=== PATIENT | female | born 1945 | race African-American/Black ===

== ENCOUNTER 2016-05-26 13:26 | Observation (INO) | payer OTHER ==
[2016-05-26 13:41] VITALS: BMI 26.6
--- NOTE | 2016-05-26 14:07 | PDOC ---
History of Present Illness <Philip Medrano - Last Filed: 05/26/16 16:00> - General History Source: Patient Exam Limitations: No Limitations - History of Present Illness Initial Comments: 05/26/16 14:30 The patient is a 71-year-old woman with a significant past medical history of anemia, hypertension, hypercholesterolemia, paroxysmal atrial flutter, hypothyrodism, asthma, pneumonia (2016) and chronic obstructive pulmonary disease who presents to the emergency department via EMS for further evaluation of chest pain for the past 2 days. Patient state she was in her usual state of health, participating in [employer] when she suddenly felt right sided chest pain. She states that he pain has been constant since onset and gradually worsened, as initially it was non-radiating but now her pain radiates to her right shoulder. She reports her pain is exacerbated when taking deep breaths. She took Milantin without relief. Patient denies ever experiencing these symptoms in the past. She also reports experiencing shortness of breath, particularly at night. She states that this is new and is not related to her history of COPD. She denies fever, chills, cough, hemoptysis, diaphoresis, headache. She denies jaw/ back pain lower extremity pain/swelling, calf tenderness/pain She denies recent travel, recent surgery, recent immobilization. She denies abdominal pain, nausea, vomiting, diarrhea. She denies urinary symptoms. Allergies: Aspirin Past Surgical History: Spleenectomy. Cholecystectomy. Appendectomy. Social History: No tobacco, ETOH and recreational drug use. Primary Care Physician: Dr. Judy Randall / Admin Secretary: Dr. Mo Rodriguez [phone] <Zaida Mckee - Last Filed: 05/26/16 16:09> - General Chief Complaint: Chest Pain Stated Complaint: CHEST PAIN Time Seen by Provider: 05/26/16 13:39 Past History - Past Medical History Anemia: Yes Asthma: Yes Cancer: No Cardiac Disorders: Yes (PAROXYSMAL ATRIAL FLUTTER) CVA: No COPD: No CHF: No Dementia: No Diabetes: Yes GI Disorders: No Disorders: No HTN: Yes Hypercholesterolemia: Yes Liver Disease: No Seizures: No Thyroid Disease: Yes (HYPO) - Surgical History Abdominal Surgery: Yes (spleen removed) Appendectomy: Yes Cardiac Surgery: No Cholecystectomy: Yes Neurologic Surgery: No - Immunization History Immunization Up to Date: Yes - Psycho/Social/Smoking Cessation Hx Anxiety: No Suicidal Ideation: No Smoking Status: No Smoking History: Never smoked Have you smoked in the past 12 months: No Number of Cigarettes Smoked Daily: 0 Cigars Per Day: 0 Information on smoking cessation initiated: No Hx Alcohol Use: No Drug/Substance Use Hx: No Substance Use Type: None Hx Substance Use Treatment: No <Philip Medrano - Last Filed: 05/26/16 16:00> <Zaida Mckee - Last Filed: 05/26/16 16:09> - Past Medical History Allergies/Adverse Reactions: Allergies Allergy/AdvReac Type Severity Reaction Status Date / Time aspirin Allergy Intermediate VOMITS Verified 02/09/16 21:01 BLOOD Home Medications: Ambulatory Orders Albuterol Sulfate [Proair Respiclick] 90 mcg IH TID 04/18/15 Amlodipine Besylate [Norvasc -] 5 mg PO DAILY 04/18/15 Apixaban [Eliquis] 5 mg PO BID 04/18/15 Glipizide [Glipizide Xl] 10 mg PO BID 04/18/15 Mag Hydrox/Al Hydrox/Simeth [Mylanta Oral Suspension -] 1 tsp PO BID 04/18/15 Metformin HCl 500 mg PO BID 04/18/15 Montelukast Na [Singulair -] 10 mg PO HS 04/18/15 Potassium Chloride 10 meq PO DAILY 04/18/15 Silver Sulfadiazine 1% Top Cr [Silvadene -] 1 applic TP DAILY 04/18/15 Sitagliptin Phosphate [Januvia] 100 mg PO DAILY 04/18/15 Ramipril [Altace] 5 mg PO DAILY #30 capsule 04/25/15 Albuterol 0.083% Nebulizer Fidelina [Ventolin 0.083% Nebulizer Soln -] 1 amp NEB Q4H PRN #0 amp 09/17/15 Atorvastatin Ca [Lipitor] 20 mg PO HS tablet 09/17/15 Levothyroxine [Synthroid -] 100 mcg PO DAILY@0700 tablet 09/17/15 Metoprolol Succinate [Toprol XL -] 50 mg PO DAILY@0600 #30 tab.sr.24h 06/06/16 Nitroglycerin Sublingual [Nitrostat -] 0.4 mg SL PRN PRN #30 tab 09/17/15 Budesonide/Formeterol Fumarate [SYMBICORT 160/4.5mcg -] 2 puff IH BID inhaler 02/13/16 Prednisone 10 mg PO DAILY 30 Days 02/13/16 Ranitidine HCl [Zantac] 150 mg PO BID #60 tablet 02/13/16 Review of Systems - Review of Systems Constitutional: No: Chills, Fever Respiratory: Yes: Shortness of Breath. No: Cough Cardiac (ROS): Yes: Chest Pain ABD/GI: No: Nausea, Vomiting All Other Systems: Reviewed and Negative <Philip Medrano - Last Filed: 05/26/16 16:00> *Physical Exam - Vital Signs Last Vital Signs Temp Pulse Resp BP Pulse Ox 97.6 F 70 17 130/95 97 05/26/16 13:37 05/26/16 13:37 05/26/16 13:37 05/26/16 13:37 05/26/16 13:37 <Philip Medrano - Last Filed: 05/26/16 16:00> - Vital Signs Last Vital Signs Temp Pulse Resp BP Pulse Ox 97.6 F 70 17 130/95 100 05/26/16 13:37 05/26/16 13:37 05/26/16 13:37 05/26/16 13:37 05/26/16 14:20 - Physical Exam Comments: 05/26/16 14:41 GENERAL: The patient is awake, alert, and fully oriented, in no acute distress. HEAD: Normal with no signs of trauma. EYES: Pupils equal, round and reactive to light, extraocular movements intact, sclera anicteric, conjunctiva clear with no pallor. ENT: Ears normal, nares patent, oropharynx clear without exudates. Moist mucous membranes. NECK: Normal range of motion, supple without lymphadenopathy, JVD, or masses. LUNGS: Coarse inspiratory breath sounds at both bases. No wheezing no accessory muscle use CHEST: Some reproducible discomfort along the right 7th-8th rib. No brusing, swelling or rash HEART: Regular rate with occasional premature beats. APCs and PVCs noted on monitor. ABDOMEN: Soft/nontender/nondistended. BS wnl. No guarding or rebound. No palpable masses. No hepatosplenomegaly. EXTREMITIES: Normal range of motion, no edema. No clubbing or cyanosis. No cords, erythema. There is some left calf discomfort to palpation. Right calf is nontender. NEUROLOGICAL: Cranial nerves II through XII grossly intact. Normal speech. PSYCH: Normal mood, normal affect. SKIN: Warm, Dry, normal turgor, no rashes or lesions noted. <Zaida Mckee - Last Filed: 05/26/16 16:09> Heart Score/ECG Review #1 ECG reviewed & interpreted by me at: 13:35 General ECG Interpretation: Sinus Rhythm, Normal Rate (71), Normal Intervals ( qtc 428), No acute ischemic changes (TWI I/AVL, V4-V6) Compared to previous ECG there are: No significant change (02/11/16) <Philip Medrano - Last Filed: 05/26/16 16:00> ED Treatment Course - LABORATORY CBC & Chemistry Diagram: 05/26/16 14:10 05/26/16 14:10 <Philip Medrano - Last Filed: 05/26/16 16:00> - LABORATORY CBC & Chemistry Diagram: 05/26/16 14:10 05/26/16 14:10 - RADIOLOGY Radiograph Interpretation: 05/26/16 15:47 EXAM: RAD/CHEST X-RAY PORTABLE IMPRESSION: Comparison study February 09, 2016. Unchanged contour of the cardiomediastinal silhouette. The lungs are well aerated. No evidence of pulmonary infiltrates, vascular congestion, pleural effusion, or pneumothorax. No evidence of bulky hilar adenopathy. The lung apices partially obscured by the soft tissues of the neck. EKG leads are noted. <Zaida Mckee - Last Filed: 05/26/16 16:09> Medical Decision Making - Medical Decision Making 05/26/16 16:03 A portion of this note was documented by scribe services under my direction. I have reviewed the details of the note, within reason, and agree with the documentation with the following case summary and management plan written by me. 71-year-old female with history of COPD and hypertension presents with right- sided chest pain for one day. Exam as noted, O2 sat 96% on room air, some reproducible discomfort along the right lower ribs anteriorly Presentation most concerning for cardiac equivalent, no evidence of GI process. No risk factors for PE, vital signs are within normal limits. Workup shows white count of 14, near baseline for patient. Chemistries are notable for troponin of 0.08, normal creatinine Chest x-ray normal Will check urinalysis Given aspirin, seen by Dr. Mo Rodriguez, her dryland farmer, who agrees with observation telemetry. Cannot take blood thinners 2/2 severe GI bleed in the past. Accepted for observation telemetry by Dr. Rodriguez <Philip Medrano - Last Filed: 05/26/16 16:00> - Medical Decision Making 05/26/16 16:08 Call was placed to Dr. Parisa Rodriguez. Case discussed. Accepts case. <Zaida Mckee - Last Filed: 05/26/16 16:09> *DC/Admit/Observation/Transfer - Discharge Dispostion Admit: Yes <Philip Medrano - Last Filed: 05/26/16 16:00> - Attestations Scribe Attestion: 05/26/16 14:41 Documentation prepared by Zaida Mckee, acting as medical aides teacher for Philip Medrano MD. <Zaida Mckee - Last Filed: 05/26/16 16:09> Diagnosis at time of Disposition: Right-sided chest pain - Referrals Referrals: Judy Taylor MD [Primary Care Provider] -
[2016-05-26 14:28] LABS: BASOPHIL 1.3 % (0-2.0); EOSINOPHIL 1.9 % (0-4.5); MCH 28.9 pg (25.7-33.7); MCHC 34.3 g/dl (32.0-36.0); MEAN CELL VOLUME 84.1 fl (80-96); MEAN PLT VOLUME 8.3 fl (7.5-11.1); NEUTROPHILS 44.1 % (42.8-82.8); PLATELET COUNT 321 K/MM3 (134-434); RDW 14.1 % (11.6-15.6)
[2016-05-26 14:46] LABS: ALBUMIN 3.6 g/dl (3.4-5.0); ANION GAP 9 (8-16); BILIRUBIN,TOTAL 0.9 mg/dL (0.2-1.0); CALCIUM 8.9 mg/dL (8.5-10.1); CO2 26 mmol/L (21-32); CREATININE 0.7 mg/dL (0.55-1.02); GLUCOSE,RANDOM 113 mg/dL (74-106); MAGNESIUM 2.1 mg/dL (1.8-2.4); SGPT/ALT 16 U/L (12-78)
[2016-05-26 14:49] LABS: ALK PHOS 86 U/L (45-117); TROPONIN I 0.08 ng/ml (0.00-0.05)
[2016-05-26 14:50] LABS: SGOT/AST 27 U/L (15-37)
[2016-05-26 16:01] LABS: INR 1.08 (0.82-1.09); PROTHROMBIN TIME (PATIENT) 11.9 SEC (9.98-11.88)
--- NOTE | 2016-05-26 16:12 | EKG ---
Test Reason : Blood Pressure : / mmHG Vent. Rate : 071 BPM Atrial Rate : 071 BPM P-R Int : 168 ms QRS Dur : 092 ms QT Int : 394 ms P-R-T Axes : 076 028 126 degrees QTc Int : 428 ms SINUS RHYTHM WITH PREMATURE ATRIAL COMPLEXES ABNORMAL ECG WHEN COMPARED WITH ECG OF 11-FEB-2016 00:23, PREMATURE VENTRICULAR COMPLEXES ARE NO LONGER PRESENT PREMATURE ATRIAL COMPLEXES ARE NOW PRESENT Confirmed by ELDON GREY, ELINA ([id number]) on 05/26/2016 4:12:46 PM Referred By: Confirmed By:ELINA COLÓN MD
--- NOTE | 2016-05-26 16:38 | CON.CARD ---
Consult Consult Specialty:: Cardiology Referred by:: ER Reason for Consultation:: Cardiac evaluation - History of Present Illness Chief Complaint: Chest pain - atypical right side History of Present Illness: Patient is a 71 year old female well known to me with underlying history of HTN, paroxysmal atrial fibrillation/flutter [id number] score of 4, hypercholesterolemia, COPD, GERD, diabetes mellitus, hypothyroidism and pneumonia. She presents with right sided reproducible chest pain. She complains of intermittent shortness of breath (appears unchanged). She denies palpitations. She denies fever or chills. Denies paroxysmal nocturnal dyspnea or orthopnea. Denies headache or lightheadedness. Cardiology consultation was called for further evaluation. Initial troponin was 0.08. - History Source History Provided By: Patient, Medical Record Limitations to Obtaining History: No Limitations - Past Medical History SAMPLE MAKER: Yes: Migraine Cardio/Vascular: Yes: AFIB (on Elliquis), HTN, Hyperlipdemia Pulmonary: Yes: COPD, Pneumonia Gastrointestinal: Yes: GERD Endocrine: Yes: Diabetes Mellitus - Past Surgical History Past Surgical History: Yes: Appendectomy, Tubal Ligation, Cholecystectomy, Splenectomy - Alcohol/Substance Use Hx Alcohol Use: No History of Substance Use: reports: None - Smoking History Smoking history: Never smoked Have you smoked in the past 12 months: No Aproximately how many cigarettes per day: 0 - Social History ADL: Independent 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 History of Recent Travel: No Home Medications - Allergies Allergies/Adverse Reactions: Allergies Allergy/AdvReac Type Severity Reaction Status Date / Time aspirin Allergy Intermediate VOMITS Verified 02/09/16 21:01 BLOOD - Home Medications Home Medications: Ambulatory Orders Albuterol Sulfate [Proair Respiclick] 90 mcg IH TID 04/18/15 Amlodipine Besylate [Norvasc -] 5 mg PO DAILY 04/18/15 Apixaban [Eliquis] 5 mg PO BID 04/18/15 Glipizide [Glipizide Xl] 10 mg PO BID 04/18/15 Mag Hydrox/Al Hydrox/Simeth [Mylanta Oral Suspension -] 1 tsp PO BID 04/18/15 Metformin HCl 500 mg PO BID 04/18/15 Montelukast Na [Singulair -] 10 mg PO HS 04/18/15 Potassium Chloride 10 meq PO DAILY 04/18/15 Silver Sulfadiazine 1% Top Cr [Silvadene -] 1 applic TP DAILY 04/18/15 Sitagliptin Phosphate [Januvia] 100 mg PO DAILY 04/18/15 Ramipril [Altace] 5 mg PO DAILY #30 capsule 04/25/15 Albuterol 0.083% Nebulizer Fidelina [Ventolin 0.083% Nebulizer Soln -] 1 amp NEB Q4H PRN #0 amp 09/17/15 Atorvastatin Ca [Lipitor] 20 mg PO HS tablet 09/17/15 Levothyroxine [Synthroid -] 100 mcg PO DAILY@0700 tablet 09/17/15 Metoprolol Succinate [Toprol XL -] 50 mg PO DAILY@0600 #30 tab.sr.24h 09/17/15 Nitroglycerin Sublingual [Nitrostat -] 0.4 mg SL PRN PRN #30 tab 09/17/15 Budesonide/Formeterol Fumarate [SYMBICORT 160/4.5mcg -] 2 puff IH BID inhaler 02/13/16 Prednisone 10 mg PO DAILY 30 Days 02/13/16 Ranitidine HCl [Zantac] 150 mg PO BID #60 tablet 02/13/16 Family Disease History - Family Disease History Family Disease History: Other: Father ( when pt. was 5 years old, unknown cause), Mother ( 95 dementia) Review of Systems - Review of Systems Constitutional: denies: Chills, Fever Cardiovascular: reports: Chest Pain, Shortness of Breath. denies: Palpitations Respiratory: denies: Cough, Hemoptysis, Orthopnea, PND Gastrointestinal: denies: Abdominal Pain, Constipation, Diarrhea, Melena, Nausea , Rectal Bleeding, Vomiting Genitourinary: denies: Dysuria Neurological: denies: Dizziness, Headache, Seizure, Syncope Vital Signs: Vital Signs Temperature 97.6 F 05/26/16 13:37 Pulse Rate 70 05/26/16 13:37 Respiratory Rate 17 05/26/16 13:37 Blood Pressure 130/95 05/26/16 13:37 O2 Sat by Pulse Oximetry (%) 100 05/26/16 14:20 Neck: Yes: Supple Respiratory: Yes: CTA Bilaterally Gastrointestinal: Yes: Normal Bowel Sounds, Soft. No: Tenderness Cardiovascular: Yes: Regular Rate and Rhythm JVD: No Carotid Bruit: No PMI: Non-Displaced Heart Sounds: Yes: S1, S2 Murmur: Yes: Systolic Murmur, Grade 1 Edema: No - Other Data Labs, Other Data: CBC, BMP 05/26/16 14:10 05/26/16 14:10 INR, PTT INR 1.08 (0.82-1.09) 05/26/16 15:30 Troponin, BNP 05/26/16 14:10 Troponin I 0.08 H Laboratory Results - last 24 hr 05/26/16 05/26/16 05/26/16 14:10 14:10 15:30 WBC 14.0 H RBC 4.40 Hgb 12.7 Hct 37.0 MCV 84.1 MCHC 34.3 RDW 14.1 Plt Count 321 D MPV 8.3 Neutrophils % 44.1 D Lymphocytes % 44.2 H D Monocytes % 8.5 D Eosinophils % 1.9 D Basophils % 1.3 INR 1.08 Sodium 141 Potassium 4.2 Chloride 106 Carbon Dioxide 26 Anion Gap 9 BUN 15 D Creatinine 0.7 Creat Clearance w eGFR > 60 Random Glucose 113 H D Calcium 8.9 Magnesium 2.1 Total Bilirubin 0.9 D AST 27 D ALT 16 Alkaline Phosphatase 86 Creatine Kinase 432 H D CK-MB (CK-2) 1.694 Troponin I 0.08 H Total Protein 7.0 Albumin 3.6 Sinus rhythm with T wave abnormality, unchanged from previous ECG Problem List - Problems (1) Right-sided chest pain Code(s): R07.9 - CHEST PAIN, UNSPECIFIED (2) Atypical chest pain Code(s): R07.89 - OTHER CHEST PAIN (3) COPD (chronic obstructive pulmonary disease) with acute bronchitis Code(s): J44.0 - CHRONIC OBSTRUCTIVE PULMON DISEASE W ACUTE LOWER RESP INFCT (4) HTN (hypertension) Code(s): I10 - ESSENTIAL (PRIMARY) HYPERTENSION Qualifiers: Hypertension type: essential hypertension Qualified Code(s): I10 - Essential (primary) hypertension (5) Hyperlipidemia Code(s): E78.5 - HYPERLIPIDEMIA, UNSPECIFIED Qualifiers: Hyperlipidemia type: pure hypercholesterolemia Qualified Code(s): E78.0 - Pure hypercholesterolemia (6) Hypothyroidism Code(s): E03.9 - HYPOTHYROIDISM, UNSPECIFIED Qualifiers: Hypothyroidism type: unspecified Qualified Code(s): E03.9 - Hypothyroidism, unspecified (7) Paroxysmal atrial fibrillation Code(s): I48.0 - PAROXYSMAL ATRIAL FIBRILLATION (8) Type 2 diabetes mellitus Code(s): E11.9 - TYPE 2 DIABETES MELLITUS WITHOUT COMPLICATIONS Qualifiers: Diabetes mellitus complication status: without complication Diabetes mellitus termination clerk insulin use: with long-term use Qualified Code(s): E11.9 - Type 2 diabetes mellitus without complications Assessment/Plan 1. Atypical chest pain - reproducible likely musculoskeletal - slight elevation of troponin does no appear to be due to ACS or ischemia 2. COPD 3. PAF/flutter on Eliquis [id number] score of 4 4. HTN 5. NIDDM 6. Hypercholesterolemia 7. Hypothyroidism PLAN: 1. Trend cardiac enzymes overnight on observation 2. Continue Eliquis 3. Continue Toprol XL, Ramipril and Norvasc 4. Continue Lipitor 5. Continue bronchodilators and current pulmonary treatment Further plans are to follow Mo Rodriguez MD
[2016-05-26] MEDS ORDERED: ALBUTEROL SO4 0.083% IH SOL 2.5 MG/3 ML VIAL.NEB. NEB PRN (16:44)
[2016-05-26] MEDS ORDERED: NITROGLYCERIN SUBLINGUAL 1/150 0.4 MG TAB SL PRN (16:44)
[2016-05-26] MEDS ORDERED: ACETAMINOPHEN 325 MG TABLET (FP) PO PRN (16:47)
[2016-05-26] MEDS ORDERED: ASPIRIN 81 MG CHEWABLE TABLETS PO ONE (16:51)
--- NOTE | 2016-05-26 16:51 | HP ---
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: Yes: Migraine Cardiovascular: Yes: AFIB (on Elliquis), HTN, Hyperlipdemia Pulmonary: Yes: COPD, Pneumonia Gastrointestinal: Yes: GERD Endocrine: Yes: Diabetes Mellitus - Past Surgical History Past Surgical History: Yes: Appendectomy, Tubal Ligation, Cholecystectomy, Splenectomy - Smoking History Smoking history: Never smoked Have you smoked in the past 12 months: No Aproximately how many cigarettes per day: 0 - Alcohol/Substance Use Hx Alcohol Use: No History of Substance Use: reports: None - Social History ADL: Independent 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 History of Recent Travel: No Home Medications - Allergies Allergies/Adverse Reactions: Allergies Allergy/AdvReac Type Severity Reaction Status Date / Time aspirin Allergy Intermediate VOMITS Verified 02/09/16 21:01 BLOOD - Home Medications Home Medications: Ambulatory Orders Albuterol Sulfate [Proair Respiclick] 90 mcg IH TID PRN 04/18/15 Amlodipine Besylate [Norvasc -] 5 mg PO DAILY 04/18/15 Apixaban [Eliquis] 5 mg PO BID 04/18/15 Glipizide [Glipizide Xl] 10 mg PO BID 04/18/15 Mag Hydrox/Al Hydrox/Simeth [Mylanta Oral Suspension -] 1 tsp PO BID 04/18/15 Metformin HCl 500 mg PO BID 04/18/15 Montelukast Na [Singulair -] 10 mg PO HS 04/18/15 Potassium Chloride 10 meq PO DAILY 04/18/15 Silver Sulfadiazine 1% Top Cr [Silvadene -] 1 applic TP DAILY 04/18/15 Sitagliptin Phosphate [Januvia] 100 mg PO DAILY 04/18/15 Ramipril [Altace] 5 mg PO DAILY #30 capsule 04/25/15 Albuterol 0.083% Nebulizer Fidelina [Ventolin 0.083% Nebulizer Soln -] 1 amp NEB Q4H PRN #0 amp 09/17/15 Atorvastatin Ca [Lipitor] 20 mg PO HS tablet 09/17/15 Levothyroxine [Synthroid -] 100 mcg PO DAILY@0700 tablet 09/17/15 Metoprolol Succinate [Toprol XL -] 50 mg PO DAILY@0600 #30 tab.sr.24h 09/17/15 Nitroglycerin Sublingual [Nitrostat -] 0.4 mg SL PRN PRN #30 tab 09/17/15 Budesonide/Formeterol Fumarate [SYMBICORT 160/4.5mcg -] 2 puff IH BID inhaler 02/13/16 Prednisone 10 mg PO DAILY 30 Days 02/13/16 Ranitidine HCl [Zantac] 150 mg PO BID #60 tablet 02/13/16 Family Disease History - Family Disease History Family Disease History: Other: Father ( when pt. was 5 years old, unknown cause), Mother ( 95 dementia) Physical Examination Vital Signs: Vital Signs Temperature 97.6 F 05/26/16 13:37 Pulse Rate 70 05/26/16 13:37 Respiratory Rate 17 05/26/16 13:37 Blood Pressure 130/95 05/26/16 13:37 O2 Sat by Pulse Oximetry (%) 100 05/26/16 14:20 Labs: CBC, BMP 05/26/16 14:10 05/26/16 14:10 Problem List - Problems (1) Right-sided chest pain Code(s): R07.9 - CHEST PAIN, UNSPECIFIED (2) HTN (hypertension) Code(s): I10 - ESSENTIAL (PRIMARY) HYPERTENSION Qualifiers: Hypertension type: essential hypertension Qualified Code(s): I10 - Essential (primary) hypertension (3) Hypothyroidism Code(s): E03.9 - HYPOTHYROIDISM, UNSPECIFIED Qualifiers: Hypothyroidism type: unspecified Qualified Code(s): E03.9 - Hypothyroidism, unspecified (4) Paroxysmal atrial fibrillation Code(s): I48.0 - PAROXYSMAL ATRIAL FIBRILLATION (5) Shortness of breath Code(s): R06.02 - SHORTNESS OF BREATH
[2016-05-26] MEDS ORDERED: PT OWN MED DRAWER 7, Y5N ONE (21:48)
[2016-05-26] MEDS: APIXABAN 5 MG TABLET PO SCH (21:49)
[2016-05-26] MEDS: RANITIDINE HCL 150 MG TABLET (FP) PO SCH (21:49)
[2016-05-26] MEDS ORDERED: MONTELUKAST NA 10 MG TABLET PO SCH (22:00)
[2016-05-26] MEDS ORDERED: MAG HYDROX/AL HYDROX/SIMETH 30 ML UNIT-DOSE CUP PO SCH (22:00)
[2016-05-26] MEDS ORDERED: ATORVASTATIN CA 20 MG TABLET (FP) PO SCH (22:00)
[2016-05-26] MEDS: BUDESONIDE/FORMETEROL FUMARATE 160/4.5 mcg INHALER IH SCH (22:36)
[2016-05-26] MEDS: MAG HYDROX/AL HYDROX/SIMETH 30 ML UNIT-DOSE CUP PO SCH (22:38)
[2016-05-26 22:56] LABS: TROPONIN I 0.08 ng/ml (0.00-0.05)
[2016-05-27] MEDS ORDERED: METOPROLOL SUCCINATE 100 MG TAB.SR.24H (FP) PO SCH (06:00)
[2016-05-27] MEDS ORDERED: METOPROLOL SUCCINATE 50 MG TAB.SR.24H (FP) PO SCH (06:00)
[2016-05-27] MEDS ORDERED: sitaGLIPtin PHOSPHATE 100 MG TABLET (FP) PO SCH (07:00)
[2016-05-27] MEDS ORDERED: INSULIN SLIDING SCALE (NOVOLOG) 1 VIAL SQ SCH (07:00)
[2016-05-27] MEDS ORDERED: LEVOTHYROXINE NA 100 MCG TABLET (FP) PO SCH (07:00)
[2016-05-27] MEDS ORDERED: glipiZIDE-XL 10 MG TAB.ER.24 (FP) PO SCH (07:00)
[2016-05-27] MEDS ORDERED: metFORMIN HCL 500 MG TABLET (FP) PO SCH (07:00)
[2016-05-27 08:23] LABS: BASOPHIL 1.1 % (0-2.0); EOSINOPHIL 2.2 % (0-4.5); MCH 29.5 pg (25.7-33.7); MCHC 35.2 g/dl (32.0-36.0); MEAN CELL VOLUME 83.8 fl (80-96); MEAN PLT VOLUME 8.8 fl (7.5-11.1); NEUTROPHILS 37.7 % (42.8-82.8); PLATELET COUNT 350 K/MM3 (134-434); RDW 14.1 % (11.6-15.6); WHITE BLOOD COUNT 10.7 K/mm3 (4.0-10.0)
[2016-05-27 08:40] LABS: ALBUMIN 3.8 g/dl (3.4-5.0); ANION GAP 10 (8-16); BILIRUBIN,TOTAL 1.3 mg/dL (0.2-1.0); CALCIUM 9.6 mg/dL (8.5-10.1); CO2 28 mmol/L (21-32); CREATININE 0.7 mg/dL (0.55-1.02); GLUCOSE,RANDOM 128 mg/dL (74-106); MAGNESIUM 2.2 mg/dL (1.8-2.4); SGOT/AST 15 U/L (15-37); SGPT/ALT 16 U/L (12-78)
[2016-05-27 08:42] LABS: ALK PHOS 98 U/L (45-117); TOT PROT 7.2 g/dl (6.4-8.2)
--- NOTE | 2016-05-27 08:46 | HP ---
DATE OF ADMISSION: 05/26/2016 HISTORY OF PRESENT ILLNESS: This patient is a 71-year-old female with extensive past medical history of COPD, hypertension, hyperlipidemia, paroxysmal atrial fibrillation, anemia, hypothyroidism, as well as history of splenectomy, cholecystectomy, and , who is being admitted to telemetry for observation when she presented to the emergency room with chief complaint of having chest pain, for last 2 days off and on. Patient reports pain is mainly in the right side, goes to the right shoulder. Patient also reports that pain gets worse with deep breathing. Patient also took Mylanta without any relief. In the emergency room, patients EKG was okay cardiac enzymes, first set was not elevated, and chest x-ray was unremarkable. Patient is being admitted on telemetry for observation. ALLERGIES: Patient has allergy to ASPIRIN. MEDICATIONS: Patients home medications reviewed, as documented in the emergency room, which include amlodipine 5 mg daily, Eliquis 5 mg b.i.d., GlipiZIDE XL 10 mg b.i.d., metformin 500 mg b.i.d., Singulair 10 mg daily, potassium supplement, Januvia 100 mg daily, Altace 5 mg daily, Lipitor 20 mg daily, Synthroid 100 mcg daily, Toprol XL 50 mg daily, nitroglycerin p.r.n., prednisone 10 mg daily, Symbicort inhaler 2 puffs b.i.d., and Zantac 150 mg b.i.d. FAMILY HISTORY: Noncontributory. REVIEW OF SYSTEMS: Positive for chest pain and shortness of breath. There is no history of fever or chills. There is no history of abdominal pain. There is no history of headache or dizziness. Thee is no history of urinary or bowel trouble. PHYSICAL EXAMINATION: General: Patient seen by me in the emergency room, comfortable, not in distress. Neck: Supple. Lungs: Clear to auscultation. Heart: Heart sounds are regular. Abdomen: Soft, nontender. Extremities: No edema. Neurological: Nonfocal. LABORATORY WORK: Blood work done in the emergency room. CBC essentially within normal limits except white cells 14,000. It should be noted that patient is on prednisone. INR is 1.08. Chemistries essentially unremarkable. Troponin is slightly elevated 2.08. EKG was unremarkable. Chest x-ray was also unremarkable. ASSESSMENT AND PLAN: Patient with extensive past medical history as documented before is being admitted and kept under observation to the telemetry to rule out WI. Will do serial cardiac enzymes, continue current medications. Patient seen by interpreter and consultation also appreciated. Further recommendations will be guided by clinical course. KATE MONTAGUE M.D. [id number]
[2016-05-27] MEDS ORDERED: PT OWN MED DRAWER 7, Y5N ONE (08:59)
[2016-05-27] MEDS: RANITIDINE HCL 150 MG TABLET (FP) PO SCH (09:02)
[2016-05-27] MEDS: MAG HYDROX/AL HYDROX/SIMETH 30 ML UNIT-DOSE CUP PO SCH (09:02)
[2016-05-27] MEDS: BUDESONIDE/FORMETEROL FUMARATE 160/4.5 mcg INHALER IH SCH (09:03)
[2016-05-27] MEDS: APIXABAN 5 MG TABLET PO SCH (09:03)
--- NOTE | 2016-05-27 09:38 | PN ---
[id number] Medication List Current Medications: Active Medications Acetaminophen (Tylenol -) 650 mg PO Q4H PRN PRN Reason: FEVER OR PAIN Last Admin: 05/26/16 23:46 Dose: 650 mg Al Hydroxide/Mg Hydroxide (Mylanta Oral Suspension -) 30 ml PO BID [facility] Last Admin: 05/27/16 09:02 Dose: 30 ml Albuterol Sulfate (Ventolin 0.083% Nebulizer Soln -) 1 amp NEB Q4H PRN PRN Reason: SHORT OF BREATH/WHEEZING Amlodipine Besylate (Norvasc -) 5 mg PO DAILY [facility] Last Admin: 05/27/16 09:02 Dose: 5 mg Apixaban (Eliquis -) 5 mg PO BID [facility] Last Admin: 05/27/16 09:03 Dose: 5 mg Atorvastatin Calcium (Lipitor -) 20 mg PO [facility] Last Admin: 05/26/16 21:49 Dose: 20 mg Budesonide/Formoterol Fumarate (Symbicort 160/4.5mcg -) 2 puff IH BID [facility] Last Admin: 05/27/16 09:03 Dose: 2 inh Glipizide (Glucotrol Xl -) 10 mg PO BIDI [facility] Last Admin: 05/27/16 09:03 Dose: 10 mg Insulin Aspart (Novolog Vial Sliding Scale -) 1 vial SQ BIDAC [facility] PRN Reason: Protocol Last Admin: 05/27/16 06:22 Dose: Not Given Levothyroxine Sodium (Synthroid -) 100 mcg PO DAILY@0700 [facility] Last Admin: 05/27/16 06:22 Dose: 100 mcg Metformin HCl (Glucophage -) 500 mg PO BIDI [facility] Last Admin: 05/27/16 06:22 Dose: 500 mg Metoprolol Succinate (Toprol Xl -) 50 mg PO DAILY@0600 [facility] Last Admin: 05/27/16 06:22 Dose: 50 mg Montelukast Sodium (Singulair -) 10 mg PO HS [facility] Last Admin: 05/26/16 21:49 Dose: 10 mg Nitroglycerin (Nitrostat -) 0.4 mg SL PRN PRN PRN Reason: FOR CHEST PAIN Potassium Chloride (K-Dur -) 10 meq PO DAILY [facility] Last Admin: 05/27/16 09:03 Dose: 10 meq Prednisone (Deltasone -) 10 mg PO DAILY [facility] Last Admin: 05/27/16 09:02 Dose: 10 mg Ramipril (Altace -) 5 mg PO DAILY [facility] Last Admin: 05/27/16 09:03 Dose: 5 mg Ranitidine HCl (Zantac -) 150 mg PO BID [facility] Last Admin: 05/27/16 09:02 Dose: 150 mg Silver Sulfadiazine (Silvadene -) 1 applic TP DAILY [facility] Sitagliptin Phosphate (Januvia -) 100 mg PO ACBK [facility] Last Admin: 05/27/16 06:21 Dose: 100 mg - Objective Vital Signs: Vital Signs Temperature 98.1 F 05/27/16 02:58 Pulse Rate 83 05/27/16 06:00 Respiratory Rate 20 05/27/16 06:00 Blood Pressure 133/82 05/27/16 06:00 O2 Sat by Pulse Oximetry (%) 96 05/26/16 21:00 Constitutional: Yes: No Distress, Calm Cardiovascular: Yes: Pulse Irregular Respiratory: Yes: CTA Bilaterally Gastrointestinal: Yes: Normal Bowel Sounds, Soft. No: Distention, Tenderness Edema: No Labs: CBC, BMP 05/27/16 05:45 05/27/16 05:45 INR, PTT INR 1.08 (0.82-1.09) 05/26/16 15:30 Problem List - Problems (1) Right-sided chest pain Code(s): R07.9 - CHEST PAIN, UNSPECIFIED (2) Afib Code(s): I48.91 - UNSPECIFIED ATRIAL FIBRILLATION Qualifiers: Atrial fibrillation type: paroxysmal Qualified Code(s): I48.0 - Paroxysmal atrial fibrillation (3) Anxiety Code(s): F41.9 - ANXIETY DISORDER, UNSPECIFIED (4) Atypical chest pain Code(s): R07.89 - OTHER CHEST PAIN Assessment/Plan PLAN -- cardiac enzymes negative -- ACS ruled out -- Spoke with Director Market Research -- pt cleared to be discharged home -- advised to follow up in the office
[2016-05-27] MEDS ORDERED: amLODIPine BESYLATE 5 MG TABLET (FP) PO SCH (10:00)
[2016-05-27] MEDS ORDERED: SILVER SULFADIAZINE 1% TOP CREAM 400 GM JAR TP SCH (10:00)
[2016-05-27] MEDS ORDERED: PATIENT'S OWN MEDICATION (NON-FORMULARY) (Potassium Chloride [Potassium Chloride] 10 MEQ) PO SCH (10:00)
[2016-05-27] MEDS ORDERED: predniSONE 10 MG TABLET (UD) PO SCH (10:00)
[2016-05-27] MEDS ORDERED: POTASSIUM CHLORIDE TABS 10 MEQ TABLET.ER (FP) PO SCH (10:00)
[2016-05-27] MEDS ORDERED: RAMIPRIL 5 MG CAPSULE (FP) PO SCH (10:00)
[2016-05-27 10:10] VITALS: BP 124/84; PULSE 74; TEMP 98
--- NOTE | 2016-05-27 10:54 | PN ---
Progress Note (short form) - Note Progress Note: Chief Complaint: Events noted, notes reviewed denies any further chest pain, denies any dyspnea History of Present Illness: Seen and examined on telemetry. Events noted, notes reviewed denies any further chest pain, denies any dyspnea Troponin I elevation is non specific, and there is clinical indications for ACS Medications: Acetaminophen (Tylenol -) 650 mg PO Q4H PRN PRN Reason: FEVER OR PAIN Last Admin: 05/26/16 23:46 Dose: 650 mg Al Hydroxide/Mg Hydroxide (Mylanta Oral Suspension -) 30 ml PO BID [facility] Last Admin: 05/27/16 09:02 Dose: 30 ml Albuterol Sulfate (Ventolin 0.083% Nebulizer Soln -) 1 amp NEB Q4H PRN PRN Reason: SHORT OF BREATH/WHEEZING Amlodipine Besylate (Norvasc -) 5 mg PO DAILY [facility] Last Admin: 05/27/16 09:02 Dose: 5 mg Apixaban (Eliquis -) 5 mg PO BID [facility] Last Admin: 05/27/16 09:03 Dose: 5 mg Atorvastatin Calcium (Lipitor -) 20 mg PO [facility] Last Admin: 05/26/16 21:49 Dose: 20 mg Budesonide/Formoterol Fumarate (Symbicort 160/4.5mcg -) 2 puff IH BID [facility] Last Admin: 05/27/16 09:03 Dose: 2 inh Glipizide (Glucotrol Xl -) 10 mg PO BIDI [facility] Last Admin: 05/27/16 09:03 Dose: 10 mg Insulin Aspart (Novolog Vial Sliding Scale -) 1 vial SQ BIDAC [facility]PL[facility] PRN Reason: Protocol Last Admin: 05/27/16 06:22 Dose: Not Given Levothyroxine Sodium (Synthroid -) 100 mcg PO DAILY@0700 [facility] Last Admin: 05/27/16 06:22 Dose: 100 mcg Metformin HCl (Glucophage -) 500 mg PO BIDI [facility] Last Admin: 05/27/16 06:22 Dose: 500 mg Metoprolol Succinate (Toprol Xl -) 50 mg PO DAILY@0600 [facility] Last Admin: 05/27/16 06:22 Dose: 50 mg Montelukast Sodium (Singulair -) 10 mg PO [facility] Last Admin: 05/26/16 21:49 Dose: 10 mg Nitroglycerin (Nitrostat -) 0.4 mg SL PRN PRN PRN Reason: FOR CHEST PAIN Potassium Chloride (K-Dur -) 10 meq PO DAILY [facility] Last Admin: 05/27/16 09:03 Dose: 10 meq Prednisone (Deltasone -) 10 mg PO DAILY [facility] Last Admin: 05/27/16 09:02 Dose: 10 mg Ramipril (Altace -) 5 mg PO DAILY [facility] Last Admin: 05/27/16 09:03 Dose: 5 mg Ranitidine HCl (Zantac -) 150 mg PO BID [facility] Last Admin: 05/27/16 09:02 Dose: 150 mg Silver Sulfadiazine (Silvadene -) 1 applic TP DAILY [facility] Sitagliptin Phosphate (Januvia -) 100 mg PO ACBK REPLACED [facility] Last Admin: 05/27/16 06:21 Dose: 100 mg Review of Systems - Review of Systems Constitutional: denies: Chills, Fever Cardiovascular: reports: Chest Pain, Shortness of Breath. denies: Palpitations Respiratory: denies: Cough, Hemoptysis, Orthopnea, PND Gastrointestinal: denies: Abdominal Pain, Constipation, Diarrhea, Melena, Nausea , Rectal Bleeding, Vomiting Genitourinary: denies: Dysuria Neurological: denies: Dizziness, Headache, Seizure, Syncope Vital Signs: Last Vital Signs Temp Pulse Resp BP Pulse Ox 98 F 74 14 124/84 96 05/27/16 10:00 05/27/16 10:00 05/27/16 10:00 05/27/16 10:00 05/26/16 21:00 Neck: Supple Negative JVD Respiratory: Clear to A&P Bilaterally Cardiovascular: S1 S2 Regular Rate and Rhythm Occasional Ectopics Gastrointestinal: Soft Benign Normal Bowel Sounds Ext: No Edema Labs: CBC, BMP 05/27/16 05:45 05/27/16 05:45 Assessment/Plan ASSESSMENT: 1. Chest pain syndrome atypical for CAD angina pectoris, reproducible likely musculo-skeletal 2. Troponin I elevation, non specific with no clinical evidence of ACS 3. History of paroxysmal atrial fibrillation/flutter on Eliquis therapy [id number] score of 4 4. HTN 5. NIDDM 6. Hypercholesterolemia 7. Hypothyroidism 8. COPD PLAN: 1. Continue Eliquis at the current dose 2. Continue Toprol XL 3. Continue Ramipril 4. Continue Norvasc 5. Continue Lipitor 6. 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 Mo Webber MD
--- NOTE | 2016-05-28 11:53 | DS ---
Physical Examination Vital Signs: Vital Signs Temperature 98 F 05/27/16 10:00 Pulse Rate 74 05/27/16 10:00 Respiratory Rate 14 05/27/16 10:00 Blood Pressure 124/84 05/27/16 10:00 O2 Sat by Pulse Oximetry (%) 95 05/27/16 10:00 Labs: CBC, BMP 05/27/16 05:45 05/27/16 05:45 Discharge Summary Reason For Visit: CHEST PAIN Current Active Problems Right-sided chest pain (Acute) Hospital Course: see progress note - Instructions Referrals: Judy Taylor MD [Primary Care Provider] - Disposition: HOME - Home Medications Comprehensive Discharge Medication List: Ambulatory Orders Albuterol Sulfate [Proair Respiclick] 90 mcg IH TID PRN 04/18/15 Amlodipine Besylate [Norvasc -] 5 mg PO DAILY 04/18/15 Apixaban [Eliquis] 5 mg PO BID 04/18/15 Glipizide [Glipizide Xl] 10 mg PO BID 04/18/15 Mag Hydrox/Al Hydrox/Simeth [Mylanta Oral Suspension -] 1 tsp PO BID 04/18/15 Metformin HCl 500 mg PO BID 04/18/15 Montelukast Na [Singulair -] 10 mg PO HS 04/18/15 Potassium Chloride 10 meq PO DAILY 04/18/15 Silver Sulfadiazine 1% Top Cr [Silvadene -] 1 applic TP DAILY 04/18/15 Sitagliptin Phosphate [Januvia] 100 mg PO DAILY 04/18/15 Ramipril [Altace] 5 mg PO DAILY #30 capsule 04/25/15 Albuterol 0.083% Nebulizer Fidelina [Ventolin 0.083% Nebulizer Soln -] 1 amp NEB Q4H PRN #0 amp 09/17/15 Atorvastatin Ca [Lipitor] 20 mg PO HS tablet 09/17/15 Metoprolol Succinate [Toprol XL -] 50 mg PO DAILY@0600 #30 tab.sr.24h 09/17/15 Nitroglycerin Sublingual [Nitrostat -] 0.4 mg SL PRN PRN #30 tab 09/17/15 Budesonide/Formeterol Fumarate [SYMBICORT 160/4.5mcg -] 2 puff IH BID inhaler 02/13/16 Prednisone 10 mg PO DAILY 30 Days 02/13/16 Ranitidine HCl [Zantac] 150 mg PO BID #60 tablet 02/13/16 Levothyroxine [Synthroid -] 100 mcg PO DAILY@0700 60 Days 05/27/16
== END 2016-05-27 10:46 | disposition home or self-care (01) ==
LOC: JER 13:26 → JERBED 16:41 → J4W 18:10
PROVIDERS: ADMIT Internal Medicine; ATTEND Internal Medicine
DX: R07.89 Other chest pain (principal); R79.89 Other specified abnormal findings of blood chemistry; I10 Essential (primary) hypertension; E11.9 Type 2 diabetes mellitus without complications; E78.00 Pure hypercholesterolemia, unspecified; E03.9 Hypothyroidism, unspecified; J44.9 Chronic obstructive pulmonary disease, unspecified; J45.909 Unspecified asthma, uncomplicated; I48.0 Paroxysmal atrial fibrillation; I48.92 Unspecified atrial flutter; Z79.01 Long term (current) use of anticoagulants; I49.3 Ventricular premature depolarization; I49.1 Atrial premature depolarization; K21.9 Gastro-esophageal reflux disease without esophagitis; Z79.4 Long term (current) use of insulin; R41.9 Unspecified symptoms and signs involving cognitive functions and awareness
CPT/HCPCS: 36415; 71010-TC; 80053; 82550; 82553; 83735; 84484; 85025; 85610; 93005; 93010; 99283-25; G0378

== ENCOUNTER 2016-08-05 13:39 | Emergency (ER) | payer OTHER ==
[2016-08-05 14:14] VITALS: TEMP 99.3; BMI 26.9
--- NOTE | 2016-08-05 14:41 | PDOC ---
History of Present Illness - General Chief Complaint: Nausea/Vomiting Stated Complaint: NAUSEA, VOMITING Time Seen by Provider: 08/05/16 13:44 - History of Present Illness Initial Comments: 71 yo AA F with h/o anemia, hypertension, hypercholesterolemia, paroxysmal atrial flutter, hypothyrodism, asthma, and COPD presented to the ED with worsening leg pain, cough and nausea x 2 days. Patient stated that she has these symptoms chronically but it's getting worse, with fever of 102F. The leg pain is located in her knee caps, non-radiating, 6/10, worse with bending. She coughs up white sputum and feels nauseated but never vomited. She has other multiple complaints such as chest pain, headache, poor appetite but they are chronic and she's seeing her PMD. Denies active chest pain or shortness of breath, urinary or bowel symptom, recent travel, sick contact. Past History - Past Medical History Allergies/Adverse Reactions: Allergies Allergy/AdvReac Type Severity Reaction Status Date / Time aspirin Allergy Intermediate VOMITS Verified 02/09/16 21:01 BLOOD Home Medications: Ambulatory Orders Albuterol Sulfate [Proair Respiclick] 90 mcg IH TID PRN 04/18/15 Amlodipine Besylate [Norvasc -] 5 mg PO DAILY 04/18/15 Apixaban [Eliquis] 5 mg PO BID 04/18/15 Glipizide [Glipizide Xl] 10 mg PO BID 04/18/15 Mag Hydrox/Al Hydrox/Simeth [Mylanta Oral Suspension -] 1 tsp PO BID 04/18/15 Metformin HCl 500 mg PO BID 04/18/15 Montelukast Na [Singulair -] 10 mg PO HS 04/18/15 Potassium Chloride 10 meq PO DAILY 04/18/15 Silver Sulfadiazine 1% Top Cr [Silvadene -] 1 applic TP DAILY 04/18/15 Sitagliptin Phosphate [Januvia] 100 mg PO DAILY 04/18/15 Ramipril [Altace] 5 mg PO DAILY #30 capsule 04/25/15 Albuterol 0.083% Nebulizer Fidelina [Ventolin 0.083% Nebulizer Soln -] 1 amp NEB Q4H PRN #0 amp 09/17/15 Atorvastatin Ca [Lipitor] 20 mg PO HS tablet 09/17/15 Metoprolol Succinate [Toprol XL -] 50 mg PO DAILY@0600 #30 tab.sr.24h 09/17/15 Nitroglycerin Sublingual [Nitrostat -] 0.4 mg SL PRN PRN #30 tab 09/17/15 Budesonide/Formeterol Fumarate [SYMBICORT 160/4.5mcg -] 2 puff IH BID inhaler 02/13/16 Prednisone 10 mg PO DAILY 30 Days 02/13/16 Ranitidine HCl [Zantac] 150 mg PO BID #60 tablet 02/13/16 Levothyroxine [Synthroid -] 100 mcg PO DAILY@0700 60 Days 05/27/16 Anemia: Yes Asthma: Yes Cancer: No Cardiac Disorders: Yes (PAROXYSMAL ATRIAL FLUTTER) CVA: No COPD: No CHF: No Dementia: No Diabetes: Yes GI Disorders: No Disorders: No HTN: Yes Hypercholesterolemia: Yes Liver Disease: No Seizures: No Thyroid Disease: Yes (HYPO) - Surgical History Abdominal Surgery: Yes (spleen removed) Appendectomy: Yes Cardiac Surgery: No Cholecystectomy: Yes Neurologic Surgery: No - Immunization History Immunization Up to Date: Yes - Psycho/Social/Smoking Cessation Hx Anxiety: No Suicidal Ideation: No Smoking Status: No Smoking History: Never smoked Have you smoked in the past 12 months: No Number of Cigarettes Smoked Daily: 0 Cigars Per Day: 0 Information on smoking cessation initiated: No Hx Alcohol Use: No Drug/Substance Use Hx: No Substance Use Type: None Hx Substance Use Treatment: No Review of Systems - Review of Systems Able to Perform ROS?: Yes Is the patient limited Icelandic proficient: No Constitutional: Yes: Fever, Loss of Appetite Respiratory: Yes: Cough, Shortness of Breath Cardiac (ROS): No: Chest Pain ABD/GI: Yes: Nausea, Poor Appetite, Abdominal cramping : No: Dysuria *Physical Exam - Vital Signs Last Vital Signs Temp Pulse Resp BP Pulse Ox 99.3 F 119 H 20 160/97 100 08/05/16 14:01 08/05/16 14:01 08/05/16 14:01 08/05/16 14:01 08/05/16 14:01 - Physical Exam General Appearance: Yes: Mild Distress Respiratory/Chest: positive: Lungs Clear, Normal Breath Sounds Cardiovascular: positive: Regular Rhythm, S1, S2, Tachycardia. negative: Murmur Gastrointestinal/Abdominal: positive: Normal Bowel Sounds, Soft, Tenderness ( RLQ and LUQ). negative: Distended, Guarding, Rebound Extremity: positive: Swelling. negative: Calf Tenderness, Erythema Neurologic: positive: Fully Oriented, Alert ED Treatment Course - LABORATORY CBC & Chemistry Diagram: 08/05/16 16:54 08/05/16 15:01 Medical Decision Making - Medical Decision Making 08/05/16 15:14 Will obtain full set of lab works for fever and CXR *DC/Admit/Observation/Transfer Diagnosis at time of Disposition: Nausea alone Fever Qualifiers: Fever type: unspecified Qualified Code(s): R50.9 - Fever, unspecified Pain of lower extremity Qualifiers: Laterality: unspecified laterality Qualified Code(s): M79.606 - Pain in leg, unspecified - Discharge Dispostion Disposition: HOME Condition at time of disposition: Stable Admit: No - Referrals Referrals: Judy Taylor MD [Primary Care Provider] - - Patient Instructions Additional Instructions: You came in to the ER due to nausea, cough and leg pain. All your lab works are within normal limits and imaging is also negative for any cute pathology. Please follow up with Dr. Ward tomorrow.
--- NOTE | 2016-08-05 14:51 | PDOC ---
Attending Attestation - Resident Resident Name: Puneet Hardin - ED Attending Attestation I have performed the following: I have examined & evaluated the patient, The case was reviewed & discussed with the resident, I agree w/resident's findings & plan, Exceptions are as noted - HPI HPI: 71 yo F hx HTN, anemia, HL, paroxysmal aflutter, hypothyroid, asthma/COPD presents with leg pain, cough, nausea for past 2 days. Associated with 102 fever. No other associated symptoms. - Physicial Exam PE: GENERAL: Awake, alert, and fully oriented, in no acute distress HEAD: No signs of trauma EYES: PERRLA, EOMI, sclera anicteric, conjunctiva clear ENT: Auricles normal inspection, hearing grossly normal, nares patent, oropharynx clear without exudates. Moist mucosa NECK: Normal ROM, supple, no lymphadenopathy, JVD, or masses LUNGS: Breath sounds equal, clear to auscultation bilaterally. No wheezes, and no crackles HEART: Regular rate and rhythm, normal S1 and S2, no murmurs, rubs or gallops ABDOMEN: Soft, nontender, normoactive bowel sounds. No guarding, no rebound. No masses EXTREMITIES: Normal range of motion, 1+ BLE edema. No clubbing or cyanosis. No cords, erythema, or tenderness NEUROLOGICAL: Cranial nerves II through XII grossly intact. Normal speech, normal gait SKIN: Warm, Dry, normal turgor, no rashes or lesions noted. - Medical Decision Making Will obtain fever workup and discuss with Dr. Taylor. Heart Score/ECG Review - ECG Impressions Comment:: EKG read 15:34- sinus tach 114 bpm, LVH
[2016-08-05] MEDS ORDERED: ONDANSETRON *ODT* 4 MG TABLET SL ONE (15:02)
[2016-08-05 16:07] LABS: URINE APPEARANCE CLEAR; URINE BILIRUBIN NEGATIVE (NEGATIVE); URINE BLOOD NEGATIVE (NEGATIVE); URINE COLOR AMBER; URINE GLUCOSE (UA) 1+ (NEGATIVE); URINE KETONE NEGATIVE (NEGATIVE); URINE LEUK ESTERASE NEGATIVE (NEGATIVE); URINE NITRITE NEGATIVE (NEGATIVE); URINE UROBILINOGEN NEGATIVE E.U./dl (0.2-1.0)
[2016-08-05 16:10] LABS: URINE PROTEIN 2+ (NEGATIVE)
[2016-08-05 16:14] LABS: URINE MUCUS RARE; URINE RBC 2 /hpf (0-3); URINE WBC 1 /hpf (3-5)
[2016-08-05 16:19] LABS: ALBUMIN 3.6 g/dl (3.4-5.0); BILIRUBIN,TOTAL 0.9 mg/dL (0.2-1.0); CALCIUM 9.5 mg/dL (8.5-10.1); COCKROFT - GAULT 65.3905; TOT PROT 7.3 g/dl (6.4-8.2)
[2016-08-05] MEDS ORDERED: ONDANSETRON *ODT* 4 MG TABLET ONE (17:01)
[2016-08-05 17:04] LABS: BASOPHIL 0.7 % (0-2.0); EOSINOPHIL 0.1 % (0-4.5); MCH 28.4 pg (25.7-33.7); MCHC 33.9 g/dl (32.0-36.0); MEAN PLT VOLUME 7.9 fl (7.5-11.1); NEUTROPHILS 57.2 % (42.8-82.8); PLATELET COUNT 423 K/MM3 (134-434); RDW 13.7 % (11.6-15.6); WHITE BLOOD COUNT 15.1 K/mm3 (4.0-10.0)
[2016-08-05] MEDS ORDERED: ACETAMINOPHEN 325 MG TABLET (FP) ONE (18:52)
[2016-08-05 19:25] VITALS: BP 146/80; PULSE 77
--- NOTE | 2016-08-06 08:14 | EKG ---
Test Reason : Blood Pressure : / mmHG Vent. Rate : 114 BPM Atrial Rate : 114 BPM P-R Int : 224 ms QRS Dur : 088 ms QT Int : 310 ms P-R-T Axes : 062 028 186 degrees QTc Int : 427 ms SINUS TACHYCARDIA WITH 1ST DEGREE A-V BLOCK WITH PREMATURE SUPRAVENTRICULAR COMPLEXES LEFT VENTRICULAR HYPERTROPHY WITH REPOLARIZATION ABNORMALITY ABNORMAL ECG WHEN COMPARED WITH ECG OF 26-MAY-2016 13:35, [place] INTERVAL HAS INCREASED VENT. RATE HAS INCREASED BY 43 BPM Confirmed by ELINA COLÓN MD ([id number]) on 08/06/2016 8:13:48 AM Referred By: Confirmed By:ELINA COLÓN MD
== END 2016-08-05 19:25 | disposition home or self-care (01) ==
LOC: JER 13:39
DX: R11.0 Nausea (principal); M79.606 Pain in leg, unspecified; I49.8 Other specified cardiac arrhythmias; Z79.01 Long term (current) use of anticoagulants; I10 Essential (primary) hypertension; E78.00 Pure hypercholesterolemia, unspecified; E03.9 Hypothyroidism, unspecified; J45.909 Unspecified asthma, uncomplicated; J44.9 Chronic obstructive pulmonary disease, unspecified
CPT/HCPCS: 36415; 71020-TC; 74176-TC; 80053; 81003; 81015; 83605; 83690; 85025; 87040; 87086; 93005; 93010; 99284-25

== ENCOUNTER 2016-09-04 12:16 | Day surgery (SDC) | payer OTHER ==
[2016-09-03 11:53] VITALS: BMI 26.6
[2016-09-04] MEDS ORDERED: ALBUTEROL SO4 6.7 GM HFA INHALER IH ONE (14:20)
[2016-09-04] MEDS ORDERED: LIDOCAINE HCL/PF 2% SDV 5ML VIAL ONE (15:17)
[2016-09-04] MEDS ORDERED: ONDANSETRON 4 MG/2 ML VIAL IVPUSH PRN (15:59)
[2016-09-04] MEDS ORDERED: LACTATED RINGERS SOLUTION 1,000 ML IV SCH (16:00)
[2016-09-04 16:36] VITALS: TEMP 97.9
[2016-09-04 17:26] VITALS: BP 144/81; PULSE 74
== END 2016-09-04 17:30 | disposition home or self-care (01) ==
LOC: JASU-ENDO 12:16
PROVIDERS: ATTEND Internal Medicine Cardiovascular Disease
PROC: 5A2204Z Restoration of Cardiac Rhythm, Single (ICD-10-PCS; 2016-09-04)
PROC: B246ZZ4 Ultrasonography of Right and Left Heart, Transesophageal (ICD-10-PCS; principal; 2016-09-04 13:00)
DX: I48.92 Unspecified atrial flutter (principal)
CPT/HCPCS: 92960; 93312; 93325; 94760

== ENCOUNTER 2017-09-16 22:51 | Inpatient (IN) | payer OTHER ==
[2017-09-16] MEDS ORDERED: ALBUTEROL SO4 0.083% IH SOL 2.5 MG/3 ML VIAL.NEB. NEB ONE (23:05)
[2017-09-16] MEDS ORDERED: IPRATROPIUM BR 0.02% 0.5 MG/2.5 ML VIAL.NEB. NEB ONE (23:05)
[2017-09-16] MEDS ORDERED: ALBUTEROL SO4 2.5/IPRATROPIUM 0.5 INH SOL 3 ML VIAL.NEB. NEB ONE (23:30)
[2017-09-16] MEDS ORDERED: methylPREDNISolone NA SUCC 125 MG/2 ML VIAL IVPUSH ONE (23:32)
[2017-09-16] MEDS ORDERED: AZITHROMYCIN IVPB 500 MG in DEXTROSE 5%-WATER - 250 ML IVPB ONE (23:32)
[2017-09-16] MEDS: ALBUTEROL SO4 2.5/IPRATROPIUM 0.5 INH SOL 3 ML VIAL.NEB. NEB SCH ×2 (23:36→23:45)
[2017-09-16] MEDS ORDERED: methylPREDNISolone NA SUCC 125 MG/2 ML VIAL ONE (23:51)
[2017-09-17] MEDS: ALBUTEROL SO4 2.5/IPRATROPIUM 0.5 INH SOL 3 ML VIAL.NEB. NEB SCH ×6 (00:38→20:38)
[2017-09-17] MEDS ORDERED: AZITHROMYCIN IVPB 250 ML IVPB ONE (00:41)
[2017-09-17 01:00] LABS: BASO % 1.2 % (0-2.0); EOS % 1.1 % (0-4.5); HEMATOCRIT 36.7 % (32.4-45.2); HEMOGLOBIN 12.6 GM/dL (10.7-15.3); LYMPH % 49.3 % (8-40); MCH 29.1 pg (25.7-33.7); MCHC 34.4 g/dl (32.0-36.0); MEAN CELL VOLUME 84.8 fl (80-96); MEAN PLT VOLUME 8.6 fl (7.5-11.1); MONO % 15.1 % (3.8-10.2); NEUT % 33.3 % (42.8-82.8); PLATELET COUNT 385 K/MM3 (134-434); RBC 4.33 M/mm3 (3.60-5.2); RDW 14.9 % (11.6-15.6)
[2017-09-17 01:06] LABS: VENOUS PC02 49.7 mmHg (38-52); VENOUS PH 7.34 (7.32-7.42)
[2017-09-17 01:07] LABS: VENOUS PO2 37.3 mmHg (28-48)
--- NOTE | 2017-09-17 01:29 | PDOC ---
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 The patient reports a productive cough. The patient reports recent chills and night sweats. She reports using a nebulizer with minimal relief. She denies recent fevers, headache or dizziness. She denies recent nausea, vomit , diarrhea or constipation. She denies recent dysuria, frequency, urgency or hematuria. Allergies: Aspirin Past Surgical History: Splenectomy. Cholecystectomy. Appendectomy. Social History: No tobacco, ETOH and recreational drug use. Primary Care Physician: Dr. Judy Randall Superintendent [employer]: Dr. Mo Rodriguez " <Caleb Curry - Last Filed: 09/17/17 03:38> - General Chief Complaint: Shortness of Breath Stated Complaint: Shortness of Breath Time Seen by Provider: 09/16/17 23:29 Past History <Evens Urrutia - Last Filed: 09/17/17 01:54> - Past Medical History Anemia: Yes Asthma: Yes Cancer: No Cardiac Disorders: Yes (PAROXYSMAL ATRIAL FLUTTER,) CVA: No COPD: Yes CHF: No Dementia: No Diabetes: Yes (TYPE 2) GI Disorders: Yes (GERD) Disorders: No HTN: Yes Hypercholesterolemia: Yes Liver Disease: No Seizures: No Thyroid Disease: Yes (HYPO) - Surgical History Abdominal Surgery: Yes (SPLENECTOMY) Appendectomy: Yes Cardiac Surgery: No Cholecystectomy: Yes Neurologic Surgery: No - Immunization History Immunization Up to Date: Yes - Suicide/Smoking/Psychosocial Hx Smoking Status: No Smoking History: Never smoked Have you smoked in the past 12 months: No Number of Cigarettes Smoked Daily: 0 Cigars Per Day: 0 Information on smoking cessation initiated: No Hx Alcohol Use: No Drug/Substance Use Hx: No Substance Use Type: None Hx Substance Use Treatment: No <Caleb Curry - Last Filed: 09/17/17 03:38> - Past Medical History Allergies/Adverse Reactions: Allergies Allergy/AdvReac Type Severity Reaction Status Date / Time aspirin Allergy Intermediate VOMITS Verified 09/16/17 22:53 BLOOD Home Medications: Ambulatory Orders Apixaban [Eliquis] 5 mg PO BID 04/18/15 Glipizide [Glipizide Xl] 5 mg PO DAILY 04/18/15 Montelukast Na [Singulair -] 10 mg PO HS 04/18/15 Potassium Chloride 20 meq PO DAILY 04/18/15 metFORMIN HCL [Metformin HCl] 500 mg PO BID 04/18/15 Albuterol 0.083% Nebulizer Fidelina [Ventolin 0.083% Nebulizer Soln -] 1 amp NEB Q4H PRN #0 amp 09/17/15 Atorvastatin Ca [Lipitor] 20 mg PO HS tablet 09/17/15 Albuterol Sulfate [Proair Respiclick] 90 mcg IH TID PRN 02/25/17 Amlodipine Besylate [Norvasc -] 10 mg PO DAILY 02/25/17 Benzonatate [Tessalon Pearls -] 100 mg PO BID 02/25/17 Diclofenac Epolamine [Flector] 1 each TP DAILY PRN 02/25/17 Levothyroxine [Synthroid -] 112 mcg PO DAILY 02/25/17 Nitroglycerin [Nitrostat] 0.4 mg SL DAILY PRN 02/25/17 Zolpidem Tartrate [Ambien] 5 mg PO DAILY 02/25/17 Cefuroxime Axetil [Ceftin -] 500 mg PO Q12H #40 tablet 02/27/17 Metoprolol Succinate [Toprol Xl] 50 mg PO DAILY 02/27/17 Ramipril 5 cap PO DAILY 02/27/17 Review of Systems - Review of Systems Comments:: 09/17/17 01:29 "GENERAL/CONSTITUTIONAL: Night sweats. No fever. No weakness. HEAD, EYES, EARS, NOSE AND THROAT: No change in vision. No ear pain or discharge. No sore throat. CARDIOVASCULAR: No chest pain. RESPIRATORY: + SOB. Cough. Chest tightness. No wheezing, or hemoptysis. GASTROINTESTINAL: No nausea, vomiting, diarrhea or constipation. GENITOURINARY: No dysuria, frequency, or change in urination. MUSCULOSKELETAL: No joint or muscle swelling or pain. No neck or back pain. SKIN: No rash NEUROLOGIC: No headache, vertigo, loss of consciousness, or change in strength/ sensation. ENDOCRINE: No increased thirst. No abnormal weight change. HEMATOLOGIC/LYMPHATIC: No anemia, easy bleeding, or history of blood clots. ALLERGIC/IMMUNOLOGIC: No hives or skin allergy. " <Caleb Curry - Last Filed: 09/17/17 03:38> *Physical Exam - Vital Signs Last Vital Signs Temp Pulse Resp BP Pulse Ox 98.2 F 74 22 162/89 98 09/16/17 22:53 09/16/17 22:53 09/16/17 22:53 09/16/17 22:53 09/16/17 22:53 <Evens Urrutia - Last Filed: 09/17/17 01:54> - Vital Signs Last Vital Signs Temp Pulse Resp BP Pulse Ox 98.2 F 74 22 162/89 98 09/16/17 22:53 09/16/17 22:53 09/16/17 22:53 09/16/17 22:53 09/16/17 22:53 - Physical Exam Comments: 09/17/17 01:29 """GENERAL: Awake, alert, and fully oriented, in no acute distress. HEAD: No signs of trauma EYES: PERRLA, EOMI, sclera anicteric, conjunctiva clear ENT: Auricles normal inspection, hearing grossly normal, nares patent, oropharynx clear without exudates. Moist mucosa NECK: Nontender, no stepoffs, Normal ROM, supple, no lymphadenopathy, JVD, or masses LUNGS: + Diffuse rhonchi and wheezing HEART: Regular rate and rhythm, normal S1 and S2, no murmurs, rubs or gallops ABDOMEN: Soft, nontender, normoactive bowel sounds. No guarding, no rebound. No masses EXTREMITIES: Normal range of motion, no edema. No clubbing or cyanosis. No cords, erythema, or tenderness NEUROLOGICAL: Cranial nerves II through XII intact. 5/5 strength and sensation in all extremities, Normal speech, normal gait, normal cerebellar function SKIN: Warm, Dry, normal turgor, no rashes or lesions noted. """ <Caleb Curry - Last Filed: 09/17/17 03:38> Heart Score/ECG Review - ECG Impressions Comment:: 09/17/17 01:29 NSR, no LAURENCE/STDs, TWI in lateral leads, axis wnl, intervals wnl, rate 85 <AntoinetteCaleb - Last Filed: 09/17/17 03:38> ED Treatment Course - LABORATORY CBC & Chemistry Diagram: 09/17/17 00:28 09/17/17 00:28 - ADDITIONAL ORDERS Additional order review: Laboratory Results 09/17/17 09/17/17 09/17/17 00:28 00:28 00:28 VBG pH 7.34 POC VBG pCO2 49.7 POC VBG pO2 37.3 Mixed VBG HCO3 26.3 H Sodium 138 Potassium 4.4 Chloride 104 Carbon Dioxide 26 Anion Gap 8 BUN 25 H Creatinine 1.0 Creat Clearance w eGFR 54.81 Random Glucose 117 H Calcium 8.9 Total Bilirubin 0.6 AST 31 ALT 22 Alkaline Phosphatase 84 Creatine Kinase 175 Troponin I 0.07 H B-Natriuretic Peptide 333.90 H Total Protein 7.3 Albumin 3.4 09/17/17 00:28 RBC 4.33 MCV 84.8 MCHC 34.4 RDW 14.9 MPV 8.6 D Neutrophils % 33.3 L D Lymphocytes % 49.3 H D Monocytes % 15.1 H Eosinophils % 1.1 Basophils % 1.2 - Medications Given in the ED: ED Medications Discontinued Medications Generic Name Dose Route Start Last Admin Trade Name Freq PRN Reason Stop Dose Admin Albuterol/Ipratropium 1 amp 09/16/17 23:30 09/17/17 00:57 Duoneb - NEB 09/17/17 00:16 1 amp Q15M TEODORO Administration Azithromycin 500 mg/ Dextrose 250 mls @ 250 mls/hr 09/16/17 23:32 09/17/17 00 :45 IVPB 09/17/17 00:31 250 mls/hr ONCE ONE Administration Methylprednisolone Sodium Succinate 125 mg 09/16/17 23:32 09/17/17 00:35 Solu-Medrol - IVPUSH 09/16/17 23:33 125 mg ONCE ONE Administration <Evens Urrutia - Last Filed: 09/17/17 01:54> - LABORATORY CBC & Chemistry Diagram: 09/17/17 00:28 09/17/17 00:28 - ADDITIONAL ORDERS Additional order review: Laboratory Results 09/17/17 00:28 VBG pH 7.34 POC VBG pCO2 49.7 POC VBG pO2 37.3 Mixed VBG HCO3 26.3 H - RADIOLOGY Radiology Studies Ordered: Category Date Time Status CHEST X-RAY PORTABLE* [RAD] Stat Radiology 09/16/17 23:32 Taken - Medications Given in the ED: ED Medications Discontinued Medications Generic Name Dose Route Start Last Admin Trade Name Kiran PRN Reason Stop Dose Admin Albuterol/Ipratropium 1 amp 09/16/17 23:30 09/17/17 00:57 Duoneb - NEB 09/17/17 00:16 1 amp Q15M TEODORO Administration Azithromycin 500 mg/ Dextrose 250 mls @ 250 mls/hr 09/16/17 23:32 09/17/17 00 :45 IVPB 09/17/17 00:31 250 mls/hr ONCE ONE Administration Methylprednisolone Sodium Succinate 125 mg 09/16/17 23:32 09/17/17 00:35 Solu-Medrol - IVPUSH 09/16/17 23:33 125 mg ONCE ONE Administration <Caleb Curry - Last Filed: 09/17/17 03:38> Medical Decision Making - Medical Decision Making 09/17/17 01:30 72 F with SOB and chest tightness, found to have diffuse wheezing on exam. Consistent with COPD exacerbation. - Labs, trop, BNP - CXR - Nebs, steroids, azithro - Reassess 09/17/17 03:36 Labs notable for mild troponin leak 0.07, likely demand Pt with improved breathing s/p nebs and steroids, still some persistent wheezing. Pt admitted to hospitalist. <Caleb Curry - Last Filed: 09/17/17 03:38> *DC/Admit/Observation/Transfer - Attestations Scribe Attestion: 09/17/17 01:55 Documentation prepared by Evens Urrutia, acting as director of medical services for Caleb Curry MD. <Evens Urrutia - Last Filed: 09/17/17 01:54> - Discharge Dispostion Decision to Admit order: Yes - Attestations Physician Attestion: 09/17/17 03:38 I, Dr. Caleb Curry MD, attest that this document has been prepared under my direction and personally reviewed by me in its entirety. I further attest, that it accurately reflects all work, treatment, procedures and medical decision -making performed by me. <Caleb Curry - Last Filed: 09/17/17 03:38> Diagnosis at time of Disposition: COPD (chronic obstructive pulmonary disease) with acute bronchitis - Referrals Referrals: Lianne Roth DIET [Primary Care Provider] - - Patient Instructions - Post Discharge Activity
[2017-09-17 01:37] LABS: ALBUMIN 3.4 g/dl (3.4-5.0); ANION GAP 8 (8-16); BLOOD UREA NITROGEN 25 mg/dL (7-18); CALCIUM 8.9 mg/dL (8.5-10.1); CHLORIDE 104 mmol/L (98-107); CO2 26 mmol/L (21-32); GLUCOSE,RANDOM 117 mg/dL (74-106); N-TERMINAL BNP 333.9 pg/ml (5-125); SGPT/ALT 22 U/L (12-78); SODIUM 138 mmol/L (136-145)
[2017-09-17 01:40] LABS: ALK PHOS 84 U/L (45-117); BILIRUBIN,TOTAL 0.6 mg/dL (0.2-1.0); TOT PROT 7.3 g/dl (6.4-8.2)
[2017-09-17 01:50] LABS: POTASSIUM 4.4 mmol/L (3.5-5.1); SGOT/AST 31 U/L (15-37)
[2017-09-17] MEDS ORDERED: DICLOFENAC EPOLAMINE TP PRN (05:22)
[2017-09-17] MEDS ORDERED: ALBUTEROL SO4 0.083% IH SOL 2.5 MG/3 ML VIAL.NEB. NEB PRN (05:22)
--- NOTE | 2017-09-17 05:50 | HP ---
CHIEF COMPLAINT: SOB PCP: Judy Randall, Cardio: Jennifer HISTORY OF PRESENT ILLNESS: This is a 72 year old female with a past medical history significant for COPD, PNA 2016, PAfib, HTN, DM who presented to the ED with SOB x 3 days with productive cough, green phlegm. She noticed tightness in her chest today which prompted her to come to the ED. She denies palpitation. ER course was notable for: (1) WBC 13.0 (2) CXR without acute findings (3) Recent Travel: pt denies PAST MEDICAL HISTORY: pAfib, HTN, HLD, COPD, PNA (2016), DM, GERD, hypothyroid PAST SURGICAL HISTORY: splenectomy (due to trauma) cholecystectomy appendectomy Social History: Smoking: pt denies Alcohol: pt denies Drugs: pt denies Family History: mother , age 95, Alzheimer's father when pt was 5y old siblings alive with multiple medical problems, pt unclear what Allergies aspirin Allergy (Intermediate, Verified 09/16/17 22:53) VOMITS BLOOD HOME MEDICATIONS: 3 Medication Instructions Recorded Apixaban [Eliquis] 5 mg PO BID 04/18/15 Glipizide [Glipizide Xl] 5 mg PO DAILY 04/18/15 Montelukast Na [Singulair -] 10 mg PO HS 04/18/15 Potassium Chloride 20 meq PO DAILY 04/18/15 metFORMIN HCL [Metformin HCl] 500 mg PO BID 04/18/15 Albuterol 0.083% Nebulizer Fidelina 1 amp NEB Q4H PRN #0 amp 09/17/15 [Ventolin 0.083% Nebulizer Soln -] Atorvastatin Ca [Lipitor] 20 mg PO HS tablet 09/17/15 Albuterol Sulfate [Proair 90 mcg IH TID PRN 02/25/17 Respiclick] Amlodipine Besylate [Norvasc -] 10 mg PO DAILY 02/25/17 Benzonatate [Tessalon Pearls -] 100 mg PO BID 02/25/17 Diclofenac Epolamine [Flector] 1 each TP DAILY PRN 02/25/17 Levothyroxine [Synthroid -] 112 mcg PO DAILY 02/25/17 Nitroglycerin [Nitrostat] 0.4 mg SL DAILY PRN 02/25/17 Zolpidem Tartrate [Ambien] 5 mg PO DAILY 02/25/17 Cefuroxime Axetil [Ceftin -] 500 mg PO Q12H #40 tablet 02/27/17 Metoprolol Succinate [Toprol Xl] 50 mg PO DAILY 02/27/17 Ramipril 5 cap PO DAILY 02/27/17 REVIEW OF SYSTEMS CONSTITUTIONAL: Absent: fever, chills, diaphoresis, generalized weakness, malaise, loss of appetite, weight change HEENT: Absent: rhinorrhea, nasal congestion, throat pain, throat swelling, difficulty swallowing, mouth swelling, ear pain, eye pain, visual changes CARDIOVASCULAR: Present: chest pain Absent: syncope, palpitations, irregular heart rate, lightheadedness, peripheral edema RESPIRATORY: Present: cough, shortness of breath Absent: dyspnea with exertion, orthopnea, wheezing, stridor, hemoptysis GASTROINTESTINAL: Absent: abdominal pain, abdominal distension, nausea, vomiting, diarrhea, constipation, melena, hematochezia GENITOURINARY: Absent: dysuria, frequency, urgency, hesitancy, hematuria, flank pain, genital pain MUSCULOSKELETAL: Absent: myalgia, arthralgia, joint swelling, back pain, neck pain SKIN: Absent: rash, itching, pallor HEMATOLOGIC/IMMUNOLOGIC: Absent: easy bleeding, easy bruising, lymphadenopathy, frequent infections ENDOCRINE: Absent: unexplained weight gain, unexplained weight loss, heat intolerance, cold intolerance NEUROLOGIC: Absent: headache, focal weakness or paresthesias, dizziness, unsteady gait, seizure, mental status changes, bladder or bowel incontinence PSYCHIATRIC: Absent: anxiety, depression, suicidal or homicidal ideation, hallucinations. PHYSICAL EXAMINATIONVital Signs - 24 hr 3 09/16/17 22:53 Temperature 98.2 F Pulse Rate 74 Respiratory 22 Rate Blood Pressure 162/89 O2 Sat by Pulse 98 Oximetry (%) GENERAL: Awake, alert, and fully oriented, in no acute distress. HEAD: Normal with no signs of trauma. EYES: Pupils equal, round and reactive to light, extraocular movements intact, sclera anicteric, conjunctiva clear. No lid lag. EARS, NOSE, THROAT: Ears normal, nares patent, oropharynx clear without exudates. Moist mucous membranes. NECK: Normal range of motion, supple without lymphadenopathy, JVD, or masses. LUNGS: Expiratory wheezing all lung silva. No accessory muscle use. HEART: Regular rate and rhythm, normal S1 and S2 without murmur, rub or gallop. ABDOMEN: Soft, nontender, not distended, normoactive bowel sounds, no guarding, no rebound, no masses. No hepatomegaly or splenomegaly. MUSCULOSKELETAL: Normal range of motion at all joints. No bony deformities or tenderness. No CVA tenderness. UPPER EXTREMITIES: 2+ pulses, warm, well-perfused. No cyanosis. No clubbing. No peripheral edema. LOWER EXTREMITIES: 2+ pulses, warm, well-perfused. No calf tenderness. No peripheral edema. NEUROLOGICAL: Cranial nerves II-XII intact. Normal speech. PSYCHIATRIC: Cooperative. Good eye contact. Appropriate mood and affect. SKIN: Warm, dry, normal turgor, no rashes or lesions noted, normal capillary refill. Laboratory Results - last 24 hr 3 09/17/17 09/17/17 09/17/17 00:28 00:28 00:28 WBC 13.0 H D RBC 4.33 Hgb 12.6 Hct 36.7 MCV 84.8 MCH 29.1 MCHC 34.4 RDW 14.9 Plt Count 385 MPV 8.6 D Absolute Neuts (auto) 4.3 Neutrophils % 33.3 L D Lymphocytes % 49.3 H D Monocytes % 15.1 H Eosinophils % 1.1 Basophils % 1.2 Nucleated RBC % 0 VBG pH 7.34 POC VBG pCO2 49.7 POC VBG pO2 37.3 Mixed VBG HCO3 26.3 H Sodium Potassium Chloride Carbon Dioxide Anion Gap BUN Creatinine Creat Clearance w eGFR Random Glucose Calcium Total Bilirubin AST ALT Alkaline Phosphatase Creatine Kinase 175 Creatine Kinase Index 0.5 CK-MB (CK-2) 0.98 Troponin I 0.07 H B-Natriuretic Peptide 333.90 H Total Protein Albumin 3 09/17/17 00:28 WBC RBC Hgb Hct MCV MCH MCHC RDW Plt Count MPV Absolute Neuts (auto) Neutrophils % Lymphocytes % Monocytes % Eosinophils % Basophils % Nucleated RBC % VBG pH POC VBG pCO2 POC VBG pO2 Mixed VBG HCO3 Sodium 138 Potassium 4.4 Chloride 104 Carbon Dioxide 26 Anion Gap 8 BUN 25 H Creatinine 1.0 Creat Clearance w eGFR 54.81 Random Glucose 117 H Calcium 8.9 Total Bilirubin 0.6 AST 31 ALT 22 Alkaline Phosphatase 84 Creatine Kinase Creatine Kinase Index CK-MB (CK-2) Troponin I B-Natriuretic Peptide Total Protein 7.3 Albumin 3.4 ECG sinus rhythm with premature supraventricular complexes vent rate 85, QTC 437, nospecific T wave abnormality ASSESSMENT/PLAN: 72yF with PMH pAfib, HTN, HLD, COPD, PNA (2016), DM, GERD, hypothyroid who presented to the ED with a 3 day history of SOB, productive cough and chest pain x 1 day. COPD exacerbation - given solumedrol 125 in the ED, cont 60mg q6h - duonebs QID standing with albuterol neb 14h PRN - cont home singulair - pulmonary consult - consider CT chest if not improving elevated troponin - h/o same in past without indication of ACS - likely demand - admit to tele - trend trops pAfib - cont eliquis, toprol HTN/HLD - cont home meds: toprol, ramipril, norvasc, atorvastatin DM - hold home po glipizide and metformin - BGM AC/HS - novolog sliding scale - Sugars likely to be high due to solumedrol hypothyroid - TSH 0.11 on 08/25/17 - unclear if dose was changed, primary team to verify in am - repeat TSH DVT PPX - cont home eliquis FEN - tolerating po - BMP in am - diabetic/low sodium diet Dispo: Pt currently requires further observation for management of her emergent condition. Visit type - Emergency Visit Emergency Visit: Yes ED Registration Date: 09/17/17 Care time: The patient presented to the Emergency Department on the above date and was hospitalized for further evaluation of their emergent condition. - New Patient This patient is new to me today: Yes Date on this admission: 09/17/17 - Critical Care Critical Care patient: No Hospitalist Screening - Colonoscopy Questionnaire Colonoscopy Questionnaire: Colonoscopy Questionnaire - Patient: 50 - 75 years old and never had a screening colonoscopy: Unknown History of colon or rectal polyps, or CA: Unknown History of IBD, Crohn's disease or UC: Unknown History of abdominal radiation therapy as a child: Unknown - Relative: 1 with colon or rectal CA, or polyps at age 60 or younger: Unknown Colon or rectal CA diagnosed at age 45 or younger: Unknown Multiple relatives with colon or rectal CA: Unknown - Outcome: Screening Result: Negative Screen
[2017-09-17] MEDS: INSULIN SLIDING SCALE (NOVOLOG) 1 VIAL SQ SCH ×3 (07:12→17:02)
[2017-09-17] MEDS: LEVOTHYROXINE NA 112 MCG TABLET (FP) PO SCH (07:12)
[2017-09-17] MEDS ORDERED: INSULIN (NOVOLOG) ASPART 100 UNITS/ML 10ML VIAL ONE (07:14)
[2017-09-17 08:52] LABS: BASO % 0.7 % (0-2.0); HEMOGLOBIN 12.6 GM/dL (10.7-15.3); LYMPH % 12.5 % (8-40); MCH 29.1 pg (25.7-33.7); MCHC 34.9 g/dl (32.0-36.0); MEAN CELL VOLUME 83.6 fl (80-96); MEAN PLT VOLUME 8.2 fl (7.5-11.1); NEUT % 85.8 % (42.8-82.8); PLATELET COUNT 379 K/MM3 (134-434); RBC 4.31 M/mm3 (3.60-5.2); RDW 14.4 % (11.6-15.6); WHITE BLOOD COUNT 6.8 K/mm3 (4.0-10.0)
[2017-09-17 09:06] LABS: ANION GAP 11 (8-16); BLOOD UREA NITROGEN 25 mg/dL (7-18); CALCIUM 9.4 mg/dL (8.5-10.1); CHLORIDE 103 mmol/L (98-107); CO2 23 mmol/L (21-32); CREATININE 1.1 mg/dL (0.55-1.02); GLUCOSE,RANDOM 222 mg/dL (74-106); PHOSPHOROUS 3.3 mg/dL (2.5-4.9); POTASSIUM 4.1 mmol/L (3.5-5.1); SODIUM 137 mmol/L (136-145)
[2017-09-17] MEDS: methylPREDNISolone NA SUCC 125 MG/2 ML VIAL IVPUSH SCH ×3 (09:11→21:50)
[2017-09-17 09:15] LABS: MAGNESIUM 1.9 mg/dL (1.8-2.4)
[2017-09-17] MEDS ORDERED: ALBUTEROL SO4 2.5/IPRATROPIUM 0.5 INH SOL 3 ML VIAL.NEB. NEB ONE ×2 (09:36→12:49)
[2017-09-17] MEDS ORDERED: methylPREDNISolone NA SUCC 40 MG/1 ML VIAL ONE (09:43)
--- NOTE | 2017-09-17 10:26 | CON.CARD ---
Consult Consult Specialty:: Cardiology Referred by:: Hospitalist Reason for Consultation:: Cardiac evaluation - History of Present Illness Chief Complaint: Shortness of breath History of Present Illness: Patient is a 72 year old female with underlying history of paroxysmal atrial fibrillation on NOAC, HTN, hypercholesterolemia, diabetes mellitus, COPD and pneumonia who presents to ED with 3 days to shortness of breath associated with mid sternal chest tightness. She also complains of productive cough with greenish sputum now cleared. She denies fever or chills. She denies paroxysmal nocturnal dyspnea or orthopnea. She denies headache or lightheadedness. - History Source History Provided By: Patient, Medical Record Limitations to Obtaining History: No Limitations - Past Medical History MANAGING DIRECTOR: Yes: Migraine Cardio/Vascular: Yes: AFIB, HTN, Hyperlipdemia Pulmonary: Yes: COPD, Pneumonia Gastrointestinal: Yes: GERD Endocrine: Yes: Diabetes Mellitus, Hypothyroidism - Past Surgical History Past Surgical History: Yes: Appendectomy, Tubal Ligation, Cholecystectomy, Splenectomy - Alcohol/Substance Use Hx Alcohol Use: No History of Substance Use: reports: None - Smoking History Smoking history: Never smoked Have you smoked in the past 12 months: No Aproximately how many cigarettes per day: 0 - Social History ADL: Independent 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 History of Recent Travel: No Home Medications - Allergies Allergies/Adverse Reactions: Allergies Allergy/AdvReac Type Severity Reaction Status Date / Time aspirin Allergy Intermediate VOMITS Verified 09/16/17 22:53 BLOOD - Home Medications Home Medications: Ambulatory Orders Apixaban [Eliquis] 5 mg PO BID 04/18/15 Glipizide [Glipizide Xl] 5 mg PO DAILY 04/18/15 Montelukast Na [Singulair -] 10 mg PO HS 04/18/15 Potassium Chloride 20 meq PO DAILY 04/18/15 metFORMIN HCL [Metformin HCl] 500 mg PO BID 04/18/15 Albuterol 0.083% Nebulizer Fidelina [Ventolin 0.083% Nebulizer Soln -] 1 amp NEB Q4H PRN #0 amp 09/17/15 Atorvastatin Ca [Lipitor] 20 mg PO HS tablet 09/17/15 Albuterol Sulfate [Proair Respiclick] 90 mcg IH TID PRN 02/25/17 Amlodipine Besylate [Norvasc -] 10 mg PO DAILY 02/25/17 Benzonatate [Tessalon Pearls -] 100 mg PO BID 02/25/17 Diclofenac Epolamine [Flector] 1 each TP DAILY PRN 02/25/17 Levothyroxine [Synthroid -] 112 mcg PO DAILY 02/25/17 Nitroglycerin [Nitrostat] 0.4 mg SL DAILY PRN 02/25/17 Zolpidem Tartrate [Ambien] 5 mg PO DAILY 02/25/17 Cefuroxime Axetil [Ceftin -] 500 mg PO Q12H #40 tablet 02/27/17 Metoprolol Succinate [Toprol Xl] 50 mg PO DAILY 02/27/17 Ramipril 5 cap PO DAILY 02/27/17 Family Disease History - Family Disease History Family Disease History: Other: Father ( when pt. was 5 years old, unknown cause), Mother ( 95 dementia) Review of Systems - Review of Systems Constitutional: denies: Chills, Fever Cardiovascular: reports: Chest Pain, Shortness of Breath. denies: Palpitations Respiratory: reports: Cough, SOB, SOB on Exertion. denies: Hemoptysis, Orthopnea, PND, Wheezing Gastrointestinal: denies: Abdominal Pain, Constipation, Diarrhea, Melena, Nausea , Rectal Bleeding, Vomiting Genitourinary: denies: Dysuria, Hematuria Musculoskeletal: reports: Back Pain, Joint Pain Neurological: reports: Headache. denies: Dizziness, Seizure, Syncope, Unsteady Gait, Weakness Vital Signs: Vital Signs Temperature 98.2 F 09/17/17 07:20 Pulse Rate 80 09/17/17 07:20 Respiratory Rate 16 09/17/17 07:20 Blood Pressure 138/60 09/17/17 07:20 O2 Sat by Pulse Oximetry (%) 93 L 09/17/17 07:20 Eyes: Yes: PERRL HENT: Yes: Atraumatic Neck: Yes: Supple Respiratory: Yes: Diminished Gastrointestinal: Yes: Normal Bowel Sounds, Soft. No: Tenderness Cardiovascular: Yes: Regular Rate and Rhythm JVD: No Carotid Bruit: No PMI: Non-Displaced Heart Sounds: Yes: S1, S2. No: Gallop Murmur: Yes: Systolic Murmur, Grade 1 Edema: No - Other Data Labs, Other Data: CBC, BMP 09/17/17 08:30 09/17/17 08:30 Troponin, BNP 09/17/17 09/17/17 00:28 08:30 Troponin I 0.07 H 0.08 H B-Natriuretic Peptide 333.90 H Laboratory Results - last 24 hr 09/17/17 09/17/17 09/17/17 00:28 00:28 00:28 WBC 13.0 H D RBC 4.33 Hgb 12.6 Hct 36.7 MCV 84.8 MCH 29.1 MCHC 34.4 RDW 14.9 Plt Count 385 MPV 8.6 D Absolute Neuts (auto) 4.3 Neutrophils % 33.3 L D Lymphocytes % 49.3 H D Monocytes % 15.1 H Eosinophils % 1.1 Basophils % 1.2 Nucleated RBC % 0 VBG pH 7.34 POC VBG pCO2 49.7 POC VBG pO2 37.3 Mixed VBG HCO3 26.3 H Sodium Potassium Chloride Carbon Dioxide Anion Gap BUN Creatinine Creat Clearance w eGFR POC Glucometer Random Glucose Hemoglobin A1c % Calcium Phosphorus Magnesium Total Bilirubin AST ALT Alkaline Phosphatase Creatine Kinase 175 Creatine Kinase Index 0.5 CK-MB (CK-2) 0.98 Troponin I 0.07 H B-Natriuretic Peptide 333.90 H Total Protein Albumin TSH 09/17/17 09/17/17 09/17/17 00:28 07:10 08:30 WBC RBC Hgb Hct MCV MCH MCHC RDW Plt Count MPV Absolute Neuts (auto) Neutrophils % Lymphocytes % Monocytes % Eosinophils % Basophils % Nucleated RBC % VBG pH POC VBG pCO2 POC VBG pO2 Mixed VBG HCO3 Sodium 138 137 Potassium 4.4 4.1 Chloride 104 103 Carbon Dioxide 26 23 Anion Gap 8 11 BUN 25 H 25 H Creatinine 1.0 1.1 H Creat Clearance w eGFR 54.81 POC Glucometer [id number] Random Glucose 117 H 222 H Hemoglobin A1c % Calcium 8.9 9.4 Phosphorus 3.3 Magnesium 1.9 Total Bilirubin 0.6 AST 31 ALT 22 Alkaline Phosphatase 84 Creatine Kinase 148 Creatine Kinase Index CK-MB (CK-2) Troponin I 0.08 H B-Natriuretic Peptide Total Protein 7.3 Albumin 3.4 TSH 0.05 L 09/17/17 09/17/17 08:30 08:30 WBC 6.8 D RBC 4.31 Hgb 12.6 Hct 36.0 MCV 83.6 MCH 29.1 MCHC 34.9 RDW 14.4 Plt Count 379 MPV 8.2 Absolute Neuts (auto) 5.8 Neutrophils % 85.8 H D Lymphocytes % 12.5 D Monocytes % 1.0 L D Eosinophils % 0.0 D Basophils % 0.7 Nucleated RBC % 0 VBG pH POC VBG pCO2 POC VBG pO2 Mixed VBG HCO3 Sodium Potassium Chloride Carbon Dioxide Anion Gap BUN Creatinine Creat Clearance w eGFR POC Glucometer Random Glucose Hemoglobin A1c % 6.2 H Calcium Phosphorus Magnesium Total Bilirubin AST ALT Alkaline Phosphatase Creatine Kinase Creatine Kinase Index CK-MB (CK-2) Troponin I B-Natriuretic Peptide Total Protein Albumin TSH Sinus rhythm with nonspecific T wave abnormality Imaging - Results Chest X-ray: Report Reviewed (Weak inspiratory effort) EKG: Report Reviewed Problem List - Problems (1) COPD (chronic obstructive pulmonary disease) with acute bronchitis Code(s): J44.0 - CHRONIC OBSTRUCTIVE PULMON DISEASE W ACUTE LOWER RESP INFCT (2) Anemia Code(s): D64.9 - ANEMIA, UNSPECIFIED Qualifiers: Anemia type: unspecified type Qualified Code(s): D64.9 - Anemia, unspecified (3) Chest pain Code(s): R07.9 - CHEST PAIN, UNSPECIFIED (4) Cough Code(s): R05 - COUGH (5) HTN (hypertension) Code(s): I10 - ESSENTIAL (PRIMARY) HYPERTENSION Qualifiers: Hypertension type: essential hypertension Qualified Code(s): I10 - Essential (primary) hypertension (6) Hyperlipidemia Code(s): E78.5 - HYPERLIPIDEMIA, UNSPECIFIED Qualifiers: Hyperlipidemia type: pure hypercholesterolemia Qualified Code(s): E78.00 - Pure hypercholesterolemia, unspecified; E78.0 - Pure hypercholesterolemia (7) Hypothyroidism Code(s): E03.9 - HYPOTHYROIDISM, UNSPECIFIED Qualifiers: Hypothyroidism type: unspecified Qualified Code(s): E03.9 - Hypothyroidism , unspecified (8) Paroxysmal atrial fibrillation Code(s): I48.0 - PAROXYSMAL ATRIAL FIBRILLATION (9) Type 2 diabetes mellitus Code(s): E11.9 - TYPE 2 DIABETES MELLITUS WITHOUT COMPLICATIONS Qualifiers: 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 Clinical presentation compatible with COPD exacerbation 2. PAF/flutter [id number] score of 4 on NOAC 3. HTN 4. NIDDM 5. Hypercholesterolemia 6. Hypothyroidism 7. Demand ischemia PLAN: 1. Continue Eliquis 5 mg BID as tolerated 2. Continue Metoprolol, Ramipril and Amlodipine 3. Continue Atorvastatin 4. Steroid taper and bronchodilators 5. Trend troponin Further plans are to follow. Cardiac work up can be done as outpatient Mo Rodriguez MD
--- NOTE | 2017-09-17 11:30 | EKG ---
Test Reason : Blood Pressure : / mmHG Vent. Rate : 085 BPM Atrial Rate : 085 BPM P-R Int : 154 ms QRS Dur : 092 ms QT Int : 368 ms P-R-T Axes : 078 025 092 degrees QTc Int : 437 ms SINUS RHYTHM WITH PREMATURE SUPRAVENTRICULAR COMPLEXES NONSPECIFIC T WAVE ABNORMALITY ABNORMAL ECG WHEN COMPARED WITH ECG OF 25-FEB-2017 14:49, PREMATURE SUPRAVENTRICULAR COMPLEXES ARE NOW PRESENT NON-SPECIFIC CHANGE IN ST SEGMENT IN INFERIOR LEADS NON-SPECIFIC CHANGE IN ST SEGMENT IN ANTEROLATERAL LEADS NONSPECIFIC T WAVE ABNORMALITY HAS REPLACED INVERTED T WAVES IN INFERIOR LEADS NONSPECIFIC T WAVE ABNORMALITY HAS REPLACED INVERTED T WAVES IN LATERAL LEADS Confirmed by AJIT GREY, ISMAEL ([id number]) on 09/17/2017 11:30:20 AM Referred By: Confirmed By:ISMAEL FONG MD
[2017-09-17] MEDS: APIXABAN 5 MG TABLET PO SCH ×2 (13:02→21:56)
[2017-09-17] MEDS: POTASSIUM CHLORIDE TABS 20 MEQ TABLET.ER (FP) PO SCH (13:02)
[2017-09-17] MEDS: amLODIPine BESYLATE 10 MG TABLET (FP) PO SCH (13:02)
[2017-09-17] MEDS: RAMIPRIL 5 MG CAPSULE (FP) PO SCH (13:02)
--- NOTE | 2017-09-17 14:52 | CON.PULM ---
Consult Consult Specialty:: PULM/CCM Referred by:: NANCI Reason for Consultation:: SOB - History of Present Illness Chief Complaint: SOB History of Present Illness: 72 F, COPD due to previous smoking history (reports having quit), paroxysmal atrial fibrillation on a NOAC, HTN, hypercholesterolemia, and diabetes mellitus. Admitted via the ER due to progressive SOB / CHAMBERS since Thursday. Cough has been very congested and productive of green/yellow sputum. No sick contacts or travel history. No fever or chills. No hemoptysis. Does report some mid-sternal chest tightness. 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 Cardio/Vascular: Yes: AFIB, HTN, Hyperlipdemia Pulmonary: Yes: COPD, Pneumonia Gastrointestinal: Yes: GERD Endocrine: Yes: Diabetes Mellitus, Hypothyroidism - Past Surgical History Past Surgical History: Yes: Appendectomy, Tubal Ligation, Cholecystectomy, Splenectomy - Alcohol/Substance Use Hx Alcohol Use: No History of Substance Use: reports: None - Smoking History Smoking history: Never smoked Have you smoked in the past 12 months: No Aproximately how many cigarettes per day: 0 - Social History ADL: Independent 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 History of Recent Travel: No Home Medications - Allergies Allergies/Adverse Reactions: Allergies Allergy/AdvReac Type Severity Reaction Status Date / Time aspirin Allergy Intermediate VOMITS Verified 09/16/17 22:53 BLOOD - Home Medications Home Medications: Ambulatory Orders Apixaban [Eliquis] 5 mg PO BID 04/18/15 Glipizide [Glipizide Xl] 5 mg PO DAILY 04/18/15 Montelukast Na [Singulair -] 10 mg PO HS 04/18/15 Potassium Chloride 20 meq PO DAILY 04/18/15 metFORMIN HCL [Metformin HCl] 500 mg PO BID 04/18/15 Albuterol 0.083% Nebulizer Fidelina [Ventolin 0.083% Nebulizer Soln -] 1 amp NEB Q4H PRN #0 amp 09/17/15 Atorvastatin Ca [Lipitor] 20 mg PO HS tablet 09/17/15 Albuterol Sulfate [Proair Respiclick] 90 mcg IH TID PRN 02/25/17 Amlodipine Besylate [Norvasc -] 10 mg PO DAILY 02/25/17 Benzonatate [Tessalon Pearls -] 100 mg PO BID 02/25/17 Diclofenac Epolamine [Flector] 1 each TP DAILY PRN 02/25/17 Levothyroxine [Synthroid -] 112 mcg PO DAILY 02/25/17 Nitroglycerin [Nitrostat] 0.4 mg SL DAILY PRN 02/25/17 Zolpidem Tartrate [Ambien] 5 mg PO DAILY 02/25/17 Cefuroxime Axetil [Ceftin -] 500 mg PO Q12H #40 tablet 02/27/17 Metoprolol Succinate [Toprol Xl] 50 mg PO DAILY 02/27/17 Ramipril 5 cap PO DAILY 02/27/17 Family Disease History - Family Disease History Family Disease History: Other: Father ( when pt. was 5 years old, unknown cause), Mother ( 95 dementia) Review of Systems - Review of Systems Constitutional: reports: Malaise, Weakness. denies: Chills, Fever, Night Sweats Eyes: reports: No Symptoms HENT: reports: No Symptoms Neck: reports: No Symptoms Cardiovascular: reports: Chest Pain, Shortness of Breath. denies: Edema, Palpitations Respiratory: reports: Cough, Snoring, SOB, SOB on Exertion, Wheezing. denies: Hemoptysis Gastrointestinal: reports: Abdominal Pain. denies: Melena, Rectal Bleeding, Vomiting Blood Genitourinary: reports: No Symptoms Breasts: reports: No Symptoms Reported Musculoskeletal: reports: Back Pain, Muscle Pain, Muscle Cramps Integumentary: reports: No Symptoms Neurological: reports: No Symptoms Endocrine: reports: No Symptoms Hematology/Lymphatic: reports: No Symptoms Psychiatric: reports: No Symptoms Physical Exam Vital Sings: Vital Signs Temperature 98.3 F 09/17/17 13:00 Pulse Rate 89 09/17/17 13:00 Respiratory Rate 18 09/17/17 13:00 Blood Pressure 134/71 09/17/17 13:00 O2 Sat by Pulse Oximetry (%) 98 09/17/17 13:00 Constitutional: Yes: No Distress, Obese Eyes: Yes: Conjunctiva Clear, EOM Intact HENT: Yes: Atraumatic, Normocephalic Neck: Yes: Supple, Trachea Midline Cardiovascular: Yes: Pulse Irregular Respiratory: Yes: Cough, Diminished, On Nasal O2, Rhonchi, SOB on Exertion, Wheezes. No: Accessory Muscle Use, Rales, Stridor, Tachypnea ...Inspection: Yes: WNL ...Clubbing: No Gastrointestinal: Yes: Normal Bowel Sounds, Soft, Abdomen, Obese Renal/: Yes: WNL Musculoskeletal: Yes: WNL Extremities: Yes: WNL Edema: No Peripheral Pulses WNL: Yes Integumentary: Yes: WNL Neurological: Yes: WNL, Alert, Oriented ...Motor Strength: WNL Psychiatric: Yes: WNL, Alert, Oriented Labs: CBC, BMP 09/17/17 08:30 09/17/17 08:30 Imaging - Results Chest X-ray: Report Reviewed, Image Reviewed Cat Scan: Report Reviewed, Image Reviewed Problem List - Problems (1) COPD (chronic obstructive pulmonary disease) with acute bronchitis Code(s): J44.0 - CHRONIC OBSTRUCTIVE PULMON DISEASE W ACUTE LOWER RESP INFCT (2) Afib Code(s): I48.91 - UNSPECIFIED ATRIAL FIBRILLATION Qualifiers: Atrial fibrillation type: paroxysmal Qualified Code(s): I48.0 - Paroxysmal atrial fibrillation (3) Anemia Code(s): D64.9 - ANEMIA, UNSPECIFIED Qualifiers: Anemia type: unspecified type Qualified Code(s): D64.9 - Anemia, unspecified (4) Anxiety Code(s): F41.9 - ANXIETY DISORDER, UNSPECIFIED (5) Atrial fibrillation with controlled ventricular response Code(s): I48.91 - UNSPECIFIED ATRIAL FIBRILLATION (6) Atypical chest pain Code(s): R07.89 - OTHER CHEST PAIN (7) Chest pain Code(s): R07.9 - CHEST PAIN, UNSPECIFIED (8) Cough Code(s): R05 - COUGH (9) HTN (hypertension) Code(s): I10 - ESSENTIAL (PRIMARY) HYPERTENSION Qualifiers: Hypertension type: essential hypertension Qualified Code(s): I10 - Essential (primary) hypertension (10) Hypothyroidism Code(s): E03.9 - HYPOTHYROIDISM, UNSPECIFIED Qualifiers: Hypothyroidism type: unspecified Qualified Code(s): E03.9 - Hypothyroidism , unspecified (11) Paroxysmal atrial fibrillation Code(s): I48.0 - PAROXYSMAL ATRIAL FIBRILLATION (12) Pneumonia Code(s): J18.9 - PNEUMONIA, UNSPECIFIED ORGANISM Qualifiers: Pneumonia type: due to unspecified organism Laterality: unspecified laterality Lung location: unspecified part of lung Qualified Code(s): J18.9 - Pneumonia, unspecified organism (13) Shortness of breath Code(s): R06.02 - SHORTNESS OF BREATH (14) Type 2 diabetes mellitus Code(s): E11.9 - TYPE 2 DIABETES MELLITUS WITHOUT COMPLICATIONS Qualifiers: Diabetes mellitus snf insulin use: with snf use Diabetes mellitus complication status: without complication Qualified Code(s): E11.9 - Type 2 diabetes mellitus without complications; Z79.4 - assisted (current) use of insulin Assessment/Plan Levaquin OD BD TX standing and PRN Medrol O2 No smoking Check sputum Check urine antigens Floow blood cultures PFTs after D/C Can pursue further workup of possible ILD after discharge Will follow Thank you. Dr Nunez
[2017-09-17 18:58] VITALS: BMI 31.2
[2017-09-17] MEDS: ATORVASTATIN CA 20 MG TABLET (FP) PO SCH (21:56)
[2017-09-17] MEDS: MONTELUKAST NA 10 MG TABLET PO SCH (21:56)
[2017-09-17] MEDS ORDERED: INSULIN SLIDING SCALE (NOVOLOG) 1 VIAL SQ SCH (22:00)
[2017-09-17] MEDS: ZOLPIDEM TARTRATE 5 MG TABLET PO PRN (22:07)
[2017-09-18] MEDS: methylPREDNISolone NA SUCC 125 MG/2 ML VIAL IVPUSH SCH ×4 (03:02→21:33)
[2017-09-18] MEDS: INSULIN SLIDING SCALE (NOVOLOG) 1 VIAL SQ SCH ×5 (06:21→21:34)
[2017-09-18] MEDS: LEVOTHYROXINE NA 112 MCG TABLET (FP) PO SCH (06:22)
[2017-09-18] MEDS: ALBUTEROL SO4 2.5/IPRATROPIUM 0.5 INH SOL 3 ML VIAL.NEB. NEB SCH ×4 (08:00→20:50)
--- NOTE | 2017-09-18 09:18 | PN ---
Progress Note, Physician History of Present Illness: Continued dyspnea, cough, post-tussive chest tightness. and wheezing. - Current Medication List Current Medications: Active Medications Albuterol Sulfate (Ventolin 0.083% Nebulizer Soln -) 1 amp NEB Q4H PRN PRN Reason: SHORT OF BREATH/WHEEZING Albuterol/Ipratropium (Duoneb -) 1 amp NEB RQID [facility] Last Admin: 09/18/17 08:00 Dose: 1 amp Amlodipine Besylate (Norvasc -) 10 mg PO DAILY [facility] Last Admin: 09/17/17 13:02 Dose: 10 mg Apixaban (Eliquis -) 5 mg PO BID [facility] Last Admin: 09/17/17 21:56 Dose: 5 mg Atorvastatin Calcium (Lipitor -) 20 mg PO HS [facility] Last Admin: 09/17/17 21:56 Dose: 20 mg Levofloxacin (Levaquin 500 Mg Premixed Ivpb -) 500 mg in 100 mls @ 100 mls/hr IVPB DAILY [facility]; Protocol Last Admin: 09/17/17 17:34 Dose: 100 mls/hr Insulin Aspart (Novolog Vial Sliding Scale -) 1 vial SQ HS [facility]; Protocol Last Admin: 09/17/17 21:58 Dose: 4 units Insulin Aspart (Novolog Vial Sliding Scale -) 1 vial SQ TIDAC [facility]; Protocol Last Admin: 09/18/17 06:21 Dose: 2 units Levothyroxine Sodium (Synthroid -) 112 mcg PO DAILY@0700 [facility] Last Admin: 09/18/17 06:22 Dose: 112 mcg Methylprednisolone Sodium Succinate (Solu-Medrol -) 60 mg IVPUSH Q6H-IV [facility] Last Admin: 09/18/17 03:02 Dose: 60 mg Metoprolol Succinate (Toprol Xl -) 50 mg PO DAILY [facility] Last Admin: 09/17/17 13:02 Dose: 50 mg Montelukast Sodium (Singulair -) 10 mg PO HS [facility] Last Admin: 09/17/17 21:56 Dose: 10 mg Non-Formulary Medication (Diclofenac Epolamine [Flector]) 1 each TP DAILY PRN PRN Reason: BACK PAIN Potassium Chloride (K-Dur -) 20 meq PO DAILY [facility] Last Admin: 09/17/17 13:02 Dose: 20 meq Ramipril (Altace -) 5 mg PO DAILY [facility] Last Admin: 09/17/17 13:02 Dose: 5 mg Zolpidem Tartrate (Ambien -) 5 mg PO HS PRN PRN Reason: INSOMNIA Last Admin: 09/17/17 22:07 Dose: 5 mg - Objective Vital Signs: Vital Signs Temperature 97.8 F 09/18/17 06:00 Pulse Rate 76 09/18/17 06:00 Respiratory Rate 20 09/18/17 06:00 Blood Pressure 123/76 09/18/17 06:00 O2 Sat by Pulse Oximetry (%) 97 09/17/17 20:08 Constitutional: Yes: No Distress, Calm Neck: Yes: Supple Cardiovascular: Yes: Regular Rate and Rhythm Respiratory: Yes: Regular, Cough, Diminished, On Nasal O2, Wheezes Gastrointestinal: Yes: Normal Bowel Sounds, Soft, Abdomen, Obese Edema: No Labs: CBC, BMP 09/17/17 08:30 09/17/17 08:30 - ....Imaging EKG: Report Reviewed (Tele: NSR PAC) Problem List - Problems (1) COPD (chronic obstructive pulmonary disease) with acute bronchitis Code(s): J44.0 - CHRONIC OBSTRUCTIVE PULMON DISEASE W ACUTE LOWER RESP INFCT (2) Atypical chest pain Code(s): R07.89 - OTHER CHEST PAIN (3) Bronchitis Code(s): J40 - BRONCHITIS, NOT SPECIFIED ACUTE OR CHRONIC (4) Cough Code(s): R05 - COUGH (5) HTN (hypertension) Code(s): I10 - ESSENTIAL (PRIMARY) HYPERTENSION Qualifiers: Hypertension type: essential hypertension Qualified Code(s): I10 - Essential (primary) hypertension (6) Hyperlipidemia Code(s): E78.5 - HYPERLIPIDEMIA, UNSPECIFIED Qualifiers: Hyperlipidemia type: pure hypercholesterolemia Qualified Code(s): E78.00 - Pure hypercholesterolemia, unspecified; E78.0 - Pure hypercholesterolemia (7) Hypothyroidism Code(s): E03.9 - HYPOTHYROIDISM, UNSPECIFIED Qualifiers: Hypothyroidism type: unspecified Qualified Code(s): E03.9 - Hypothyroidism , unspecified (8) Paroxysmal atrial fibrillation Code(s): I48.0 - PAROXYSMAL ATRIAL FIBRILLATION (9) Pneumonia Code(s): J18.9 - PNEUMONIA, UNSPECIFIED ORGANISM Qualifiers: Pneumonia type: due to unspecified organism Laterality: unspecified laterality Lung location: unspecified part of lung Qualified Code(s): J18.9 - Pneumonia, unspecified organism (10) Shortness of breath Code(s): R06.02 - SHORTNESS OF BREATH (11) Type 2 diabetes mellitus Code(s): E11.9 - TYPE 2 DIABETES MELLITUS WITHOUT COMPLICATIONS Qualifiers: 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 COPD exacerbation, LLL PNA 2. PAF/flutter [id number] score of 4 on NOAC 3. HTN 4. NIDDM 5. Hypercholesterolemia 6. Hypothyroidism 7. Demand ischemia PLAN: 1. Continue Eliquis 5 mg BID 2. Continue Metoprolol 50 qd, Ramipril 5 qd and Amlodipine 10 qd 3. Continue Atorvastatin 20 qhs 4. IV steroid taper, BD, O2, Singulair and bronchodilators, PFTs as outpatient 5. Troponins have peaked, d/c telemetry
--- NOTE | 2017-09-18 09:58 | PN ---
Progress Note, Physician History of Present Illness: PULMONARY ALERT,STILL C/O SOB,COUGH,CONGESTION,CHEST TIGHTNESS - Current Medication List Current Medications: Active Medications Albuterol Sulfate (Ventolin 0.083% Nebulizer Soln -) 1 amp NEB Q4H PRN PRN Reason: SHORT OF BREATH/WHEEZING Albuterol/Ipratropium (Duoneb -) 1 amp NEB RQID [facility] Last Admin: 09/18/17 08:00 Dose: 1 amp Amlodipine Besylate (Norvasc -) 10 mg PO DAILY [facility] Last Admin: 09/17/17 13:02 Dose: 10 mg Apixaban (Eliquis -) 5 mg PO BID [facility] Last Admin: 09/17/17 21:56 Dose: 5 mg Atorvastatin Calcium (Lipitor -) 20 mg PO HS [facility] Last Admin: 09/17/17 21:56 Dose: 20 mg Levofloxacin (Levaquin 500 Mg Premixed Ivpb -) 500 mg in 100 mls @ 100 mls/hr IVPB DAILY [facility]; Protocol Last Admin: 09/17/17 17:34 Dose: 100 mls/hr Insulin Aspart (Novolog Vial Sliding Scale -) 1 vial SQ HS [facility]; Protocol Last Admin: 09/17/17 21:58 Dose: 4 units Insulin Aspart (Novolog Vial Sliding Scale -) 1 vial SQ TIDAC [facility]; Protocol Last Admin: 09/18/17 06:21 Dose: 2 units Levothyroxine Sodium (Synthroid -) 112 mcg PO DAILY@0700 [facility] Last Admin: 09/18/17 06:22 Dose: 112 mcg Methylprednisolone Sodium Succinate (Solu-Medrol -) 60 mg IVPUSH Q6H-IV [facility] Last Admin: 09/18/17 03:02 Dose: 60 mg Metoprolol Succinate (Toprol Xl -) 50 mg PO DAILY [facility] Last Admin: 09/17/17 13:02 Dose: 50 mg Montelukast Sodium (Singulair -) 10 mg PO HS [facility] Last Admin: 09/17/17 21:56 Dose: 10 mg Non-Formulary Medication (Diclofenac Epolamine [Flector]) 1 each TP DAILY PRN PRN Reason: BACK PAIN Potassium Chloride (K-Dur -) 20 meq PO DAILY [facility] Last Admin: 09/17/17 13:02 Dose: 20 meq Ramipril (Altace -) 5 mg PO DAILY [facility] Last Admin: 09/17/17 13:02 Dose: 5 mg Zolpidem Tartrate (Ambien -) 5 mg PO HS PRN PRN Reason: INSOMNIA Last Admin: 09/17/17 22:07 Dose: 5 mg - Objective Vital Signs: Vital Signs Temperature 97.8 F 09/18/17 06:00 Pulse Rate 76 09/18/17 06:00 Respiratory Rate 20 09/18/17 06:00 Blood Pressure 123/76 09/18/17 06:00 O2 Sat by Pulse Oximetry (%) 97 09/17/17 20:08 Constitutional: Yes: Well Nourished, Calm Eyes: Yes: WNL HENT: Yes: WNL Neck: Yes: WNL Cardiovascular: Yes: Pulse Irregular, S1, S2 Respiratory: Yes: Rhonchi (BILATERAL RHONCHI AND WHEEZES), Wheezes Gastrointestinal: Yes: Normal Bowel Sounds, Soft Extremities: Yes: WNL Edema: No Assessment/Plan - Problems (1) COPD (chronic obstructive pulmonary disease) with acute bronchitis Code(s): J44.0 - CHRONIC OBSTRUCTIVE PULMON DISEASE W ACUTE LOWER RESP INFCT (2) Afib Code(s): I48.91 - UNSPECIFIED ATRIAL FIBRILLATION Qualifiers: Atrial fibrillation type: paroxysmal Qualified Code(s): I48.0 - Paroxysmal atrial fibrillation (3) Anemia Code(s): D64.9 - ANEMIA, UNSPECIFIED Qualifiers: Anemia type: unspecified type Qualified Code(s): D64.9 - Anemia, unspecified (4) Anxiety Code(s): F41.9 - ANXIETY DISORDER, UNSPECIFIED (5) Atrial fibrillation with controlled ventricular response Code(s): I48.91 - UNSPECIFIED ATRIAL FIBRILLATION (6) Atypical chest pain Code(s): R07.89 - OTHER CHEST PAIN (7) Chest pain Code(s): R07.9 - CHEST PAIN, UNSPECIFIED (8) Cough Code(s): R05 - COUGH (9) HTN (hypertension) Code(s): I10 - ESSENTIAL (PRIMARY) HYPERTENSION Qualifiers: Hypertension type: essential hypertension Qualified Code(s): I10 - Essential (primary) hypertension (10) Hypothyroidism Code(s): E03.9 - HYPOTHYROIDISM, UNSPECIFIED Qualifiers: Hypothyroidism type: unspecified Qualified Code(s): E03.9 - Hypothyroidism , unspecified (11) Paroxysmal atrial fibrillation Code(s): I48.0 - PAROXYSMAL ATRIAL FIBRILLATION (12) Pneumonia Code(s): J18.9 - PNEUMONIA, UNSPECIFIED ORGANISM Qualifiers: Pneumonia type: due to unspecified organism Laterality: unspecified laterality Lung location: unspecified part of lung Qualified Code(s): J18.9 - Pneumonia, unspecified organism (13) Shortness of breath Code(s): R06.02 - SHORTNESS OF BREATH (14) Type 2 diabetes mellitus Code(s): E11.9 - TYPE 2 DIABETES MELLITUS WITHOUT COMPLICATIONS Qualifiers: Diabetes mellitus intermediate card tender insulin use: with fci use Diabetes mellitus complication status: without complication Qualified Code(s): E11.9 - Type 2 diabetes mellitus without complications; Z79.4 - shelter (current) use of insulin Assessment/Plan Levaquin OD BD TX standing and PRN Medrol same dose O2 No smoking PFTs after D/C DR SANTIAGO
[2017-09-18] MEDS: amLODIPine BESYLATE 10 MG TABLET (FP) PO SCH (10:20)
[2017-09-18] MEDS: APIXABAN 5 MG TABLET PO SCH ×2 (10:20→21:33)
[2017-09-18] MEDS: POTASSIUM CHLORIDE TABS 20 MEQ TABLET.ER (FP) PO SCH (10:20)
[2017-09-18] MEDS: RAMIPRIL 5 MG CAPSULE (FP) PO SCH (10:20)
--- NOTE | 2017-09-18 11:26 | PN ---
Progress Note (short form) - Note Progress Note: patient seen and examined. Chart reviewed. Still feels short of breath Wheezing present Denies chest pain Afebrile Vital Signs Temp 98.4 F 09/18/17 10:00 Pulse 79 09/18/17 10:00 Resp 20 09/18/17 10:00 BP 142/77 09/18/17 10:00 Pulse Ox 94 L 09/18/17 10:00 Intake & Output 09/17/17 09/17/17 09/18/17 11:59 23:59 11:59 Intake Total 660 410 Balance 660 410 Weight 193 lb 12.8 oz Intake: IV 10 20 SALINE LOCK 10 20 Oral 650 390 Other: Voiding Method Toilet Toilet # Unmeasured Voids Void 2 2 Bowel Movement No No Height 5 ft 6 in Body Mass Index (BMI) 31.2 Weight Measurement Method Standing Scale Active Medications Albuterol Sulfate (Ventolin 0.083% Nebulizer Soln -) 1 amp NEB Q4H PRN PRN Reason: SHORT OF BREATH/WHEEZING Albuterol/Ipratropium (Duoneb -) 1 amp NEB RQID [facility] Last Admin: 09/18/17 08:00 Dose: 1 amp Amlodipine Besylate (Norvasc -) 10 mg PO DAILY [facility] Last Admin: 09/18/17 10:20 Dose: 10 mg Apixaban (Eliquis -) 5 mg PO BID [facility] Last Admin: 09/18/17 10:20 Dose: 5 mg Atorvastatin Calcium (Lipitor -) 20 mg PO HS [facility] Last Admin: 09/17/17 21:56 Dose: 20 mg Levofloxacin (Levaquin 500 Mg Premixed Ivpb -) 500 mg in 100 mls @ 100 mls/hr IVPB DAILY [facility]; Protocol Last Admin: 09/18/17 10:20 Dose: 100 mls/hr Insulin Aspart (Novolog Vial Sliding Scale -) 1 vial SQ ACHS [facility]; Protocol Levothyroxine Sodium (Synthroid -) 112 mcg PO DAILY@0700 [facility] Last Admin: 09/18/17 06:22 Dose: 112 mcg Methylprednisolone Sodium Succinate (Solu-Medrol -) 60 mg IVPUSH Q6H-IV [facility] Last Admin: 09/18/17 10:20 Dose: 60 mg Metoprolol Succinate (Toprol Xl -) 50 mg PO DAILY [facility] Last Admin: 09/18/17 10:20 Dose: 50 mg Montelukast Sodium (Singulair -) 10 mg PO HS [facility] Last Admin: 09/17/17 21:56 Dose: 10 mg Non-Formulary Medication (Diclofenac Epolamine [Flector]) 1 each TP DAILY PRN PRN Reason: BACK PAIN Potassium Chloride (K-Dur -) 20 meq PO DAILY [facility] Last Admin: 09/18/17 10:20 Dose: 20 meq Ramipril (Altace -) 5 mg PO DAILY [facility] Last Admin: 09/18/17 10:20 Dose: 5 mg Zolpidem Tartrate (Ambien -) 5 mg PO HS PRN PRN Reason: INSOMNIA Last Admin: 09/17/17 22:07 Dose: 5 mg CBC, BMP 09/17/17 08:30 09/17/17 08:30 Microbiology 09/17/17 00:28 Blood Culture - Preliminary Blood - Peripheral Venous NO GROWTH OBTAINED AFTER 24 HOURS, INCUBATION TO CONTINUE FOR 4 DAYS. 09/17/17 00:28 Blood Culture - Preliminary Blood - Peripheral Venous NO GROWTH OBTAINED AFTER 24 HOURS, INCUBATION TO CONTINUE FOR [address] chest -- Reviewed. Physical exam conscious and cooperative alert and awake Neck supple Lungs--- bilateral wheezes CVS--heart sounds regular Abdomen--soft Extremities--- no edema Neuro--alert and awake Assessment and plan CONTINUE PRESENT CARE STEROIDS NEBULIZER TREATMENT medications reviewed' Monitor blood sugar Daily out of bed to chair Physical therapy Will follow Problem List - Problems (1) COPD (chronic obstructive pulmonary disease) with acute bronchitis Code(s): J44.0 - CHRONIC OBSTRUCTIVE PULMON DISEASE W ACUTE LOWER RESP INFCT (2) HTN (hypertension) Code(s): I10 - ESSENTIAL (PRIMARY) HYPERTENSION Qualifiers: Hypertension type: essential hypertension Qualified Code(s): I10 - Essential (primary) hypertension (3) Paroxysmal atrial fibrillation Code(s): I48.0 - PAROXYSMAL ATRIAL FIBRILLATION (4) Type 2 diabetes mellitus Code(s): E11.9 - TYPE 2 DIABETES MELLITUS WITHOUT COMPLICATIONS Qualifiers: Diabetes mellitus vermin exterminator insulin use: with long-term use Diabetes mellitus complication status: without complication Qualified Code(s): E11.9 - Type 2 diabetes mellitus without complications; Z79.4 - buttermaker helper (current) use of insulin
[2017-09-18] MEDS ORDERED: INSULIN (NOVOLOG) ASPART 100 UNITS/ML 10ML VIAL ONE ×2 (11:59→21:27)
[2017-09-18] MEDS ORDERED: ACETAMINOPHEN 325 MG TABLET (FP) PO ONE (17:18)
[2017-09-18] MEDS: MONTELUKAST NA 10 MG TABLET PO SCH (21:33)
[2017-09-18] MEDS: ATORVASTATIN CA 20 MG TABLET (FP) PO SCH (21:33)
[2017-09-18] MEDS: ZOLPIDEM TARTRATE 5 MG TABLET PO PRN (21:39)
[2017-09-19] MEDS: methylPREDNISolone NA SUCC 125 MG/2 ML VIAL IVPUSH SCH ×3 (02:55→17:07)
[2017-09-19] MEDS: LEVOTHYROXINE NA 112 MCG TABLET (FP) PO SCH (06:05)
[2017-09-19] MEDS: INSULIN SLIDING SCALE (NOVOLOG) 1 VIAL SQ SCH ×4 (06:05→21:48)
[2017-09-19] MEDS ORDERED: INSULIN (NOVOLOG) ASPART 100 UNITS/ML 10ML VIAL ONE ×2 (06:18→21:32)
[2017-09-19] MEDS: ALBUTEROL SO4 2.5/IPRATROPIUM 0.5 INH SOL 3 ML VIAL.NEB. NEB SCH ×5 (08:10→20:50)
[2017-09-19] MEDS: amLODIPine BESYLATE 10 MG TABLET (FP) PO SCH (09:17)
[2017-09-19] MEDS: POTASSIUM CHLORIDE TABS 20 MEQ TABLET.ER (FP) PO SCH (09:17)
[2017-09-19] MEDS: RAMIPRIL 5 MG CAPSULE (FP) PO SCH (09:17)
[2017-09-19] MEDS: APIXABAN 5 MG TABLET PO SCH ×2 (09:17→21:48)
--- NOTE | 2017-09-19 11:02 | PN ---
Progress Note, Physician Chief Complaint: ambulating in the hallway feels SOB- but better - Current Medication List Current Medications: Active Medications Albuterol Sulfate (Ventolin 0.083% Nebulizer Soln -) 1 amp NEB Q4H PRN PRN Reason: SHORT OF BREATH/WHEEZING Albuterol/Ipratropium (Duoneb -) 1 amp NEB RQID [facility] Last Admin: 09/19/17 08:10 Dose: 1 amp Amlodipine Besylate (Norvasc -) 10 mg PO DAILY [facility] Last Admin: 09/19/17 09:17 Dose: 10 mg Apixaban (Eliquis -) 5 mg PO BID [facility] Last Admin: 09/19/17 09:17 Dose: 5 mg Atorvastatin Calcium (Lipitor -) 20 mg PO HS [facility] Last Admin: 09/18/17 21:33 Dose: 20 mg Levofloxacin (Levaquin 500 Mg Premixed Ivpb -) 500 mg in 100 mls @ 100 mls/hr IVPB DAILY [facility]; Protocol Last Admin: 09/19/17 09:16 Dose: 100 mls/hr Insulin Aspart (Novolog Vial Sliding Scale -) 1 vial SQ ACHS [facility]; Protocol Last Admin: 09/19/17 06:05 Dose: 3 units Levothyroxine Sodium (Synthroid -) 112 mcg PO DAILY@0700 [facility] Last Admin: 09/19/17 06:05 Dose: 112 mcg Methylprednisolone Sodium Succinate (Solu-Medrol -) 60 mg IVPUSH Q6H-IV [facility] Last Admin: 09/19/17 09:16 Dose: 60 mg Metoprolol Succinate (Toprol Xl -) 50 mg PO DAILY [facility] Last Admin: 09/19/17 09:17 Dose: 50 mg Montelukast Sodium (Singulair -) 10 mg PO HS [facility] Last Admin: 09/18/17 21:33 Dose: 10 mg Non-Formulary Medication (Diclofenac Epolamine [Flector]) 1 each TP DAILY PRN PRN Reason: BACK PAIN Potassium Chloride (K-Dur -) 20 meq PO DAILY [facility] Last Admin: 09/19/17 09:17 Dose: 20 meq Ramipril (Altace -) 5 mg PO DAILY [facility] Last Admin: 09/19/17 09:17 Dose: 5 mg Zolpidem Tartrate (Ambien -) 5 mg PO HS PRN PRN Reason: INSOMNIA Last Admin: 09/18/17 21:39 Dose: 5 mg - Objective Vital Signs: Vital Signs Temperature 98 F 09/19/17 10:00 Pulse Rate 90 09/19/17 10:00 Respiratory Rate 20 09/19/17 10:00 Blood Pressure 144/80 09/19/17 10:00 O2 Sat by Pulse Oximetry (%) 95 09/18/17 21:00 Constitutional: Yes: No Distress Cardiovascular: Yes: Pulse Irregular Respiratory: Yes: Diminished, Rhonchi Gastrointestinal: Yes: Normal Bowel Sounds, Soft, Abdomen, Obese. No: Tenderness Edema: No Labs: CBC, BMP 09/17/17 08:30 09/17/17 08:30 Problem List - Problems (1) COPD (chronic obstructive pulmonary disease) with acute bronchitis Code(s): J44.0 - CHRONIC OBSTRUCTIVE PULMON DISEASE W ACUTE LOWER RESP INFCT (2) LESLEE (acute kidney injury) Code(s): N17.9 - ACUTE KIDNEY FAILURE, UNSPECIFIED (3) Acute dyspnea Code(s): R06.00 - DYSPNEA, UNSPECIFIED (4) Afib Code(s): I48.91 - UNSPECIFIED ATRIAL FIBRILLATION Qualifiers: Atrial fibrillation type: paroxysmal Qualified Code(s): I48.0 - Paroxysmal atrial fibrillation Assessment/Plan plan --will taper down Solumedrol -- continue with rate control, Eliquis -- continue with nebs, O2 -- iv Levaquin
--- NOTE | 2017-09-19 13:10 | PN ---
Progress Note (short form) - Note Progress Note: Ambulating in the hallway. Cough, chest tightness, and wheeze persist, but better than on admission. Intake & Output 09/16/17 09/17/17 09/18/17 09/19/17 23:59 23:59 23:59 23:59 Intake Total 660 1280 150 Balance 660 1280 150 Weight 150 lb 193 lb 12.8 oz Last Vital Signs Temp Pulse Resp BP Pulse Ox 98 F 90 20 144/80 95 09/19/17 10:00 09/19/17 10:00 09/19/17 10:00 09/19/17 10:00 09/18/17 21:00 Active Medications Albuterol Sulfate (Ventolin 0.083% Nebulizer Soln -) 1 amp NEB Q4H PRN PRN Reason: SHORT OF BREATH/WHEEZING Albuterol/Ipratropium (Duoneb -) 1 amp NEB RQID [facility] Last Admin: 09/19/17 11:49 Dose: Not Given Amlodipine Besylate (Norvasc -) 10 mg PO DAILY [facility] Last Admin: 09/19/17 09:17 Dose: 10 mg Apixaban (Eliquis -) 5 mg PO BID [facility] Last Admin: 09/19/17 09:17 Dose: 5 mg Atorvastatin Calcium (Lipitor -) 20 mg PO HS [facility] Last Admin: 09/18/17 21:33 Dose: 20 mg Levofloxacin (Levaquin 500 Mg Premixed Ivpb -) 500 mg in 100 mls @ 100 mls/hr IVPB DAILY [facility]; Protocol Last Admin: 09/19/17 09:16 Dose: 100 mls/hr Insulin Aspart (Novolog Vial Sliding Scale -) 1 vial SQ ACHS [facility]; Protocol Last Admin: 09/19/17 12:18 Dose: 7 units Levothyroxine Sodium (Synthroid -) 112 mcg PO DAILY@0700 [facility] Last Admin: 09/19/17 06:05 Dose: 112 mcg Methylprednisolone Sodium Succinate (Solu-Medrol -) 60 mg IVPUSH Q8H-IV [facility] Metoprolol Succinate (Toprol Xl -) 50 mg PO DAILY [facility] Last Admin: 09/19/17 09:17 Dose: 50 mg Montelukast Sodium (Singulair -) 10 mg PO HS [facility] Last Admin: 09/18/17 21:33 Dose: 10 mg Non-Formulary Medication (Diclofenac Epolamine [Flector]) 1 each TP DAILY PRN PRN Reason: BACK PAIN Potassium Chloride (K-Dur -) 20 meq PO DAILY [facility] Last Admin: 09/19/17 09:17 Dose: 20 meq Ramipril (Altace -) 5 mg PO DAILY [facility] Last Admin: 09/19/17 09:17 Dose: 5 mg Zolpidem Tartrate (Ambien -) 5 mg PO HS PRN PRN Reason: INSOMNIA Last Admin: 09/18/17 21:39 Dose: 5 mg Constitutional: Yes: NAD Eyes: Yes: WNL HENT: Yes: WNL Neck: Yes: WNL Cardiovascular: Yes: Pulse Irregular, S1, S2 Respiratory: Yes: BILATERAL RHONCHI AND WHEEZES Gastrointestinal: Yes: Normal Bowel Sounds, Soft Extremities: Yes: WNL Edema: No Laboratory Results - last 24 hr 09/18/17 09/18/17 09/19/17 17:33 21:32 05:41 POC Glucometer 230 255 182 09/19/17 11:20 POC Glucometer 269 Assessment/Plan - Problems (1) COPD (chronic obstructive pulmonary disease) with acute bronchitis Code(s): J44.0 - CHRONIC OBSTRUCTIVE PULMON DISEASE W ACUTE LOWER RESP INFCT (2) Afib Code(s): I48.91 - UNSPECIFIED ATRIAL FIBRILLATION Qualifiers: Atrial fibrillation type: paroxysmal Qualified Code(s): I48.0 - Paroxysmal atrial fibrillation (3) Anemia Code(s): D64.9 - ANEMIA, UNSPECIFIED Qualifiers: Anemia type: unspecified type Qualified Code(s): D64.9 - Anemia, unspecified (4) Anxiety Code(s): F41.9 - ANXIETY DISORDER, UNSPECIFIED (5) Atrial fibrillation with controlled ventricular response Code(s): I48.91 - UNSPECIFIED ATRIAL FIBRILLATION (6) Atypical chest pain Code(s): R07.89 - OTHER CHEST PAIN (7) Chest pain Code(s): R07.9 - CHEST PAIN, UNSPECIFIED (8) Cough Code(s): R05 - COUGH (9) HTN (hypertension) Code(s): I10 - ESSENTIAL (PRIMARY) HYPERTENSION Qualifiers: Hypertension type: essential hypertension Qualified Code(s): I10 - Essential (primary) hypertension (10) Hypothyroidism Code(s): E03.9 - HYPOTHYROIDISM, UNSPECIFIED Qualifiers: Hypothyroidism type: unspecified Qualified Code(s): E03.9 - Hypothyroidism , unspecified (11) Paroxysmal atrial fibrillation Code(s): I48.0 - PAROXYSMAL ATRIAL FIBRILLATION (12) Pneumonia Code(s): J18.9 - PNEUMONIA, UNSPECIFIED ORGANISM Qualifiers: Pneumonia type: due to unspecified organism Laterality: unspecified laterality Lung location: unspecified part of lung Qualified Code(s): J18.9 - Pneumonia, unspecified organism (13) Shortness of breath Code(s): R06.02 - SHORTNESS OF BREATH (14) Type 2 diabetes mellitus Code(s): E11.9 - TYPE 2 DIABETES MELLITUS WITHOUT COMPLICATIONS Qualifiers: Diabetes mellitus termination clerk insulin use: with senior living use Diabetes mellitus complication status: without complication Qualified Code(s): E11.9 - Type 2 diabetes mellitus without complications; Z79.4 - alf (current) use of insulin Assessment/Plan Levaquin OD BD TX standing and PRN Medrol same dose O2 No smoking PFTs after D/C Dr Nunez Problem List - Problems (1) COPD (chronic obstructive pulmonary disease) with acute bronchitis Code(s): J44.0 - CHRONIC OBSTRUCTIVE PULMON DISEASE W ACUTE LOWER RESP INFCT (2) Afib Code(s): I48.91 - UNSPECIFIED ATRIAL FIBRILLATION Qualifiers: Atrial fibrillation type: paroxysmal Qualified Code(s): I48.0 - Paroxysmal atrial fibrillation (3) Anemia Code(s): D64.9 - ANEMIA, UNSPECIFIED Qualifiers: Anemia type: unspecified type Qualified Code(s): D64.9 - Anemia, unspecified (4) Anxiety Code(s): F41.9 - ANXIETY DISORDER, UNSPECIFIED (5) Atrial fibrillation with controlled ventricular response Code(s): I48.91 - UNSPECIFIED ATRIAL FIBRILLATION (6) Atypical chest pain Code(s): R07.89 - OTHER CHEST PAIN (7) Chest pain Code(s): R07.9 - CHEST PAIN, UNSPECIFIED (8) Cough Code(s): R05 - COUGH (9) HTN (hypertension) Code(s): I10 - ESSENTIAL (PRIMARY) HYPERTENSION Qualifiers: Hypertension type: essential hypertension Qualified Code(s): I10 - Essential (primary) hypertension (10) Hypothyroidism Code(s): E03.9 - HYPOTHYROIDISM, UNSPECIFIED Qualifiers: Hypothyroidism type: unspecified Qualified Code(s): E03.9 - Hypothyroidism , unspecified (11) Paroxysmal atrial fibrillation Code(s): I48.0 - PAROXYSMAL ATRIAL FIBRILLATION (12) Pneumonia Code(s): J18.9 - PNEUMONIA, UNSPECIFIED ORGANISM Qualifiers: Pneumonia type: due to unspecified organism Laterality: unspecified laterality Lung location: unspecified part of lung Qualified Code(s): J18.9 - Pneumonia, unspecified organism (13) Shortness of breath Code(s): R06.02 - SHORTNESS OF BREATH (14) Type 2 diabetes mellitus Code(s): E11.9 - TYPE 2 DIABETES MELLITUS WITHOUT COMPLICATIONS Qualifiers: Diabetes mellitus termination clerk insulin use: with senior living use Diabetes mellitus complication status: without complication Qualified Code(s): E11.9 - Type 2 diabetes mellitus without complications; Z79.4 - adjunct faculty for medical terminology (current) use of insulin
--- NOTE | 2017-09-19 16:23 | PN ---
Progress Note, Physician History of Present Illness: Dyspnea, cough, post-tussive chest tightness and wheezing slowly improving. - Current Medication List Current Medications: Active Medications Albuterol Sulfate (Ventolin 0.083% Nebulizer Soln -) 1 amp NEB Q4H PRN PRN Reason: SHORT OF BREATH/WHEEZING Albuterol/Ipratropium (Duoneb -) 1 amp NEB RQID [facility] Last Admin: 09/19/17 16:14 Dose: 1 amp Amlodipine Besylate (Norvasc -) 10 mg PO DAILY [facility] Last Admin: 09/19/17 09:17 Dose: 10 mg Apixaban (Eliquis -) 5 mg PO BID [facility] Last Admin: 09/19/17 09:17 Dose: 5 mg Atorvastatin Calcium (Lipitor -) 20 mg PO HS [facility] Last Admin: 09/18/17 21:33 Dose: 20 mg Levofloxacin (Levaquin 500 Mg Premixed Ivpb -) 500 mg in 100 mls @ 100 mls/hr IVPB DAILY [facility]; Protocol Last Admin: 09/19/17 09:16 Dose: 100 mls/hr Insulin Aspart (Novolog Vial Sliding Scale -) 1 vial SQ ACHS [facility]; Protocol Last Admin: 09/19/17 12:18 Dose: 7 units Levothyroxine Sodium (Synthroid -) 112 mcg PO DAILY@0700 [facility] Last Admin: 09/19/17 06:05 Dose: 112 mcg Methylprednisolone Sodium Succinate (Solu-Medrol -) 60 mg IVPUSH Q8H-IV [facility] Metoprolol Succinate (Toprol Xl -) 50 mg PO DAILY [facility] Last Admin: 09/19/17 09:17 Dose: 50 mg Montelukast Sodium (Singulair -) 10 mg PO HS [facility] Last Admin: 09/18/17 21:33 Dose: 10 mg Non-Formulary Medication (Diclofenac Epolamine [Flector]) 1 each TP DAILY PRN PRN Reason: BACK PAIN Potassium Chloride (K-Dur -) 20 meq PO DAILY [facility] Last Admin: 09/19/17 09:17 Dose: 20 meq Ramipril (Altace -) 5 mg PO DAILY [facility] Last Admin: 09/19/17 09:17 Dose: 5 mg Zolpidem Tartrate (Ambien -) 5 mg PO HS PRN PRN Reason: INSOMNIA Last Admin: 09/18/17 21:39 Dose: 5 mg - Objective Vital Signs: Vital Signs Temperature 98.0 F 09/19/17 14:00 Pulse Rate 84 09/19/17 14:00 Respiratory Rate 20 09/19/17 10:00 Blood Pressure 159/92 09/19/17 14:00 O2 Sat by Pulse Oximetry (%) 94 L 09/19/17 09:00 Constitutional: Yes: No Distress, Calm Neck: Yes: Supple Cardiovascular: Yes: Regular Rate and Rhythm Respiratory: Yes: Regular, Cough, Diminished, Wheezes Gastrointestinal: Yes: Normal Bowel Sounds, Soft, Abdomen, Obese Edema: No Labs: CBC, BMP 09/17/17 08:30 09/17/17 08:30 Problem List - Problems (1) COPD (chronic obstructive pulmonary disease) with acute bronchitis Code(s): J44.0 - CHRONIC OBSTRUCTIVE PULMON DISEASE W ACUTE LOWER RESP INFCT (2) Atypical chest pain Code(s): R07.89 - OTHER CHEST PAIN (3) Bronchitis Code(s): J40 - BRONCHITIS, NOT SPECIFIED ACUTE OR CHRONIC (4) Cough Code(s): R05 - COUGH (5) HTN (hypertension) Code(s): I10 - ESSENTIAL (PRIMARY) HYPERTENSION Qualifiers: Hypertension type: essential hypertension Qualified Code(s): I10 - Essential (primary) hypertension (6) Hyperlipidemia Code(s): E78.5 - HYPERLIPIDEMIA, UNSPECIFIED Qualifiers: Hyperlipidemia type: pure hypercholesterolemia Qualified Code(s): E78.00 - Pure hypercholesterolemia, unspecified; E78.0 - Pure hypercholesterolemia (7) Hypothyroidism Code(s): E03.9 - HYPOTHYROIDISM, UNSPECIFIED Qualifiers: Hypothyroidism type: unspecified Qualified Code(s): E03.9 - Hypothyroidism , unspecified (8) Paroxysmal atrial fibrillation Code(s): I48.0 - PAROXYSMAL ATRIAL FIBRILLATION (9) Pneumonia Code(s): J18.9 - PNEUMONIA, UNSPECIFIED ORGANISM Qualifiers: Pneumonia type: due to unspecified organism Laterality: unspecified laterality Lung location: unspecified part of lung Qualified Code(s): J18.9 - Pneumonia, unspecified organism (10) Shortness of breath Code(s): R06.02 - SHORTNESS OF BREATH (11) Type 2 diabetes mellitus Code(s): E11.9 - TYPE 2 DIABETES MELLITUS WITHOUT COMPLICATIONS Qualifiers: Diabetes mellitus exterminator helper termite insulin use: with exterminator helper termite use Diabetes mellitus complication status: without complication Qualified Code(s): E11.9 - Type 2 diabetes mellitus without complications; Z79.4 - intermediate accountant (current) use of insulin Assessment/Plan 1. COPD exacerbation, LLL PNA 2. PAF/flutter [id number] score of 4 on NOAC 3. HTN 4. NIDDM 5. Hypercholesterolemia 6. Hypothyroidism 7. Demand ischemia PLAN: 1. Continue Eliquis 5 mg BID 2. Continue Metoprolol 50 qd, Ramipril 5 qd and Amlodipine 10 qd 3. Continue Atorvastatin 20 qhs 4. IV steroid taper, BD, empiric abx, O2, Singulair and bronchodilators, PFTs as outpatient 5. Troponins have peaked, d/c telemetry
[2017-09-19] MEDS: MONTELUKAST NA 10 MG TABLET PO SCH (21:48)
[2017-09-19] MEDS: ATORVASTATIN CA 20 MG TABLET (FP) PO SCH (21:48)
[2017-09-19] MEDS: ZOLPIDEM TARTRATE 5 MG TABLET PO PRN (21:49)
[2017-09-19] MEDS: ACETAMINOPHEN 325 MG TABLET (FP) PO PRN (21:49)
[2017-09-20] MEDS: methylPREDNISolone NA SUCC 125 MG/2 ML VIAL IVPUSH SCH ×2 (02:44→09:55)
[2017-09-20] MEDS: LEVOTHYROXINE NA 112 MCG TABLET (FP) PO SCH (06:04)
[2017-09-20] MEDS: INSULIN SLIDING SCALE (NOVOLOG) 1 VIAL SQ SCH ×4 (06:04→21:40)
[2017-09-20] MEDS: ALBUTEROL SO4 2.5/IPRATROPIUM 0.5 INH SOL 3 ML VIAL.NEB. NEB SCH ×4 (08:10→20:07)
[2017-09-20] MEDS: POTASSIUM CHLORIDE TABS 20 MEQ TABLET.ER (FP) PO SCH (09:55)
[2017-09-20] MEDS: RAMIPRIL 5 MG CAPSULE (FP) PO SCH (09:55)
[2017-09-20] MEDS: APIXABAN 5 MG TABLET PO SCH ×2 (09:55→21:40)
[2017-09-20] MEDS: amLODIPine BESYLATE 10 MG TABLET (FP) PO SCH (09:55)
--- NOTE | 2017-09-20 10:06 | PN ---
Progress Note, Physician Chief Complaint: ambulating in the hallway feeling better no distress - Current Medication List Current Medications: Active Medications Acetaminophen (Tylenol -) 650 mg PO Q6H PRN PRN Reason: PAIN LEVEL 7 - 10 Last Admin: 09/19/17 21:49 Dose: 650 mg Albuterol Sulfate (Ventolin 0.083% Nebulizer Soln -) 1 amp NEB Q4H PRN PRN Reason: SHORT OF BREATH/WHEEZING Albuterol/Ipratropium (Duoneb -) 1 amp NEB RQID [facility] Last Admin: 09/19/17 20:50 Dose: 1 amp Amlodipine Besylate (Norvasc -) 10 mg PO DAILY [facility] Last Admin: 09/20/17 09:55 Dose: 10 mg Apixaban (Eliquis -) 5 mg PO BID [facility] Last Admin: 09/20/17 09:55 Dose: 5 mg Atorvastatin Calcium (Lipitor -) 20 mg PO HS [facility] Last Admin: 09/19/17 21:48 Dose: 20 mg Levofloxacin (Levaquin 500 Mg Premixed Ivpb -) 500 mg in 100 mls @ 100 mls/hr IVPB DAILY [facility]; Protocol Last Admin: 09/20/17 09:55 Dose: 100 mls/hr Insulin Aspart (Novolog Vial Sliding Scale -) 1 vial SQ ACHS [facility]; Protocol Last Admin: 09/20/17 06:04 Dose: 3 units Levothyroxine Sodium (Synthroid -) 112 mcg PO DAILY@0700 [facility] Last Admin: 09/20/17 06:04 Dose: 112 mcg Methylprednisolone Sodium Succinate (Solu-Medrol -) 60 mg IVPUSH Q8H-IV [facility] Last Admin: 09/20/17 09:55 Dose: 60 mg Metoprolol Succinate (Toprol Xl -) 50 mg PO DAILY [facility] Last Admin: 09/20/17 09:55 Dose: 50 mg Montelukast Sodium (Singulair -) 10 mg PO HS [facility] Last Admin: 09/19/17 21:48 Dose: 10 mg Non-Formulary Medication (Diclofenac Epolamine [Flector]) 1 each TP DAILY PRN PRN Reason: BACK PAIN Potassium Chloride (K-Dur -) 20 meq PO DAILY [facility] Last Admin: 09/20/17 09:55 Dose: 20 meq Ramipril (Altace -) 5 mg PO DAILY [facility] Last Admin: 09/20/17 09:55 Dose: 5 mg - Objective Vital Signs: Vital Signs Temperature 97.8 F 09/20/17 05:59 Pulse Rate 86 09/20/17 05:59 Respiratory Rate 20 09/20/17 05:59 Blood Pressure 153/90 09/20/17 05:59 O2 Sat by Pulse Oximetry (%) 94 L 09/19/17 21:00 Constitutional: Yes: No Distress Cardiovascular: Yes: Pulse Irregular Respiratory: Yes: Diminished. No: Rales, Rhonchi Gastrointestinal: Yes: Normal Bowel Sounds, Soft. No: Tenderness Edema: Yes Edema: RLE: Trace Labs: CBC, BMP 09/17/17 08:30 09/17/17 08:30 Problem List - Problems (1) COPD (chronic obstructive pulmonary disease) with acute bronchitis Code(s): J44.0 - CHRONIC OBSTRUCTIVE PULMON DISEASE W ACUTE LOWER RESP INFCT (2) LESLEE (acute kidney injury) Code(s): N17.9 - ACUTE KIDNEY FAILURE, UNSPECIFIED (3) Acute dyspnea Code(s): R06.00 - DYSPNEA, UNSPECIFIED (4) Afib Code(s): I48.91 - UNSPECIFIED ATRIAL FIBRILLATION Qualifiers: Atrial fibrillation type: paroxysmal Qualified Code(s): I48.0 - Paroxysmal atrial fibrillation Assessment/Plan PLAN --taper down Solumedrol -- continue with rate control, Eliquis -- continue with nebs, O2 -- iv Levaquin -- OOB daily
--- NOTE | 2017-09-20 11:49 | PN ---
Progress Note, Physician History of Present Illness: Dyspnea, cough, post-tussive chest tightness and wheezing slowly improving. - Current Medication List Current Medications: Active Medications Acetaminophen (Tylenol -) 650 mg PO Q6H PRN PRN Reason: PAIN LEVEL 7 - 10 Last Admin: 09/19/17 21:49 Dose: 650 mg Albuterol Sulfate (Ventolin 0.083% Nebulizer Soln -) 1 amp NEB Q4H PRN PRN Reason: SHORT OF BREATH/WHEEZING Albuterol/Ipratropium (Duoneb -) 1 amp NEB RQID [facility] Last Admin: 09/19/17 20:50 Dose: 1 amp Amlodipine Besylate (Norvasc -) 10 mg PO DAILY [facility] Last Admin: 09/20/17 09:55 Dose: 10 mg Apixaban (Eliquis -) 5 mg PO BID [facility] Last Admin: 09/20/17 09:55 Dose: 5 mg Atorvastatin Calcium (Lipitor -) 20 mg PO HS [facility] Last Admin: 09/19/17 21:48 Dose: 20 mg Levofloxacin (Levaquin 500 Mg Premixed Ivpb -) 500 mg in 100 mls @ 100 mls/hr IVPB DAILY [facility]; Protocol Last Admin: 09/20/17 09:55 Dose: 100 mls/hr Insulin Aspart (Novolog Vial Sliding Scale -) 1 vial SQ ACHS [facility]; Protocol Last Admin: 09/20/17 06:04 Dose: 3 units Levothyroxine Sodium (Synthroid -) 112 mcg PO DAILY@0700 [facility] Last Admin: 09/20/17 06:04 Dose: 112 mcg Methylprednisolone Sodium Succinate (Solu-Medrol -) 60 mg IVPUSH Q8H-IV [facility] Last Admin: 09/20/17 09:55 Dose: 60 mg Metoprolol Succinate (Toprol Xl -) 50 mg PO DAILY [facility] Last Admin: 09/20/17 09:55 Dose: 50 mg Montelukast Sodium (Singulair -) 10 mg PO HS [facility] Last Admin: 09/19/17 21:48 Dose: 10 mg Non-Formulary Medication (Diclofenac Epolamine [Flector]) 1 each TP DAILY PRN PRN Reason: BACK PAIN Potassium Chloride (K-Dur -) 20 meq PO DAILY [facility] Last Admin: 09/20/17 09:55 Dose: 20 meq Ramipril (Altace -) 5 mg PO DAILY [facility] Last Admin: 09/20/17 09:55 Dose: 5 mg - Objective Vital Signs: Vital Signs Temperature 97.8 F 09/20/17 05:59 Pulse Rate 86 09/20/17 05:59 Respiratory Rate 20 09/20/17 05:59 Blood Pressure 153/90 09/20/17 05:59 O2 Sat by Pulse Oximetry (%) 94 L 09/19/17 21:00 Constitutional: Yes: No Distress, Calm Neck: Yes: Supple Cardiovascular: Yes: Regular Rate and Rhythm Respiratory: Yes: Regular, Cough, Diminished, SOB, Wheezes Gastrointestinal: Yes: Normal Bowel Sounds, Soft, Abdomen, Obese Edema: No Labs: CBC, BMP 09/17/17 08:30 09/17/17 08:30 Problem List - Problems (1) COPD (chronic obstructive pulmonary disease) with acute bronchitis Code(s): J44.0 - CHRONIC OBSTRUCTIVE PULMON DISEASE W ACUTE LOWER RESP INFCT (2) Atypical chest pain Code(s): R07.89 - OTHER CHEST PAIN (3) Bronchitis Code(s): J40 - BRONCHITIS, NOT SPECIFIED ACUTE OR CHRONIC (4) Cough Code(s): R05 - COUGH (5) HTN (hypertension) Code(s): I10 - ESSENTIAL (PRIMARY) HYPERTENSION Qualifiers: Hypertension type: essential hypertension Qualified Code(s): I10 - Essential (primary) hypertension (6) Hyperlipidemia Code(s): E78.5 - HYPERLIPIDEMIA, UNSPECIFIED Qualifiers: Hyperlipidemia type: pure hypercholesterolemia Qualified Code(s): E78.00 - Pure hypercholesterolemia, unspecified; E78.0 - Pure hypercholesterolemia (7) Hypothyroidism Code(s): E03.9 - HYPOTHYROIDISM, UNSPECIFIED Qualifiers: Hypothyroidism type: unspecified Qualified Code(s): E03.9 - Hypothyroidism , unspecified (8) Paroxysmal atrial fibrillation Code(s): I48.0 - PAROXYSMAL ATRIAL FIBRILLATION (9) Pneumonia Code(s): J18.9 - PNEUMONIA, UNSPECIFIED ORGANISM Qualifiers: Pneumonia type: due to unspecified organism Laterality: unspecified laterality Lung location: unspecified part of lung Qualified Code(s): J18.9 - Pneumonia, unspecified organism (10) Shortness of breath Code(s): R06.02 - SHORTNESS OF BREATH (11) Type 2 diabetes mellitus Code(s): E11.9 - TYPE 2 DIABETES MELLITUS WITHOUT COMPLICATIONS Qualifiers: Diabetes mellitus intermediate teacher insulin use: with residential use Diabetes mellitus complication status: without complication Qualified Code(s): E11.9 - Type 2 diabetes mellitus without complications; Z79.4 - watermelon inspector (current) use of insulin Assessment/Plan 1. COPD exacerbation, LLL PNA 2. PAF/flutter [id number] score of 4 on NOAC 3. HTN 4. NIDDM 5. Hypercholesterolemia 6. Hypothyroidism 7. Demand ischemia PLAN: 1. Continue Eliquis 5 mg BID 2. Continue Metoprolol XL 50 qd, Ramipril 5 qd, Atorvastatin 20 qhs and Amlodipine 10 qd 3. IV steroid taper, BD, empiric abx, O2, Singulair and bronchodilators, PFTs as outpatient 4. Troponins have peaked, d/c telemetry
--- NOTE | 2017-09-20 12:58 | PN ---
Progress Note (short form) - Note Progress Note: Ambulating in the hallway. Feels better today. Less cough, chest tightness, and wheeze. Intake & Output 09/17/17 09/18/17 09/19/17 09/20/17 23:59 23:59 23:59 23:59 Intake Total 660 1280 1020 300 Balance 660 1280 1020 300 Weight 193 lb 12.8 oz Last Vital Signs Temp Pulse Resp BP Pulse Ox 97.8 F 86 20 153/90 94 L 09/20/17 05:59 09/20/17 05:59 09/20/17 05:59 09/20/17 05:59 09/19/17 21:00 Active Medications Acetaminophen (Tylenol -) 650 mg PO Q6H PRN PRN Reason: PAIN LEVEL 7 - 10 Last Admin: 09/19/17 21:49 Dose: 650 mg Albuterol Sulfate (Ventolin 0.083% Nebulizer Soln -) 1 amp NEB Q4H PRN PRN Reason: SHORT OF BREATH/WHEEZING Albuterol/Ipratropium (Duoneb -) 1 amp NEB RQID [facility] Last Admin: 09/20/17 12:06 Dose: 1 amp Amlodipine Besylate (Norvasc -) 10 mg PO DAILY [facility] Last Admin: 09/20/17 09:55 Dose: 10 mg Apixaban (Eliquis -) 5 mg PO BID [facility] Last Admin: 09/20/17 09:55 Dose: 5 mg Atorvastatin Calcium (Lipitor -) 20 mg PO HS [facility] Last Admin: 09/19/17 21:48 Dose: 20 mg Levofloxacin (Levaquin 500 Mg Premixed Ivpb -) 500 mg in 100 mls @ 100 mls/hr IVPB DAILY [facility]; Protocol Last Admin: 09/20/17 09:55 Dose: 100 mls/hr Insulin Aspart (Novolog Vial Sliding Scale -) 1 vial SQ ACHS [facility]; Protocol Last Admin: 09/20/17 11:58 Dose: 5 units Levothyroxine Sodium (Synthroid -) 112 mcg PO DAILY@0700 [facility] Last Admin: 09/20/17 06:04 Dose: 112 mcg Methylprednisolone Sodium Succinate (Solu-Medrol -) 60 mg IVPUSH Q8H-IV [facility] Last Admin: 09/20/17 09:55 Dose: 60 mg Metoprolol Succinate (Toprol Xl -) 50 mg PO DAILY [facility] Last Admin: 09/20/17 09:55 Dose: 50 mg Montelukast Sodium (Singulair -) 10 mg PO HS [facility] Last Admin: 09/19/17 21:48 Dose: 10 mg Non-Formulary Medication (Diclofenac Epolamine [Flector]) 1 each TP DAILY PRN PRN Reason: BACK PAIN Potassium Chloride (K-Dur -) 20 meq PO DAILY [facility] Last Admin: 09/20/17 09:55 Dose: 20 meq Ramipril (Altace -) 5 mg PO DAILY [facility] Last Admin: 09/20/17 09:55 Dose: 5 mg Constitutional: Yes: NAD Eyes: Yes: WNL HENT: Yes: WNL Neck: Yes: WNL Cardiovascular: Yes: Pulse Irregular, S1, S2 Respiratory: Yes: BILATERAL RHONCHI AND WHEEZES Gastrointestinal: Yes: Normal Bowel Sounds, Soft Extremities: Yes: WNL Edema: No Laboratory Results - last 24 hr 09/19/17 09/19/17 09/20/17 17:05 21:47 05:55 POC Glucometer 216 278 194 09/20/17 11:47 POC Glucometer 202 Assessment/Plan - Problems (1) COPD (chronic obstructive pulmonary disease) with acute bronchitis Code(s): J44.0 - CHRONIC OBSTRUCTIVE PULMON DISEASE W ACUTE LOWER RESP INFCT (2) Afib Code(s): I48.91 - UNSPECIFIED ATRIAL FIBRILLATION Qualifiers: Atrial fibrillation type: paroxysmal Qualified Code(s): I48.0 - Paroxysmal atrial fibrillation (3) Anemia Code(s): D64.9 - ANEMIA, UNSPECIFIED Qualifiers: Anemia type: unspecified type Qualified Code(s): D64.9 - Anemia, unspecified (4) Anxiety Code(s): F41.9 - ANXIETY DISORDER, UNSPECIFIED (5) Atrial fibrillation with controlled ventricular response Code(s): I48.91 - UNSPECIFIED ATRIAL FIBRILLATION (6) Atypical chest pain Code(s): R07.89 - OTHER CHEST PAIN (7) Chest pain Code(s): R07.9 - CHEST PAIN, UNSPECIFIED (8) Cough Code(s): R05 - COUGH (9) HTN (hypertension) Code(s): I10 - ESSENTIAL (PRIMARY) HYPERTENSION Qualifiers: Hypertension type: essential hypertension Qualified Code(s): I10 - Essential (primary) hypertension (10) Hypothyroidism Code(s): E03.9 - HYPOTHYROIDISM, UNSPECIFIED Qualifiers: Hypothyroidism type: unspecified Qualified Code(s): E03.9 - Hypothyroidism , unspecified (11) Paroxysmal atrial fibrillation Code(s): I48.0 - PAROXYSMAL ATRIAL FIBRILLATION (12) Pneumonia Code(s): J18.9 - PNEUMONIA, UNSPECIFIED ORGANISM Qualifiers: Pneumonia type: due to unspecified organism Laterality: unspecified laterality Lung location: unspecified part of lung Qualified Code(s): J18.9 - Pneumonia, unspecified organism (13) Shortness of breath Code(s): R06.02 - SHORTNESS OF BREATH (14) Type 2 diabetes mellitus Code(s): E11.9 - TYPE 2 DIABETES MELLITUS WITHOUT COMPLICATIONS Qualifiers: Diabetes mellitus intermodal dispatcher insulin use: with care home use Diabetes mellitus complication status: without complication Qualified Code(s): E11.9 - Type 2 diabetes mellitus without complications; Z79.4 - intermediate (current) use of insulin Assessment/Plan Levaquin OD BD TX standing and PRN Medrol taper today O2 as needed No smoking PFTs after D/C Dr Nunez Problem List - Problems (1) COPD (chronic obstructive pulmonary disease) with acute bronchitis Code(s): J44.0 - CHRONIC OBSTRUCTIVE PULMON DISEASE W ACUTE LOWER RESP INFCT (2) Afib Code(s): I48.91 - UNSPECIFIED ATRIAL FIBRILLATION Qualifiers: Atrial fibrillation type: paroxysmal Qualified Code(s): I48.0 - Paroxysmal atrial fibrillation (3) Anemia Code(s): D64.9 - ANEMIA, UNSPECIFIED Qualifiers: Anemia type: unspecified type Qualified Code(s): D64.9 - Anemia, unspecified (4) Anxiety Code(s): F41.9 - ANXIETY DISORDER, UNSPECIFIED (5) Atrial fibrillation with controlled ventricular response Code(s): I48.91 - UNSPECIFIED ATRIAL FIBRILLATION (6) Atypical chest pain Code(s): R07.89 - OTHER CHEST PAIN (7) Chest pain Code(s): R07.9 - CHEST PAIN, UNSPECIFIED (8) Cough Code(s): R05 - COUGH (9) HTN (hypertension) Code(s): I10 - ESSENTIAL (PRIMARY) HYPERTENSION Qualifiers: Hypertension type: essential hypertension Qualified Code(s): I10 - Essential (primary) hypertension (10) Hypothyroidism Code(s): E03.9 - HYPOTHYROIDISM, UNSPECIFIED Qualifiers: Hypothyroidism type: unspecified Qualified Code(s): E03.9 - Hypothyroidism , unspecified (11) Paroxysmal atrial fibrillation Code(s): I48.0 - PAROXYSMAL ATRIAL FIBRILLATION (12) Pneumonia Code(s): J18.9 - PNEUMONIA, UNSPECIFIED ORGANISM Qualifiers: Pneumonia type: due to unspecified organism Laterality: unspecified laterality Lung location: unspecified part of lung Qualified Code(s): J18.9 - Pneumonia, unspecified organism (13) Shortness of breath Code(s): R06.02 - SHORTNESS OF BREATH (14) Type 2 diabetes mellitus Code(s): E11.9 - TYPE 2 DIABETES MELLITUS WITHOUT COMPLICATIONS Qualifiers: Diabetes mellitus intermodal dispatcher insulin use: with care home use Diabetes mellitus complication status: without complication Qualified Code(s): E11.9 - Type 2 diabetes mellitus without complications; Z79.4 - intermediate (current) use of insulin
[2017-09-20] MEDS ORDERED: INSULIN (NOVOLOG) ASPART 100 UNITS/ML 10ML VIAL ONE (20:37)
[2017-09-20] MEDS: ATORVASTATIN CA 20 MG TABLET (FP) PO SCH (21:40)
[2017-09-20] MEDS: MONTELUKAST NA 10 MG TABLET PO SCH (21:40)
[2017-09-20] MEDS: methylPREDNISolone NA SUCC 40 MG/1 ML VIAL IVPUSH SCH (21:40)
[2017-09-21] MEDS: INSULIN SLIDING SCALE (NOVOLOG) 1 VIAL SQ SCH ×4 (06:44→21:26)
[2017-09-21] MEDS: LEVOTHYROXINE NA 112 MCG TABLET (FP) PO SCH (06:45)
[2017-09-21] MEDS: ALBUTEROL SO4 2.5/IPRATROPIUM 0.5 INH SOL 3 ML VIAL.NEB. NEB SCH ×4 (07:02→20:15)
--- NOTE | 2017-09-21 07:23 | PN ---
Progress Note (short form) - Note Progress Note: Chief Complaint: Events noted, notes reviewed continues to report chest pain with cough, denies any dyspnea History of Present Illness: Seen and examined on telemetry. Events noted, notes reviewed continues to report chest pain with cough, denies any dyspnea Medications: Current Medications Acetaminophen (Tylenol -) 650 mg PO Q6H PRN PRN Reason: PAIN LEVEL 7 - 10 Last Admin: 09/19/17 21:49 Dose: 650 mg Albuterol Sulfate (Ventolin 0.083% Nebulizer Soln -) 1 amp NEB Q4H PRN PRN Reason: SHORT OF BREATH/WHEEZING Last Admin: 09/21/17 00:55 Dose: 1 amp Albuterol/Ipratropium (Duoneb -) 1 amp NEB RQID [facility] Last Admin: 09/21/17 07:02 Dose: 1 amp Amlodipine Besylate (Norvasc -) 10 mg PO DAILY [facility] Last Admin: 09/21/17 10:40 Dose: 10 mg Apixaban (Eliquis -) 5 mg PO BID [facility] Last Admin: 09/21/17 10:40 Dose: 5 mg Atorvastatin Calcium (Lipitor -) 20 mg PO HS [facility] Last Admin: 09/20/17 21:40 Dose: 20 mg Insulin Aspart (Novolog Vial Sliding Scale -) 1 vial SQ ACHS [facility]; Protocol Last Admin: 09/21/17 06:44 Dose: 5 units Levothyroxine Sodium (Synthroid -) 112 mcg PO DAILY@0700 [facility] Last Admin: 09/21/17 06:45 Dose: 112 mcg Methylprednisolone Sodium Succinate (Solu-Medrol -) 40 mg IVPUSH BID [facility] Last Admin: 09/21/17 10:40 Dose: 40 mg Metoprolol Succinate (Toprol Xl -) 50 mg PO DAILY [facility] Last Admin: 09/21/17 10:40 Dose: 50 mg Montelukast Sodium (Singulair -) 10 mg PO HS [facility] Last Admin: 09/20/17 21:40 Dose: 10 mg Non-Formulary Medication (Diclofenac Epolamine [Flector]) 1 each TP DAILY PRN PRN Reason: BACK PAIN Potassium Chloride (K-Dur -) 20 meq PO DAILY [facility] Last Admin: 09/21/17 10:40 Dose: 20 meq Ramipril (Altace -) 5 mg PO DAILY [facility] Last Admin: 09/21/17 10:40 Dose: 5 mg Review of Systems - Review of Systems Constitutional: denies: Chills, Fever Cardiovascular: as noted above Respiratory: reports: Cough denies: Hemoptysis, Orthopnea, PND Gastrointestinal: denies: Abdominal Pain, Constipation, Diarrhea, Melena, Nausea , Rectal Bleeding, Vomiting Genitourinary: denies: Dysuria Neurological: denies: Dizziness, Headache, Seizure, Syncope Vital Signs: Last Vital Signs Temp Pulse Resp BP Pulse Ox 97.9 F 81 20 149/87 97 09/21/17 05:57 09/21/17 05:57 09/21/17 05:57 09/21/17 05:57 09/20/17 20:40 Intake & Output 09/18/17 09/19/17 09/20/17 09/21/17 23:59 23:59 23:59 23:59 Intake Total 1280 1020 1130 Output Total 900 Balance 1280 1020 1130 -900 Neck: Supple Negative JVD Respiratory: Diminished Bilateral Scattered Rhonchi Cardiovascular: S1 S2 Regular Rate and Rhythm Occasional Ectopics Gastrointestinal: Soft Benign Normal Bowel Sounds Ext: No Edema Labs: CBC, BMP 09/17/17 08:30 09/17/17 08:30 Assessment/Plan ASSESSMENT: 1. COPD exacerbation, resolving 2. Chest pain syndrome atypical for CAD angina pectoris, reproducible most likely musculo-skeletal 3. Troponin I elevation, non specific with no clinical evidence of ACS, demand ishemia 4. History of paroxysmal atrial fibrillation/flutter on Eliquis therapy [id number] score of 4-5 5. HTN 6. NIDDM 7. Hypercholesterolemia 8. Hypothyroidism 9. CKD PLAN: 1. Continue Eliquis at the current dose with close monitoring of CBC considering the above noted [id number] score of 4-5 2. Continue Toprol XL 3. Continue Ramipril 4. Continue Norvasc 5. Continue Lipitor 6. Antibiotics, bronchodilators and Steroids as per the primary team 7. Patient can be transferred to medical floor, D/C telemetry Therese Webber MD
--- NOTE | 2017-09-21 10:07 | PN ---
Progress Note (short form) - Note Progress Note: Pt seen/ examined chart reviewed relatively feels better decreased sob denies cp. Vital Signs Temp 97.9 F 09/21/17 05:57 Pulse 81 09/21/17 05:57 Resp 20 09/21/17 05:57 BP 149/87 09/21/17 05:57 Pulse Ox 97 09/20/17 20:40 Intake & Output 09/20/17 09/20/17 09/21/17 11:59 23:59 11:59 Intake Total 430 700 Output Total 900 Balance 430 700 -900 Intake: IV 30 SALINE LOCK 30 Oral 400 700 Output: Urine 900 Void 900 Other: Voiding Method Toilet Toilet Toilet # Unmeasured Voids Void 2 2 Bowel Movement Yes Yes # Bowel Movements 2 Active Medications Acetaminophen (Tylenol -) 650 mg PO Q6H PRN PRN Reason: PAIN LEVEL 7 - 10 Last Admin: 09/19/17 21:49 Dose: 650 mg Albuterol Sulfate (Ventolin 0.083% Nebulizer Soln -) 1 amp NEB Q4H PRN PRN Reason: SHORT OF BREATH/WHEEZING Last Admin: 09/21/17 00:55 Dose: 1 amp Albuterol/Ipratropium (Duoneb -) 1 amp NEB RQID [facility] Last Admin: 09/21/17 07:02 Dose: 1 amp Amlodipine Besylate (Norvasc -) 10 mg PO DAILY [facility] Last Admin: 09/20/17 09:55 Dose: 10 mg Apixaban (Eliquis -) 5 mg PO BID [facility] Last Admin: 09/20/17 21:40 Dose: 5 mg Atorvastatin Calcium (Lipitor -) 20 mg PO HS [facility] Last Admin: 09/20/17 21:40 Dose: 20 mg Insulin Aspart (Novolog Vial Sliding Scale -) 1 vial SQ ACHS [facility]; Protocol Last Admin: 09/21/17 06:44 Dose: 5 units Levothyroxine Sodium (Synthroid -) 112 mcg PO DAILY@0700 [facility] Last Admin: 09/21/17 06:45 Dose: 112 mcg Methylprednisolone Sodium Succinate (Solu-Medrol -) 40 mg IVPUSH BID [facility] Last Admin: 09/20/17 21:40 Dose: 40 mg Metoprolol Succinate (Toprol Xl -) 50 mg PO DAILY [facility] Last Admin: 09/20/17 09:55 Dose: 50 mg Montelukast Sodium (Singulair -) 10 mg PO HS [facility] Last Admin: 09/20/17 21:40 Dose: 10 mg Non-Formulary Medication (Diclofenac Epolamine [Flector]) 1 each TP DAILY PRN PRN Reason: BACK PAIN Potassium Chloride (K-Dur -) 20 meq PO DAILY [facility] Last Admin: 09/20/17 09:55 Dose: 20 meq Ramipril (Altace -) 5 mg PO DAILY [facility] Last Admin: 09/20/17 09:55 Dose: 5 mg CBC, BMP 09/17/17 08:30 09/17/17 08:30 Microbiology 09/17/17 00:28 Blood Culture - Preliminary Blood - Peripheral Venous NO GROWTH OBTAINED AFTER 96 HOURS, INCUBATION TO CONTINUE FOR 1 DAYS. 09/17/17 00:28 Blood Culture - Preliminary Blood - Peripheral Venous NO GROWTH OBTAINED AFTER 96 HOURS, INCUBATION TO CONTINUE FOR 1 DAYS. Physical exam conscious and cooperative alert and awake Neck supple Lungs--- bilateral scattered wheezes CVS--heart sounds regular Abdomen--soft / non tender Extremities--- no edema Neuro--alert and awake. Assessment and plan CONTINUE PRESENT CARE STEROIDS-- tapering NEBULIZER TREATMENT medications reviewed' Monitor blood sugar Daily out of bed to chair Physical therapy d/c planning If better- anticipate tomorrow Will follow Problem List - Problems (1) COPD (chronic obstructive pulmonary disease) with acute bronchitis Code(s): J44.0 - CHRONIC OBSTRUCTIVE PULMON DISEASE W ACUTE LOWER RESP INFCT (2) HTN (hypertension) Code(s): I10 - ESSENTIAL (PRIMARY) HYPERTENSION Qualifiers: Hypertension type: essential hypertension Qualified Code(s): I10 - Essential (primary) hypertension (3) Paroxysmal atrial fibrillation Code(s): I48.0 - PAROXYSMAL ATRIAL FIBRILLATION (4) Type 2 diabetes mellitus Code(s): E11.9 - TYPE 2 DIABETES MELLITUS WITHOUT COMPLICATIONS Qualifiers: Diabetes mellitus exterminator termite insulin use: with exterminator termite use Diabetes mellitus complication status: without complication Qualified Code(s): E11.9 - Type 2 diabetes mellitus without complications; Z79.4 - meterman (current) use of insulin
--- NOTE | 2017-09-21 10:35 | PN ---
Progress Note, Physician History of Present Illness: PULMONARY ALERT,LESS DYSPNEIC,+ COUGH. - Current Medication List Current Medications: Active Medications Acetaminophen (Tylenol -) 650 mg PO Q6H PRN PRN Reason: PAIN LEVEL 7 - 10 Last Admin: 09/19/17 21:49 Dose: 650 mg Albuterol Sulfate (Ventolin 0.083% Nebulizer Soln -) 1 amp NEB Q4H PRN PRN Reason: SHORT OF BREATH/WHEEZING Last Admin: 09/21/17 00:55 Dose: 1 amp Albuterol/Ipratropium (Duoneb -) 1 amp NEB RQID [facility] Last Admin: 09/21/17 07:02 Dose: 1 amp Amlodipine Besylate (Norvasc -) 10 mg PO DAILY [facility] Last Admin: 09/20/17 09:55 Dose: 10 mg Apixaban (Eliquis -) 5 mg PO BID [facility] Last Admin: 09/20/17 21:40 Dose: 5 mg Atorvastatin Calcium (Lipitor -) 20 mg PO HS [facility] Last Admin: 09/20/17 21:40 Dose: 20 mg Insulin Aspart (Novolog Vial Sliding Scale -) 1 vial SQ [facility]; Protocol Last Admin: 09/21/17 06:44 Dose: 5 units Levothyroxine Sodium (Synthroid -) 112 mcg PO DAILY@0700 [facility] Last Admin: 09/21/17 06:45 Dose: 112 mcg Methylprednisolone Sodium Succinate (Solu-Medrol -) 40 mg IVPUSH BID [facility] Last Admin: 09/20/17 21:40 Dose: 40 mg Metoprolol Succinate (Toprol Xl -) 50 mg PO DAILY [facility] Last Admin: 09/20/17 09:55 Dose: 50 mg Montelukast Sodium (Singulair -) 10 mg PO HS [facility] Last Admin: 09/20/17 21:40 Dose: 10 mg Non-Formulary Medication (Diclofenac Epolamine [Flector]) 1 each TP DAILY PRN PRN Reason: BACK PAIN Potassium Chloride (K-Dur -) 20 meq PO DAILY [facility] Last Admin: 09/20/17 09:55 Dose: 20 meq Ramipril (Altace -) 5 mg PO DAILY [facility] Last Admin: 09/20/17 09:55 Dose: 5 mg - Objective Vital Signs: Vital Signs Temperature 97.9 F 09/21/17 05:57 Pulse Rate 81 09/21/17 05:57 Respiratory Rate 20 09/21/17 05:57 Blood Pressure 149/87 09/21/17 05:57 O2 Sat by Pulse Oximetry (%) 97 09/20/17 20:40 Constitutional: Yes: Well Nourished, Calm Eyes: Yes: WNL HENT: Yes: WNL Neck: Yes: WNL Cardiovascular: Yes: Pulse Irregular, S1, S2. No: Regular Rate and Rhythm Respiratory: Yes: Wheezes (SCATTERED ULISSES WHEEZES) Gastrointestinal: Yes: Normal Bowel Sounds, Soft Extremities: Yes: WNL Edema: No Assessment/Plan - Problems (1) COPD (chronic obstructive pulmonary disease) with acute bronchitis Code(s): J44.0 - CHRONIC OBSTRUCTIVE PULMON DISEASE W ACUTE LOWER RESP INFCT (2) Afib Code(s): I48.91 - UNSPECIFIED ATRIAL FIBRILLATION Qualifiers: Atrial fibrillation type: paroxysmal Qualified Code(s): I48.0 - Paroxysmal atrial fibrillation (3) Anemia Code(s): D64.9 - ANEMIA, UNSPECIFIED Qualifiers: Anemia type: unspecified type Qualified Code(s): D64.9 - Anemia, unspecified (4) Anxiety Code(s): F41.9 - ANXIETY DISORDER, UNSPECIFIED (5) Atrial fibrillation with controlled ventricular response Code(s): I48.91 - UNSPECIFIED ATRIAL FIBRILLATION (6) Atypical chest pain Code(s): R07.89 - OTHER CHEST PAIN (7) Chest pain Code(s): R07.9 - CHEST PAIN, UNSPECIFIED (8) Cough Code(s): R05 - COUGH (9) HTN (hypertension) Code(s): I10 - ESSENTIAL (PRIMARY) HYPERTENSION Qualifiers: Hypertension type: essential hypertension Qualified Code(s): I10 - Essential (primary) hypertension (10) Hypothyroidism Code(s): E03.9 - HYPOTHYROIDISM, UNSPECIFIED Qualifiers: Hypothyroidism type: unspecified Qualified Code(s): E03.9 - Hypothyroidism , unspecified (11) Paroxysmal atrial fibrillation Code(s): I48.0 - PAROXYSMAL ATRIAL FIBRILLATION (12) Pneumonia Code(s): J18.9 - PNEUMONIA, UNSPECIFIED ORGANISM Qualifiers: Pneumonia type: due to unspecified organism Laterality: unspecified laterality Lung location: unspecified part of lung Qualified Code(s): J18.9 - Pneumonia, unspecified organism (13) Shortness of breath Code(s): R06.02 - SHORTNESS OF BREATH (14) Type 2 diabetes mellitus Code(s): E11.9 - TYPE 2 DIABETES MELLITUS WITHOUT COMPLICATIONS Qualifiers: Diabetes mellitus custodial insulin use: with custodial use Diabetes mellitus complication status: without complication Qualified Code(s): E11.9 - Type 2 diabetes mellitus without complications; Z79.4 - assisted (current) use of insulin Assessment/Plan Levaquin OD BD TX standing and PRN Medrol taper O2 No smoking PFTs after D/C DR SANTIAGO
[2017-09-21] MEDS: methylPREDNISolone NA SUCC 40 MG/1 ML VIAL IVPUSH SCH ×2 (10:40→21:22)
[2017-09-21] MEDS: APIXABAN 5 MG TABLET PO SCH ×2 (10:40→21:22)
[2017-09-21] MEDS: RAMIPRIL 5 MG CAPSULE (FP) PO SCH (10:40)
[2017-09-21] MEDS: POTASSIUM CHLORIDE TABS 20 MEQ TABLET.ER (FP) PO SCH (10:40)
[2017-09-21] MEDS: amLODIPine BESYLATE 10 MG TABLET (FP) PO SCH (10:40)
[2017-09-21] MEDS: ATORVASTATIN CA 20 MG TABLET (FP) PO SCH (21:21)
[2017-09-21] MEDS: MONTELUKAST NA 10 MG TABLET PO SCH (21:21)
[2017-09-22] MEDS ORDERED: INSULIN (NOVOLOG) ASPART 100 UNITS/ML 10ML VIAL ONE (06:01)
[2017-09-22] MEDS: LEVOTHYROXINE NA 112 MCG TABLET (FP) PO SCH (06:08)
[2017-09-22] MEDS: INSULIN SLIDING SCALE (NOVOLOG) 1 VIAL SQ SCH ×4 (06:08→21:03)
--- NOTE | 2017-09-22 07:25 | PN ---
Progress Note (short form) - Note Progress Note: Chief Complaint: Events noted, notes reviewed, continues to report chest pain with cough although severity has decreased, denies any dyspnea History of Present Illness: Seen and examined on telemetry. Events noted, notes reviewed, continues to report chest pain with cough although severity has decreased, denies any dyspnea Sinus rhythm is noted Medications: Current Medications Acetaminophen (Tylenol -) 650 mg PO Q6H PRN PRN Reason: PAIN LEVEL 7 - 10 Last Admin: 09/19/17 21:49 Dose: 650 mg Albuterol/Ipratropium (Duoneb -) 1 amp NEB RQID [facility] Last Admin: 09/21/17 20:15 Dose: 1 amp Amlodipine Besylate (Norvasc -) 10 mg PO DAILY [facility] Last Admin: 09/21/17 10:40 Dose: 10 mg Apixaban (Eliquis -) 5 mg PO BID [facility] Last Admin: 09/21/17 21:22 Dose: 5 mg Atorvastatin Calcium (Lipitor -) 20 mg PO [facility] Last Admin: 09/21/17 21:21 Dose: 20 mg Insulin Aspart (Novolog Vial Sliding Scale -) 1 vial SQ [facility]; Protocol Last Admin: 09/22/17 06:08 Dose: 5 units Levothyroxine Sodium (Synthroid -) 112 mcg PO DAILY@0700 [facility] Last Admin: 09/22/17 06:08 Dose: 112 mcg Methylprednisolone Sodium Succinate (Solu-Medrol -) 40 mg IVPUSH BID [facility] Last Admin: 09/21/17 21:22 Dose: 40 mg Metoprolol Succinate (Toprol Xl -) 50 mg PO DAILY [facility] Last Admin: 09/21/17 10:40 Dose: 50 mg Montelukast Sodium (Singulair -) 10 mg PO [facility] Last Admin: 09/21/17 21:21 Dose: 10 mg Non-Formulary Medication (Diclofenac Epolamine [Flector]) 1 each TP DAILY PRN PRN Reason: BACK PAIN Potassium Chloride (K-Dur -) 20 meq PO DAILY [facility] Last Admin: 09/21/17 10:40 Dose: 20 meq Ramipril (Altace -) 5 mg PO DAILY [facility] Last Admin: 09/21/17 10:40 Dose: 5 mg Review of Systems - Review of Systems Constitutional: denies: Chills, Fever Cardiovascular: as noted above Respiratory: reports: Cough denies: Hemoptysis, Orthopnea, PND Gastrointestinal: denies: Abdominal Pain, Constipation, Diarrhea, Melena, Nausea , Rectal Bleeding, Vomiting Genitourinary: denies: Dysuria Neurological: denies: Dizziness, Headache, Seizure, Syncope Vital Signs: Last Vital Signs Temp Pulse Resp BP Pulse Ox 98.3 F 73 20 148/85 97 09/22/17 05:30 09/22/17 05:30 09/22/17 05:30 09/22/17 05:30 09/21/17 20:24 Intake & Output 09/19/17 09/20/17 09/21/17 09/22/17 23:59 23:59 23:59 23:59 Intake Total 1020 1130 1120 120 Output Total 900 Balance 1020 1130 220 120 Neck: Supple Negative JVD Respiratory: Diminished Bilateral Scattered Rhonchi Cardiovascular: S1 S2 Regular Rate and Rhythm Occasional Ectopics Gastrointestinal: Soft Benign Normal Bowel Sounds Ext: No Edema Labs: CBC, BMP 09/17/17 08:30 09/17/17 08:30 Assessment/Plan ASSESSMENT: 1. COPD exacerbation, resolving 2. Chest pain syndrome atypical for CAD angina pectoris, reproducible most likely musculo-skeletal 3. Troponin I elevation, non specific with no clinical evidence of ACS, demand ishemia 4. History of paroxysmal atrial fibrillation/flutter on Eliquis therapy [id number] score of 4-5, currently in sinus rhythm 5. HTN 6. NIDDM 7. Hypercholesterolemia 8. Hypothyroidism 9. CKD PLAN: 1. Continue Eliquis at the current dose, with close monitoring of CBC considering the above noted [id number] score of 4-5 2. Continue Toprol XL 3. Continue Ramipril 4. Continue Norvasc 5. Continue Lipitor 6. Antibiotics, bronchodilators and Steroids as per the primary team 7. as outlined in yesterday's note patient can be transferred to medical floor from the cardiovascular point of view, D/C telemetry Therese Webber MD
[2017-09-22] MEDS: methylPREDNISolone NA SUCC 40 MG/1 ML VIAL IVPUSH SCH ×3 (10:00→21:03)
--- NOTE | 2017-09-22 10:33 | PN ---
Progress Note, Physician History of Present Illness: PULMONARY ALERT,FEELING BETTER,DYSPNEA IMPROVING,LESS COUGH,LESS CP - Current Medication List Current Medications: Active Medications Acetaminophen (Tylenol -) 650 mg PO Q6H PRN PRN Reason: PAIN LEVEL 7 - 10 Last Admin: 09/19/17 21:49 Dose: 650 mg Amlodipine Besylate (Norvasc -) 10 mg PO DAILY [facility] Last Admin: 09/21/17 10:40 Dose: 10 mg Apixaban (Eliquis -) 5 mg PO BID [facility] Last Admin: 09/21/17 21:22 Dose: 5 mg Atorvastatin Calcium (Lipitor -) 20 mg PO [facility] Last Admin: 09/21/17 21:21 Dose: 20 mg Insulin Aspart (Novolog Vial Sliding Scale -) 1 vial SQ [facility]; Protocol Last Admin: 09/22/17 06:08 Dose: 5 units Levothyroxine Sodium (Synthroid -) 112 mcg PO DAILY@0700 [facility] Last Admin: 09/22/17 06:08 Dose: 112 mcg Methylprednisolone Sodium Succinate (Solu-Medrol -) 40 mg IVPUSH BID [facility] Last Admin: 09/21/17 21:22 Dose: 40 mg Metoprolol Succinate (Toprol Xl -) 50 mg PO DAILY [facility] Last Admin: 09/21/17 10:40 Dose: 50 mg Montelukast Sodium (Singulair -) 10 mg PO [facility] Last Admin: 09/21/17 21:21 Dose: 10 mg Non-Formulary Medication (Diclofenac Epolamine [Flector]) 1 each TP DAILY PRN PRN Reason: BACK PAIN Potassium Chloride (K-Dur -) 20 meq PO DAILY [facility] Last Admin: 09/21/17 10:40 Dose: 20 meq Ramipril (Altace -) 5 mg PO DAILY [facility] Last Admin: 09/21/17 10:40 Dose: 5 mg - Objective Vital Signs: Vital Signs Temperature 98.5 F 09/22/17 09:01 Pulse Rate 73 09/22/17 09:01 Respiratory Rate 20 09/22/17 09:01 Blood Pressure 133/77 09/22/17 09:01 O2 Sat by Pulse Oximetry (%) 93 L 09/22/17 09:01 Constitutional: Yes: Well Nourished, Calm Eyes: Yes: WNL HENT: Yes: WNL Neck: Yes: WNL Cardiovascular: Yes: Pulse Irregular, S1, S2 Respiratory: Yes: Wheezes (FEW SCATTERED WHEEZES) Gastrointestinal: Yes: Normal Bowel Sounds, Soft Extremities: Yes: WNL Edema: No Labs: Assessment/Plan - Problems (1) COPD (chronic obstructive pulmonary disease) with acute bronchitis Code(s): J44.0 - CHRONIC OBSTRUCTIVE PULMON DISEASE W ACUTE LOWER RESP INFCT (2) Afib Code(s): I48.91 - UNSPECIFIED ATRIAL FIBRILLATION Qualifiers: Atrial fibrillation type: paroxysmal Qualified Code(s): I48.0 - Paroxysmal atrial fibrillation (3) Anemia Code(s): D64.9 - ANEMIA, UNSPECIFIED Qualifiers: Anemia type: unspecified type Qualified Code(s): D64.9 - Anemia, unspecified (4) Anxiety Code(s): F41.9 - ANXIETY DISORDER, UNSPECIFIED (5) Atrial fibrillation with controlled ventricular response Code(s): I48.91 - UNSPECIFIED ATRIAL FIBRILLATION (6) Atypical chest pain Code(s): R07.89 - OTHER CHEST PAIN (7) Chest pain Code(s): R07.9 - CHEST PAIN, UNSPECIFIED (8) Cough Code(s): R05 - COUGH (9) HTN (hypertension) Code(s): I10 - ESSENTIAL (PRIMARY) HYPERTENSION Qualifiers: Hypertension type: essential hypertension Qualified Code(s): I10 - Essential (primary) hypertension (10) Hypothyroidism Code(s): E03.9 - HYPOTHYROIDISM, UNSPECIFIED Qualifiers: Hypothyroidism type: unspecified Qualified Code(s): E03.9 - Hypothyroidism , unspecified (11) Paroxysmal atrial fibrillation Code(s): I48.0 - PAROXYSMAL ATRIAL FIBRILLATION (12) Pneumonia Code(s): J18.9 - PNEUMONIA, UNSPECIFIED ORGANISM Qualifiers: Pneumonia type: due to unspecified organism Laterality: unspecified laterality Lung location: unspecified part of lung Qualified Code(s): J18.9 - Pneumonia, unspecified organism (13) Shortness of breath Code(s): R06.02 - SHORTNESS OF BREATH (14) Type 2 diabetes mellitus Code(s): E11.9 - TYPE 2 DIABETES MELLITUS WITHOUT COMPLICATIONS Qualifiers: Diabetes mellitus ferry terminal agent insulin use: with ferry terminal agent use Diabetes mellitus complication status: without complication Qualified Code(s): E11.9 - Type 2 diabetes mellitus without complications; Z79.4 - snf (current) use of insulin Assessment/Plan Levaquin OD BD TX standing and PRN Medrol taper O2 No smoking PFTs after D/C DR SANTIAGO
[2017-09-22] MEDS: POTASSIUM CHLORIDE TABS 20 MEQ TABLET.ER (FP) PO SCH (11:04)
[2017-09-22] MEDS: RAMIPRIL 5 MG CAPSULE (FP) PO SCH (11:05)
[2017-09-22] MEDS: APIXABAN 5 MG TABLET PO SCH (11:05)
[2017-09-22] MEDS: amLODIPine BESYLATE 10 MG TABLET (FP) PO SCH (11:06)
[2017-09-22] MEDS: ACETAMINOPHEN 325 MG TABLET (FP) PO PRN ×2 (11:06→17:00)
--- NOTE | 2017-09-22 11:39 | PN ---
Progress Note, Physician Chief Complaint: c/o severe left flank pain when she moves or coughs She had this flank pain prior to coming here but was mild and not so severe - Current Medication List Current Medications: Active Medications Acetaminophen (Tylenol -) 650 mg PO Q6H PRN PRN Reason: PAIN LEVEL 7 - 10 Last Admin: 09/22/17 11:06 Dose: 650 mg Amlodipine Besylate (Norvasc -) 10 mg PO DAILY [facility] Last Admin: 09/22/17 11:06 Dose: 10 mg Apixaban (Eliquis -) 5 mg PO BID [facility] Last Admin: 09/22/17 11:05 Dose: 5 mg Atorvastatin Calcium (Lipitor -) 20 mg PO HS [facility] Last Admin: 09/21/17 21:21 Dose: 20 mg Insulin Aspart (Novolog Vial Sliding Scale -) 1 vial SQ [facility]; Protocol Last Admin: 09/22/17 06:08 Dose: 5 units Levothyroxine Sodium (Synthroid -) 112 mcg PO DAILY@0700 [facility] Last Admin: 09/22/17 06:08 Dose: 112 mcg Methylprednisolone Sodium Succinate (Solu-Medrol -) 30 mg IVPUSH BID [facility] Last Admin: 09/22/17 11:09 Dose: 30 mg Metoprolol Succinate (Toprol Xl -) 50 mg PO DAILY [facility] Last Admin: 09/22/17 11:05 Dose: 50 mg Montelukast Sodium (Singulair -) 10 mg PO HS [facility] Last Admin: 09/21/17 21:21 Dose: 10 mg Non-Formulary Medication (Diclofenac Epolamine [Flector]) 1 each TP DAILY PRN PRN Reason: BACK PAIN Potassium Chloride (K-Dur -) 20 meq PO DAILY [facility] Last Admin: 09/22/17 11:04 Dose: 20 meq Ramipril (Altace -) 5 mg PO DAILY [facility] Last Admin: 09/22/17 11:05 Dose: 5 mg - Objective Vital Signs: Vital Signs Temperature 98.5 F 09/22/17 10:00 Pulse Rate 76 09/22/17 10:00 Respiratory Rate 18 09/22/17 10:00 Blood Pressure 133/77 09/22/17 10:00 O2 Sat by Pulse Oximetry (%) 93 L 09/22/17 09:01 Constitutional: Yes: Anxious Cardiovascular: Yes: Pulse Irregular Respiratory: Yes: Diminished, Rhonchi Gastrointestinal: Yes: Normal Bowel Sounds, Soft, Tenderness (left flank) Edema: No Labs: CBC, BMP 09/17/17 08:30 09/17/17 08:30 Problem List - Problems (1) COPD (chronic obstructive pulmonary disease) with acute bronchitis Code(s): J44.0 - CHRONIC OBSTRUCTIVE PULMON DISEASE W ACUTE LOWER RESP INFCT (2) LESLEE (acute kidney injury) Code(s): N17.9 - ACUTE KIDNEY FAILURE, UNSPECIFIED (3) Acute dyspnea Code(s): R06.00 - DYSPNEA, UNSPECIFIED (4) Afib Code(s): I48.91 - UNSPECIFIED ATRIAL FIBRILLATION Qualifiers: Atrial fibrillation type: paroxysmal Qualified Code(s): I48.0 - Paroxysmal atrial fibrillation Assessment/Plan PLAN --taper down Solumedrol -- will order CT abd/pelvis- to R/O hematoma-- pt is on eliquis-- hold off Eliquis till CT results -- continue with rate control -- pain control -- continue with nebs, O2 -- iv Levaquin -- OOB daily
[2017-09-22] MEDS: guaiFENesin/CODEINE 5 ML UNIT-DOSE CUPS PO PRN (15:57)
[2017-09-22] MEDS ORDERED: morphine SULFATE 4 MG/ML VIAL ONE (18:24)
[2017-09-22] MEDS ORDERED: MORPHINE SULFATE 2 MG/ML VIAL IVPUSH ONE (18:45)
[2017-09-22] MEDS: MONTELUKAST NA 10 MG TABLET PO SCH (21:02)
[2017-09-22] MEDS: ATORVASTATIN CA 20 MG TABLET (FP) PO SCH (21:03)
[2017-09-23] MEDS: traMADol HCL 50 MG TABLET PO PRN ×3 (04:10→19:44)
[2017-09-23] MEDS: LEVOTHYROXINE NA 112 MCG TABLET (FP) PO SCH (06:31)
[2017-09-23] MEDS: INSULIN SLIDING SCALE (NOVOLOG) 1 VIAL SQ SCH ×4 (06:31→21:50)
[2017-09-23 06:57] LABS: BASO % 1.2 % (0-2.0); EOS % 0.5 % (0-4.5); HEMATOCRIT 34.7 % (32.4-45.2); HEMOGLOBIN 11.9 GM/dL (10.7-15.3); LYMPH % 19.4 % (8-40); MCH 28.8 pg (25.7-33.7); MCHC 34.3 g/dl (32.0-36.0); MEAN CELL VOLUME 83.9 fl (80-96); MEAN PLT VOLUME 8.5 fl (7.5-11.1); MONO % 4.8 % (3.8-10.2); NEUT % 74.1 % (42.8-82.8); PLATELET COUNT 326 K/MM3 (134-434); RBC 4.14 M/mm3 (3.60-5.2); RDW 14.2 % (11.6-15.6); WHITE BLOOD COUNT 13.2 K/mm3 (4.0-10.0)
[2017-09-23 07:32] LABS: ALBUMIN 2.7 g/dl (3.4-5.0); ANION GAP 7 (8-16); BLOOD UREA NITROGEN 38 mg/dL (7-18); CALCIUM 8.8 mg/dL (8.5-10.1); CHLORIDE 101 mmol/L (98-107); CO2 30 mmol/L (21-32); CREATININE 0.8 mg/dL (0.55-1.02); GLUCOSE,RANDOM 172 mg/dL (74-106); POTASSIUM 4.8 mmol/L (3.5-5.1); SGOT/AST 17 U/L (15-37); SGPT/ALT 26 U/L (12-78); SODIUM 138 mmol/L (136-145)
[2017-09-23 07:34] LABS: ALK PHOS 60 U/L (45-117); BILIRUBIN,TOTAL 0.7 mg/dL (0.2-1.0); TOT PROT 6.3 g/dl (6.4-8.2)
[2017-09-23] MEDS: amLODIPine BESYLATE 10 MG TABLET (FP) PO SCH (10:26)
[2017-09-23] MEDS: guaiFENesin/CODEINE 5 ML UNIT-DOSE CUPS PO PRN (10:26)
[2017-09-23] MEDS: RAMIPRIL 5 MG CAPSULE (FP) PO SCH (10:27)
[2017-09-23] MEDS: POTASSIUM CHLORIDE TABS 20 MEQ TABLET.ER (FP) PO SCH (10:27)
[2017-09-23] MEDS: methylPREDNISolone NA SUCC 40 MG/1 ML VIAL IVPUSH SCH ×2 (10:28→21:50)
--- NOTE | 2017-09-23 10:40 | PN ---
Progress Note, Physician Chief Complaint: c/o severe left flank pain when she moves or coughs-- but better with Tramadol No SOB Coughing+ green sputum - Current Medication List Current Medications: Active Medications Acetaminophen (Tylenol -) 650 mg PO Q6H PRN PRN Reason: PAIN LEVEL 1-5 Last Admin: 09/22/17 17:00 Dose: 650 mg Albuterol Sulfate (Ventolin 0.083% Nebulizer Soln -) 1 amp NEB Q6H PRN PRN Reason: SHORT OF BREATH/WHEEZING Amlodipine Besylate (Norvasc -) 10 mg PO DAILY [facility] Last Admin: 09/23/17 10:26 Dose: 10 mg Atorvastatin Calcium (Lipitor -) 20 mg PO [facility] Last Admin: 09/22/17 21:03 Dose: 20 mg Guaifenesin/Codeine Phosphate (Robitussin Ac -) 5 ml PO TID PRN PRN Reason: COUGH Last Admin: 09/23/17 10:26 Dose: 5 ml Insulin Aspart (Novolog Vial Sliding Scale -) 1 vial SQ [facility]; Protocol Last Admin: 09/23/17 06:31 Dose: 5 units Levothyroxine Sodium (Synthroid -) 112 mcg PO DAILY@0700 [facility] Last Admin: 09/23/17 06:31 Dose: 112 mcg Methylprednisolone Sodium Succinate (Solu-Medrol -) 30 mg IVPUSH BID [facility] Last Admin: 09/23/17 10:28 Dose: 30 mg Metoprolol Succinate (Toprol Xl -) 50 mg PO DAILY [facility] Last Admin: 09/23/17 10:27 Dose: 50 mg Montelukast Sodium (Singulair -) 10 mg PO [facility] Last Admin: 09/22/17 21:02 Dose: 10 mg Non-Formulary Medication (Diclofenac Epolamine [Flector]) 1 each TP DAILY PRN PRN Reason: BACK PAIN Potassium Chloride (K-Dur -) 20 meq PO DAILY [facility] Last Admin: 09/23/17 10:27 Dose: 20 meq Ramipril (Altace -) 5 mg PO DAILY [facility] Last Admin: 09/23/17 10:27 Dose: 5 mg Tramadol HCl (Ultram -) 50 mg PO Q6H PRN PRN Reason: PAIN LEVEL 6-10 Last Admin: 09/23/17 10:26 Dose: 50 mg - Objective Vital Signs: Vital Signs Temperature 98 F 06/13/18 09:04 Pulse Rate 72 09/23/17 09:04 Respiratory Rate 20 09/23/17 09:04 Blood Pressure 136/69 09/23/17 09:04 O2 Sat by Pulse Oximetry (%) 97 09/23/17 09:04 Constitutional: Yes: No Distress Cardiovascular: Yes: Pulse Irregular Respiratory: Yes: Diminished, Rhonchi Gastrointestinal: Yes: Normal Bowel Sounds, Soft, Tenderness (left flank). No: Distention Edema: No Labs: CBC, BMP 09/23/17 06:15 09/23/17 06:15 Problem List - Problems (1) COPD (chronic obstructive pulmonary disease) with acute bronchitis Code(s): J44.0 - CHRONIC OBSTRUCTIVE PULMON DISEASE W ACUTE LOWER RESP INFCT (2) LESLEE (acute kidney injury) Code(s): N17.9 - ACUTE KIDNEY FAILURE, UNSPECIFIED (3) Acute dyspnea Code(s): R06.00 - DYSPNEA, UNSPECIFIED (4) Afib Code(s): I48.91 - UNSPECIFIED ATRIAL FIBRILLATION Qualifiers: Atrial fibrillation type: paroxysmal Qualified Code(s): I48.0 - Paroxysmal atrial fibrillation (5) Right lower lobe pneumonia Code(s): J18.1 - LOBAR PNEUMONIA, UNSPECIFIED ORGANISM (6) Myalgia Code(s): M79.1 - MYALGIA Assessment/Plan PLAN --taper down Solumedrol -- CT noted- spoke with Pulmonary-- may need to restart antibiotics -- ?cavitation on CT -- continue with rate control -- pain control -- continue with nebs, O2 -- OOB daily
[2017-09-23] MEDS: ALBUTEROL SO4 0.083% IH SOL 2.5 MG/3 ML VIAL.NEB. NEB PRN ×2 (11:00→21:12)
--- NOTE | 2017-09-23 11:01 | PN ---
Progress Note, Physician History of Present Illness: pulmonary alert,still congested,+ cough yellow sputum - Current Medication List Current Medications: Active Medications Acetaminophen (Tylenol -) 650 mg PO Q6H PRN PRN Reason: PAIN LEVEL 1-5 Last Admin: 09/22/17 17:00 Dose: 650 mg Albuterol Sulfate (Ventolin 0.083% Nebulizer Soln -) 1 amp NEB Q6H PRN PRN Reason: SHORT OF BREATH/WHEEZING Amlodipine Besylate (Norvasc -) 10 mg PO DAILY [facility] Last Admin: 09/23/17 10:26 Dose: 10 mg Atorvastatin Calcium (Lipitor -) 20 mg PO HS [facility] Last Admin: 09/22/17 21:03 Dose: 20 mg Guaifenesin/Codeine Phosphate (Robitussin Ac -) 5 ml PO TID PRN PRN Reason: COUGH Last Admin: 09/23/17 10:26 Dose: 5 ml Levofloxacin (Levaquin 500 Mg Premixed Ivpb -) 500 mg in 100 mls @ 100 mls/hr IVPB DAILY [facility]; Protocol Insulin Aspart (Novolog Vial Sliding Scale -) 1 vial SQ [facility]; Protocol Last Admin: 09/23/17 06:31 Dose: 5 units Levothyroxine Sodium (Synthroid -) 112 mcg PO DAILY@0700 [facility] Last Admin: 09/23/17 06:31 Dose: 112 mcg Methylprednisolone Sodium Succinate (Solu-Medrol -) 30 mg IVPUSH BID [facility] Last Admin: 09/23/17 10:28 Dose: 30 mg Metoprolol Succinate (Toprol Xl -) 50 mg PO DAILY [facility] Last Admin: 09/23/17 10:27 Dose: 50 mg Montelukast Sodium (Singulair -) 10 mg PO HS [facility] Last Admin: 09/22/17 21:02 Dose: 10 mg Non-Formulary Medication (Diclofenac Epolamine [Flector]) 1 each TP DAILY PRN PRN Reason: BACK PAIN Potassium Chloride (K-Dur -) 20 meq PO DAILY [facility] Last Admin: 09/23/17 10:27 Dose: 20 meq Ramipril (Altace -) 5 mg PO DAILY [facility] Last Admin: 09/23/17 10:27 Dose: 5 mg Tramadol HCl (Ultram -) 50 mg PO Q6H PRN PRN Reason: PAIN LEVEL 6-10 Last Admin: 09/23/17 10:26 Dose: 50 mg - Objective Vital Signs: Vital Signs Temperature 98 F 09/23/17 09:04 Pulse Rate 72 09/23/17 09:04 Respiratory Rate 20 09/23/17 09:04 Blood Pressure 136/69 09/23/17 09:04 O2 Sat by Pulse Oximetry (%) 97 09/23/17 09:04 Constitutional: Yes: Well Nourished, Calm Eyes: Yes: WNL HENT: Yes: WNL Neck: Yes: WNL Cardiovascular: Yes: Pulse Irregular, S1, S2 Respiratory: Yes: Rhonchi (bilateral rhonchi) Gastrointestinal: Yes: Normal Bowel Sounds, Soft Extremities: Yes: WNL Edema: No Labs: CBC, BMP 09/23/17 06:15 09/23/17 06:15 Assessment/Plan - Problems (1) COPD (chronic obstructive pulmonary disease) with acute bronchitis Code(s): J44.0 - CHRONIC OBSTRUCTIVE PULMON DISEASE W ACUTE LOWER RESP INFCT (2) Afib Code(s): I48.91 - UNSPECIFIED ATRIAL FIBRILLATION Qualifiers: Atrial fibrillation type: paroxysmal Qualified Code(s): I48.0 - Paroxysmal atrial fibrillation (3) Anemia Code(s): D64.9 - ANEMIA, UNSPECIFIED Qualifiers: Anemia type: unspecified type Qualified Code(s): D64.9 - Anemia, unspecified (4) Anxiety Code(s): F41.9 - ANXIETY DISORDER, UNSPECIFIED (5) Atrial fibrillation with controlled ventricular response Code(s): I48.91 - UNSPECIFIED ATRIAL FIBRILLATION (6) Atypical chest pain Code(s): R07.89 - OTHER CHEST PAIN (7) Chest pain Code(s): R07.9 - CHEST PAIN, UNSPECIFIED (8) Cough Code(s): R05 - COUGH (9) HTN (hypertension) Code(s): I10 - ESSENTIAL (PRIMARY) HYPERTENSION Qualifiers: Hypertension type: essential hypertension Qualified Code(s): I10 - Essential (primary) hypertension (10) Hypothyroidism Code(s): E03.9 - HYPOTHYROIDISM, UNSPECIFIED Qualifiers: Hypothyroidism type: unspecified Qualified Code(s): E03.9 - Hypothyroidism , unspecified (11) Paroxysmal atrial fibrillation Code(s): I48.0 - PAROXYSMAL ATRIAL FIBRILLATION (12) Pneumonia Code(s): J18.9 - PNEUMONIA, UNSPECIFIED ORGANISM Qualifiers: Pneumonia type: due to unspecified organism Laterality: unspecified laterality Lung location: unspecified part of lung Qualified Code(s): J18.9 - Pneumonia, unspecified organism (13) Shortness of breath Code(s): R06.02 - SHORTNESS OF BREATH (14) Type 2 diabetes mellitus Code(s): E11.9 - TYPE 2 DIABETES MELLITUS WITHOUT COMPLICATIONS Qualifiers: Diabetes mellitus group home insulin use: with intermediate manager use Diabetes mellitus complication status: without complication Qualified Code(s): E11.9 - Type 2 diabetes mellitus without complications; Z79.4 - retirement (current) use of insulin Assessment/Plan Levaquin OD BD TX standing and PRN Medrol 40 bid O2 No smoking PFTs after D/C DR SANTIAGO
--- NOTE | 2017-09-23 12:15 | PN ---
Progress Note, Physician History of Present Illness: Dyspnea, cough, post-tussive chest wall discomfort and wheezing slowly improving. Placed on lidoderm patch. - Current Medication List Current Medications: Active Medications Acetaminophen (Tylenol -) 650 mg PO Q6H PRN PRN Reason: PAIN LEVEL 1-5 Last Admin: 09/22/17 17:00 Dose: 650 mg Albuterol Sulfate (Ventolin 0.083% Nebulizer Soln -) 1 amp NEB Q6H PRN PRN Reason: SHORT OF BREATH/WHEEZING Last Admin: 09/23/17 11:00 Dose: 1 amp Amlodipine Besylate (Norvasc -) 10 mg PO DAILY [facility] Last Admin: 09/23/17 10:26 Dose: 10 mg Atorvastatin Calcium (Lipitor -) 20 mg PO HS [facility] Last Admin: 09/22/17 21:03 Dose: 20 mg Guaifenesin/Codeine Phosphate (Robitussin Ac -) 5 ml PO TID PRN PRN Reason: COUGH Last Admin: 09/23/17 10:26 Dose: 5 ml Levofloxacin (Levaquin 500 Mg Premixed Ivpb -) 500 mg in 100 mls @ 100 mls/hr IVPB DAILY [facility]; Protocol Insulin Aspart (Novolog Vial Sliding Scale -) 1 vial SQ ACHS [facility]; Protocol Last Admin: 09/23/17 06:31 Dose: 5 units Levothyroxine Sodium (Synthroid -) 112 mcg PO DAILY@0700 [facility] Last Admin: 09/23/17 06:31 Dose: 112 mcg Lidocaine (Lidoderm Patch -) 1 patch TP DAILY [facility] Methylprednisolone Sodium Succinate (Solu-Medrol -) 40 mg IVPUSH BID [facility] Metoprolol Succinate (Toprol Xl -) 50 mg PO DAILY [facility] Last Admin: 09/23/17 10:27 Dose: 50 mg Miscellaneous (Lidoderm Patch Removal) 1 each MC DAILY@2200 [facility] Montelukast Sodium (Singulair -) 10 mg PO HS [facility] Last Admin: 09/22/17 21:02 Dose: 10 mg Potassium Chloride (K-Dur -) 20 meq PO DAILY [facility] Last Admin: 09/23/17 10:27 Dose: 20 meq Ramipril (Altace -) 5 mg PO DAILY [facility] Last Admin: 09/23/17 10:27 Dose: 5 mg Tramadol HCl (Ultram -) 50 mg PO Q6H PRN PRN Reason: PAIN LEVEL 6-10 Last Admin: 09/23/17 10:26 Dose: 50 mg - Objective Vital Signs: Vital Signs Temperature 98 F 09/23/17 09:04 Pulse Rate 72 09/23/17 09:04 Respiratory Rate 20 09/23/17 09:04 Blood Pressure 136/69 09/23/17 09:04 O2 Sat by Pulse Oximetry (%) 97 09/23/17 09:04 Constitutional: Yes: No Distress, Calm Neck: Yes: Supple Cardiovascular: Yes: Regular Rate and Rhythm Respiratory: Yes: Regular, Diminished, On Nasal O2, Wheezes Gastrointestinal: Yes: Normal Bowel Sounds, Soft Edema: No Labs: CBC, BMP 09/23/17 06:15 09/23/17 06:15 Problem List - Problems (1) COPD (chronic obstructive pulmonary disease) with acute bronchitis Code(s): J44.0 - CHRONIC OBSTRUCTIVE PULMON DISEASE W ACUTE LOWER RESP INFCT (2) Atypical chest pain Code(s): R07.89 - OTHER CHEST PAIN (3) Bronchitis Code(s): J40 - BRONCHITIS, NOT SPECIFIED ACUTE OR CHRONIC (4) Cough Code(s): R05 - COUGH (5) HTN (hypertension) Code(s): I10 - ESSENTIAL (PRIMARY) HYPERTENSION Qualifiers: Hypertension type: essential hypertension Qualified Code(s): I10 - Essential (primary) hypertension (6) Hyperlipidemia Code(s): E78.5 - HYPERLIPIDEMIA, UNSPECIFIED Qualifiers: Hyperlipidemia type: pure hypercholesterolemia Qualified Code(s): E78.00 - Pure hypercholesterolemia, unspecified; E78.0 - Pure hypercholesterolemia (7) Hypothyroidism Code(s): E03.9 - HYPOTHYROIDISM, UNSPECIFIED Qualifiers: Hypothyroidism type: unspecified Qualified Code(s): E03.9 - Hypothyroidism , unspecified (8) Paroxysmal atrial fibrillation Code(s): I48.0 - PAROXYSMAL ATRIAL FIBRILLATION (9) Pneumonia Code(s): J18.9 - PNEUMONIA, UNSPECIFIED ORGANISM Qualifiers: Pneumonia type: due to unspecified organism Laterality: unspecified laterality Lung location: unspecified part of lung Qualified Code(s): J18.9 - Pneumonia, unspecified organism (10) Shortness of breath Code(s): R06.02 - SHORTNESS OF BREATH (11) Type 2 diabetes mellitus Code(s): E11.9 - TYPE 2 DIABETES MELLITUS WITHOUT COMPLICATIONS Qualifiers: Diabetes mellitus [facility] insulin use: with pre sales systems engineer use Diabetes mellitus complication status: without complication Qualified Code(s): E11.9 - Type 2 diabetes mellitus without complications; Z79.4 - USP (current) use of insulin Assessment/Plan 1. COPD exacerbation resolving 2. Chest pain syndrome atypical for CAD angina pectoris, reproducible most likely musculoskeletal 3. Troponin I elevation, non specific with no clinical evidence of ACS, demand ishemia 4. History of paroxysmal atrial fibrillation/flutter on Eliquis therapy [id number] score of 4-5, currently in sinus rhythm 5. HTN 6. NIDDM 7. Hypercholesterolemia 8. Hypothyroidism 9. CKD PLAN: 1. Continue Eliquis 5 bid, with close monitoring of CBC considering the above noted [id number] score of 4-5 2. Continue Toprol XL 50 qd 3. Continue Ramipril 5 qd 4. Continue Norvasc 10 qd 5. Continue Lipitor 20 qhs 6. Antibiotics, bronchodilators, Singulair and IV steroid taper with GI protection as per the pulm team, PFTs as outpatient 7. As outlined in yesterday's note patient can be transferred to medical floor from the cardiovascular point of view, D/C telemetry
[2017-09-23] MEDS: LIDOCAINE 5% TOPICAL PATCH TP SCH (12:43)
[2017-09-23] MEDS: MONTELUKAST NA 10 MG TABLET PO SCH (21:50)
[2017-09-23] MEDS: ATORVASTATIN CA 20 MG TABLET (FP) PO SCH (21:50)
[2017-09-23] MEDS: LIDOCAINE PATCH REMOVAL MC SCH (21:53)
[2017-09-24] MEDS: ALBUTEROL SO4 0.083% IH SOL 2.5 MG/3 ML VIAL.NEB. NEB PRN (07:20)
[2017-09-24] MEDS: guaiFENesin/CODEINE 5 ML UNIT-DOSE CUPS PO PRN (09:33)
[2017-09-24] MEDS: LIDOCAINE 5% TOPICAL PATCH TP SCH (09:33)
[2017-09-24] MEDS: amLODIPine BESYLATE 10 MG TABLET (FP) PO SCH (09:34)
[2017-09-24] MEDS: RAMIPRIL 5 MG CAPSULE (FP) PO SCH (09:34)
[2017-09-24] MEDS: POTASSIUM CHLORIDE TABS 20 MEQ TABLET.ER (FP) PO SCH (09:34)
[2017-09-24] MEDS: methylPREDNISolone NA SUCC 40 MG/1 ML VIAL IVPUSH SCH ×2 (09:34→21:22)
--- NOTE | 2017-09-24 09:40 | PN ---
Progress Note, Physician History of Present Illness: Dyspnea, cough, post-tussive chest wall discomfort and wheezing slowly improving. Placed on lidoderm patch. - Current Medication List Current Medications: Active Medications Acetaminophen (Tylenol -) 650 mg PO Q6H PRN PRN Reason: PAIN LEVEL 1-5 Last Admin: 09/22/17 17:00 Dose: 650 mg Albuterol Sulfate (Ventolin 0.083% Nebulizer Soln -) 1 amp NEB Q6H PRN PRN Reason: SHORT OF BREATH/WHEEZING Last Admin: 09/23/17 21:12 Dose: 1 amp Amlodipine Besylate (Norvasc -) 10 mg PO DAILY [facility] Last Admin: 09/23/17 10:26 Dose: 10 mg Atorvastatin Calcium (Lipitor -) 20 mg PO HS [facility] Last Admin: 09/23/17 21:50 Dose: 20 mg Guaifenesin/Codeine Phosphate (Robitussin Ac -) 5 ml PO TID PRN PRN Reason: COUGH Last Admin: 09/23/17 10:26 Dose: 5 ml Levofloxacin (Levaquin 500 Mg Premixed Ivpb -) 500 mg in 100 mls @ 100 mls/hr IVPB DAILY [facility]; Protocol Last Admin: 09/23/17 12:43 Dose: 100 mls/hr Insulin Aspart (Novolog Vial Sliding Scale -) 1 vial SQ ACHS [facility]; Protocol Last Admin: 09/23/17 21:50 Dose: 5 units Levothyroxine Sodium (Synthroid -) 112 mcg PO DAILY@0700 [facility] Last Admin: 09/23/17 06:31 Dose: 112 mcg Lidocaine (Lidoderm Patch -) 1 patch TP DAILY [facility] Last Admin: 09/23/17 12:43 Dose: 1 patch Methylprednisolone Sodium Succinate (Solu-Medrol -) 40 mg IVPUSH BID [facility] Last Admin: 09/23/17 21:50 Dose: 40 mg Metoprolol Succinate (Toprol Xl -) 50 mg PO DAILY [facility] Last Admin: 09/23/17 10:27 Dose: 50 mg Miscellaneous (Lidoderm Patch Removal) 1 each MC DAILY@2200 [facility] Last Admin: 09/23/17 21:53 Dose: 1 each Montelukast Sodium (Singulair -) 10 mg PO HS [facility] Last Admin: 09/23/17 21:50 Dose: 10 mg Potassium Chloride (K-Dur -) 20 meq PO DAILY [facility] Last Admin: 09/23/17 10:27 Dose: 20 meq Ramipril (Altace -) 5 mg PO DAILY [facility] Last Admin: 09/23/17 10:27 Dose: 5 mg Tramadol HCl (Ultram -) 50 mg PO Q6H PRN PRN Reason: PAIN LEVEL 6-10 Last Admin: 09/23/17 19:44 Dose: 50 mg - Objective Vital Signs: Vital Signs Temperature 98.1 F 09/23/17 21:00 Pulse Rate 66 09/23/17 21:00 Respiratory Rate 18 09/23/17 21:00 Blood Pressure 147/76 09/23/17 21:00 O2 Sat by Pulse Oximetry (%) 96 09/23/17 21:00 Constitutional: Yes: No Distress, Calm Neck: Yes: Supple Cardiovascular: Yes: Regular Rate and Rhythm Respiratory: Yes: Regular, Cough, Diminished, Wheezes Gastrointestinal: Yes: Normal Bowel Sounds, Soft Edema: No Labs: CBC, BMP 09/23/17 06:15 09/23/17 06:15 Problem List - Problems (1) COPD (chronic obstructive pulmonary disease) with acute bronchitis Code(s): J44.0 - CHRONIC OBSTRUCTIVE PULMON DISEASE W ACUTE LOWER RESP INFCT (2) Atypical chest pain Code(s): R07.89 - OTHER CHEST PAIN (3) Bronchitis Code(s): J40 - BRONCHITIS, NOT SPECIFIED ACUTE OR CHRONIC (4) Cough Code(s): R05 - COUGH (5) HTN (hypertension) Code(s): I10 - ESSENTIAL (PRIMARY) HYPERTENSION Qualifiers: Hypertension type: essential hypertension Qualified Code(s): I10 - Essential (primary) hypertension (6) Hyperlipidemia Code(s): E78.5 - HYPERLIPIDEMIA, UNSPECIFIED Qualifiers: Hyperlipidemia type: pure hypercholesterolemia Qualified Code(s): E78.00 - Pure hypercholesterolemia, unspecified; E78.0 - Pure hypercholesterolemia (7) Hypothyroidism Code(s): E03.9 - HYPOTHYROIDISM, UNSPECIFIED Qualifiers: Hypothyroidism type: unspecified Qualified Code(s): E03.9 - Hypothyroidism , unspecified (8) Paroxysmal atrial fibrillation Code(s): I48.0 - PAROXYSMAL ATRIAL FIBRILLATION (9) Pneumonia Code(s): J18.9 - PNEUMONIA, UNSPECIFIED ORGANISM Qualifiers: Pneumonia type: due to unspecified organism Laterality: unspecified laterality Lung location: unspecified part of lung Qualified Code(s): J18.9 - Pneumonia, unspecified organism (10) Shortness of breath Code(s): R06.02 - SHORTNESS OF BREATH (11) Type 2 diabetes mellitus Code(s): E11.9 - TYPE 2 DIABETES MELLITUS WITHOUT COMPLICATIONS Qualifiers: Diabetes mellitus [facility] insulin use: with floor person use Diabetes mellitus complication status: without complication Qualified Code(s): E11.9 - Type 2 diabetes mellitus without complications; Z79.4 - store stock help (current) use of insulin Assessment/Plan 1. COPD exacerbation resolving 2. Chest pain syndrome atypical for CAD angina pectoris, reproducible most likely musculoskeletal 3. Troponin I elevation, non specific with no clinical evidence of ACS, demand ishemia 4. History of paroxysmal atrial fibrillation/flutter on Eliquis therapy [id number] score of 4-5, currently in sinus rhythm 5. HTN 6. NIDDM 7. Hypercholesterolemia 8. Hypothyroidism 9. CKD PLAN: 1. Continue Eliquis 5 bid, with close monitoring of CBC considering the above noted [id number] score of 4-5 2. Continue Toprol XL 50 qd 3. Continue Ramipril 5 qd 4. Continue Norvasc 10 qd 5. Continue Lipitor 20 qhs 6. Empiric antibiotics, bronchodilators, Singulair and IV steroid taper with GI protection as per the pulm team, PFTs as outpatient 7. As outlined in yesterday's note patient can be transferred to medical floor from the cardiovascular point of view, D/C telemetry
--- NOTE | 2017-09-24 10:25 | PN ---
Progress Note, Physician History of Present Illness: pulmonary alert,less congested,+cough yellow sputum - Current Medication List Current Medications: Active Medications Acetaminophen (Tylenol -) 650 mg PO Q6H PRN PRN Reason: PAIN LEVEL 1-5 Last Admin: 09/22/17 17:00 Dose: 650 mg Albuterol Sulfate (Ventolin 0.083% Nebulizer Soln -) 1 amp NEB Q6H PRN PRN Reason: SHORT OF BREATH/WHEEZING Last Admin: 09/24/17 07:20 Dose: 1 amp Amlodipine Besylate (Norvasc -) 10 mg PO DAILY [facility] Last Admin: 09/24/17 09:34 Dose: 10 mg Atorvastatin Calcium (Lipitor -) 20 mg PO HS [facility] Last Admin: 09/23/17 21:50 Dose: 20 mg Guaifenesin/Codeine Phosphate (Robitussin Ac -) 5 ml PO TID PRN PRN Reason: COUGH Last Admin: 09/24/17 09:33 Dose: 5 ml Levofloxacin (Levaquin 500 Mg Premixed Ivpb -) 500 mg in 100 mls @ 100 mls/hr IVPB DAILY [facility]; Protocol Last Admin: 09/24/17 09:33 Dose: 100 mls/hr Insulin Aspart (Novolog Vial Sliding Scale -) 1 vial SQ ACHS [facility]; Protocol Last Admin: 09/23/17 21:50 Dose: 5 units Levothyroxine Sodium (Synthroid -) 112 mcg PO DAILY@0700 [facility] Last Admin: 09/23/17 06:31 Dose: 112 mcg Lidocaine (Lidoderm Patch -) 1 patch TP DAILY [facility] Last Admin: 09/24/17 09:33 Dose: 1 patch Methylprednisolone Sodium Succinate (Solu-Medrol -) 40 mg IVPUSH BID [facility] Last Admin: 09/24/17 09:34 Dose: 40 mg Metoprolol Succinate (Toprol Xl -) 50 mg PO DAILY [facility] Last Admin: 09/24/17 09:34 Dose: 50 mg Miscellaneous (Lidoderm Patch Removal) 1 each MC DAILY@2200 [facility] Last Admin: 09/23/17 21:53 Dose: 1 each Montelukast Sodium (Singulair -) 10 mg PO HS [facility] Last Admin: 09/23/17 21:50 Dose: 10 mg Potassium Chloride (K-Dur -) 20 meq PO DAILY [facility] Last Admin: 09/24/17 09:34 Dose: 20 meq Ramipril (Altace -) 5 mg PO DAILY [facility] Last Admin: 09/24/17 09:34 Dose: 5 mg Tramadol HCl (Ultram -) 50 mg PO Q6H PRN PRN Reason: PAIN LEVEL 6-10 Last Admin: 09/23/17 19:44 Dose: 50 mg - Objective Vital Signs: Vital Signs Temperature 98.1 F 09/23/17 21:00 Pulse Rate 66 09/23/17 21:00 Respiratory Rate 18 09/23/17 21:00 Blood Pressure 147/76 09/23/17 21:00 O2 Sat by Pulse Oximetry (%) 96 09/23/17 21:00 Constitutional: Yes: Well Nourished, Calm Eyes: Yes: WNL HENT: Yes: WNL Neck: Yes: WNL Cardiovascular: Yes: Pulse Irregular, S1, S2 Respiratory: Yes: Rhonchi (less rhonchi bilaterally) Gastrointestinal: Yes: Normal Bowel Sounds, Soft Extremities: Yes: WNL Edema: No Labs: CBC, BMP 09/23/17 06:15 09/23/17 06:15 Assessment/Plan - Problems (1) COPD (chronic obstructive pulmonary disease) with acute bronchitis Code(s): J44.0 - CHRONIC OBSTRUCTIVE PULMON DISEASE W ACUTE LOWER RESP INFCT (2) Afib Code(s): I48.91 - UNSPECIFIED ATRIAL FIBRILLATION Qualifiers: Atrial fibrillation type: paroxysmal Qualified Code(s): I48.0 - Paroxysmal atrial fibrillation (3) Anemia Code(s): D64.9 - ANEMIA, UNSPECIFIED Qualifiers: Anemia type: unspecified type Qualified Code(s): D64.9 - Anemia, unspecified (4) Anxiety Code(s): F41.9 - ANXIETY DISORDER, UNSPECIFIED (5) Atrial fibrillation with controlled ventricular response Code(s): I48.91 - UNSPECIFIED ATRIAL FIBRILLATION (6) Atypical chest pain Code(s): R07.89 - OTHER CHEST PAIN (7) Chest pain Code(s): R07.9 - CHEST PAIN, UNSPECIFIED (8) Cough Code(s): R05 - COUGH (9) HTN (hypertension) Code(s): I10 - ESSENTIAL (PRIMARY) HYPERTENSION Qualifiers: Hypertension type: essential hypertension Qualified Code(s): I10 - Essential (primary) hypertension (10) Hypothyroidism Code(s): E03.9 - HYPOTHYROIDISM, UNSPECIFIED Qualifiers: Hypothyroidism type: unspecified Qualified Code(s): E03.9 - Hypothyroidism , unspecified (11) Paroxysmal atrial fibrillation Code(s): I48.0 - PAROXYSMAL ATRIAL FIBRILLATION (12) Pneumonia Code(s): J18.9 - PNEUMONIA, UNSPECIFIED ORGANISM Qualifiers: Pneumonia type: due to unspecified organism Laterality: unspecified laterality Lung location: unspecified part of lung Qualified Code(s): J18.9 - Pneumonia, unspecified organism (13) Shortness of breath Code(s): R06.02 - SHORTNESS OF BREATH (14) Type 2 diabetes mellitus Code(s): E11.9 - TYPE 2 DIABETES MELLITUS WITHOUT COMPLICATIONS Qualifiers: Diabetes mellitus [facility] insulin use: with middleware consultant use Diabetes mellitus complication status: without complication Qualified Code(s): E11.9 - Type 2 diabetes mellitus without complications; Z79.4 - manager of school (current) use of insulin Assessment/Plan Levaquin OD BD TX standing and PRN Medrol O2 No smoking PFTs after D/C DR SANTIAGO
--- NOTE | 2017-09-24 15:34 | PN ---
Progress Note, Physician Chief Complaint: c/o left flank pain when she moves or coughs-- but better with Tramadol No SOB Coughing+ green sputum - Current Medication List Current Medications: Active Medications Acetaminophen (Tylenol -) 650 mg PO Q6H PRN PRN Reason: PAIN LEVEL 1-5 Last Admin: 09/22/17 17:00 Dose: 650 mg Albuterol Sulfate (Ventolin 0.083% Nebulizer Soln -) 1 amp NEB Q6H PRN PRN Reason: SHORT OF BREATH/WHEEZING Last Admin: 09/24/17 07:20 Dose: 1 amp Amlodipine Besylate (Norvasc -) 10 mg PO DAILY [facility] Last Admin: 09/24/17 09:34 Dose: 10 mg Atorvastatin Calcium (Lipitor -) 20 mg PO [facility] Last Admin: 09/23/17 21:50 Dose: 20 mg Guaifenesin/Codeine Phosphate (Robitussin Ac -) 5 ml PO TID PRN PRN Reason: COUGH Last Admin: 09/24/17 09:33 Dose: 5 ml Levofloxacin (Levaquin 500 Mg Premixed Ivpb -) 500 mg in 100 mls @ 100 mls/hr IVPB DAILY [facility]; Protocol Last Admin: 09/24/17 09:33 Dose: 100 mls/hr Insulin Aspart (Novolog Vial Sliding Scale -) 1 vial SQ ACHS [facility]; Protocol Last Admin: 09/23/17 21:50 Dose: 5 units Levothyroxine Sodium (Synthroid -) 112 mcg PO DAILY@0700 [facility] Last Admin: 09/23/17 06:31 Dose: 112 mcg Lidocaine (Lidoderm Patch -) 1 patch TP DAILY [facility] Last Admin: 09/24/17 09:33 Dose: 1 patch Methylprednisolone Sodium Succinate (Solu-Medrol -) 40 mg IVPUSH BID [facility] Last Admin: 09/24/17 09:34 Dose: 40 mg Metoprolol Succinate (Toprol Xl -) 50 mg PO DAILY [facility] Last Admin: 09/24/17 09:34 Dose: 50 mg Miscellaneous (Lidoderm Patch Removal) 1 each MC DAILY@2200 [facility] Last Admin: 09/23/17 21:53 Dose: 1 each Montelukast Sodium (Singulair -) 10 mg PO HS [facility] Last Admin: 09/23/17 21:50 Dose: 10 mg Potassium Chloride (K-Dur -) 20 meq PO DAILY [facility] Last Admin: 09/24/17 09:34 Dose: 20 meq Ramipril (Altace -) 5 mg PO DAILY [facility] Last Admin: 09/24/17 09:34 Dose: 5 mg Tramadol HCl (Ultram -) 50 mg PO Q6H PRN PRN Reason: PAIN LEVEL 6-10 Last Admin: 09/23/17 19:44 Dose: 50 mg - Objective Vital Signs: Vital Signs Temperature 97.9 F 09/24/17 15:00 Pulse Rate 68 09/24/17 15:00 Respiratory Rate 18 09/24/17 15:00 Blood Pressure 130/67 09/24/17 15:00 O2 Sat by Pulse Oximetry (%) 91 L 09/24/17 10:28 Constitutional: Yes: No Distress, Calm Cardiovascular: Yes: Pulse Irregular Respiratory: Yes: Diminished Gastrointestinal: Yes: Normal Bowel Sounds, Soft, Tenderness Edema: No Labs: CBC, BMP 09/23/17 06:15 09/23/17 06:15 Problem List - Problems (1) COPD (chronic obstructive pulmonary disease) with acute bronchitis Code(s): J44.0 - CHRONIC OBSTRUCTIVE PULMON DISEASE W ACUTE LOWER RESP INFCT (2) LESLEE (acute kidney injury) Code(s): N17.9 - ACUTE KIDNEY FAILURE, UNSPECIFIED (3) Acute dyspnea Code(s): R06.00 - DYSPNEA, UNSPECIFIED (4) Afib Code(s): I48.91 - UNSPECIFIED ATRIAL FIBRILLATION Qualifiers: Atrial fibrillation type: paroxysmal Qualified Code(s): I48.0 - Paroxysmal atrial fibrillation (5) Right lower lobe pneumonia Code(s): J18.1 - LOBAR PNEUMONIA, UNSPECIFIED ORGANISM (6) Myalgia Code(s): M79.1 - MYALGIA Assessment/Plan PLAN --taper down Solumedrol -- iv antibiotics -- cavitation on CT -- chronic as per Pulmonary -- continue with rate control -- pain control -- continue with nebs, O2 -- OOB daily
[2017-09-24] MEDS: INSULIN SLIDING SCALE (NOVOLOG) 1 VIAL SQ SCH ×3 (18:00→21:37)
[2017-09-24] MEDS: traMADol HCL 50 MG TABLET PO PRN (21:20)
[2017-09-24] MEDS: ATORVASTATIN CA 20 MG TABLET (FP) PO SCH (21:20)
[2017-09-24] MEDS: MONTELUKAST NA 10 MG TABLET PO SCH (21:22)
[2017-09-24] MEDS: LIDOCAINE PATCH REMOVAL MC SCH (22:00)
[2017-09-25] MEDS ORDERED: APIXABAN 5 MG TABLET PO ONE (00:21)
[2017-09-25] MEDS ORDERED: PT OWN MED DRAWER 7, Y5N ONE (00:31)
[2017-09-25] MEDS: LEVOTHYROXINE NA 112 MCG TABLET (FP) PO SCH ×2 (06:31→09:14)
[2017-09-25] MEDS: INSULIN SLIDING SCALE (NOVOLOG) 1 VIAL SQ SCH ×5 (06:31→20:59)
[2017-09-25] MEDS ORDERED: INSULIN (NOVOLOG) ASPART 100 UNITS/ML 10ML VIAL ONE ×3 (06:51→20:58)
[2017-09-25] MEDS: amLODIPine BESYLATE 10 MG TABLET (FP) PO SCH (10:33)
[2017-09-25] MEDS: LIDOCAINE 5% TOPICAL PATCH TP SCH (10:33)
[2017-09-25] MEDS: POTASSIUM CHLORIDE TABS 20 MEQ TABLET.ER (FP) PO SCH (10:34)
[2017-09-25] MEDS: methylPREDNISolone NA SUCC 40 MG/1 ML VIAL IVPUSH SCH ×2 (10:35→21:00)
[2017-09-25] MEDS: RAMIPRIL 5 MG CAPSULE (FP) PO SCH (10:35)
--- NOTE | 2017-09-25 10:42 | PN ---
Progress Note (short form) - Note Progress Note: patient seen and examined today. Feels better but not on the percent Still feels short of breath with walking Denies chest pain overall feels better Afebrile all follow-ups noted Vital Signs Temp 97.6 F 09/25/17 08:13 Pulse 63 09/25/17 08:13 Resp 18 09/25/17 08:13 BP 148/85 09/25/17 08:13 Pulse Ox 91 L 09/24/17 10:28 Intake & Output 09/24/17 09/24/17 09/25/17 11:59 23:59 11:59 Intake Total 850 200 Balance 850 200 Intake: Oral 850 200 Other: Voiding Method Toilet Toilet # Unmeasured Voids Void 3 Active Medications Acetaminophen (Tylenol -) 650 mg PO Q6H PRN PRN Reason: PAIN LEVEL 1-5 Last Admin: 09/22/17 17:00 Dose: 650 mg Albuterol Sulfate (Ventolin 0.083% Nebulizer Soln -) 1 amp NEB Q6H PRN PRN Reason: SHORT OF BREATH/WHEEZING Last Admin: 09/24/17 07:20 Dose: 1 amp Amlodipine Besylate (Norvasc -) 10 mg PO DAILY [facility] Last Admin: 09/24/17 09:34 Dose: 10 mg Apixaban (Eliquis -) 5 mg PO BID [facility] Atorvastatin Calcium (Lipitor -) 20 mg PO HS [facility] Last Admin: 09/24/17 21:20 Dose: 20 mg Guaifenesin/Codeine Phosphate (Robitussin Ac -) 5 ml PO TID PRN PRN Reason: COUGH Last Admin: 09/24/17 09:33 Dose: 5 ml Levofloxacin (Levaquin 500 Mg Premixed Ivpb -) 500 mg in 100 mls @ 100 mls/hr IVPB DAILY [facility]; Protocol Last Admin: 09/24/17 09:33 Dose: 100 mls/hr Insulin Aspart (Novolog Vial Sliding Scale -) 1 vial SQ ACHS [facility]; Protocol Last Admin: 09/25/17 09:13 Dose: Not Given Levothyroxine Sodium (Synthroid -) 112 mcg PO DAILY@0700 [facility] Last Admin: 09/25/17 09:14 Dose: Not Given Lidocaine (Lidoderm Patch -) 1 patch TP DAILY [facility] Last Admin: 09/24/17 09:33 Dose: 1 patch Methylprednisolone Sodium Succinate (Solu-Medrol -) 40 mg IVPUSH BID [facility] Last Admin: 09/24/17 21:22 Dose: 40 mg Metoprolol Succinate (Toprol Xl -) 50 mg PO DAILY [facility] Last Admin: 09/24/17 09:34 Dose: 50 mg Miscellaneous (Lidoderm Patch Removal) 1 each MC DAILY@2200 [facility] Last Admin: 09/24/17 22:00 Dose: 1 each Montelukast Sodium (Singulair -) 10 mg PO HS [facility] Last Admin: 09/24/17 21:22 Dose: 10 mg Potassium Chloride (K-Dur -) 20 meq PO DAILY [facility] Last Admin: 09/24/17 09:34 Dose: 20 meq Ramipril (Altace -) 5 mg PO DAILY [facility] Last Admin: 09/24/17 09:34 Dose: 5 mg Tramadol HCl (Ultram -) 50 mg PO Q6H PRN PRN Reason: PAIN LEVEL 6-10 Last Admin: 09/24/17 21:20 Dose: 50 mg CBC, BMP 09/23/17 06:15 09/23/17 06:15 - Objective Constitutional: Yes: No Distress, comfortable Cardiovascular: Yes: Pulse Irregular Respiratory: Yes: Diminished--few scattered rhonchi otherwise clear Gastrointestinal: Yes: Normal Bowel Sounds, Soft, Tenderness Edema: No Assessment/Plan clinically improved Continue present care Tapering steroids Antibiotics Pulmonary to follow daily out of bed to chair Discharge planning Anticipate discharge in 1-2 days Discussed with patient also--- She is in agreement with plan Monitor blood sugar will follow Discussed with nursing staff also Problem List - Problems (1) COPD (chronic obstructive pulmonary disease) with acute bronchitis Code(s): J44.0 - CHRONIC OBSTRUCTIVE PULMON DISEASE W ACUTE LOWER RESP INFCT (2) HTN (hypertension) Code(s): I10 - ESSENTIAL (PRIMARY) HYPERTENSION Qualifiers: Hypertension type: essential hypertension Qualified Code(s): I10 - Essential (primary) hypertension (3) Paroxysmal atrial fibrillation Code(s): I48.0 - PAROXYSMAL ATRIAL FIBRILLATION (4) Type 2 diabetes mellitus Code(s): E11.9 - TYPE 2 DIABETES MELLITUS WITHOUT COMPLICATIONS Qualifiers: Diabetes mellitus jail insulin use: with jail use Diabetes mellitus complication status: without complication Qualified Code(s): E11.9 - Type 2 diabetes mellitus without complications; Z79.4 - intermediate project manager (current) use of insulin
--- NOTE | 2017-09-25 13:48 | PN ---
Progress Note (short form) - Note Progress Note: PULMONARY VSS/AFEBRILE TALKING ON PHONE OFFERS NO COMPLAINTS CHART REVIEWED Well Nourished, Calm Eyes: Yes: WNL HENT: Yes: WNL Neck: Yes: WNL Cardiovascular: Yes: Pulse Irregular, S1, S2 Respiratory: Yes: Rhonchi (less rhonchi bilaterally) Gastrointestinal: Yes: Normal Bowel Sounds, Soft Extremities: Yes: WNL Edema: No LABS/MEDS/IMAGES NOTED - Problems (1) COPD (chronic obstructive pulmonary disease) with acute bronchitis Code(s): J44.0 - CHRONIC OBSTRUCTIVE PULMON DISEASE W ACUTE LOWER RESP INFCT (2) Afib Code(s): I48.91 - UNSPECIFIED ATRIAL FIBRILLATION Qualifiers: Atrial fibrillation type: paroxysmal Qualified Code(s): I48.0 - Paroxysmal atrial fibrillation (3) Anemia Code(s): D64.9 - ANEMIA, UNSPECIFIED Qualifiers: Anemia type: unspecified type Qualified Code(s): D64.9 - Anemia, unspecified (4) Anxiety Code(s): F41.9 - ANXIETY DISORDER, UNSPECIFIED (5) Atrial fibrillation with controlled ventricular response Code(s): I48.91 - UNSPECIFIED ATRIAL FIBRILLATION (6) Atypical chest pain Code(s): R07.89 - OTHER CHEST PAIN (7) Chest pain Code(s): R07.9 - CHEST PAIN, UNSPECIFIED (8) Cough Code(s): R05 - COUGH (9) HTN (hypertension) Code(s): I10 - ESSENTIAL (PRIMARY) HYPERTENSION Qualifiers: Hypertension type: essential hypertension Qualified Code(s): I10 - Essential (primary) hypertension (10) Hypothyroidism Code(s): E03.9 - HYPOTHYROIDISM, UNSPECIFIED Qualifiers: Hypothyroidism type: unspecified Qualified Code(s): E03.9 - Hypothyroidism , unspecified (11) Paroxysmal atrial fibrillation Code(s): I48.0 - PAROXYSMAL ATRIAL FIBRILLATION (12) Pneumonia Code(s): J18.9 - PNEUMONIA, UNSPECIFIED ORGANISM Qualifiers: Pneumonia type: due to unspecified organism Laterality: unspecified laterality Lung location: unspecified part of lung Qualified Code(s): J18.9 - Pneumonia, unspecified organism (13) Shortness of breath Code(s): R06.02 - SHORTNESS OF BREATH (14) Type 2 diabetes mellitus Code(s): E11.9 - TYPE 2 DIABETES MELLITUS WITHOUT COMPLICATIONS Qualifiers: 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
--- NOTE | 2017-09-25 14:12 | PN ---
Progress Note, Physician History of Present Illness: Dyspnea, cough, post-tussive chest wall discomfort and wheezing slowly improving. Placed on lidoderm patch. - Current Medication List Current Medications: Active Medications Acetaminophen (Tylenol -) 650 mg PO Q6H PRN PRN Reason: PAIN LEVEL 1-5 Last Admin: 09/22/17 17:00 Dose: 650 mg Albuterol Sulfate (Ventolin 0.083% Nebulizer Soln -) 1 amp NEB Q6H PRN PRN Reason: SHORT OF BREATH/WHEEZING Last Admin: 09/24/17 07:20 Dose: 1 amp Amlodipine Besylate (Norvasc -) 10 mg PO DAILY [facility] Last Admin: 09/25/17 10:33 Dose: 10 mg Apixaban (Eliquis -) 5 mg PO BID [facility] Atorvastatin Calcium (Lipitor -) 20 mg PO HS [facility] Last Admin: 09/24/17 21:20 Dose: 20 mg Levofloxacin (Levaquin 500 Mg Premixed Ivpb -) 500 mg in 100 mls @ 100 mls/hr IVPB DAILY [facility]; Protocol Last Admin: 09/25/17 10:33 Dose: 100 mls/hr Insulin Aspart (Novolog Vial Sliding Scale -) 1 vial SQ ACHS [facility]; Protocol Last Admin: 09/25/17 11:09 Dose: Not Given Levothyroxine Sodium (Synthroid -) 112 mcg PO DAILY@0700 [facility] Last Admin: 09/25/17 09:14 Dose: Not Given Lidocaine (Lidoderm Patch -) 1 patch TP DAILY [facility] Last Admin: 09/25/17 10:33 Dose: 1 patch Methylprednisolone Sodium Succinate (Solu-Medrol -) 40 mg IVPUSH BID [facility] Last Admin: 09/25/17 10:35 Dose: 40 mg Metoprolol Succinate (Toprol Xl -) 50 mg PO DAILY [facility] Last Admin: 09/25/17 11:56 Dose: 50 mg Miscellaneous (Lidoderm Patch Removal) 1 each MC DAILY@2200 [facility] Last Admin: 09/24/17 22:00 Dose: 1 each Montelukast Sodium (Singulair -) 10 mg PO HS [facility] Last Admin: 09/24/17 21:22 Dose: 10 mg Potassium Chloride (K-Dur -) 20 meq PO DAILY [facility] Last Admin: 09/25/17 10:34 Dose: 20 meq Ramipril (Altace -) 5 mg PO DAILY [facility] Last Admin: 09/25/17 10:35 Dose: 5 mg Tramadol HCl (Ultram -) 50 mg PO Q6H PRN PRN Reason: PAIN LEVEL 6-10 Last Admin: 09/24/17 21:20 Dose: 50 mg - Objective Vital Signs: Vital Signs Temperature 98.4 F 09/25/17 14:00 Pulse Rate 70 09/25/17 14:00 Respiratory Rate 18 09/25/17 14:00 Blood Pressure 133/78 09/25/17 14:00 O2 Sat by Pulse Oximetry (%) 91 L 09/24/17 10:28 Constitutional: Yes: No Distress, Calm Neck: Yes: Supple Cardiovascular: Yes: Regular Rate and Rhythm Respiratory: Yes: Regular, Diminished, Wheezes Gastrointestinal: Yes: Normal Bowel Sounds, Soft, Abdomen, Obese Edema: No Labs: CBC, BMP 09/23/17 06:15 09/23/17 06:15 Problem List - Problems (1) COPD (chronic obstructive pulmonary disease) with acute bronchitis Code(s): J44.0 - CHRONIC OBSTRUCTIVE PULMON DISEASE W ACUTE LOWER RESP INFCT (2) Atypical chest pain Code(s): R07.89 - OTHER CHEST PAIN (3) Bronchitis Code(s): J40 - BRONCHITIS, NOT SPECIFIED ACUTE OR CHRONIC (4) Cough Code(s): R05 - COUGH (5) HTN (hypertension) Code(s): I10 - ESSENTIAL (PRIMARY) HYPERTENSION Qualifiers: Hypertension type: essential hypertension Qualified Code(s): I10 - Essential (primary) hypertension (6) Hyperlipidemia Code(s): E78.5 - HYPERLIPIDEMIA, UNSPECIFIED Qualifiers: Hyperlipidemia type: pure hypercholesterolemia Qualified Code(s): E78.00 - Pure hypercholesterolemia, unspecified; E78.0 - Pure hypercholesterolemia (7) Hypothyroidism Code(s): E03.9 - HYPOTHYROIDISM, UNSPECIFIED Qualifiers: Hypothyroidism type: unspecified Qualified Code(s): E03.9 - Hypothyroidism , unspecified (8) Paroxysmal atrial fibrillation Code(s): I48.0 - PAROXYSMAL ATRIAL FIBRILLATION (9) Pneumonia Code(s): J18.9 - PNEUMONIA, UNSPECIFIED ORGANISM Qualifiers: Pneumonia type: due to unspecified organism Laterality: unspecified laterality Lung location: unspecified part of lung Qualified Code(s): J18.9 - Pneumonia, unspecified organism (10) Shortness of breath Code(s): R06.02 - SHORTNESS OF BREATH (11) Type 2 diabetes mellitus Code(s): E11.9 - TYPE 2 DIABETES MELLITUS WITHOUT COMPLICATIONS Qualifiers: 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 COPD exacerbation resolving 2. Chest pain syndrome atypical for CAD angina pectoris, reproducible most likely musculoskeletal 3. Troponin I elevation, non specific with no clinical evidence of ACS, demand ishemia 4. History of paroxysmal atrial fibrillation/flutter on Eliquis therapy [id number] score of 4-5, currently in sinus rhythm 5. HTN 6. NIDDM 7. Hypercholesterolemia 8. Hypothyroidism 9. CKD PLAN: 1. Continue Eliquis 5 bid, with close monitoring of CBC considering the above noted [id number] score of 4-5 2. Continue Toprol XL 50 qd 3. Continue Ramipril 5 qd 4. Continue Norvasc 10 qd 5. Continue Lipitor 20 qhs 6. Empiric antibiotics, bronchodilators, Singulair and IV steroid taper with GI protection as per the pulm team, PFTs as outpatient 7. As outlined in yesterday's note patient can be transferred to medical floor from the cardiovascular point of view, D/C telemetry
[2017-09-25] MEDS: ALBUTEROL SO4 0.083% IH SOL 2.5 MG/3 ML VIAL.NEB. NEB PRN (20:05)
[2017-09-25] MEDS: ATORVASTATIN CA 20 MG TABLET (FP) PO SCH (20:59)
[2017-09-25] MEDS: MONTELUKAST NA 10 MG TABLET PO SCH (20:59)
[2017-09-25] MEDS: APIXABAN 5 MG TABLET PO SCH (20:59)
[2017-09-25] MEDS: LIDOCAINE PATCH REMOVAL MC SCH (22:00)
[2017-09-26] MEDS: LEVOTHYROXINE NA 112 MCG TABLET (FP) PO SCH (06:17)
[2017-09-26] MEDS: INSULIN SLIDING SCALE (NOVOLOG) 1 VIAL SQ SCH (06:19)
[2017-09-26] MEDS: ACETAMINOPHEN 325 MG TABLET (FP) PO PRN (08:13)
--- NOTE | 2017-09-26 08:56 | PN ---
Progress Note (short form) - Note Progress Note: PULMONARY VSS/AFEBRILE OFFERS NO COMPLAINTS ANICTERIC DISTANT BUT CLEAR LUNG PHIPPS S1S2 BS+ NO EDEMA LABS/MEDS/IMAGES NOTED - Problems (1) COPD (chronic obstructive pulmonary disease) with acute bronchitis Code(s): J44.0 - CHRONIC OBSTRUCTIVE PULMON DISEASE W ACUTE LOWER RESP INFCT (2) Afib Code(s): I48.91 - UNSPECIFIED ATRIAL FIBRILLATION Qualifiers: Atrial fibrillation type: paroxysmal Qualified Code(s): I48.0 - Paroxysmal atrial fibrillation (3) Anemia Code(s): D64.9 - ANEMIA, UNSPECIFIED Qualifiers: Anemia type: unspecified type Qualified Code(s): D64.9 - Anemia, unspecified (4) Anxiety Code(s): F41.9 - ANXIETY DISORDER, UNSPECIFIED (5) Atrial fibrillation with controlled ventricular response Code(s): I48.91 - UNSPECIFIED ATRIAL FIBRILLATION (6) Atypical chest pain Code(s): R07.89 - OTHER CHEST PAIN (7) Chest pain Code(s): R07.9 - CHEST PAIN, UNSPECIFIED (8) Cough Code(s): R05 - COUGH (9) HTN (hypertension) Code(s): I10 - ESSENTIAL (PRIMARY) HYPERTENSION Qualifiers: Hypertension type: essential hypertension Qualified Code(s): I10 - Essential (primary) hypertension (10) Hypothyroidism Code(s): E03.9 - HYPOTHYROIDISM, UNSPECIFIED Qualifiers: Hypothyroidism type: unspecified Qualified Code(s): E03.9 - Hypothyroidism , unspecified (11) Paroxysmal atrial fibrillation Code(s): I48.0 - PAROXYSMAL ATRIAL FIBRILLATION (12) Pneumonia Code(s): J18.9 - PNEUMONIA, UNSPECIFIED ORGANISM Qualifiers: Pneumonia type: due to unspecified organism Laterality: unspecified laterality Lung location: unspecified part of lung Qualified Code(s): J18.9 - Pneumonia, unspecified organism (13) Shortness of breath Code(s): R06.02 - SHORTNESS OF BREATH (14) Type 2 diabetes mellitus Code(s): E11.9 - TYPE 2 DIABETES MELLITUS WITHOUT COMPLICATIONS Qualifiers: Diabetes mellitus halfway insulin use: with halfway use Diabetes mellitus complication status: without complication Qualified Code(s): E11.9 - Type 2 diabetes mellitus without complications; 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
[2017-09-26] MEDS ORDERED: PT OWN MED DRAWER 7, Y5N ONE (09:09)
[2017-09-26] MEDS: POTASSIUM CHLORIDE TABS 20 MEQ TABLET.ER (FP) PO SCH (09:12)
[2017-09-26] MEDS: LIDOCAINE 5% TOPICAL PATCH TP SCH (09:15)
[2017-09-26] MEDS: RAMIPRIL 5 MG CAPSULE (FP) PO SCH (09:15)
[2017-09-26] MEDS: amLODIPine BESYLATE 10 MG TABLET (FP) PO SCH (09:15)
[2017-09-26] MEDS: APIXABAN 5 MG TABLET PO SCH (09:16)
--- NOTE | 2017-09-26 09:20 | PN ---
Progress Note (short form) - Note Progress Note: Chief Complaint: Events noted, notes reviewed, denies any chest pain, cough resolved, denies any dyspnea History of Present Illness: Seen and examined. Events noted, notes reviewed, denies any chest pain, cough resolved, denies any dyspnea Medications: Current Medications Acetaminophen (Tylenol -) 650 mg PO Q6H PRN PRN Reason: PAIN LEVEL 1-5 Last Admin: 09/26/17 08:13 Dose: 650 mg Albuterol Sulfate (Ventolin 0.083% Nebulizer Soln -) 1 amp NEB Q6H PRN PRN Reason: SHORT OF BREATH/WHEEZING Last Admin: 09/25/17 20:05 Dose: 1 amp Amlodipine Besylate (Norvasc -) 10 mg PO DAILY [facility] Last Admin: 09/25/17 10:33 Dose: 10 mg Apixaban (Eliquis -) 5 mg PO BID [facility] Last Admin: 09/25/17 20:59 Dose: 5 mg Atorvastatin Calcium (Lipitor -) 20 mg PO [facility] Last Admin: 09/25/17 20:59 Dose: 20 mg Levofloxacin (Levaquin 500 Mg Premixed Ivpb -) 500 mg in 100 mls @ 100 mls/hr IVPB DAILY [facility]; Protocol Last Admin: 09/25/17 10:33 Dose: 100 mls/hr Insulin Aspart (Novolog Vial Sliding Scale -) 1 vial SQ ACHS [facility]; Protocol Last Admin: 09/26/17 06:19 Dose: 3 units Levothyroxine Sodium (Synthroid -) 112 mcg PO DAILY@0700 [facility] Last Admin: 09/26/17 06:17 Dose: 112 mcg Lidocaine (Lidoderm Patch -) 1 patch TP DAILY [facility] Last Admin: 09/25/17 10:33 Dose: 1 patch Metoprolol Succinate (Toprol Xl -) 50 mg PO DAILY [facility] Last Admin: 09/25/17 11:56 Dose: 50 mg Miscellaneous (Lidoderm Patch Removal) 1 each MC DAILY@2200 [facility] Last Admin: 09/25/17 22:00 Dose: 1 each Montelukast Sodium (Singulair -) 10 mg PO HS [facility] Last Admin: 09/25/17 20:59 Dose: 10 mg Potassium Chloride (K-Dur -) 20 meq PO DAILY [facility] Last Admin: 09/25/17 10:34 Dose: 20 meq Prednisone (Deltasone -) 20 mg PO DAILY [facility] Ramipril (Altace -) 5 mg PO DAILY [facility] Last Admin: 09/25/17 10:35 Dose: 5 mg Review of Systems - Review of Systems Constitutional: denies: Chills, Fever Cardiovascular: as noted above Respiratory: reports: Cough but improved denies: Hemoptysis, Orthopnea, PND Gastrointestinal: denies: Abdominal Pain, Constipation, Diarrhea, Melena, Nausea , Rectal Bleeding, Vomiting Genitourinary: denies: Dysuria Neurological: denies: Dizziness, Headache, Seizure, Syncope Vital Signs: Last Vital Signs Temp Pulse Resp BP Pulse Ox 97.6 F 64 20 152/84 93 L 09/26/17 06:00 09/26/17 06:00 09/26/17 06:00 09/26/17 06:00 09/25/17 20:31 Intake & Output 09/23/17 09/24/17 09/25/17 09/26/17 23:59 23:59 23:59 23:59 Intake Total 1133 131 4392 200 Balance 1765 756 6341 200 Neck: Supple Negative JVD Respiratory: Diminished Bilateral Scattered Rhonchi Cardiovascular: S1 S2 Regular Rate and Rhythm Occasional Ectopics Gastrointestinal: Soft Benign Normal Bowel Sounds Ext: No Edema Labs: CBC, BMP 09/23/17 06:15 09/23/17 06:15 Assessment/Plan ASSESSMENT: 1. COPD exacerbation, resolved 2. Chest pain syndrome atypical for CAD angina pectoris, reproducible most likely musculo-skeletal, resolved 3. Troponin I elevation, non specific with no clinical evidence of ACS, demand ishemia 4. History of paroxysmal atrial fibrillation/flutter on Eliquis therapy [id number] score of 4-5 5. HTN 6. NIDDM 7. Hypercholesterolemia 8. Hypothyroidism 9. CKD PLAN: 1. Continue Eliquis at the current dose, with close monitoring of CBC considering the above noted [id number] score of 4-5 2. Continue Toprol XL 3. Continue Ramipril 4. Continue Norvasc 5. Continue Lipitor 6. Antibiotics, bronchodilators and Steroids as per the primary team 7. D/C home as per the primary team, can be discharged from the cardiovascular point of view Therese Webber MD
[2017-09-26] MEDS ORDERED: predniSONE 20 MG TABLET (UD) PO SCH (10:00)
--- NOTE | 2017-09-26 10:04 | DS ---
Physical Examination Vital Signs: Vital Signs Temperature 97.6 F 09/26/17 06:00 Pulse Rate 64 09/26/17 06:00 Respiratory Rate 20 09/26/17 06:00 Blood Pressure 152/84 09/26/17 06:00 O2 Sat by Pulse Oximetry (%) 93 L 09/25/17 20:31 Findings/Remarks: feels well no complains denies cp/sob. Constitutional: Yes: No Distress Eyes: Yes: Conjunctiva Clear Neck: Yes: Supple Cardiovascular: Yes: Pulse Irregular Respiratory: Yes: CTA Bilaterally Gastrointestinal: Yes: Soft Edema: No Neurological: Yes: Alert Psychiatric: Yes: Alert Labs: CBC, BMP 09/23/17 06:15 09/23/17 06:15 Discharge Summary Reason For Visit: ACUTE BRONCHITIS W/COPD Current Active Problems COPD (chronic obstructive pulmonary disease) with acute bronchitis (Acute) Myalgia (Acute) Right lower lobe pneumonia (Acute) Hospital Course: Pt 72 F, COPD , paroxysmal atrial fibrillation on a NOAC, HTN, hypercholesterolemia, and diabetes mellitus. Admitted via the ER due to progressive SOB / CHAMBERS .. Cough has been very congested and productive of green/yellow sputum. CT Chest: LLL infiltrates that are new from previous CT / old granulomatous disease / no masses / Bronchiectasis with chronic infiltrates in the RLL dating back to 2004. Pt admitted for pneumonia / copd exac treated with abx and steroids responded well. now stable for d/c pulmonary / cardiology followed will d/c home today meds reconciled d/c abx taper steroids discussed with pt in detail f/u in office in 2 weeks discussed with nursing staff also pt in agreement d/c time 35 min in examining/ documenting and coordating care. Condition: Stable - Instructions Referrals: Lianne Roth DIET [Primary Care Provider] - Disposition: HOME - Home Medications Comprehensive Discharge Medication List: Ambulatory Orders Apixaban [Eliquis] 5 mg PO BID 04/18/15 Glipizide [Glipizide Xl] 5 mg PO DAILY 04/18/15 Montelukast Na [Singulair -] 10 mg PO HS 04/18/15 metFORMIN HCL [Metformin HCl] 500 mg PO BID 04/18/15 Albuterol 0.083% Nebulizer Fidelina [Ventolin 0.083% Nebulizer Soln -] 1 amp NEB Q4H PRN #0 amp 06/06/16 Atorvastatin Ca [Lipitor] 20 mg PO HS tablet 09/17/15 Amlodipine Besylate [Norvasc -] 10 mg PO DAILY 02/25/17 Benzonatate [Tessalon Perle -] 100 mg PO BID 02/25/17 Levothyroxine [Synthroid -] 112 mcg PO DAILY 02/25/17 Nitroglycerin [Nitrostat] 0.4 mg SL DAILY PRN 02/25/17 Zolpidem Tartrate [Ambien] 5 mg PO DAILY 02/25/17 Metoprolol Succinate [Toprol Xl] 50 mg PO DAILY 02/27/17 Ramipril 5 cap PO DAILY 02/27/17 Acetaminophen [Tylenol .Regular Strength -] 650 mg PO Q6H PRN tablet 09/26/17 Guaifenesin AC [Robitussin AC -] 5 ml PO TID PRN #1 liquid MDD 1 09/26/17 predniSONE [Deltasone -] 10 mg PO DAILY #10 tablet 09/26/17
[2017-09-26 10:44] VITALS: BP 144/84; PULSE 58; TEMP 98
== END 2017-09-26 11:51 | disposition home or self-care (01) | DRG 190 ==
LOC: JER 22:51 → JERBED 09-17 03:38 → UNDOADMOB 09-17 03:46 → JERBED 09-17 03:46 → J4W 09-17 17:59 → OBSVTOIN 09-18 14:00 → J6S 09-24 19:50
PROVIDERS: ADMIT Internal Medicine; ATTEND Internal Medicine
DX: J44.0 Chronic obstructive pulmonary disease with (acute) lower respiratory infection (principal); J18.9 Pneumonia, unspecified organism; I24.8 Other forms of acute ischemic heart disease; I48.92 Unspecified atrial flutter; J44.1 Chronic obstructive pulmonary disease with (acute) exacerbation; J20.9 Acute bronchitis, unspecified; M79.1 Myalgia; I10 Essential (primary) hypertension; R07.89 Other chest pain; E03.9 Hypothyroidism, unspecified; I12.9 Hypertensive chronic kidney disease with stage 1 through stage 4 chronic kidney disease, or unspecified chronic kidney disease; E11.22 Type 2 diabetes mellitus with diabetic chronic kidney disease; N18.9 Chronic kidney disease, unspecified; I48.0 Paroxysmal atrial fibrillation; E78.5 Hyperlipidemia, unspecified; K21.9 Gastro-esophageal reflux disease without esophagitis
CPT/HCPCS: 36415; 71045-TC-FY; 71250-TC; 73560-TC-RT-FY; 74176-TC; 80048; 80053; 82550; 82553; 82803; 82962; 83036; 83735; 83880; 84100; 84443; 84484; 85025; 87040; 87070; 87205; 87899; 93005; 93010; 93971-TC; 94640; 99285-25; G0378; J7620

== ENCOUNTER 2018-08-16 13:13 | Inpatient (IN) | payer OTHER ==
--- NOTE | 2018-08-16 13:25 | PDOC ---
Rapid Medical Evaluation Time Seen by Provider: 08/16/18 13:21 Medical Evaluation: Allergies Allergy/AdvReac Type Severity Reaction Status Date / Time aspirin Allergy Intermediate VOMITS Verified 09/16/17 22:53 BLOOD 08/16/18 13:21 I have performed a brief in-person evaluation of this patient. The patient presents with a chief complaints of: slow heart rate. Patient sent from pmd's office states no dizziness or chest pain Pertinent physical exam findings NAD clear lung bilaterally I have ordered the following: Ekg, labs The patient will proceed to the ED for further evaluation. Discharge Disposition - Diagnosis Bradycardia - Referrals - Patient Instructions - Post Discharge Activity
--- NOTE | 2018-08-16 13:28 | PDOC ---
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 The patient was following up with Dr. Corado after recent pna 1 month ago and after completing a course of cefuroxime as prescribed by PCP. The patient denies any current headache, abdominal pain, shortness of breath, dysuria, hematuria diarrhea or constiptiaon. She reports full compliance of medications and takes all meds in AM, which she did this morning. patient takes norvasc 10 and metoprolol 50 Caridologist: Dr. Rodriguez PCP: Dr. 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, s/p cholecystectomy, and s/p appendectomy Past History - Past Medical History Allergies/Adverse Reactions: Allergies Allergy/AdvReac Type Severity Reaction Status Date / Time aspirin Allergy Intermediate VOMITS Verified 08/16/18 13:21 BLOOD Home Medications: Ambulatory Orders Apixaban [Eliquis] 5 mg PO BID 04/18/15 Glipizide [Glipizide Xl] 5 mg PO DAILY 04/18/15 Montelukast Na [Singulair -] 10 mg PO HS 04/18/15 metFORMIN HCL [Metformin HCl] 500 mg PO BID 04/18/15 Albuterol 0.083% Nebulizer Fidelina [Ventolin 0.083% Nebulizer Soln -] 1 amp NEB Q4H PRN #0 amp 09/17/15 Atorvastatin Ca [Lipitor] 20 mg PO HS tablet 09/17/15 Amlodipine Besylate [Norvasc -] 10 mg PO DAILY 02/25/17 Benzonatate [Tessalon Perle -] 100 mg PO BID 02/25/17 Levothyroxine [Synthroid -] 112 mcg PO DAILY 02/25/17 Nitroglycerin [Nitrostat] 0.4 mg SL DAILY PRN 02/25/17 Zolpidem Tartrate [Ambien] 5 mg PO DAILY 02/25/17 Metoprolol Succinate [Toprol Xl] 50 mg PO DAILY 02/27/17 Ramipril 5 cap PO DAILY 02/27/17 Acetaminophen [Tylenol .Regular Strength -] 650 mg PO Q6H PRN tablet 09/26/17 Guaifenesin AC [Robitussin AC -] 5 ml PO TID PRN #1 liquid MDD 1 09/26/17 predniSONE [Deltasone -] 10 mg PO DAILY #10 tablet 09/26/17 Anemia: Yes Asthma: Yes Cancer: No Cardiac Disorders: Yes (PAROXYSMAL ATRIAL FLUTTER,) CVA: No COPD: Yes CHF: No Dementia: No Diabetes: Yes (TYPE 2) GI Disorders: Yes (GERD) Disorders: No HTN: Yes Hypercholesterolemia: Yes Liver Disease: No Seizures: No Thyroid Disease: Yes (HYPO) - Surgical History Abdominal Surgery: Yes (SPLENECTOMY) Appendectomy: Yes Cardiac Surgery: No Cholecystectomy: Yes Neurologic Surgery: No - Immunization History Immunization Up to Date: Yes - Suicide/Smoking/Psychosocial Hx Smoking Status: No Smoking History: Never smoked Have you smoked in the past 12 months: No Number of Cigarettes Smoked Daily: 0 Cigars Per Day: 0 Hx Alcohol Use: No Drug/Substance Use Hx: No Substance Use Type: None Hx Substance Use Treatment: No Review of Systems - Review of Systems Able to Perform ROS?: Yes Comments:: 08/16/18 13:55 GENERAL/CONSTITUTIONAL: No fever or chills. No weakness. HEAD, EYES, EARS, NOSE AND THROAT: No change in vision. No ear pain or discharge. No sore throat. CARDIOVASCULAR: No chest pain or shortness of breath RESPIRATORY: No cough, wheezing, or hemoptysis. GASTROINTESTINAL: No nausea, vomiting, diarrhea or constipation. GENITOURINARY: No dysuria, frequency, or change in urination. MUSCULOSKELETAL: No joint or muscle swelling or pain. No neck or back pain. SKIN: No rash NEUROLOGIC: No headache, vertigo, loss of consciousness, or change in strength/ sensation. ENDOCRINE: No increased thirst. No abnormal weight change HEMATOLOGIC/LYMPHATIC: No anemia, easy bleeding, or history of blood clots. ALLERGIC/IMMUNOLOGIC: No hives or skin allergy. Is the patient limited Persian proficient: No *Physical Exam - Vital Signs Last Vital Signs Temp Pulse Resp BP Pulse Ox 97.5 F L 42 L 16 151/62 99 08/16/18 13:22 08/16/18 13:22 08/16/18 13:22 08/16/18 13:22 08/16/18 13:22 - Physical Exam Comments: 08/16/18 13:55 GENERAL: Awake, alert, and fully oriented, in no acute distress HEAD: No signs of trauma, normocephalic, atraumatic EYES: EOMI, sclera anicteric, conjunctiva clear ENT: oropharynx clear without exudates. Moist mucosa NECK: Normal ROM, supple LUNGS: No distress, speaks full sentences, decreased breath sounds throughout, no rales, rhonchi or carackles HEART: irregular rhythm, regular rate, normal S1 and S2, no murmurs, rubs or gallops, peripheral pulses normal and equal bilaterally. ABDOMEN: Soft, nontender, normoactive bowel sounds. No guarding, no rebound. No masses EXTREMITIES : Normal inspection, Normal range of motion, no edema. No clubbing or cyanosis. NEUROLOGICAL: Cranial nerves II through XII grossly intact. Normal speech,no focal sensorimotor deficits SKIN: Warm, Dry, normal turgor, no rashes or lesions noted ED Treatment Course - LABORATORY CBC & Chemistry Diagram: 08/16/18 15:32 08/16/18 15:32 - RADIOLOGY Radiology Studies Ordered: Category Date Time Status CXRPORT [CHEST X-RAY PORTABLE*] [RAD] Stat Radiology 08/16/18 13:28 Ordered Medical Decision Making - Medical Decision Making 08/16/18 13:57 73 year old woman with a significant past medical history of paroxysmal afib ( on Eliquis), HTN, HLD, DM, COPD (no home O2), PNA (2015) who was sent for Dr. 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 ED Course: ddx ibnlt: medication vs hypothyroidism vs sick sinus syndrome vs acs patient currently asymptomatic cbc, cmp, ekg, trop, cxr, tsh, pt, pt/inr 08/16/18 13:59 at bedside patient with irregular rhythm and with rate of 66 EKG: sinus rhythm HR 86 w/ preamture atrial complexes with aberrant conduction with morphology change from 09/17/2017 from prior narrow QRS, ST and T wave segments and morphology normal. Nonspecific T wave abnormalities flattening in III. 08/16/18 16:11 last echo in 2017 with moderately dilated L atrium considering ekg changes and with echo 2 years ago will likely need admission for cardiology consult and echo pending lab results 08/16/18 16:23 Patient with elevated troponin of 0.06 08/16/18 16:[address] Rodriguez cardiology who does not recommend AC at this time, but advises for echo plan for admission *DC/Admit/Observation/Transfer Diagnosis at time of Disposition: Bradycardia, Elevated troponin, Electrocardiogram showing no change from prior tracing - Discharge Dispostion Condition at time of disposition: Fair Decision to Admit order: Yes - Referrals - Patient Instructions - Post Discharge Activity
--- NOTE | 2018-08-16 14:40 | PDOC ---
Documentation entered by Garth Kent SCRIBE, acting as scribe for Virginia Pena MD. Virginia Pena MD: This documentation has been prepared by the rachealeDonte Daniel, SCRIBE, under my direction and personally reviewed by me in its entirety. I confirm that the documentation accurately reflects all work, treatment, procedures, and medical decision making performed by me. Attending Attestation - Resident Resident Name: Micaela Baird - ED Attending Attestation I have performed the following: I have examined & evaluated the patient, The case was reviewed & discussed with the resident, I agree w/resident's findings & plan, Exceptions are as noted - HPI HPI: 08/16/18 14:06 The patient is a 73 year old female with a past medical history of paroxysmal afib (on Eliquis), HTN, HLD, DM, COPD here today for evaluation of bradycardia. The patient reports that she was diagnosed recently with pneumonia and finished a course of cefuroxime. Patient was following up with Dr. Corado who sent her in today when he noticed that she was bradycardic. Patient currently has no complaints. Patient denies headache, lightheadedness. Denies fever, chills. Denies chest pain, shortness of breath. Denies nausea, vomiting, diarrhea, abdominal pain. Allergies: PCP: Parisa Rodriguez Shield Installer: Mo Rodriguez Human Resources Generalist: Tony Corado - Physicial Exam PE: GENERAL: Awake, alert, and fully oriented, in no acute distress HEAD: No signs of trauma EYES: PERRLA, EOMI, sclera anicteric, conjunctiva clear ENT: Auricles normal inspection, hearing grossly normal, nares patent, oropharynx clear without exudates. Moist mucosa NECK: Normal ROM, supple, no lymphadenopathy, JVD, or masses LUNGS: Breath sounds equal, clear to auscultation bilaterally. No wheezes, and no crackles HEART: Irregular, normal S1 and S2, no murmurs, rubs or gallops ABDOMEN: Soft, nontender, normoactive bowel sounds. No guarding, no rebound. No masses EXTREMITIES: Normal range of motion, no edema. No clubbing or cyanosis. No cords, erythema, or tenderness NEUROLOGICAL: Cranial nerves II through XII grossly intact. Normal speech, normal gait. Motor and sensation intact SKIN: Warm, Dry, normal turgor, no rashes or lesions noted. - Medical Decision Making Pt with bradycardia in Dr. Corado's office. Currently HR is in 790s, noted to have couplets, which is a change from prior EKG. Will plan for admission for cardiac workup.
[2018-08-16 16:22] LABS: BASO % 0.3 % (0-2.0); EOS % 0.9 % (0-4.5); HEMATOCRIT 33.8 % (32.4-45.2); HEMOGLOBIN 11.4 GM/dL (10.7-15.3); MCH 29.3 pg (25.7-33.7); MCHC 33.9 g/dl (32.0-36.0); MEAN CELL VOLUME 86.4 fl (80-96); MEAN PLT VOLUME 8.6 fl (7.5-11.1); NEUT % 53.8 % (42.8-82.8); PLATELET COUNT 399 K/MM3 (134-434); RBC 3.91 M/mm3 (3.60-5.2); RDW 14.3 % (11.6-15.6); WHITE BLOOD COUNT 10.3 K/mm3 (4.0-10.0)
[2018-08-16 16:23] LABS: ALBUMIN 3.3 g/dl (3.4-5.0); ALK PHOS 77 U/L (45-117); ANION GAP 5 MMOL/L (8-16); BILIRUBIN,DIRECT 0.2 mg/dL (0.0-0.2); BILIRUBIN,TOTAL 0.8 mg/dL (0.2-1); BLOOD UREA NITROGEN 18 mg/dL (7-18); CALCIUM 9.1 mg/dL (8.5-10.1); CHLORIDE 107 mmol/L (98-107); CO2 27 mmol/L (21-32); GLUCOSE,RANDOM 81 mg/dL (74-106); POTASSIUM 3.9 mmol/L (3.5-5.1); SGOT/AST 13 U/L (15-37); SGPT/ALT 13 U/L (13-61); SODIUM 139 mmol/L (136-145); TOT PROT 6.8 g/dl (6.4-8.2)
[2018-08-16 16:34] LABS: INR 1.45 (0.83-1.09); PROTHROMBIN TIME (PATIENT) 17.2 SEC (9.7-13.0)
[2018-08-16] MEDS ORDERED: NITROGLYCERIN SUBLINGUAL 1/150 0.4 MG TAB SL PRN (17:35)
[2018-08-16] MEDS ORDERED: ACETAMINOPHEN 325 MG TABLET (FP) PO PRN (17:40)
[2018-08-16] MEDS ORDERED: POTASSIUM CHLORIDE TABS 10 MEQ TABLET.ER (FP) ONE (18:43)
[2018-08-16] MEDS: POTASSIUM CHLORIDE TABS 10 MEQ TABLET.ER (FP) PO SCH (18:51)
--- NOTE | 2018-08-16 19:56 | CON.CARD ---
Consult Consult Specialty:: Cardiology Referred by:: Tony Corado MD Reason for Consultation:: Sinus bradycardia - History of Present Illness Chief Complaint: Sinus bradycardia History of Present Illness: Patient is a 73 year old female with underlying history of paroxysmal atrial fibrillation on NOAC, HTN, hypercholesterolemia, diabetes mellitus, COPD w/ h/o flares and pneumonia post recent course of cefuroxime who presents to ED for evaluation of bradycardia, ECG shows SR with PAC. She is asymptomatic and denies dizziness, chest pain, true syncope or palpitations. She reports full compliance of medications and takes all meds in AM, which she did this morning. 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: Yes: Migraine Cardio/Vascular: Yes: AFIB, HTN, Hyperlipdemia Pulmonary: Yes: COPD, Pneumonia Gastrointestinal: Yes: GERD Endocrine: Yes: Diabetes Mellitus, Hypothyroidism - Past Surgical History Past Surgical History: Yes: Appendectomy, Tubal Ligation, Cholecystectomy, Splenectomy - Alcohol/Substance Use Hx Alcohol Use: No History of Substance Use: reports: None - Smoking History Smoking history: Never smoked Have you smoked in the past 12 months: No Aproximately how many cigarettes per day: 0 - Social History ADL: Independent 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 History of Recent Travel: No Home Medications - Allergies Allergies/Adverse Reactions: Allergies Allergy/AdvReac Type Severity Reaction Status Date / Time aspirin Allergy Intermediate VOMITS Verified 08/16/18 13:21 BLOOD - Home Medications Home Medications: Ambulatory Orders Apixaban [Eliquis] 5 mg PO BID 04/18/15 Glipizide [Glipizide Xl] 5 mg PO DAILY 04/18/15 Montelukast Na [Singulair -] 10 mg PO HS 04/18/15 metFORMIN HCL [Metformin HCl] 500 mg PO BID 04/18/15 Albuterol 0.083% Nebulizer Fidelina [Ventolin 0.083% Nebulizer Soln -] 1 amp NEB Q4H PRN #0 amp 09/17/15 Atorvastatin Ca [Lipitor] 20 mg PO HS tablet 09/17/15 Amlodipine Besylate [Norvasc -] 10 mg PO DAILY 02/25/17 Levothyroxine [Synthroid -] 100 mcg PO DAILY 02/25/17 Nitroglycerin [Nitrostat] 0.4 mg SL DAILY PRN 02/25/17 Zolpidem Tartrate [Ambien] 5 mg PO DAILY 02/25/17 Ramipril 5 cap PO DAILY 02/27/17 Carvedilol [Coreg] 6.25 mg PO BID 08/16/18 Potassium Bicarbonate/Cit AC [Effer-K 10 Meq Tablet Eff] 10 meq PO DAILY Family Disease History - Family Disease History Family Disease History: Other: Father ( when pt. was 5 years old, unknown cause), Mother ( 95 dementia) Vital Signs: Vital Signs Temperature 96.8 F L 08/16/18 18:51 Pulse Rate 119 H 08/16/18 18:51 Respiratory Rate 19 08/16/18 18:51 Blood Pressure 168/72 08/16/18 18:51 O2 Sat by Pulse Oximetry (%) 95 08/16/18 18:51 Constitutional: Yes: No Distress, Calm Neck: Yes: Supple Respiratory: Yes: Regular, CTA Bilaterally Gastrointestinal: Yes: Normal Bowel Sounds, Soft Cardiovascular: Yes: Regular Rate and Rhythm JVD: No Carotid Bruit: No Heart Sounds: Yes: S1, S2 Edema: No - Other Data Labs, Other Data: CBC, BMP 08/16/18 15:32 08/16/18 15:32 INR, PTT INR 1.45 (0.83-1.09) H 08/16/18 15:59 Troponin, BNP 08/16/18 15:32 Troponin I 0.06 H Troponin, BNP 08/16/18 15:32 Troponin I 0.06 H NSR @ 68 PAC mod criteria LVH with inferior TWI Imaging - Results Chest X-ray: Report Reviewed (Congestion, right effusion) Problem List - Problems (1) Bradycardia Code(s): R00.1 - BRADYCARDIA, UNSPECIFIED (2) Elevated troponin Code(s): R74.8 - ABNORMAL LEVELS OF OTHER SERUM ENZYMES (3) HTN (hypertension) Code(s): I10 - ESSENTIAL (PRIMARY) HYPERTENSION Qualifiers: Hypertension type: essential hypertension Qualified Code(s): I10 - Essential (primary) hypertension (4) Hypothyroidism Code(s): E03.9 - HYPOTHYROIDISM, UNSPECIFIED Qualifiers: Hypothyroidism type: unspecified Qualified Code(s): E03.9 - Hypothyroidism , unspecified (5) Paroxysmal atrial fibrillation Code(s): I48.0 - PAROXYSMAL ATRIAL FIBRILLATION (6) Type 2 diabetes mellitus Code(s): E11.9 - TYPE 2 DIABETES MELLITUS WITHOUT COMPLICATIONS Qualifiers: Diabetes mellitus manager long term care insulin use: with manager long term care use Diabetes mellitus complication status: without complication Qualified Code(s): E11.9 - Type 2 diabetes mellitus without complications; Z79.4 - intermediate (current) use of insulin (7) Premature atrial contraction Code(s): I49.1 - ATRIAL PREMATURE DEPOLARIZATION (8) Hyperlipidemia associated with type 2 diabetes mellitus Code(s): E11.69 - TYPE 2 DIABETES MELLITUS WITH OTHER SPECIFIED COMPLICATION; E78.5 - HYPERLIPIDEMIA, UNSPECIFIED Assessment/Plan 04/29/2018 Normal LV systolic fxn LVEF 60-65%, mild LVH, mild MR, mod TR, mild SC, severe pulm HTN RVSP 66 mmHg 1. Paroxysmal atrial flutter now in SR with PAC on Eliquis [id number] score of 4-5 2. COPD 3. Diastolic dysfunction, demand ishemia 4. HTN 5. NIDDM 6. Hypercholesterolemia 7. Hypothyroidism 8. CKD PLAN: 1. Continue Eliquis 5 bid, with close monitoring of CBC considering the above noted [id number] score of 4-5 2. Decrease Carvedilol 3.125 bid as tolerated 3. Continue Ramipril 5 qd 4. Continue Norvasc 5 qd 5. Continue Lipitor 20 qhs 6. Trend trops to document peak, f/u echocardiogram and ECG in AM, BNP, diuretics as needed 7. Thank you for consultative opportunity
--- NOTE | 2018-08-16 21:02 | HP ---
Admitting History and Physical - Primary Care Physician PCP: Parisa Rodriguez - Admission Chief Complaint: asymptomatic bradycardia History of Present Illness: 73 year old female with a past medical history significant for COPD, PAfib (on eliquis and coreg), HTN, DMII, hypothyroidism and insomnia presents to ED as referred from her pulmonologists' office. Ms. Almanza reports a recent bout of PNA in July and attended a scheduled pulmonary follow up where she was noted to be bradycardic (HR 30-50bpm as per ED resident). Patient was asymptomatic and has no acute complaints. She endorses chronic CHAMBERS, intermittent periods of fatigue, irritable bowels (never had C-scope) and leg cramps which awaken her from sleep and sometimes occurs with ambulation. In ED: Vitals were: T 97.5, HR 42, BP 151/62, RR 16, O2 sat 99% Labs: trop 0.06. WBC 10.3 EKG: SR 68bpm, frequent PACs, LVH. HUYEN 160ms, QRS 74ms, QT/QTc 442/469ms. Decision made to admit patient for observation and consult with cards for further management. 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: Yes: Migraine Cardiovascular: Yes: AFIB, HTN, Hyperlipdemia Pulmonary: Yes: COPD, Pneumonia Gastrointestinal: Yes: GERD Reproductive: Yes: Postmenopausal Endocrine: Yes: Diabetes Mellitus, Hypothyroidism - Past Surgical History Past Surgical History: Yes: Appendectomy, Cholecystectomy, Hysterectomy (partial ), Splenectomy, Tubal Ligation - Smoking History Smoking history: Never smoked Have you smoked in the past 12 months: No Aproximately how many cigarettes per day: 0 - Alcohol/Substance Use Hx Alcohol Use: No History of Substance Use: reports: None - Social History Usual Living Arrangement: Yes: Alone ADL: Independent 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 Home Medications - Allergies Allergies/Adverse Reactions: Allergies Allergy/AdvReac Type Severity Reaction Status Date / Time aspirin Allergy Intermediate VOMITS Verified 08/16/18 13:21 BLOOD - Home Medications Home Medications: Ambulatory Orders Apixaban [Eliquis] 5 mg PO BID 04/18/15 Glipizide [Glipizide Xl] 5 mg PO DAILY 04/18/15 Montelukast Na [Singulair -] 10 mg PO HS 04/18/15 metFORMIN HCL [Metformin HCl] 500 mg PO BID 04/18/15 Albuterol 0.083% Nebulizer Fidelina [Ventolin 0.083% Nebulizer Soln -] 1 amp NEB Q4H PRN #0 amp 09/17/15 Atorvastatin Ca [Lipitor] 20 mg PO HS tablet 09/17/15 Amlodipine Besylate [Norvasc -] 10 mg PO DAILY 02/25/17 Levothyroxine [Synthroid -] 100 mcg PO DAILY 02/25/17 Nitroglycerin [Nitrostat] 0.4 mg SL DAILY PRN 02/25/17 Zolpidem Tartrate [Ambien] 5 mg PO DAILY 02/25/17 Ramipril 5 cap PO DAILY 02/27/17 Carvedilol [Coreg] 6.25 mg PO BID 08/16/18 Potassium Bicarbonate/Cit AC [Effer-K 10 Meq Tablet Eff] 10 meq PO DAILY Family Disease History - Family Disease History Family Disease History: Other: Father ( when pt. was 5 years old, unknown cause), Mother ( 95 Alzheimers dementia), Sister (alive (77) well) Other Family History: Brother alive (81) dementia. Brother alive (78) well Review of Systems - Review of Systems Constitutional: reports: Weakness Eyes: reports: No Symptoms HENT: reports: No Symptoms Neck: reports: No Symptoms Cardiovascular: reports: Shortness of Breath Respiratory: reports: SOB on Exertion Gastrointestinal: reports: Other (increased stolling) Genitourinary: reports: No Symptoms Breasts: reports: No Symptoms Reported Musculoskeletal: reports: No Symptoms Integumentary: reports: No Symptoms Neurological: reports: No Symptoms Endocrine: reports: No Symptoms Hematology/Lymphatic: reports: No Symptoms Psychiatric: reports: No Symptoms Physical Examination Vital Signs: Vital Signs Temperature 96.8 F L 08/16/18 18:51 Pulse Rate 119 H 08/16/18 18:51 Respiratory Rate 08/16/18 18:51 Blood Pressure 168/72 08/16/18 18:51 O2 Sat by Pulse Oximetry (%) 95 08/16/18 18:51 Constitutional: Yes: Well Nourished, No Distress, Calm Eyes: Yes: Conjunctiva Clear, PERRL HENT: Yes: Atraumatic, Normocephalic Neck: Yes: Supple Cardiovascular: Yes: Pulse Irregular Respiratory: Yes: Regular, CTA Bilaterally Gastrointestinal: Yes: Normal Bowel Sounds, Soft ...Rectal Exam: Yes: WNL Renal/: Yes: WNL Breast(s): Yes: WNL Musculoskeletal: Yes: WNL Extremities: Yes: WNL Edema: No Peripheral Pulses WNL: Yes Peripheral Pulses: Left Radial: 2+, Right Radial: 2+, Left Doralis Pedis: 2+, Right Dorsalis Pedis: 2+ Integumentary: Yes: WNL Neurological: Yes: Alert, Oriented ...Motor Strength: WNL Psychiatric: Yes: Alert, Oriented Labs: CBC, BMP 08/16/18 15:32 08/16/18 15:32 Imaging - Results Chest X-ray: Report Reviewed (CXR 08/16/2018: There are some new congestive changes with large heart and unfolded aorta. The bones and soft tissues are intact. Read by Dr. Henry Hopson MD) Problem List - Problems (1) Atrial fibrillation with controlled ventricular response Assessment/Plan: cards consulted decrease coreg from 6.25mg BID to 3.125mg BID continue Eliquis BID observe overnight and monitor on telemetry Routine echo ordered trend cardiac enzymes Code(s): I48.91 - UNSPECIFIED ATRIAL FIBRILLATION (2) Hyperlipidemia Assessment/Plan: cardiac diet lipitor 20mg qhs Pt unable to tolerate Aspirin due to h/o upper GIB Code(s): E78.5 - HYPERLIPIDEMIA, UNSPECIFIED Qualifiers: Hyperlipidemia type: pure hypercholesterolemia Qualified Code(s): E78.00 - Pure hypercholesterolemia, unspecified; E78.0 - Pure hypercholesterolemia (3) Hypothyroidism Assessment/Plan: continue synthroid 100mcg Follow up TSH in AM Code(s): E03.9 - HYPOTHYROIDISM, UNSPECIFIED Qualifiers: Hypothyroidism type: unspecified Qualified Code(s): E03.9 - Hypothyroidism , unspecified (4) Type 2 diabetes mellitus Assessment/Plan: continue glipizide and metformin Fingerstick ACHS consider switch to insulin if BG not well controlled with oral agents Code(s): E11.9 - TYPE 2 DIABETES MELLITUS WITHOUT COMPLICATIONS Qualifiers: Diabetes mellitus canvassing manager insulin use: with fdc use Diabetes mellitus complication status: without complication Qualified Code(s): E11.9 - Type 2 diabetes mellitus without complications; Z79.4 - manager fund (current) use of insulin (5) Insomnia Assessment/Plan: cont ambien 5mg qhs Code(s): G47.00 - INSOMNIA, UNSPECIFIED (6) Prophylactic measure Assessment/Plan: bowel regimen with senna/colace -hold if diarrhea occurs daily K repletion - KCL 10meq (home dose) OOB to chair Ambulate as tolerated Code(s): Z29.9 - ENCOUNTER FOR PROPHYLACTIC MEASURES, UNSPECIFIED (7) COPD (chronic obstructive pulmonary disease) Assessment/Plan: Albuterol PRN Q4hrs singulair 10mg daily Code(s): J44.9 - CHRONIC OBSTRUCTIVE PULMONARY DISEASE, UNSPECIFIED (8) HTN (hypertension) Assessment/Plan: norvasc 10mg daily ramipril 5mg daily Code(s): I10 - ESSENTIAL (PRIMARY) HYPERTENSION Qualifiers: Hypertension type: essential hypertension Qualified Code(s): I10 - Essential (primary) hypertension Assessment/Plan Code status: Full Visit type - Emergency Visit Emergency Visit: Yes ED Registration Date: 08/16/18 Care time: The patient presented to the Emergency Department on the above date and was hospitalized for further evaluation of their emergent condition. - New Patient This patient is new to me today: Yes Date on this admission: 08/16/18 - Critical Care Critical Care patient: No
[2018-08-16] MEDS ORDERED: amLODIPine BESYLATE 5 MG TABLET (FP) ONE (21:06)
[2018-08-16] MEDS: amLODIPine BESYLATE 10 MG TABLET (FP) PO SCH (21:19)
[2018-08-16] MEDS ORDERED: CARVEDILOL 6.25 MG TABLET (FP) PO SCH (22:00)
[2018-08-16] MEDS: DOCUSATE SODIUM 100 MG CAPSULE (FP) PO SCH (22:28)
[2018-08-16] MEDS: ATORVASTATIN CA 20 MG TABLET (FP) PO SCH (22:28)
[2018-08-16] MEDS: APIXABAN 5 MG TABLET PO SCH (22:28)
[2018-08-16] MEDS: MONTELUKAST NA 10 MG TABLET PO SCH (22:28)
[2018-08-16] MEDS: CARVEDILOL 6.25 MG TABLET (FP) PO SCH (22:28)
[2018-08-16] MEDS: SENNOSIDES 8.6MG TABLET (FP) PO SCH (22:28)
[2018-08-17 00:52] VITALS: BMI 31.6
[2018-08-17] MEDS: glipiZIDE-XL 5 MG TAB.ER.24 PO SCH (06:45)
[2018-08-17] MEDS: metFORMIN HCL 500 MG TABLET (FP) PO SCH ×2 (06:45→17:55)
[2018-08-17] MEDS: LEVOTHYROXINE NA 100 MCG TABLET (FP) PO SCH (06:45)
[2018-08-17 08:04] LABS: BASO % 0.8 % (0-2.0); EOS % 1.3 % (0-4.5); HEMATOCRIT 30.6 % (32.4-45.2); HEMOGLOBIN 10.6 GM/dL (10.7-15.3); LYMPH % 44.7 % (8-40); MCH 29.8 pg (25.7-33.7); MCHC 34.7 g/dl (32.0-36.0); MEAN PLT VOLUME 8.1 fl (7.5-11.1); MONO % 10.2 % (3.8-10.2); PLATELET COUNT 373 K/MM3 (134-434); RBC 3.56 M/mm3 (3.60-5.2); RDW 14.2 % (11.6-15.6); WHITE BLOOD COUNT 9.1 K/mm3 (4.0-10.0)
[2018-08-17 09:11] LABS: ALK PHOS 70 U/L (45-117); ANION GAP 6 MMOL/L (8-16); BILIRUBIN,TOTAL 0.9 mg/dL (0.2-1); BLOOD UREA NITROGEN 13 mg/dL (7-18); CALCIUM 8.8 mg/dL (8.5-10.1); CHLORIDE 106 mmol/L (98-107); CHOLESTEROL 115 mg/dL (50-200); CO2 28 mmol/L (21-32); CREATININE 0.7 mg/dL (0.55-1.3); GLUCOSE,RANDOM 87 mg/dL (74-106); HDL CHOLESTEROL 43 mg/dL (40-60); N-TERMINAL BNP 266.3 pg/ml (5-125); PHOSPHOROUS 3.6 mg/dL (2.5-4.9); POTASSIUM 3.7 mmol/L (3.5-5.1); SGOT/AST 10 U/L (15-37); SGPT/ALT 12 U/L (13-61); SODIUM 140 mmol/L (136-145); TOT PROT 6.2 g/dl (6.4-8.2); TRIGLYCERIDES 64 mg/dL (0-150)
[2018-08-17] MEDS ORDERED: RAMIPRIL 5 MG CAPSULE (FP) PO SCH (10:00)
--- NOTE | 2018-08-17 10:21 | PN ---
Progress Note, Physician Chief Complaint: Events noted Dyspnea persists intermittently History of Present Illness: Patient was seen and examined. Awake and alert. Chart was reviewed Denies chest pain or palpitations secured entrance monitor noted with HR in the 50 -70's Complains of right lower quadrant abdominal pain - Current Medication List Current Medications: Active Medications Acetaminophen (Tylenol -) 650 mg PO Q6H PRN PRN Reason: PAIN LEVEL 4 - 6 Albuterol Sulfate (Ventolin 0.083% Nebulizer Soln -) 1 amp NEB Q4H PRN PRN Reason: SHORT OF BREATH/WHEEZING Amlodipine Besylate (Norvasc -) 10 mg PO DAILY [facility] Last Admin: 08/16/18 21:19 Dose: 10 mg Apixaban (Eliquis -) 5 mg PO BID [facility] Last Admin: 08/16/18 22:28 Dose: 5 mg Atorvastatin Calcium (Lipitor -) 20 mg PO [facility] Last Admin: 08/16/18 22:28 Dose: 20 mg Carvedilol (Coreg -) 3.125 mg PO BID [facility] Last Admin: 08/16/18 22:28 Dose: 3.125 mg Docusate Sodium (Colace -) 100 mg PO BID [facility] Last Admin: 08/16/18 22:28 Dose: 100 mg Glipizide (Glucotrol Xl -) 5 mg PO ACBK [facility] Last Admin: 08/17/18 06:45 Dose: 5 mg Levothyroxine Sodium (Synthroid -) 100 mcg PO DAILY@0700 [facility] Last Admin: 08/17/18 06:45 Dose: 100 mcg Metformin HCl (Glucophage -) 500 mg PO BIDAC [facility] Last Admin: 08/17/18 06:45 Dose: 500 mg Montelukast Sodium (Singulair -) 10 mg PO [facility] Last Admin: 08/16/18 22:28 Dose: 10 mg Nitroglycerin (Nitrostat -) 0.4 mg SL DAILY PRN PRN Reason: chest pain. Pantoprazole Sodium (Protonix -) 20 mg PO DAILY [facility] Potassium Chloride (K-Dur -) 10 meq PO DAILY [facility] Last Admin: 08/16/18 18:51 Dose: 10 meq Ramipril (Altace -) 5 mg PO DAILY [facility] Senna (Senna -) 2 tab PO [facility] Last Admin: 08/16/18 22:28 Dose: 2 tab Zolpidem Tartrate (Ambien -) 5 mg PO HS PRN PRN Reason: INSOMNIA - Objective Vital Signs: Vital Signs Temperature 97.8 F 08/17/18 06:00 Pulse Rate 73 08/17/18 06:00 Respiratory Rate 20 08/17/18 06:00 Blood Pressure 123/72 08/17/18 06:00 O2 Sat by Pulse Oximetry (%) 96 08/16/18 22:10 Eyes: Yes: PERRL HENT: Yes: Atraumatic Neck: Yes: Supple Cardiovascular: Yes: Regular Rate and Rhythm, S1, S2 Respiratory: Yes: Diminished Gastrointestinal: Yes: Normal Bowel Sounds, Soft. No: Tenderness Edema: No Additional Findings/Remarks: - Review of Systems Constitutional: denies: Chills, Fever Cardiovascular: denies: Chest Pain. denies: Palpitations, (+) Shortness of Breath Respiratory: denies: Cough, Hemoptysis, Orthopnea, PND, (+) SOB, SOB on Exertion Gastrointestinal: denies: Diarrhea, Nausea. denies: Abdominal Pain, Constipation, Melena, Rectal Bleeding, Vomiting Genitourinary: denies: Dysuria, Hematuria Musculoskeletal: denies: Back Pain, Joint Pain Neurological: denies: Dizziness, Headache, Seizure, Syncope Labs: CBC, BMP 08/17/18 05:35 08/17/18 05:35 INR, PTT INR 1.45 (0.83-1.09) H 08/16/18 15:59 Problem List - Problems (1) Bradycardia Code(s): R00.1 - BRADYCARDIA, UNSPECIFIED (2) COPD (chronic obstructive pulmonary disease) Code(s): J44.9 - CHRONIC OBSTRUCTIVE PULMONARY DISEASE, UNSPECIFIED (3) Elevated troponin Code(s): R74.8 - ABNORMAL LEVELS OF OTHER SERUM ENZYMES (4) Premature atrial contraction Code(s): I49.1 - ATRIAL PREMATURE DEPOLARIZATION (5) Anemia Code(s): D64.9 - ANEMIA, UNSPECIFIED Qualifiers: Anemia type: unspecified type Qualified Code(s): D64.9 - Anemia, unspecified (6) HTN (hypertension) Code(s): I10 - ESSENTIAL (PRIMARY) HYPERTENSION Qualifiers: Hypertension type: essential hypertension Qualified Code(s): I10 - Essential (primary) hypertension (7) Hyperlipidemia Code(s): E78.5 - HYPERLIPIDEMIA, UNSPECIFIED Qualifiers: Hyperlipidemia type: pure hypercholesterolemia Qualified Code(s): E78.00 - Pure hypercholesterolemia, unspecified; E78.0 - Pure hypercholesterolemia (8) Hypothyroidism Code(s): E03.9 - HYPOTHYROIDISM, UNSPECIFIED Qualifiers: Hypothyroidism type: unspecified Qualified Code(s): E03.9 - Hypothyroidism , unspecified (9) Paroxysmal atrial fibrillation Code(s): I48.0 - PAROXYSMAL ATRIAL FIBRILLATION (10) Shortness of breath Code(s): R06.02 - SHORTNESS OF BREATH (11) Type 2 diabetes mellitus Code(s): E11.9 - TYPE 2 DIABETES MELLITUS WITHOUT COMPLICATIONS Qualifiers: Diabetes mellitus intermodal dispatcher insulin use: with intermodal dispatcher use Diabetes mellitus complication status: without complication Qualified Code(s): E11.9 - Type 2 diabetes mellitus without complications; Z79.4 - [facility] (current) use of insulin Assessment/Plan 1. Paroxysmal atrial flutter now in sinus rhythm with APCs on DOAC (Eliquis) [id number] score of 4-5 2. COPD 3. Diastolic dysfunction with demand ischemia 4. HTN 5. NIDDM 6. Hypercholesterolemia 7. Hypothyroidism 8. CKD PLAN: 1. Continue Eliquis 5 mg BID as tolerated 2. Currently on Carvedilol 3.125 mg BID as tolerated 3. Continue Ramipril 5 mg QD and Norvasc 5 mg QD 4. Continue Lipitor 20 mg QHS 5. Trend troponin to document peak 6. Echocardiography to assess LV/RV and valvular function 7. Diuretics as needed Further plans are to follow Mo Rodriguez MD
--- NOTE | 2018-08-17 11:03 | ECHO ---
Name: MINRANDY ZABALATIE Exam:Adult Echocardiogram Study Date: 08/17/2018 09:11 AM Age: 73 yrs Reason For Study: EKG Changes MILD TROPONIN LEAK Height: 66 in Weight: 193 lb BSA: 2.0 m2 MMode/2D Measurements & Calculations IVSd: 1.1 cm Ao root diam: 2.6 cm LVIDd: 4.6 cm LA dimension: 5.2 cm LVIDs: 3.1 cm LVPWd: 0.92 cm EDV(Teich): 98.6 ml LVOT diam: 2.2 cm ESV(Teich): 37.7 ml Doppler Measurements & Calculations MV E max denzel: 97.2 cm/sec Ao V2 max: 209.0 cm/sec MV A max denzel: 29.6 cm/sec Ao max P.5 mmHg MV E/A: 3.3 Ao V2 mean: 125.6 cm/sec MV dec time: 0.23 sec Ao mean P.8 mmHg Ao V2 VTI: 47.7 cm SERGIO(I,D): 1.3 cm2 SERGIO(V,D): 1.6 cm2 LV V1 max P.2 mmHg MR max denzel: 412.7 cm/sec LV V1 mean P.5 mmHg MR max P.1 mmHg LV V1 max: 89.8 cm/sec LV V1 mean: 57.7 cm/sec LV V1 VTI: 17.1 cm SV(LVOT): 62.7 ml TR max denzel: 369.2 cm/sec TR max P.4 mmHg PI end-d denzel: 137.0 cm/sec Med Peak E' Denzel: 5.8 cm/sec Med E/e': 16.9 Lat Peak E' Denzel: 9.4 cm/sec Lat E/e': 10.4 Procedure A complete two-dimensional transthoracic echocardiogram was performed (2D, M-mode, Doppler and color flow Doppler). Left Ventricle The left ventricular size, thickness and function are normal. The left ventricular ejection fraction is normal. Ejection Fraction = 60%. The transmitral spectral Doppler flow pattern is suggestive of restr ictive physiology. The left ventricular wall motion is normal. Right Ventricle The right ventricle is normal in size and function. Atria The left atrium is severely dilated. Right atrial size is normal. Mitral Valve The mitral valve is normal in structure and function. There is trace mitral regurgitation. Tricuspid Valve The tricuspid valve is normal in structure and function. There is moderate tricuspid regurgitation. R ight ventricular systolic pressure is elevated at 50-60mmHg. There is severe pulmonary hypertension. Aortic Valve There is mild to moderate aortic valve thickening. Pulmonic Valve The pulmonic valve is normal in structure and function. Mild pulmonic valvular regurgitation. Great Vessels The aortic root is normal size. Pericardium/Pleura There is no pericardial effusion. There is no pleural effusion. Interpretation Summary The left ventricular size, thickness and function are normal Ejection Fraction = 60%. The left atrium is severely dilated. There is trace mitral regurgitation. There is moderate tricuspid regurgitation. Right ventricular systolic pressure is elevated at 50-60mmHg. There is severe pulmonary hypertension. There is mild to moderate aortic valve thickening. Mild pulmonic valvular regurgitation. MD aJrred Meza 08/17/2018 11:03 AM
[2018-08-17] MEDS: DOCUSATE SODIUM 100 MG CAPSULE (FP) PO SCH ×2 (11:21→22:09)
[2018-08-17] MEDS: RAMIPRIL 5 MG CAPSULE (FP) PO SCH (11:21)
[2018-08-17] MEDS: CARVEDILOL 6.25 MG TABLET (FP) PO SCH ×2 (11:22→22:09)
[2018-08-17] MEDS: APIXABAN 5 MG TABLET PO SCH ×2 (11:23→22:09)
[2018-08-17] MEDS: POTASSIUM CHLORIDE TABS 10 MEQ TABLET.ER (FP) PO SCH (11:23)
[2018-08-17] MEDS: amLODIPine BESYLATE 10 MG TABLET (FP) PO SCH (11:23)
[2018-08-17] MEDS: PANTOPRAZOLE 20 MG TABLET (FP) PO SCH (11:24)
--- NOTE | 2018-08-17 11:37 | EKG ---
Test Reason : Blood Pressure : / mmHG Vent. Rate : 048 BPM Atrial Rate : 048 BPM P-R Int : 188 ms QRS Dur : 086 ms QT Int : 456 ms P-R-T Axes : 074 030 249 degrees QTc Int : 407 ms SINUS BRADYCARDIA WITH PREMATURE ATRIAL COMPLEXES IN A PATTERN OF BIGEMINY MINIMAL VOLTAGE CRITERIA FOR LVH, MAY BE NORMAL VARIANT T WAVE ABNORMALITY, CONSIDER INFEROLATERAL ISCHEMIA ABNORMAL ECG Confirmed by Jarred Meza MD ([id number]) on 08/17/2018 11:36:50 AM Referred By: Manav EDWARD Confirmed By:Jarred Meza MD
--- NOTE | 2018-08-17 11:39 | EKG ---
Test Reason : Blood Pressure : / mmHG Vent. Rate : 068 BPM Atrial Rate : 068 BPM P-R Int : 160 ms QRS Dur : 074 ms QT Int : 442 ms P-R-T Axes : 078 011 -11 degrees QTc Int : 469 ms POOR DATA QUALITY, INTERPRETATION MAY BE ADVERSELY AFFECTED SINUS RHYTHM WITH PREMATURE ATRIAL COMPLEXES WITH ABERRANT CONDUCTION MODERATE VOLTAGE CRITERIA FOR LVH, MAY BE NORMAL VARIANT ABNORMAL ECG Confirmed by Derrick GREY, Jarred ([id number]) on 08/17/2018 11:39:15 AM Referred By: Confirmed By:Jarred Meza MD
[2018-08-17] MEDS: MONTELUKAST NA 10 MG TABLET PO SCH (22:09)
[2018-08-17] MEDS: ZOLPIDEM TARTRATE 5 MG TABLET PO PRN (22:09)
[2018-08-17] MEDS: SENNOSIDES 8.6MG TABLET (FP) PO SCH (22:10)
[2018-08-17] MEDS: ATORVASTATIN CA 20 MG TABLET (FP) PO SCH (22:14)
[2018-08-18] MEDS: ALBUTEROL SO4 0.083% IH SOL 2.5 MG/3 ML VIAL.NEB. NEB PRN ×3 (00:03→21:34)
[2018-08-18] MEDS: LEVOTHYROXINE NA 100 MCG TABLET (FP) PO SCH (06:23)
[2018-08-18] MEDS: glipiZIDE-XL 5 MG TAB.ER.24 PO SCH (06:23)
[2018-08-18] MEDS: metFORMIN HCL 500 MG TABLET (FP) PO SCH ×2 (06:23→17:17)
[2018-08-18] MEDS: CARVEDILOL 6.25 MG TABLET (FP) PO SCH ×2 (09:30→22:22)
[2018-08-18] MEDS: DOCUSATE SODIUM 100 MG CAPSULE (FP) PO SCH ×3 (09:30→22:23)
[2018-08-18] MEDS: PANTOPRAZOLE 20 MG TABLET (FP) PO SCH (09:31)
[2018-08-18] MEDS: RAMIPRIL 5 MG CAPSULE (FP) PO SCH (09:31)
[2018-08-18] MEDS: POTASSIUM CHLORIDE TABS 10 MEQ TABLET.ER (FP) PO SCH (09:31)
[2018-08-18] MEDS: APIXABAN 5 MG TABLET PO SCH ×2 (09:31→22:22)
[2018-08-18] MEDS: amLODIPine BESYLATE 10 MG TABLET (FP) PO SCH (09:31)
--- NOTE | 2018-08-18 10:18 | PN ---
Progress Note (short form) - Note Progress Note: Events noted No abd pain , nausea or vomiting FUA negative No diarrhea no dizziness Vital Signs - 24 hr 08/17/18 08/17/18 08/18/18 18:00 21:00 02:00 Temperature 98.3 F 97.9 F 98 F Pulse Rate 73 72 73 Respiratory 20 18 20 Rate Blood Pressure 138/63 133/69 131/65 O2 Sat by Pulse 96 Oximetry (%) 08/18/18 08/18/18 08/18/18 06:00 09:00 10:00 Temperature 98.1 F 98 F Pulse Rate 69 44 L Respiratory 18 18 Rate Blood Pressure 117/58 L 126/60 O2 Sat by Pulse 97 Oximetry (%) 08/18/18 14:00 Temperature 98.2 F Pulse Rate 67 Respiratory 20 Rate Blood Pressure 108/60 O2 Sat by Pulse Oximetry (%) Current Medications Generic Name Dose Route Start Last Admin Trade Name Freq PRN Reason Stop Dose Admin Acetaminophen 650 mg 08/16/18 17:40 Tylenol - PO Q6H PRN PAIN LEVEL 4 - 6 Albuterol Sulfate 1 amp 08/16/18 17:35 08/18/18 07:29 Ventolin 0.083% Nebulizer Soln - NEB 1 amp Q4H PRN Administration SHORT OF BREATH/WHEEZING Amlodipine Besylate 10 mg 08/16/18 21:00 08/18/18 09:31 Norvasc - PO 10 mg DAILY [facility] Administration Apixaban 5 mg 08/16/18 22:00 08/18/18 09:31 Eliquis - PO 5 mg BID [facility] Administration Atorvastatin Calcium 20 mg 08/16/18 22:00 08/17/18 22:14 Lipitor - PO 20 mg HS [facility] Administration Carvedilol 3.125 mg 08/16/18 22:00 08/18/18 09:30 Coreg - PO 3.125 mg BID [facility] Administration Docusate Sodium 100 mg 08/16/18 22:00 08/18/18 09:32 Colace - PO Not Given BID [facility] Glipizide 5 mg 08/17/18 07:00 08/18/18 06:23 Glucotrol Xl - PO 5 mg ACBK [facility] Administration Levothyroxine Sodium 100 mcg 08/17/18 07:00 08/18/18 06:23 Synthroid - PO 100 mcg DAILY@0700 [facility] Administration Metformin HCl 500 mg 08/17/18 07:00 08/18/18 06:23 Glucophage - PO 500 mg BIDAC [facility] Administration Montelukast Sodium 10 mg 08/16/18 22:00 08/17/18 22:09 Singulair - PO 10 mg HS [facility] Administration Nitroglycerin 0.4 mg 08/16/18 17:35 Nitrostat - SL DAILY PRN chest pain. Pantoprazole Sodium 20 mg 08/17/18 10:00 08/18/18 09:31 Protonix - PO 20 mg DAILY [facility] Administration Potassium Chloride 10 meq 08/16/18 17:45 08/18/18 09:31 K-Dur - PO 10 meq DAILY [facility] Administration Ramipril 5 mg 08/17/18 10:00 08/18/18 09:31 Altace - PO 5 mg DAILY [facility] Administration Senna 2 tab 08/16/18 22:00 08/17/18 22:10 Senna - PO Not Given HS [facility] Zolpidem Tartrate 5 mg 08/16/18 22:00 08/17/18 22:09 Ambien - PO 5 mg HS PRN Administration INSOMNIA Laboratory Results - last 24 hr 08/17/18 08/17/18 08/18/18 17:53 22:07 06:18 POC Glucometer 96 73 96 S1 S2 Irregular Lungs clear Abd- soft, NT no edema PLAN rate is still bradycardia-- but pt is asymptomatic Continue with meds coreg decreased CXR noted-- no infiltrate dc planning for tomorrow Problem List - Problems (1) Bradycardia Code(s): R00.1 - BRADYCARDIA, UNSPECIFIED (2) COPD (chronic obstructive pulmonary disease) Code(s): J44.9 - CHRONIC OBSTRUCTIVE PULMONARY DISEASE, UNSPECIFIED (3) Elevated troponin Code(s): R74.8 - ABNORMAL LEVELS OF OTHER SERUM ENZYMES (4) Hyperlipidemia associated with type 2 diabetes mellitus Code(s): E11.69 - TYPE 2 DIABETES MELLITUS WITH OTHER SPECIFIED COMPLICATION; E78.5 - HYPERLIPIDEMIA, UNSPECIFIED
--- NOTE | 2018-08-18 11:09 | PN ---
Progress Note, Physician History of Present Illness: Dyspneic yesterday amenable to BD, telemetry shows SR with PAC. - Current Medication List Current Medications: Active Medications Acetaminophen (Tylenol -) 650 mg PO Q6H PRN PRN Reason: PAIN LEVEL 4 - 6 Albuterol Sulfate (Ventolin 0.083% Nebulizer Soln -) 1 amp NEB Q4H PRN PRN Reason: SHORT OF BREATH/WHEEZING Last Admin: 08/18/18 07:29 Dose: 1 amp Amlodipine Besylate (Norvasc -) 10 mg PO DAILY [facility] Last Admin: 08/18/18 09:31 Dose: 10 mg Apixaban (Eliquis -) 5 mg PO BID [facility] Last Admin: 08/18/18 09:31 Dose: 5 mg Atorvastatin Calcium (Lipitor -) 20 mg PO HS [facility] Last Admin: 08/17/18 22:14 Dose: 20 mg Carvedilol (Coreg -) 3.125 mg PO BID [facility] Last Admin: 08/18/18 09:30 Dose: 3.125 mg Docusate Sodium (Colace -) 100 mg PO BID [facility] Last Admin: 08/18/18 09:32 Dose: Not Given Glipizide (Glucotrol Xl -) 5 mg PO ACBK [facility] Last Admin: 08/18/18 06:23 Dose: 5 mg Levothyroxine Sodium (Synthroid -) 100 mcg PO DAILY@0700 [facility] Last Admin: 08/18/18 06:23 Dose: 100 mcg Metformin HCl (Glucophage -) 500 mg PO BIDAC [facility] Last Admin: 08/18/18 06:23 Dose: 500 mg Montelukast Sodium (Singulair -) 10 mg PO HS [facility] Last Admin: 08/17/18 22:09 Dose: 10 mg Nitroglycerin (Nitrostat -) 0.4 mg SL DAILY PRN PRN Reason: chest pain. Pantoprazole Sodium (Protonix -) 20 mg PO DAILY [facility] Last Admin: 08/18/18 09:31 Dose: 20 mg Potassium Chloride (K-Dur -) 10 meq PO DAILY [facility] Last Admin: 08/18/18 09:31 Dose: 10 meq Ramipril (Altace -) 5 mg PO DAILY [facility] Last Admin: 08/18/18 09:31 Dose: 5 mg Senna (Senna -) 2 tab PO HS [facility] Last Admin: 08/17/18 22:10 Dose: Not Given Zolpidem Tartrate (Ambien -) 5 mg PO HS PRN PRN Reason: INSOMNIA Last Admin: 08/17/18 22:09 Dose: 5 mg - Objective Vital Signs: Vital Signs Temperature 98.1 F 08/18/18 06:00 Pulse Rate 69 08/18/18 06:00 Respiratory Rate 18 08/18/18 06:00 Blood Pressure 117/58 L 08/18/18 06:00 O2 Sat by Pulse Oximetry (%) 96 08/17/18 21:00 Constitutional: Yes: No Distress, Calm Neck: Yes: Supple Cardiovascular: Yes: Regular Rate and Rhythm, Other (with ectopics) Respiratory: Yes: Regular, CTA Bilaterally Gastrointestinal: Yes: Normal Bowel Sounds, Soft Edema: No Labs: CBC, BMP 08/17/18 05:35 08/17/18 05:35 INR, PTT INR 1.45 (0.83-1.09) H 08/16/18 15:59 - ....Imaging X-ray: Report Reviewed (AXR: No acute pathology) EKG: Report Reviewed (Tele: NSR with PAC) Problem List - Problems (1) Bradycardia Code(s): R00.1 - BRADYCARDIA, UNSPECIFIED (2) Elevated troponin Code(s): R74.8 - ABNORMAL LEVELS OF OTHER SERUM ENZYMES (3) HTN (hypertension) Code(s): I10 - ESSENTIAL (PRIMARY) HYPERTENSION Qualifiers: Hypertension type: essential hypertension Qualified Code(s): I10 - Essential (primary) hypertension (4) Hypothyroidism Code(s): E03.9 - HYPOTHYROIDISM, UNSPECIFIED Qualifiers: Hypothyroidism type: unspecified Qualified Code(s): E03.9 - Hypothyroidism , unspecified (5) Paroxysmal atrial fibrillation Code(s): I48.0 - PAROXYSMAL ATRIAL FIBRILLATION (6) Type 2 diabetes mellitus Code(s): E11.9 - TYPE 2 DIABETES MELLITUS WITHOUT COMPLICATIONS Qualifiers: Diabetes mellitus fdc insulin use: with fdc use Diabetes mellitus complication status: without complication Qualified Code(s): E11.9 - Type 2 diabetes mellitus without complications; 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 Paroxysmal atrial flutter now in SR with PAC on Eliquis [id number] score of 4-5 2. COPD 3. Diastolic dysfunction, demand ishemia 4. HTN 5. NIDDM 6. Hypercholesterolemia 7. Hypothyroidism 8. Acute kidney injury resolved PLAN: 1. Continue Eliquis 5 bid, with close monitoring of CBC considering the above noted [id number] score of 4-5 2. Decreased Carvedilol 3.125 bid as tolerated 3. Continue Ramipril 5 qd 4. Continue Norvasc 5 qd 5. Continue Lipitor 20 qhs 6. Trops plateaued 7. BD as needed, Singulair 8. D/c planning with f/u with Dr. Rodriguez
[2018-08-18 18:14] LABS: CK-MM 100 % (97-100)
[2018-08-18] MEDS: MONTELUKAST NA 10 MG TABLET PO SCH (22:22)
[2018-08-18] MEDS: ATORVASTATIN CA 20 MG TABLET (FP) PO SCH (22:22)
[2018-08-18] MEDS: SENNOSIDES 8.6MG TABLET (FP) PO SCH (22:22)
[2018-08-18] MEDS: ZOLPIDEM TARTRATE 5 MG TABLET PO PRN (22:22)
[2018-08-19] MEDS: metFORMIN HCL 500 MG TABLET (FP) PO SCH (06:32)
[2018-08-19] MEDS: glipiZIDE-XL 5 MG TAB.ER.24 PO SCH (06:32)
[2018-08-19] MEDS: LEVOTHYROXINE NA 100 MCG TABLET (FP) PO SCH (06:35)
[2018-08-19 07:34] VITALS: TEMP 98.3
--- NOTE | 2018-08-19 09:42 | PN ---
Progress Note, Physician History of Present Illness: No further dyspnea amenable to BD, telemetry shows SR with PAC. - Current Medication List Current Medications: Active Medications Acetaminophen (Tylenol -) 650 mg PO Q6H PRN PRN Reason: PAIN LEVEL 4 - 6 Albuterol Sulfate (Ventolin 0.083% Nebulizer Soln -) 1 amp NEB Q4H PRN PRN Reason: SHORT OF BREATH/WHEEZING Last Admin: 08/18/18 21:34 Dose: 1 amp Amlodipine Besylate (Norvasc -) 10 mg PO DAILY [facility] Last Admin: 08/18/18 09:31 Dose: 10 mg Apixaban (Eliquis -) 5 mg PO BID [facility] Last Admin: 08/18/18 22:22 Dose: 5 mg Atorvastatin Calcium (Lipitor -) 20 mg PO HS [facility] Last Admin: 08/18/18 22:22 Dose: 20 mg Carvedilol (Coreg -) 3.125 mg PO BID [facility] Last Admin: 08/18/18 22:22 Dose: 3.125 mg Docusate Sodium (Colace -) 100 mg PO BID [facility] Last Admin: 08/18/18 22:23 Dose: Not Given Glipizide (Glucotrol Xl -) 5 mg PO ACBK [facility] Last Admin: 08/19/18 06:32 Dose: Not Given Levothyroxine Sodium (Synthroid -) 100 mcg PO DAILY@0700 [facility] Last Admin: 08/19/18 06:35 Dose: 100 mcg Metformin HCl (Glucophage -) 500 mg PO BIDAC [facility] Last Admin: 08/19/18 06:32 Dose: Not Given Montelukast Sodium (Singulair -) 10 mg PO HS [facility] Last Admin: 08/18/18 22:22 Dose: 10 mg Nitroglycerin (Nitrostat -) 0.4 mg SL DAILY PRN PRN Reason: chest pain. Pantoprazole Sodium (Protonix -) 20 mg PO DAILY [facility] Last Admin: 08/18/18 09:31 Dose: 20 mg Potassium Chloride (K-Dur -) 10 meq PO DAILY [facility] Last Admin: 08/18/18 09:31 Dose: 10 meq Ramipril (Altace -) 5 mg PO DAILY [facility] Last Admin: 08/18/18 09:31 Dose: 5 mg Senna (Senna -) 2 tab PO HS [facility] Last Admin: 08/18/18 22:22 Dose: Not Given Zolpidem Tartrate (Ambien -) 5 mg PO HS PRN PRN Reason: INSOMNIA Last Admin: 08/18/18 22:22 Dose: 5 mg - Objective Vital Signs: Vital Signs Temperature 98.3 F 08/19/18 06:00 Pulse Rate 66 08/19/18 06:00 Respiratory Rate 18 08/19/18 06:00 Blood Pressure 130/65 08/19/18 06:00 O2 Sat by Pulse Oximetry (%) 98 08/18/18 21:00 Constitutional: Yes: No Distress, Calm Neck: Yes: Supple Cardiovascular: Yes: Regular Rate and Rhythm Respiratory: Yes: Regular, Diminished Gastrointestinal: Yes: Normal Bowel Sounds, Soft Edema: No Labs: CBC, BMP 08/17/18 05:35 08/17/18 05:35 INR, PTT INR 1.45 (0.83-1.09) H 08/16/18 15:59 - ....Imaging EKG: Report Reviewed (Tele: NSR PAC) Problem List - Problems (1) Bradycardia Code(s): R00.1 - BRADYCARDIA, UNSPECIFIED (2) Elevated troponin Code(s): R74.8 - ABNORMAL LEVELS OF OTHER SERUM ENZYMES (3) HTN (hypertension) Code(s): I10 - ESSENTIAL (PRIMARY) HYPERTENSION Qualifiers: Hypertension type: essential hypertension Qualified Code(s): I10 - Essential (primary) hypertension (4) Hypothyroidism Code(s): E03.9 - HYPOTHYROIDISM, UNSPECIFIED Qualifiers: Hypothyroidism type: unspecified Qualified Code(s): E03.9 - Hypothyroidism , unspecified (5) Paroxysmal atrial fibrillation Code(s): I48.0 - PAROXYSMAL ATRIAL FIBRILLATION (6) Type 2 diabetes mellitus Code(s): E11.9 - TYPE 2 DIABETES MELLITUS WITHOUT COMPLICATIONS Qualifiers: Diabetes mellitus exterminator termite insulin use: with long-term use Diabetes mellitus complication status: without complication Qualified Code(s): E11.9 - Type 2 diabetes mellitus without complications; 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 Paroxysmal atrial flutter now in SR with PAC on Eliquis [id number] score of 4-5 2. COPD 3. Diastolic dysfunction, demand ishemia 4. HTN 5. NIDDM 6. Hypercholesterolemia 7. Hypothyroidism 8. Acute kidney injury resolved PLAN: 1. Continue Eliquis 5 bid, with close monitoring of CBC considering the above noted [id number] score of 4-5 2. Decreased Carvedilol 3.125 bid as tolerated 3. Continue Ramipril 5 qd 4. Continue Norvasc 10 qd 5. Continue Lipitor 20 qhs 6. Trops plateaued 7. BD as needed, Singulair 8. D/c planning with f/u with Dr. Rodriguez
[2018-08-19] MEDS: DOCUSATE SODIUM 100 MG CAPSULE (FP) PO SCH (10:16)
[2018-08-19] MEDS: APIXABAN 5 MG TABLET PO SCH (10:16)
[2018-08-19] MEDS: PANTOPRAZOLE 20 MG TABLET (FP) PO SCH (10:16)
[2018-08-19] MEDS: POTASSIUM CHLORIDE TABS 10 MEQ TABLET.ER (FP) PO SCH (10:16)
[2018-08-19] MEDS: amLODIPine BESYLATE 10 MG TABLET (FP) PO SCH (10:16)
[2018-08-19] MEDS: CARVEDILOL 6.25 MG TABLET (FP) PO SCH (10:16)
[2018-08-19] MEDS: RAMIPRIL 5 MG CAPSULE (FP) PO SCH (10:17)
[2018-08-19 11:48] VITALS: BP 138/71; PULSE 67
--- NOTE | 2018-08-19 12:03 | DS ---
Physical Examination Vital Signs: Vital Signs Temperature 98.3 F 08/19/18 10:00 Pulse Rate 67 08/19/18 10:00 Respiratory Rate 18 08/19/18 10:00 Blood Pressure 138/71 08/19/18 10:00 O2 Sat by Pulse Oximetry (%) 98 08/19/18 09:00 Constitutional: Yes: No Distress, Calm Cardiovascular: Yes: Pulse Irregular Respiratory: Yes: CTA Bilaterally Gastrointestinal: Yes: Normal Bowel Sounds, Soft. No: Tenderness Edema: No Labs: CBC, BMP 08/17/18 05:35 08/17/18 05:35 Discharge Summary Reason For Visit: ELEVATED TROPONIN LEVEL,ELECTROCARDIOGRAPHY SHOWIN Current Active Problems Bradycardia (Acute) COPD (chronic obstructive pulmonary disease) (Acute) Electrocardiogram showing no change from prior tracing (Acute) Elevated troponin (Acute) Hyperlipidemia associated with type 2 diabetes mellitus (Acute) Insomnia (Acute) Premature atrial contraction (Acute) Prophylactic measure (Acute) Hospital Course: Admitted for bradycardia not symptomatic pt seen by Cardiology meds adjusted elevated troponins-- flat trend r/o ACS pt is better , rate is better controlled stable for dc home , follow up with Cardiology Condition: Fair - Instructions Diet, Activity, Other Instructions: Resume previous diet and activities Referrals: Mo Rodriguez MD [Staff Physician] - Parisa Rodriguez MD [Primary Care Provider] - Disposition: HOME - Home Medications Comprehensive Discharge Medication List: Ambulatory Orders Apixaban [Eliquis] 5 mg PO BID 04/18/15 Glipizide [Glipizide Xl] 5 mg PO DAILY 04/18/15 Montelukast Na [Singulair -] 10 mg PO HS 04/18/15 metFORMIN HCL [Metformin HCl] 500 mg PO BID 04/18/15 Albuterol 0.083% Nebulizer Fidelina [Ventolin 0.083% Nebulizer Soln -] 1 amp NEB Q4H PRN #0 amp 09/17/15 Atorvastatin Ca [Lipitor] 20 mg PO HS tablet 09/17/15 Amlodipine Besylate [Norvasc -] 10 mg PO DAILY 02/25/17 Levothyroxine [Synthroid -] 100 mcg PO DAILY 02/25/17 Nitroglycerin [Nitrostat] 0.4 mg SL DAILY PRN 02/25/17 Zolpidem Tartrate [Ambien] 5 mg PO DAILY 02/25/17 Ramipril 5 cap PO DAILY 02/27/17 Carvedilol [Coreg] 6.25 mg PO BID 08/16/18 Potassium Bicarbonate/Cit AC [Effer-K 10 Meq Tablet Eff] 10 meq PO DAILY
== END 2018-08-19 12:39 | disposition home or self-care (01) | DRG 309 ==
LOC: JER 13:13 → JERBED 17:08 → J4W 22:00
PROVIDERS: ADMIT Internal Medicine; ATTEND Internal Medicine
DX: I48.92 Unspecified atrial flutter (principal); I24.8 Other forms of acute ischemic heart disease; N17.9 Acute kidney failure, unspecified; I10 Essential (primary) hypertension; E78.5 Hyperlipidemia, unspecified; J44.9 Chronic obstructive pulmonary disease, unspecified; E03.9 Hypothyroidism, unspecified; I12.9 Hypertensive chronic kidney disease with stage 1 through stage 4 chronic kidney disease, or unspecified chronic kidney disease; E11.22 Type 2 diabetes mellitus with diabetic chronic kidney disease; N18.9 Chronic kidney disease, unspecified; K21.9 Gastro-esophageal reflux disease without esophagitis; D64.9 Anemia, unspecified; G43.909 Migraine, unspecified, not intractable, without status migrainosus; I49.1 Atrial premature depolarization; R74.8 Abnormal levels of other serum enzymes; G47.00 Insomnia, unspecified; I48.0 Paroxysmal atrial fibrillation; Z79.4 Long term (current) use of insulin; Z90.81 Acquired absence of spleen; Z29.9 Encounter for prophylactic measures, unspecified
CPT/HCPCS: 36415; 71045-TC-FY; 74019-TC-FY; 80053; 80061; 80076; 82552; 82962; 83036; 83721; 83735; 83880; 84100; 84443; 84484; 85025; 85610; 85730; 93005; 93010; 93306-TC; 94640; 99283-25

== ENCOUNTER 2019-03-14 17:39 | Observation (INO) | payer OTHER ==
[2019-03-14 17:43] VITALS: BMI 31.1
--- NOTE | 2019-03-14 19:18 | PDOC ---
History of Present Illness - General Chief Complaint: Blood Pressure Problem Stated Complaint: HYPERTENSION Time Seen by Provider: 03/14/19 19:18 History Source: Patient Exam Limitations: No Limitations - History of Present Illness Initial Comments: Pt is a 73 yo F, with PMH of HTN, HLD, NIDDM, PAF (on Eliquis), and COPD, who is presenting with high blood pressure from PCP office (Dr. Randall/Michael). Pt states over the past month her BP has been increasing (170 systolic), and she discovered she had not been taking her amlodipine for a month. Pt saw Dr. Randall today, who increased her amlodipine to 10 mg PO Qday. Pt took that medicine at 4 pm, but took her BP at home which had increased to 200 systolic. Pt denies any fevers/chills, headache, vision changes, syncope, chest pain, palpitations, SOB, nausea/vomiting, abdominal pain, urinary symptoms, diarrhea/ constipation, or leg swelling. Allergies: NKDA PCP: Dr. Parisa Rodriguez/Prakash Pulm: Dr. Corado Cards: Dr. Rodriguez Social: Pt denies any cigarette, alcohol, or drug use. Pt denies any recent travel or sick contacts. Surgical: splenectomy, cholecystectomy, appendectomy Family: no relevant history. 03/14/19 23:26 03/14/19 23:52 Past History - Travel Traveled outside of the country in the last 30 days: No Close contact w/someone who was outside of country & ill: No - Past Medical History Allergies/Adverse Reactions: Allergies Allergy/AdvReac Type Severity Reaction Status Date / Time aspirin Allergy Intermediate VOMITS Verified 03/14/19 17:43 BLOOD Home Medications: Ambulatory Orders Glipizide [Glipizide Xl] 5 mg PO DAILY 04/18/15 Montelukast Na [Singulair -] 10 mg PO HS 04/18/15 metFORMIN HCL [Metformin HCl] 500 mg PO BID 04/18/15 Atorvastatin Ca [Lipitor] 20 mg PO HS tablet 09/17/15 Amlodipine Besylate [Norvasc -] 10 mg PO DAILY 02/25/17 Levothyroxine [Synthroid -] 100 mcg PO DAILY 02/25/17 Nitroglycerin [Nitrostat] 0.4 mg SL DAILY PRN 02/25/17 Zolpidem Tartrate [Ambien] 5 mg PO DAILY 02/25/17 Ramipril 5 cap PO DAILY 02/27/17 Potassium Bicarbonate/Cit AC [Effer-K 10 Meq Tablet Eff] 10 meq PO DAILY Albuterol 0.083% Nebulizer Fidelina [Ventolin 0.083% Nebulizer Soln -] 1 amp NEB Q4H PRN #30 amp 08/19/18 Apixaban [Eliquis] 5 mg PO BID #90 tablet 08/19/18 Carvedilol [Coreg -] 3.125 mg PO BID #60 tablet 08/19/18 Anemia: Yes Asthma: Yes Cancer: No Cardiac Disorders: Yes (PAROXYSMAL ATRIAL FLUTTER,) CVA: No COPD: Yes CHF: No Dementia: No Diabetes: Yes (TYPE 2) GI Disorders: Yes (GERD) Disorders: No HTN: Yes Hypercholesterolemia: Yes Liver Disease: No Seizures: No Thyroid Disease: Yes (HYPO) - Surgical History Abdominal Surgery: Yes (SPLENECTOMY) Appendectomy: Yes Cardiac Surgery: No Cholecystectomy: Yes Neurologic Surgery: No - Immunization History Immunization Up to Date: Yes - Psycho Social/Smoking Cessation Hx Smoking Status: No Smoking History: Never smoked Have you smoked in the past 12 months: No Number of Cigarettes Smoked Daily: 0 Cigars Per Day: 0 Hx Alcohol Use: No Drug/Substance Use Hx: No Substance Use Type: None Hx Substance Use Treatment: No Cardiac Specific PMH - Complaint Specific PMHX Abdominal Aortic Aneurysm: No Angina: No Cardiac Arrhythmia: No Cardiac Stent: No GERD: No Myocardial Infarction: No Pacemaker: No Pulmonary Embolus: No Valvular Heart Disease: No Peripheral Vascular Disease: No Review of Systems - Review of Systems Able to Perform ROS?: Yes Is the patient limited Somali proficient: No Constitutional: Yes: Weight Stable. No: Chills, Diaphoresis, Fever, Loss of Appetite, Malaise, Weakness HEENTM: No: Blurred Vision, Recent change in vision, Double Vision, Nose Congestion, Throat Pain, Throat Swelling, Difficulty Swallowing Respiratory: No: Cough, Orthopnea, Shortness of Breath Cardiac (ROS): No: Chest Pain, Edema, Irregular Heart Rate, Lightheadedness, Palpitations, Syncope, Chest Tightness ABD/GI: No: Constipated, Diarrhea, Nausea, Poor Appetite, Poor Fluid Intake, Vomiting : No: Burning, Dysuria, Frequency, Pain, Urgency Musculoskeletal: No: Back Pain, Joint Pain, Muscle Pain, Muscle Weakness Integumentary: No: Rash Neurological: No: Headache, Numbness, Weakness, Unsteady Gait, Dizziness Psychiatric: No: Sleep Pattern Change, Change in Appetite Endocrine: No: Increased Urine, Change in Weight Hematologic/Lymphatic: No: Anemia, Blood Clots, Easy Bleeding, Easy Bruising All Other Systems: Reviewed and Negative *Physical Exam - Vital Signs Last Vital Signs Temp Pulse Resp BP Pulse Ox 98 F 82 18 215/95 H 98 03/14/19 17:40 03/14/19 17:40 03/14/19 17:40 03/14/19 17:40 03/14/19 17:40 - Physical Exam HTN (200/98 on exam), pt afebrile. Pt in NAD, obese body habitus. Pt alert and oriented x3. final dressing cutter generally intact, muscular strength and sensation intact. No midline spinal tenderness, step-offs, or crepitus. Head normocephalic, atraumatic. Eyes PERRLA, EOMI. Oropharynx without erythema or exudates, no LAD b/l. No nasal congestion. Hearing intact. Clear heart sounds, S1/S2, no JVD, b/l pedal edema, or heart murmur. Clear lung sounds, no respiratory distress, wheezes, crackles, or accessory muscle use. No abdominal or CVA tenderness to palpation, no rebound, no guarding. Abdomen soft, non-distended, and with normoactive bowel sounds. Skin without jaundice or rash. 03/14/19 23:55 ED Treatment Course - LABORATORY CBC & Chemistry Diagram: 03/14/19 20:54 03/14/19 20:54 - ADDITIONAL ORDERS Additional order review: Laboratory Results 03/14/19 03/14/19 03/14/19 20:54 20:54 20:22 PT with INR 14.40 H INR 1.22 H PTT (Actin FS) 38.6 H Sodium 142 Potassium 3.6 Chloride 108 H Carbon Dioxide 28 Anion Gap 7 L BUN 15.5 Creatinine 0.9 Est GFR (CKD-EPI)AfAm 74.56 Est GFR (CKD-EPI)NonAf 64.33 Random Glucose 100 Calcium 9.2 Total Bilirubin 0.5 AST 16 ALT 13 Alkaline Phosphatase 80 Creatine Kinase 168 Creatine Kinase Index 1.0 CK-MB (CK-2) 1.8 Troponin I 0.10 H Total Protein 6.9 Albumin 3.3 L Urine Color Yellow Urine Appearance Clear Urine pH 7.5 D Ur Specific [place] 1.006 L Urine Protein Negative Urine Glucose (UA) Negative Urine Ketones Negative Urine Blood Negative Urine Nitrite Negative Urine Bilirubin Negative Urine Urobilinogen 1.0 Ur Leukocyte Esterase Negative 03/14/19 20:54 RBC 3.70 MCV 85.9 MCHC 34.4 RDW 13.5 MPV 8.1 Neutrophils % 48.6 Lymphocytes % 38.5 Monocytes % 9.0 Eosinophils % 2.6 D Basophils % 1.3 - RADIOLOGY Radiology Studies Ordered: Category Date Time Status CHEST X-RAY PORTABLE* [RAD] Stat Radiology 03/14/19 19:19 Taken - Medications Given in the ED: ED Medications Discontinued Medications Generic Name Dose Route Start Last Admin Trade Name Freq PRN Reason Stop Dose Admin Apixaban 5 mg 03/14/19 21:26 03/14/19 21:41 Eliquis - PO 03/14/19 21:27 5 mg ONCE STA Administration Carvedilol 6.25 mg 03/14/19 21:24 03/14/19 21:41 Coreg - PO 03/14/19 21:25 6.25 mg ONCE ONE Administration Nitroglycerin 0.4 mg 03/14/19 22:55 03/14/19 23:18 Nitrostat - SL 03/14/19 22:56 0.4 mg ONCE ONE Administration Medical Decision Making - Medical Decision Making Pt was seen at bedside, also will be seen by attending Dr. Chavez. Pt presenting with asymptomatic hypertension. Will evaluate for electrolyte abnormalities, infection, ACS. Pt with potential discharge home if BP improved. Pt has had elevated troponin in the past, will evaluate for demand ischemia. Provided 6.25 mg PO coreg for improvement of BP control. Will continue to reassess pt and monitor for symptomatic improvement. ECG: NSR, prolonged QT (HR 77, MI 176, QRS 86, QTc 486). TWI in I, aVL, biphasic V5-V6, with no significant ST segment changes. No significant changes from prior ECG (08/17/2018). 03/14/19 23:57 CBC and CMP WNL Trop 0.10, elevated from baseline Provided 0.4 SL NG for BP, as systolic still >200; pt continues to be asymptomatic PT BP not improved with SL NG. Discussed case with cardiology (Dr. Webber), who agrees with plan for trending trop, BP control, likely demand ischemia Provided additional 5 mg PO ramipril for BP control Pt difficult to obtain IV line, will try IV medications as needed Pt admitted to hospitalist team (Dr. Rodriguez). 03/15/19 00:00 Discharge - Discharge Information Problems reviewed: Yes Clinical Impression/Diagnosis: Elevated troponin I level, Demand ischemia Hypertension Qualifiers: Hypertension type: unspecified Qualified Code(s): I10 - Essential (primary) hypertension Condition: Stable - Admission Yes - Follow up/Referral Referrals: Parisa Rodriguez MD [Primary Care Provider] - - Patient Discharge Instructions Patient Printed Discharge Instructions: DI for High Blood Pressure - Post Discharge Activity
[2019-03-14 20:27] LABS: PH,URINE 7.5 (5.0-8.0); URINE APPEARANCE CLEAR; URINE BILIRUBIN NEGATIVE (NEGATIVE); URINE COLOR YELLOW; URINE GLUCOSE (UA) NEGATIVE (NEGATIVE); URINE KETONE NEGATIVE (NEGATIVE); URINE LEUK ESTERASE NEGATIVE (NEGATIVE); URINE NITRITE NEGATIVE (NEGATIVE); URINE PROTEIN NEGATIVE (NEGATIVE)
[2019-03-14 21:06] LABS: BASO % 1.3 % (0-2.0); EOS % 2.6 % (0-4.5); HEMATOCRIT 31.8 % (32.4-45.2); HEMOGLOBIN 10.9 GM/dL (10.7-15.3); LYMPH % 38.5 % (8-40); MCH 29.6 pg (25.7-33.7); MCHC 34.4 g/dl (32.0-36.0); MEAN CELL VOLUME 85.9 fl (80-96); MEAN PLT VOLUME 8.1 fl (7.5-11.1); NEUT % 48.6 % (42.8-82.8); PLATELET COUNT 369 K/MM3 (134-434); RDW 13.5 % (11.6-15.6); WHITE BLOOD COUNT 11.4 K/mm3 (4.0-10.0)
[2019-03-14 21:18] LABS: INR 1.22 (0.83-1.09); PROTHROMBIN TIME (PATIENT) 14.4 SEC (9.7-13.0)
[2019-03-14 21:21] LABS: ACTIVATED PTT 38.6 SECONDS (25.2-36.5)
[2019-03-14] MEDS ORDERED: CARVEDILOL 6.25 MG TABLET (FP) PO ONE (21:24)
[2019-03-14] MEDS ORDERED: APIXABAN 5 MG TABLET PO STA (21:26)
[2019-03-14 21:33] LABS: ALBUMIN 3.3 g/dl (3.4-5.0); BILIRUBIN,TOTAL 0.5 mg/dL (0.2-1); BLOOD UREA NITROGEN 15.5 mg/dL (7-18); CALCIUM 9.2 mg/dL (8.5-10.1); CREATININE 0.9 mg/dL (0.55-1.3); POTASSIUM 3.6 mmol/L (3.5-5.1); TOT PROT 6.9 g/dl (6.4-8.2)
[2019-03-14] MEDS ORDERED: CARVEDILOL 3.125 MG TABLET (FP) ONE (21:36)
[2019-03-14] MEDS ORDERED: APIXABAN 5 MG TABLET ONE (21:36)
--- NOTE | 2019-03-14 21:43 | PDOC ---
Attending Attestation - Resident Resident Name: Stephania Ngo - ED Attending Attestation I have performed the following: I have examined & evaluated the patient, The case was reviewed & discussed with the resident, I agree w/resident's findings & plan, Exceptions are as noted - HPI HPI: 03/14/19 21:37 73-year-old female history of COPD hypertension hyperlipidemia diabetes here today complaining of elevated blood pressure. Patient did see her primary doctor today at which time she was found to have a systolic blood pressure 200. It was realized at that time the patient had not been taking her prescribed nifedipine she had lost in the closet. Was given a dose of 10 mg nifedipine in the office. Patient also states that she is only been taking her Coreg once daily despite the fact that was prescribed twice daily. Patient denies any chest pain shortness of breath no headache no nausea no vomiting no leg swelling. No other current complaints no changes to her vision - Physicial Exam PE: 03/14/19 21:43 Awake alert no acute distress lungs are clear bilaterally heart is regular telemetry murmurs rubs or gallops abdomen is soft and nontender extremities are warm and well-perfused is no appreciated peripheral edema neurologically patient is awake alert and oriented x3 - Medical Decision Making 03/14/19 21:43 73-year-old female history of hypertension currently asymptomatic. Will obtain labs to rule out any endorgan damage. Appears the patient has had confusion regarding her prescribed dosages. We will likely recommend that she increase the Coreg to twice daily as previously prescribed baseline labs were sent and are pending we will give her her p.m. dose of Coreg and likely discharged home to follow-up with Dr. Randall tomorrow or the day following Heart Score/ECG Review #1 ECG reviewed & interpreted by me at: 21:44 General ECG Interpretation: Sinus Rhythm, Normal Rate, Normal Intervals, No acute ischemic changes Compared to previous ECG there are: Other (TWI I, AVL) #2 General ECG Interpretation: Sinus Rhythm, Normal Rate (77), Normal Intervals, No acute ischemic changes
[2019-03-14] MEDS ORDERED: NITROGLYCERIN SUBLINGUAL 1/150 0.4 MG TAB SL ONE (22:55)
[2019-03-14] MEDS ORDERED: RAMIPRIL 5 MG CAPSULE (FP) PO ONE (23:38)
--- NOTE | 2019-03-15 00:10 | HP ---
Admitting History and Physical - Primary Care Physician PCP: Dr. Rodriguez - Admission Chief Complaint: uncontrolled HTN History of Present Illness: 73 year old female with PMH of HTN, HLD, NIDDM, PAF (on Eliquis), and COPD, arrived from PCP office for high blood pressure. According to patient for past month she forgot to take her amlodipine as it was misplaced, due to that her BP has been increasing, had home visit nurse come for annual check when she was informed about her elevated Bp which prompted her to go to PMD, amlodipine was increased to 10 mg PO Qday. Pt took medicine at 4 pm, but took her BP at home which had increased to 200 systolic and arrived to ED for further evaluation. Patient denies fevers/chills, headache, vision changes, syncope, chest pain, palpitations, SOB, nausea/vomiting, abdominal pain, urinary symptoms, diarrhea/ constipation, or leg swelling. - Past Medical History [employer] MAN: Yes: Migraine Cardiovascular: Yes: AFIB, HTN, Hyperlipdemia Pulmonary: Yes: COPD Gastrointestinal: Yes: GERD Psych: Yes: Other (insomnia) Endocrine: Yes: Diabetes Mellitus, Hypothyroidism - Past Surgical History Past Surgical History: Yes: Appendectomy, Cholecystectomy, Hysterectomy (partial ), Splenectomy, Tubal Ligation - Smoking History Smoking history: Never smoked Have you smoked in the past 12 months: No Aproximately how many cigarettes per day: 0 - Alcohol/Substance Use Hx Alcohol Use: No History of Substance Use: reports: None - Social History ADL: Independent 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 History of Recent Travel: No Home Medications - Allergies Allergies/Adverse Reactions: Allergies Allergy/AdvReac Type Severity Reaction Status Date / Time aspirin Allergy Intermediate VOMITS Verified 03/14/19 17:43 BLOOD - Home Medications Home Medications: Ambulatory Orders Glipizide [Glipizide Xl] 5 mg PO DAILY 04/18/15 Montelukast Na [Singulair -] 10 mg PO HS 04/18/15 metFORMIN HCL [Metformin HCl] 500 mg PO BID 04/18/15 Atorvastatin Ca [Lipitor] 20 mg PO HS tablet 09/17/15 Amlodipine Besylate [Norvasc -] 10 mg PO DAILY 02/25/17 Levothyroxine [Synthroid -] 100 mcg PO DAILY 02/25/17 Nitroglycerin [Nitrostat] 0.4 mg SL DAILY PRN 02/25/17 Zolpidem Tartrate [Ambien] 5 mg PO DAILY 02/25/17 Ramipril 5 cap PO DAILY 02/27/17 Potassium Bicarbonate/Cit AC [Effer-K 10 Meq Tablet Eff] 10 meq PO DAILY Albuterol 0.083% Nebulizer Fidelina [Ventolin 0.083% Nebulizer Soln -] 1 amp NEB Q4H PRN #30 amp 08/19/18 Apixaban [Eliquis] 5 mg PO BID #90 tablet 08/19/18 Carvedilol [Coreg -] 3.125 mg PO BID #60 tablet 08/19/18 Family Medical History Family Hx Cancer: Mother (unknown ) Review of Systems - Review of Systems Constitutional: reports: No Symptoms Eyes: reports: No Symptoms HENT: reports: No Symptoms Neck: reports: No Symptoms Cardiovascular: reports: No Symptoms Respiratory: reports: No Symptoms Gastrointestinal: reports: No Symptoms Genitourinary: reports: No Symptoms Musculoskeletal: reports: No Symptoms Integumentary: reports: No Symptoms Neurological: reports: No Symptoms Endocrine: reports: Other (Increased Urine) Hematology/Lymphatic: reports: No Symptoms Psychiatric: reports: No Symptoms Physical Examination Vital Signs: Vital Signs Temperature 98 F 03/14/19 17:40 Pulse Rate 82 03/14/19 17:40 Respiratory Rate 18 03/14/19 17:40 Blood Pressure 215/95 H 03/14/19 17:40 O2 Sat by Pulse Oximetry (%) 98 03/14/19 17:40 Constitutional: Yes: No Distress, Calm Eyes: Yes: Conjunctiva Clear, EOM Intact HENT: Yes: Atraumatic, Normocephalic Neck: Yes: Supple, Trachea Midline Cardiovascular: Yes: Regular Rate and Rhythm Respiratory: Yes: Regular, CTA Bilaterally Gastrointestinal: Yes: Normal Bowel Sounds, Soft Musculoskeletal: Yes: WNL Extremities: Yes: WNL Edema: Yes Neurological: Yes: Alert, Oriented Labs: CBC, BMP 03/14/19 20:54 03/14/19 20:54 Imaging - Results Chest X-ray: Report Reviewed (no acute infiltrate) EKG: Report Reviewed (ECG: NSR, no significant ST segment changes) Other: Report Reviewed (Trop 0.10, elevated from baseline) Problem List - Problems (1) Elevated troponin I level Code(s): R79.89 - OTHER SPECIFIED ABNORMAL FINDINGS OF BLOOD CHEMISTRY (2) Uncontrolled hypertension Code(s): I10 - ESSENTIAL (PRIMARY) HYPERTENSION (3) Afib Code(s): I48.91 - UNSPECIFIED ATRIAL FIBRILLATION Qualifiers: Atrial fibrillation type: paroxysmal Qualified Code(s): I48.0 - Paroxysmal atrial fibrillation (4) Hyperlipidemia Code(s): E78.5 - HYPERLIPIDEMIA, UNSPECIFIED Qualifiers: Hyperlipidemia type: pure hypercholesterolemia Qualified Code(s): E78.00 - Pure hypercholesterolemia, unspecified; E78.0 - Pure hypercholesterolemia (5) Anxiety Code(s): F41.9 - ANXIETY DISORDER, UNSPECIFIED (6) COPD (chronic obstructive pulmonary disease) Code(s): J44.9 - CHRONIC OBSTRUCTIVE PULMONARY DISEASE, UNSPECIFIED (7) Insomnia Code(s): G47.00 - INSOMNIA, UNSPECIFIED (8) Type 2 diabetes mellitus Code(s): E11.9 - TYPE 2 DIABETES MELLITUS WITHOUT COMPLICATIONS Qualifiers: Diabetes mellitus intermediate insulin use: with terminal supervisor use Diabetes mellitus complication status: without complication Qualified Code(s): E11.9 - Type 2 diabetes mellitus without complications; Z79.4 - senior living (current) use of insulin (9) GERD (gastroesophageal reflux disease) Code(s): K21.9 - GASTRO-ESOPHAGEAL REFLUX DISEASE WITHOUT ESOPHAGITIS (10) Hypothyroidism Code(s): E03.9 - HYPOTHYROIDISM, UNSPECIFIED Qualifiers: Hypothyroidism type: unspecified Qualified Code(s): E03.9 - Hypothyroidism , unspecified Assessment/Plan 73-year-old female history of COPD, hypertension hyperlipidemia, hypothyroidism , anxiety, insomnia, GERD and diabetes here today complaining of elevated blood pressure. Patient saw primary doctor today at office systolic blood pressure 200, patient was not taking medication as prescribed. # Eevated trop R/o ACS # Uncontrolled HTN tele obs, cardiac monitoring EKG: Sinus Rhythm, Normal Rate, Normal Intervals, No acute ischemic changes CXR: no acute infiltrate trop: 0.10 ---> 0.13 In ED given coreg 6.25mg and 0.4 SL NG without change in BP, systolic > 200 Given extra ramipril ED discussed wtih cardiology trending trop, BP control, likely demand ischemia patient denies sob/cp, no acute symptoms - continue with BP management - trend trops - follow up cardiology in AM - Carvedilol 3.125 mg PO BID -Ramipril 5 cap PO DAILY -Potassium Bicarbonate/Cit AC 10 meq PO DAILY -Nitroglycerin 0.4 mg SL DAILY PRN -Amlodipine Besylate 10 mg PO DAILY #A-fib -Apixaban 5 mg PO BID #HLD Atorvastatin Ca 20 mg PO HS #DM Glipizide 5 mg PO DAILY monitor fsbs QD # COPD -Montelukast Na 10 mg PO HS -Symbicort 1 puff daily -Albuterol 0.083% Nebulizer Fidelina 1 amp NEB Q4H PRN # hypothyrodism -Levothyroxine 100 mcg PO DAILY # Insomnia - Zolpidem Tartrate 5 mg PO DAILY #Anxiety - continue with xanax 0.25 mg daily PRN #GERD - [place] TID PRN Dispo: tele obs VTE: on eliquis DIET: WILL/NCS Visit type - Emergency Visit Emergency Visit: Yes ED Registration Date: 03/14/19 Care time: The patient presented to the Emergency Department on the above date and was hospitalized for further evaluation of their emergent condition. - New Patient This patient is new to me today: Yes Date on this admission: 03/15/19 - Critical Care Critical Care patient: No
[2019-03-15] MEDS ORDERED: NITROGLYCERIN SUBLINGUAL 1/150 0.4 MG TAB SL PRN (00:31)
[2019-03-15] MEDS ORDERED: ALPRAZolam 0.25 MG TABLET PO PRN (00:32)
[2019-03-15] MEDS ORDERED: MAG HYDROX/AL HYDROX/SIMETH -MYLANTA- ORAL SUSPENSION PO PRN (00:32)
[2019-03-15] MEDS ORDERED: ACETAMINOPHEN 325 MG TABLET (FP) PO PRN (00:37)
[2019-03-15] MEDS ORDERED: ALBUTEROL SO4 0.083% IH SOL 2.5 MG/3 ML VIAL.NEB. NEB ONE (01:28)
[2019-03-15] MEDS ORDERED: RAMIPRIL 5 MG CAPSULE (FP) ONE (01:29)
[2019-03-15] MEDS: ALBUTEROL SO4 0.083% IH SOL 2.5 MG/3 ML VIAL.NEB. NEB SCH ×5 (01:35→20:17)
[2019-03-15] MEDS ORDERED: NITROGLYCERIN SUBLINGUAL 1/150 0.4 MG TAB SL ONE (03:08)
[2019-03-15] MEDS ORDERED: NITROGLYCERIN SUBLINGUAL 1/150 0.4 MG TAB ONE (03:10)
[2019-03-15] MEDS ORDERED: LORazepam 2 MG/ML SDV VIAL ONE (04:35)
[2019-03-15] MEDS ORDERED: LEVOTHYROXINE NA 25 MCG TABLET (FP) ONE ×2 (06:45→06:46)
[2019-03-15] MEDS ORDERED: glipiZIDE 5 MG TABLET (FP) ONE (06:45)
[2019-03-15] MEDS: LEVOTHYROXINE NA 100 MCG TABLET (FP) PO SCH (06:57)
[2019-03-15] MEDS ORDERED: glipiZIDE-XL 10 MG TAB.ER.24 (FP) PO SCH (07:00)
[2019-03-15] MEDS ORDERED: glipiZIDE-XL 5 MG TAB.ER.24 PO SCH (07:56)
--- NOTE | 2019-03-15 09:27 | EKG ---
Test Reason : Blood Pressure : / mmHG Vent. Rate : 072 BPM Atrial Rate : 072 BPM P-R Int : 170 ms QRS Dur : 084 ms QT Int : 396 ms P-R-T Axes : 079 016 097 degrees QTc Int : 433 ms NORMAL SINUS RHYTHM T WAVE ABNORMALITY, CONSIDER LATERAL ISCHEMIA ABNORMAL ECG WHEN COMPARED WITH ECG OF 17-AUG-2018 10:41, PREMATURE ATRIAL COMPLEXES ARE NO LONGER PRESENT VENT. RATE HAS INCREASED BY 24 BPM T WAVE INVERSION NO LONGER EVIDENT IN INFERIOR LEADS Confirmed by MD Jt, Senthil ([id number]) on 03/15/2019 9:27:18 AM Referred By: Confirmed By:Senthil Waters MD
--- NOTE | 2019-03-15 09:28 | EKG ---
Test Reason : Blood Pressure : / mmHG Vent. Rate : 077 BPM Atrial Rate : 077 BPM P-R Int : 176 ms QRS Dur : 086 ms QT Int : 430 ms P-R-T Axes : 073 026 092 degrees QTc Int : 486 ms NORMAL SINUS RHYTHM NONSPECIFIC T WAVE ABNORMALITY lateral leads consider ischemia ABNORMAL ECG WHEN COMPARED WITH ECG OF 14-MAR-2019 20:04, NO SIGNIFICANT CHANGE WAS FOUND Confirmed by MD Jt, Senthil ([id number]) on 03/15/2019 9:28:22 AM Referred By: Confirmed By:Senthil Waters MD
[2019-03-15] MEDS: amLODIPine BESYLATE 10 MG TABLET (FP) PO SCH (09:31)
[2019-03-15] MEDS: APIXABAN 5 MG TABLET PO SCH ×2 (09:31→21:37)
[2019-03-15] MEDS ORDERED: ZOLPIDEM TARTRATE 5 MG TABLET PO PRN (10:00)
[2019-03-15] MEDS ORDERED: CARVEDILOL 3.125 MG TABLET (FP) PO SCH (10:00)
[2019-03-15] MEDS ORDERED: POTASSIUM CITRATE/CITRIC ACID 2 MEQ/ML ML PO SCH (10:00)
[2019-03-15] MEDS ORDERED: [UNRECOGNIZED DRUG - OTHER] PO SCH (10:00)
[2019-03-15] MEDS ORDERED: RAMIPRIL 2.5 MG CAPSULE (FP) PO SCH ×2 (10:00→11:42)
[2019-03-15 10:42] LABS: HEMATOCRIT 34.4 % (32.4-45.2); HEMOGLOBIN 12.3 GM/dL (10.7-15.3); MCH 30.2 pg (25.7-33.7); MCHC 35.7 g/dl (32.0-36.0); MEAN CELL VOLUME 84.5 fl (80-96); MEAN PLT VOLUME 8.4 fl (7.5-11.1); PLATELET COUNT 361 K/MM3 (134-434); RBC 4.07 M/mm3 (3.60-5.2); RDW 13.8 % (11.6-15.6); WHITE BLOOD COUNT 9.1 K/mm3 (4.0-10.0)
--- NOTE | 2019-03-15 11:15 | PN ---
Progress Note (short form) - Note Progress Note: Noted elevated BP She had seen me in office for elevated BP Advised to increase Amlodipine She tells me today that she has not been taking that at home no headaches Selected Entries 03/15/19 17:00 Temperature 98.6 F Pulse Rate 88 Respiratory 20 Rate Blood Pressure 155/88 Weight 193 lb Laboratory Tests 03/14/19 03/15/19 20:54 10:15 WBC 11.4 H Hgb 10.9 Hct 31.8 L MCV 85.9 MCH 29.6 MCHC 34.4 RDW 13.5 Plt Count 369 Sodium 140 Potassium 3.8 Chloride 104 Carbon Dioxide 25 Anion Gap 10 BUN 12.1 Creatinine 0.8 Est GFR (CKD-EPI)AfAm 85.97 Est GFR (CKD-EPI)NonAf 74.17 Random Glucose 82 Calcium 9.5 Troponin I 0.11 H S1 S2 RRR Lungs clear Ab d- soft, NT No edema PLAN cardiology eval med to be adjusted tele monitoring Cardiac enzymes elevated Problem List - Problems (1) Demand ischemia Code(s): I24.8 - OTHER FORMS OF ACUTE ISCHEMIC HEART DISEASE (2) Elevated troponin I level Code(s): R79.89 - OTHER SPECIFIED ABNORMAL FINDINGS OF BLOOD CHEMISTRY (3) GERD (gastroesophageal reflux disease) Code(s): K21.9 - GASTRO-ESOPHAGEAL REFLUX DISEASE WITHOUT ESOPHAGITIS (4) HTN (hypertension) Code(s): I10 - ESSENTIAL (PRIMARY) HYPERTENSION Qualifiers: Hypertension type: unspecified Qualified Code(s): I10 - Essential (primary ) hypertension (5) Uncontrolled hypertension Code(s): I10 - ESSENTIAL (PRIMARY) HYPERTENSION
[2019-03-15 11:16] LABS: BLOOD UREA NITROGEN 12.1 mg/dL (7-18); CALCIUM 9.5 mg/dL (8.5-10.1); CREATININE 0.8 mg/dL (0.55-1.3); POTASSIUM 3.8 mmol/L (3.5-5.1)
--- NOTE | 2019-03-15 11:28 | CON.CARD ---
Consult Consult Specialty:: Cardiology Referred by:: Dr. Taylor Reason for Consultation:: Cardiac evaluation - History of Present Illness Chief Complaint: Elevated BP History of Present Illness: Patient is a 73 year old female well known to me with underlying history of HTN , T2DM, PAF (flutter) on anticoagulation DOAC/Eliquis and hypercholesterolemia who presented to ED with elevated BP. She was found by her PMD to have systolic BP of 200's. She informed that she had not taken Amlodipine and taken Carvedilol only once instead of BID as prescribed for some time. She was given a dose of Amlodipine 10 mg in the office and was referred to come to ED. Currently, she still remains hypertensive. She denies chest pain, shortness of breath or palpitations. She denies paroxysmal nocturnal dyspnea or orthopnea. She denies fever or chills. She denies nausea, vomiting, diarrhea or abdominal pain. She denies headache or lightheadedness. 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 Cardio/Vascular: Yes: AFIB, HTN, Hyperlipdemia Pulmonary: Yes: COPD Gastrointestinal: Yes: GERD Psych: Yes: Other (insomnia) Endocrine: Yes: Diabetes Mellitus, Hypothyroidism - Past Surgical History Past Surgical History: Yes: Appendectomy, Cholecystectomy, Hysterectomy (partial ), Splenectomy, Tubal Ligation - Alcohol/Substance Use Hx Alcohol Use: No History of Substance Use: reports: None - Smoking History Smoking history: Never smoked Have you smoked in the past 12 months: No Aproximately how many cigarettes per day: 0 - Social History ADL: Independent 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 History of Recent Travel: No Home Medications - Allergies Allergies/Adverse Reactions: Allergies Allergy/AdvReac Type Severity Reaction Status Date / Time aspirin Allergy Intermediate VOMITS Verified 03/14/19 17:43 BLOOD - Home Medications Home Medications: Ambulatory Orders Glipizide [Glipizide Xl] 5 mg PO DAILY 04/18/15 Montelukast Na [Singulair -] 10 mg PO HS 04/18/15 metFORMIN HCL [Metformin HCl] 500 mg PO BID 04/18/15 Atorvastatin Ca [Lipitor] 20 mg PO HS tablet 09/17/15 Amlodipine Besylate [Norvasc -] 10 mg PO DAILY 02/25/17 Levothyroxine [Synthroid -] 100 mcg PO DAILY 02/25/17 Nitroglycerin [Nitrostat] 0.4 mg SL DAILY PRN 02/25/17 Zolpidem Tartrate [Ambien] 5 mg PO DAILY 02/25/17 Ramipril 5 cap PO DAILY 02/27/17 Potassium Bicarbonate/Cit AC [Effer-K 10 Meq Tablet Eff] 10 meq PO DAILY Albuterol 0.083% Nebulizer Fidelina [Ventolin 0.083% Nebulizer Soln -] 1 amp NEB Q4H PRN #30 amp 08/19/18 Apixaban [Eliquis] 5 mg PO BID #90 tablet 08/19/18 Carvedilol [Coreg -] 3.125 mg PO BID #60 tablet 08/19/18 Family Medical History Other Family History: HTN Review of Systems - Review of Systems Constitutional: denies: Chills, Fever Cardiovascular: denies: Chest Pain, Palpitations, Shortness of Breath Respiratory: denies: Cough, Hemoptysis, Orthopnea, PND, SOB, SOB on Exertion Gastrointestinal: denies: Abdominal Pain, Constipation, Diarrhea, Melena, Nausea , Rectal Bleeding, Vomiting Musculoskeletal: denies: Back Pain, Joint Pain Neurological: denies: Dizziness, Headache, Seizure, Syncope Vital Signs: Vital Signs Temperature 98.1 F 03/15/19 01:30 Pulse Rate 83 03/15/19 07:00 Respiratory Rate 18 03/15/19 10:50 Blood Pressure 158/79 03/15/19 07:00 O2 Sat by Pulse Oximetry (%) 95 03/15/19 10:50 Eyes: Yes: PERRL HENT: Yes: Atraumatic Neck: Yes: Supple Respiratory: Yes: CTA Bilaterally Gastrointestinal: Yes: Normal Bowel Sounds, Soft. No: Tenderness Cardiovascular: Yes: Regular Rate and Rhythm JVD: No PMI: Non-Displaced Heart Sounds: Yes: S1, S2. No: Gallop Murmur: No: Systolic Murmur Edema: No - Other Data Labs, Other Data: CBC, BMP 03/15/19 10:15 03/15/19 10:15 INR, PTT INR 1.22 (0.83-1.09) H 03/14/19 20:54 Troponin, BNP 12/02/19 12/03/19 12/03/19 20:54 03:10 10:15 Troponin I 0.10 H 0.13 H 0.11 H Laboratory Results - last 24 hr 03/14/19 03/14/19 03/14/19 20:22 20:54 20:54 WBC 11.4 H RBC 3.70 Hgb 10.9 Hct 31.8 L MCV 85.9 MCH 29.6 MCHC 34.4 RDW 13.5 Plt Count 369 MPV 8.1 Absolute Neuts (auto) 5.6 Neutrophils % 48.6 Lymphocytes % 38.5 Monocytes % 9.0 Eosinophils % 2.6 D Basophils % 1.3 Nucleated RBC % 0 PT with INR INR PTT (Actin FS) Sodium 142 Potassium 3.6 Chloride 108 H Carbon Dioxide 28 Anion Gap 7 L BUN 15.5 Creatinine 0.9 Est GFR (CKD-EPI)AfAm 74.56 Est GFR (CKD-EPI)NonAf 64.33 POC Glucometer Random Glucose 100 Calcium 9.2 Total Bilirubin 0.5 AST 16 ALT 13 Alkaline Phosphatase 80 Creatine Kinase 168 Creatine Kinase Index 1.0 CK-MB (CK-2) 1.8 Troponin I 0.10 H Total Protein 6.9 Albumin 3.3 L Urine Color Yellow Urine Appearance Clear Urine pH 7.5 D Ur Specific [place] 1.006 L Urine Protein Negative Urine Glucose (UA) Negative Urine Ketones Negative Urine Blood Negative Urine Nitrite Negative Urine Bilirubin Negative Urine Urobilinogen 1.0 Ur Leukocyte Esterase Negative 03/14/19 03/15/19 03/15/19 20:54 03:10 06:50 WBC RBC Hgb Hct MCV MCH MCHC RDW Plt Count MPV Absolute Neuts (auto) Neutrophils % Lymphocytes % Monocytes % Eosinophils % Basophils % Nucleated RBC % PT with INR 14.40 H INR 1.22 H PTT (Actin FS) 38.6 H Sodium Potassium Chloride Carbon Dioxide Anion Gap BUN Creatinine Est GFR (CKD-EPI)AfAm Est GFR (CKD-EPI)NonAf POC Glucometer 93 Random Glucose Calcium Total Bilirubin AST ALT Alkaline Phosphatase Creatine Kinase Creatine Kinase Index CK-MB (CK-2) Troponin I 0.13 H Total Protein Albumin Urine Color Urine Appearance Urine pH Ur Specific [place] Urine Protein Urine Glucose (UA) Urine Ketones Urine Blood Urine Nitrite Urine Bilirubin Urine Urobilinogen Ur Leukocyte Esterase 03/15/19 03/15/19 10:15 10:15 WBC 9.1 RBC 4.07 Hgb 12.3 Hct 34.4 MCV 84.5 MCH 30.2 MCHC 35.7 RDW 13.8 Plt Count 361 MPV 8.4 Absolute Neuts (auto) Neutrophils % Lymphocytes % Monocytes % Eosinophils % Basophils % Nucleated RBC % PT with INR INR PTT (Actin FS) Sodium 140 Potassium 3.8 Chloride 104 Carbon Dioxide 25 Anion Gap 10 BUN 12.1 Creatinine 0.8 Est GFR (CKD-EPI)AfAm 85.97 Est GFR (CKD-EPI)NonAf 74.17 POC Glucometer Random Glucose 82 Calcium 9.5 Total Bilirubin AST ALT Alkaline Phosphatase Creatine Kinase Creatine Kinase Index CK-MB (CK-2) Troponin I 0.11 H Total Protein Albumin Urine Color Urine Appearance Urine pH Ur Specific [place] Urine Protein Urine Glucose (UA) Urine Ketones Urine Blood Urine Nitrite Urine Bilirubin Urine Urobilinogen Ur Leukocyte Esterase Sinus rhythm with T abnormality, consider lateral ischemia Echo: Report Reviewed (Normal LVEF, severely dilated LA, trace MR, moderate TR, severe pulmonary HTN and mild MT (08/17/18)) Imaging - Results Chest X-ray: Report Reviewed (Unremarkable) EKG: Report Reviewed Problem List - Problems (1) Demand ischemia Code(s): I24.8 - OTHER FORMS OF ACUTE ISCHEMIC HEART DISEASE (2) GERD (gastroesophageal reflux disease) Code(s): K21.9 - GASTRO-ESOPHAGEAL REFLUX DISEASE WITHOUT ESOPHAGITIS (3) HTN (hypertension) Code(s): I10 - ESSENTIAL (PRIMARY) HYPERTENSION Qualifiers: Hypertension type: unspecified Qualified Code(s): I10 - Essential (primary ) hypertension (4) COPD (chronic obstructive pulmonary disease) Code(s): J44.9 - CHRONIC OBSTRUCTIVE PULMONARY DISEASE, UNSPECIFIED (5) Hyperlipidemia Code(s): E78.5 - HYPERLIPIDEMIA, UNSPECIFIED Qualifiers: Hyperlipidemia type: pure hypercholesterolemia Qualified Code(s): E78.00 - Pure hypercholesterolemia, unspecified; E78.0 - Pure hypercholesterolemia (6) Hypothyroidism Code(s): E03.9 - HYPOTHYROIDISM, UNSPECIFIED Qualifiers: Hypothyroidism type: unspecified Qualified Code(s): E03.9 - Hypothyroidism , unspecified (7) Paroxysmal atrial fibrillation Code(s): I48.0 - PAROXYSMAL ATRIAL FIBRILLATION (8) Type 2 diabetes mellitus Code(s): E11.9 - TYPE 2 DIABETES MELLITUS WITHOUT COMPLICATIONS Qualifiers: Diabetes mellitus custodial insulin use: with custodial use Diabetes mellitus complication status: without complication Qualified Code(s): E11.9 - Type 2 diabetes mellitus without complications; 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 HTN urgency with noncompliance with medication 2. PAF(flutter), currently in sinus rhythm 3. Hypercholesterolemia 4. T2DM 5. GERD 6. Tricuspid valve regurgitations and severe pulmonary HTN 7. Demand ischemia with underlying history of CAD 8. COPD 9. Hypothyroidism PLAN: 1. Increase Carvedilol to 6.25 mg BID and uptitrate according to BP (HR permitting) 2. Increase Ramipril to 5 mg QD (up to 10 mg if tolerated). Continue Amlodipine 10 mg QD 3. Discontinue Valsartan (avoid ACEI and ARB together) 4. Continue Atorvastatin 20 mg QHS 5. Continue Eliquis 5 mg BID 6. [phone] Further plans are to follow Mo Rodriguez MD
[2019-03-15] MEDS ORDERED: VALSARTAN 40 MG TABLET (FP) PO SCH ×2 (11:30→11:44)
[2019-03-15] MEDS: BUDESONIDE/FORMETEROL FUMARATE 160/4.5 mcg INHALER IH SCH (13:28)
[2019-03-15] MEDS: CARVEDILOL 3.125 MG TABLET (FP) PO SCH (21:36)
[2019-03-15] MEDS ORDERED: ATORVASTATIN CA 20 MG TABLET (FP) PO SCH (22:00)
[2019-03-15] MEDS ORDERED: MONTELUKAST NA 10 MG TABLET PO SCH (22:00)
[2019-03-16] MEDS: LEVOTHYROXINE NA 100 MCG TABLET (FP) PO SCH (06:47)
[2019-03-16] MEDS: ALBUTEROL SO4 0.083% IH SOL 2.5 MG/3 ML VIAL.NEB. NEB SCH (08:15)
--- NOTE | 2019-03-16 09:19 | PN ---
Progress Note, Physician Chief Complaint: Not in distress History of Present Illness: Patient was seen and examined. Awake and alert. Chart was reviewed Denies chest pain, SOB or palpitations - Current Medication List Current Medications: Active Medications Acetaminophen (Tylenol -) 650 mg PO Q4H PRN PRN Reason: PAIN LEVEL 1-5 Al Hydroxide/Mg Hydroxide (Mylanta Suspension -) 30 ml PO TID PRN PRN Reason: NAUSEA Albuterol Sulfate (Ventolin 0.083% Nebulizer Soln -) 1 amp NEB RQ4H [facility] Last Admin: 03/16/19 08:15 Dose: Not Given Alprazolam (Xanax -) 0.25 mg PO DAILY PRN PRN Reason: ANXIETY Amlodipine Besylate (Norvasc -) 10 mg PO DAILY [facility] Last Admin: 03/15/19 09:31 Dose: 10 mg Apixaban (Eliquis -) 5 mg PO BID [facility] Last Admin: 03/15/19 21:37 Dose: 5 mg Atorvastatin Calcium (Lipitor -) 20 mg PO HS [facility] Last Admin: 03/15/19 21:36 Dose: 20 mg Budesonide/Formoterol Fumarate (Symbicort 160/4.5mcg -) 2 puff IH DAILY [facility] Last Admin: 03/15/19 13:28 Dose: Not Given Carvedilol (Coreg -) 6.25 mg PO BID [facility] Last Admin: 03/15/19 21:36 Dose: 6.25 mg Glipizide (Glucotrol Xl -) 5 mg PO ACBK [facility] Last Admin: 03/16/19 06:47 Dose: 5 mg Levothyroxine Sodium (Synthroid -) 100 mcg PO ACBK [facility] Last Admin: 03/16/19 06:47 Dose: 100 mcg Montelukast Sodium (Singulair -) 10 mg PO HS [facility] Last Admin: 03/15/19 21:36 Dose: 10 mg Nitroglycerin (Nitrostat -) 0.4 mg SL DAILY PRN PRN Reason: chest pain. Valsartan (Diovan -) 80 mg PO DAILY [facility] Zolpidem Tartrate (Ambien -) 5 mg PO HS PRN PRN Reason: INSOMNIA Last Admin: 03/15/19 21:37 Dose: 5 mg - Objective Vital Signs: Vital Signs Temperature 98 F 03/16/19 06:00 Pulse Rate 75 03/16/19 06:00 Respiratory Rate 20 03/16/19 06:00 Blood Pressure 152/92 03/16/19 06:00 O2 Sat by Pulse Oximetry (%) 95 03/15/19 20:41 Eyes: Yes: PERRL HENT: Yes: Atraumatic Neck: Yes: Supple Cardiovascular: Yes: Regular Rate and Rhythm, S1, S2 Respiratory: Yes: CTA Bilaterally Gastrointestinal: Yes: Normal Bowel Sounds, Soft. No: Tenderness Edema: No Additional Findings/Remarks: - Review of Systems Constitutional: denies: Chills, Fever Cardiovascular: denies: Chest Pain, Palpitations, Shortness of Breath Respiratory: denies: Cough, Hemoptysis, Orthopnea, PND, SOB, SOB on Exertion Gastrointestinal: denies: Abdominal Pain, Constipation, Diarrhea, Melena, Nausea , Rectal Bleeding, Vomiting Musculoskeletal: denies: Back Pain, Joint Pain Neurological: denies: Dizziness, Headache, Seizure, Syncope Labs: CBC, BMP 03/15/19 10:15 03/15/19 10:15 Problem List - Problems (1) Demand ischemia Code(s): I24.8 - OTHER FORMS OF ACUTE ISCHEMIC HEART DISEASE (2) GERD (gastroesophageal reflux disease) Code(s): K21.9 - GASTRO-ESOPHAGEAL REFLUX DISEASE WITHOUT ESOPHAGITIS (3) HTN (hypertension) Code(s): I10 - ESSENTIAL (PRIMARY) HYPERTENSION Qualifiers: Hypertension type: unspecified Qualified Code(s): I10 - Essential (primary ) hypertension (4) COPD (chronic obstructive pulmonary disease) Code(s): J44.9 - CHRONIC OBSTRUCTIVE PULMONARY DISEASE, UNSPECIFIED (5) Hyperlipidemia Code(s): E78.5 - HYPERLIPIDEMIA, UNSPECIFIED Qualifiers: Hyperlipidemia type: pure hypercholesterolemia Qualified Code(s): E78.00 - Pure hypercholesterolemia, unspecified; E78.0 - Pure hypercholesterolemia (6) Hypothyroidism Code(s): E03.9 - HYPOTHYROIDISM, UNSPECIFIED Qualifiers: Hypothyroidism type: unspecified Qualified Code(s): E03.9 - Hypothyroidism , unspecified (7) Paroxysmal atrial fibrillation Code(s): I48.0 - PAROXYSMAL ATRIAL FIBRILLATION (8) Type 2 diabetes mellitus Code(s): E11.9 - TYPE 2 DIABETES MELLITUS WITHOUT COMPLICATIONS Qualifiers: Diabetes mellitus long-term insulin use: with long-term use Diabetes mellitus complication status: without complication Qualified Code(s): E11.9 - Type 2 diabetes mellitus without complications; Z79.4 - snf (current) use of insulin Assessment/Plan 1. HTN urgency with noncompliance with medication 2. PAF(flutter), currently in sinus rhythm 3. Hypercholesterolemia 4. T2DM 5. GERD 6. Tricuspid valve regurgitations and severe pulmonary HTN 7. Demand ischemia with underlying history of CAD 8. COPD 9. Hypothyroidism PLAN: 1. Continue Carvedilol to 6.25 mg BID and uptitrate according to BP (HR permitting) 2.Increase Valsartan to 160 mg QD. Continue Amlodipine 10 mg QD 3. Continue Atorvastatin 20 mg QHS 4. Continue Eliquis 5 mg BID 5. [phone] Further plans are to follow Mo Rodriguez MD
[2019-03-16] MEDS: CARVEDILOL 3.125 MG TABLET (FP) PO SCH (09:37)
[2019-03-16] MEDS: APIXABAN 5 MG TABLET PO SCH (09:37)
[2019-03-16] MEDS: amLODIPine BESYLATE 10 MG TABLET (FP) PO SCH (09:38)
[2019-03-16 09:52] VITALS: BP 132/80; PULSE 78; TEMP 97.8
[2019-03-16] MEDS ORDERED: VALSARTAN 160 MG TABLET (UD) PO SCH (10:47)
[2019-03-16] MEDS: BUDESONIDE/FORMETEROL FUMARATE 160/4.5 mcg INHALER IH SCH (10:53)
[2019-03-16] MEDS ORDERED: PT OWN MED DRAWER 7, Y5N ONE (11:20)
--- NOTE | 2019-03-16 12:22 | DS ---
Physical Examination Vital Signs: Vital Signs Temperature 97.8 F 03/16/19 09:00 Pulse Rate 78 03/16/19 09:00 Respiratory Rate 18 03/16/19 09:00 Blood Pressure 132/80 03/16/19 09:00 O2 Sat by Pulse Oximetry (%) 95 03/15/19 20:41 Constitutional: Yes: No Distress, Calm Cardiovascular: Yes: Pulse Irregular Respiratory: Yes: CTA Bilaterally Gastrointestinal: Yes: Normal Bowel Sounds, Soft. No: Tenderness Edema: No Labs: CBC, BMP 03/15/19 10:15 03/15/19 10:15 Discharge Summary Problems reviewed: Yes Reason For Visit: HYPERTENSION,ELEVATED TROPONIN LEVEL Current Active Problems Demand ischemia (Acute) Elevated troponin I level (Acute) GERD (gastroesophageal reflux disease) (Acute) HTN (hypertension) (Acute) Uncontrolled hypertension (Acute) Hospital Course: Admitted for elevated BP cardiac enzymes elevated but flat -- > demand ischemia No chest pain no symptoms Evaluated by cardiology BP meds adjusted sent new meds to pharmacy BP better tele unremarkable stable for dc home and follow up with me in the office in 2 days to recheck BP Condition: Stable - Instructions Referrals: Parisa Rodriguez MD [Primary Care Provider] - Mo Rodriguez MD [Staff Physician] - Disposition: HOME - Home Medications Comprehensive Discharge Medication List: Ambulatory Orders Glipizide [Glipizide Xl] 5 mg PO DAILY 04/18/15 Montelukast Na [Singulair -] 10 mg PO HS 04/18/15 metFORMIN HCL [Metformin HCl] 500 mg PO BID 04/18/15 Atorvastatin Ca [Lipitor] 20 mg PO HS tablet 09/17/15 Amlodipine Besylate [Norvasc -] 10 mg PO DAILY 02/25/17 Levothyroxine [Synthroid -] 100 mcg PO DAILY 02/25/17 Nitroglycerin [Nitrostat] 0.4 mg SL DAILY PRN 02/25/17 Zolpidem Tartrate [Ambien] 5 mg PO DAILY 02/25/17 Ramipril 5 cap PO DAILY 02/27/17 Potassium Bicarbonate/Cit AC [Effer-K 10 Meq Tablet Eff] 10 meq PO DAILY Albuterol 0.083% Nebulizer Fidelina [Ventolin 0.083% Nebulizer Soln -] 1 amp NEB Q4H PRN #30 amp 08/19/18 Apixaban [Eliquis] 5 mg PO BID #90 tablet 08/19/18 Carvedilol [Coreg -] 3.125 mg PO BID #60 tablet 08/19/18
== END 2019-03-16 13:14 | disposition home or self-care (01) ==
LOC: JER 17:39 → JERBED 22:17 → J4W 03-15 14:34
PROVIDERS: ADMIT Internal Medicine; ATTEND Internal Medicine
PROC: 3E0F7GC Introduction of Other Therapeutic Substance into Respiratory Tract, Via Natural or Artificial Opening (ICD-10-PCS; principal; 2019-03-14)
DX: I24.8 Other forms of acute ischemic heart disease (principal); I25.10 Atherosclerotic heart disease of native coronary artery without angina pectoris; I10 Essential (primary) hypertension; I48.0 Paroxysmal atrial fibrillation; Z79.01 Long term (current) use of anticoagulants; I07.1 Rheumatic tricuspid insufficiency; I27.20 Pulmonary hypertension, unspecified; E78.5 Hyperlipidemia, unspecified; J44.9 Chronic obstructive pulmonary disease, unspecified; E11.9 Type 2 diabetes mellitus without complications; Z79.84 Long term (current) use of oral hypoglycemic drugs; G47.00 Insomnia, unspecified; E03.9 Hypothyroidism, unspecified; K21.9 Gastro-esophageal reflux disease without esophagitis; D64.9 Anemia, unspecified; Z90.49 Acquired absence of other specified parts of digestive tract; Z90.81 Acquired absence of spleen; Z88.6 Allergy status to analgesic agent
CPT/HCPCS: 36415; 71045-TC-FY; 80048; 80053; 81003; 82550; 82553; 82962; 84484; 85025; 85027; 85610; 85730; 93005; 93010; 94640; 99285-25; G0378

== ENCOUNTER 2022-03-23 06:50 | Inpatient (IN) | payer OTHER ==
[2022-03-23] MEDS ORDERED: PANTOPRAZOLE SODIUM 40 MG VIAL IVPUSH ONE (08:53)
[2022-03-23] MEDS ORDERED: PANTOPRAZOLE SODIUM 40 MG VIAL ONE (10:06)
[2022-03-23 10:22] LABS: BASO % 0.5 % (0-2.0); HEMATOCRIT 23.6 % (32.4-45.2); INR 1.38 (0.83-1.09); LYMPH % 33.5 % (8-40); MCH 29.7 pg (25.7-33.7); MCHC 34.1 g/dl (32.0-36.0); MEAN CELL VOLUME 87.3 fl (80-96); MEAN PLT VOLUME 7.4 fl (7.5-11.1); MONO % 6.4 % (3.8-10.2); NEUT % 58.6 % (42.8-82.8); PLATELET COUNT 373 10^3/uL (134-434); PROTHROMBIN TIME (PATIENT) 15.9 SEC (9.7-13.0); RDW 14.1 % (11.6-15.6)
[2022-03-23 10:25] LABS: ACTIVATED PTT 32.9 SECONDS (25.2-36.5)
[2022-03-23 10:36] LABS: ALBUMIN 3.3 g/dl (3.4-5.0); BLOOD UREA NITROGEN 32.8 mg/dL (7-18); CALCIUM 9.4 mg/dL (8.5-10.1)
[2022-03-23 10:39] LABS: CREATININE 0.9 mg/dL (0.55-1.3)
[2022-03-23 10:41] LABS: BILIRUBIN,TOTAL 0.4 mg/dL (0.2-1); TOT PROT 6.7 g/dl (6.4-8.2)
[2022-03-23] MEDS ORDERED: ALBUTEROL SO4 0.083% IH SOL 2.5 MG/3 ML VIAL.NEB. NEB PRN (12:46)
[2022-03-23] MEDS ORDERED: NITROGLYCERIN SUBLINGUAL 1/150 0.4 MG TAB SL PRN (12:46)
[2022-03-23] MEDS: DEXTROSE 5%-0.45% SALINE 1,000 ML IV SCH (15:49)
[2022-03-23] MEDS: INSULIN SLIDING SCALE (NOVOLOG) 1 VIAL SQ SCH (17:53)
[2022-03-23] MEDS ORDERED: ATORVASTATIN CA 20 MG TABLET (FP) ONE (21:36)
[2022-03-23] MEDS ORDERED: CARVEDILOL 6.25 MG TABLET (FP) ONE (21:36)
[2022-03-23] MEDS ORDERED: MONTELUKAST NA 10 MG TABLET ONE (21:36)
[2022-03-23] MEDS: MONTELUKAST NA 10 MG TABLET PO SCH (21:59)
[2022-03-23] MEDS: ATORVASTATIN CA 20 MG TABLET (FP) PO SCH (21:59)
[2022-03-23] MEDS: CARVEDILOL 6.25 MG TABLET (FP) PO SCH (21:59)
[2022-03-23] MEDS ORDERED: ZOLPIDEM TARTRATE 5 MG TABLET PO PRN (22:00)
[2022-03-23 22:06] LABS: BASO % 1.1 % (0-2.0); EOS % 1.1 % (0-4.5); HEMATOCRIT 25.2 % (32.4-45.2); HEMOGLOBIN 8.6 GM/dL (10.7-15.3); LYMPH % 41.1 % (8-40); MCH 29.7 pg (25.7-33.7); MCHC 34.2 g/dl (32.0-36.0); MEAN CELL VOLUME 86.7 fl (80-96); MEAN PLT VOLUME 7.5 fl (7.5-11.1); MONO % 10.6 % (3.8-10.2); NEUT % 46.1 % (42.8-82.8); PLATELET COUNT 348 10^3/uL (134-434); RDW 14.1 % (11.6-15.6); WHITE BLOOD COUNT 8.3 K/mm3 (4.0-10.0)
[2022-03-24] MEDS ORDERED: LEVOTHYROXINE NA 112 MCG TABLET (FP) PO SCH (07:00)
[2022-03-24] MEDS: LEVOTHYROXINE NA 100 MCG TABLET (FP) PO SCH (07:51)
[2022-03-24] MEDS: INSULIN SLIDING SCALE (NOVOLOG) 1 VIAL SQ SCH ×2 (07:51→17:16)
[2022-03-24 08:30] LABS: BASO % 1.1 % (0-2.0); HEMATOCRIT 24.6 % (32.4-45.2); HEMOGLOBIN 8.4 GM/dL (10.7-15.3); LYMPH % 35.3 % (8-40); MCH 29.6 pg (25.7-33.7); MEAN CELL VOLUME 86.9 fl (80-96); MEAN PLT VOLUME 7.8 fl (7.5-11.1); MONO % 7.5 % (3.8-10.2); NEUT % 55.1 % (42.8-82.8); PLATELET COUNT 380 10^3/uL (134-434); RBC 2.83 M/mm3 (3.60-5.2); RDW 13.9 % (11.6-15.6); WHITE BLOOD COUNT 8.2 K/mm3 (4.0-10.0)
[2022-03-24 09:01] LABS: ALBUMIN 3.3 g/dl (3.4-5.0); CALCIUM 9.6 mg/dL (8.5-10.1)
[2022-03-24 09:02] LABS: BLOOD UREA NITROGEN 13.2 mg/dL (7-18)
[2022-03-24 09:04] LABS: CREATININE 0.7 mg/dL (0.55-1.3)
[2022-03-24 09:06] LABS: BILIRUBIN,TOTAL 0.7 mg/dL (0.2-1); TOT PROT 6.7 g/dl (6.4-8.2)
[2022-03-24] MEDS ORDERED: PANTOPRAZOLE SODIUM 40 MG/100 ML BAG IVPB ONE (09:12)
[2022-03-24] MEDS: PANTOPRAZOLE SODIUM 40 MG VIAL IVPUSH SCH (09:20)
[2022-03-24] MEDS: VALSARTAN 160 MG TABLET PO SCH (09:20)
[2022-03-24] MEDS ORDERED: CARVEDILOL 6.25 MG TABLET (FP) ONE ×2 (10:58→21:55)
[2022-03-24] MEDS: CARVEDILOL 6.25 MG TABLET (FP) PO SCH ×2 (11:00→22:20)
[2022-03-24] MEDS: DEXTROSE 5%-0.45% SALINE 1,000 ML IV SCH (14:19)
[2022-03-24] MEDS ORDERED: BISACODYL 5 MG TABLET.DR (FP) PO ONE (16:02)
[2022-03-24] MEDS ORDERED: BISACODYL 10 MG SUPP.RECT ONE (17:05)
[2022-03-24] MEDS ORDERED: INSULIN (NOVOLOG) ASPART 100 UNITS/ML 10ML VIAL ONE (17:12)
[2022-03-24] MEDS ORDERED: POLYETHYLENE GLYCOL 3350 255 GM BTL PO ONE (18:00)
[2022-03-24] MEDS ORDERED: MONTELUKAST NA 10 MG TABLET ONE (21:55)
[2022-03-24] MEDS ORDERED: ATORVASTATIN CA 20 MG TABLET (FP) ONE (21:55)
[2022-03-24] MEDS: ATORVASTATIN CA 20 MG TABLET (FP) PO SCH (22:20)
[2022-03-24] MEDS: MONTELUKAST NA 10 MG TABLET PO SCH (22:20)
[2022-03-25] MEDS ORDERED: MAGNESIUM CITRATE 300 ML BOTTLE PO ONE (04:00)
[2022-03-25 04:29] VITALS: BMI 27.2
[2022-03-25] MEDS: LEVOTHYROXINE NA 100 MCG TABLET (FP) PO SCH (06:52)
[2022-03-25] MEDS: INSULIN SLIDING SCALE (NOVOLOG) 1 VIAL SQ SCH ×2 (06:53→17:31)
[2022-03-25] MEDS ORDERED: SODIUM PHOSPHATE/NA BIPHOS 133 ML ENEMA RC ONE (08:00)
[2022-03-25 09:58] LABS: HEMATOCRIT 23.8 % (32.4-45.2); HEMOGLOBIN 8.4 GM/dL (10.7-15.3); MCH 30.5 pg (25.7-33.7); MCHC 35.2 g/dl (32.0-36.0); MEAN CELL VOLUME 86.5 fl (80-96); MEAN PLT VOLUME 7.6 fl (7.5-11.1); PLATELET COUNT 374 10^3/uL (134-434); RBC 2.76 M/mm3 (3.60-5.2); WHITE BLOOD COUNT 8.2 K/mm3 (4.0-10.0)
[2022-03-25] MEDS: VALSARTAN 160 MG TABLET PO SCH (10:20)
[2022-03-25] MEDS: PANTOPRAZOLE SODIUM 40 MG VIAL IVPUSH SCH (10:20)
[2022-03-25] MEDS: CARVEDILOL 6.25 MG TABLET (FP) PO SCH ×2 (10:20→22:27)
[2022-03-25] MEDS ORDERED: MIDAZOLAM HCL 2 MG/2 ML SINGLE DOSE VIAL ONE (15:31)
[2022-03-25] MEDS ORDERED: TETRACAINE/BENZOCAINE/BUTAMBEN 20 GM SPR TP ONE (15:35)
[2022-03-25] MEDS: ATORVASTATIN CA 20 MG TABLET (FP) PO SCH (22:27)
[2022-03-25] MEDS: MONTELUKAST NA 10 MG TABLET PO SCH (22:27)
[2022-03-25] MEDS: ACETAMINOPHEN 325 MG TABLET (FP) PO PRN (22:27)
[2022-03-26] MEDS ORDERED: ACETAMINOPHEN 1000 MG/100 ML BAG IVPB ONE (04:00)
[2022-03-26] MEDS: INSULIN SLIDING SCALE (NOVOLOG) 1 VIAL SQ SCH ×2 (06:22→17:33)
[2022-03-26] MEDS: LEVOTHYROXINE NA 100 MCG TABLET (FP) PO SCH (06:22)
[2022-03-26 09:07] LABS: HEMOGLOBIN 7.8 GM/dL (10.7-15.3); MCH 28.9 pg (25.7-33.7); MCHC 33.8 g/dl (32.0-36.0); MEAN CELL VOLUME 85.5 fl (80-96); MEAN PLT VOLUME 7.8 fl (7.5-11.1); PLATELET COUNT 374 10^3/uL (134-434); RBC 2.69 M/mm3 (3.60-5.2); RDW 13.9 % (11.6-15.6); WHITE BLOOD COUNT 13.1 K/mm3 (4.0-10.0)
[2022-03-26] MEDS: ACETAMINOPHEN 325 MG TABLET (FP) PO PRN ×2 (11:28→19:11)
[2022-03-26] MEDS: VALSARTAN 160 MG TABLET PO SCH (12:57)
[2022-03-26] MEDS: PANTOPRAZOLE SODIUM 40 MG VIAL IVPUSH SCH (12:57)
[2022-03-26] MEDS: CARVEDILOL 6.25 MG TABLET (FP) PO SCH ×2 (12:57→21:11)
[2022-03-26] MEDS ORDERED: CYCLOBENZAPRINE HCL 10 MG TABLET (FP) PO ONE (15:52)
[2022-03-26] MEDS: LIDOCAINE 5% TOPICAL PATCH TP SCH (17:13)
[2022-03-26] MEDS: ATORVASTATIN CA 20 MG TABLET (FP) PO SCH (21:11)
[2022-03-26] MEDS: MONTELUKAST NA 10 MG TABLET PO SCH (21:11)
[2022-03-26] MEDS: APIXABAN 5 MG TABLET PO SCH (21:11)
[2022-03-26] MEDS: LIDOCAINE PATCH REMOVAL MC SCH (21:14)
[2022-03-27] MEDS: ACETAMINOPHEN 325 MG TABLET (FP) PO PRN ×2 (02:05→20:29)
[2022-03-27] MEDS: INSULIN SLIDING SCALE (NOVOLOG) 1 VIAL SQ SCH ×2 (07:07→17:13)
[2022-03-27] MEDS: LEVOTHYROXINE NA 100 MCG TABLET (FP) PO SCH (07:08)
[2022-03-27] MEDS: LIDOCAINE 5% TOPICAL PATCH TP SCH (10:46)
[2022-03-27] MEDS: FERROUS SO4 325 MG TABLET (FP) PO SCH ×3 (10:47→18:23)
[2022-03-27] MEDS: APIXABAN 5 MG TABLET PO SCH ×2 (10:47→22:11)
[2022-03-27] MEDS: PANTOPRAZOLE SODIUM 40 MG VIAL IVPUSH SCH (10:47)
[2022-03-27] MEDS: VALSARTAN 160 MG TABLET PO SCH (10:47)
[2022-03-27] MEDS: CARVEDILOL 6.25 MG TABLET (FP) PO SCH ×2 (10:47→22:11)
[2022-03-27] MEDS: FOLIC ACID 1 MG TABLET (FP) PO SCH (10:47)
[2022-03-27 13:14] LABS: BASO % 1.1 % (0-2.0); HEMATOCRIT 29.4 % (32.4-45.2); HEMOGLOBIN 9.9 GM/dL (10.7-15.3); LYMPH % 19.9 % (8-40); MCH 28.8 pg (25.7-33.7); MCHC 33.8 g/dl (32.0-36.0); MEAN CELL VOLUME 85.2 fl (80-96); MEAN PLT VOLUME 8.2 fl (7.5-11.1); MONO % 8.9 % (3.8-10.2); NEUT % 70.1 % (42.8-82.8); PLATELET COUNT 402 10^3/uL (134-434); RBC 3.46 M/mm3 (3.60-5.2); RDW 14.1 % (11.6-15.6); WHITE BLOOD COUNT 16.1 K/mm3 (4.0-10.0)
[2022-03-27] MEDS: MONTELUKAST NA 10 MG TABLET PO SCH (22:11)
[2022-03-27] MEDS: ATORVASTATIN CA 20 MG TABLET (FP) PO SCH (22:11)
[2022-03-27] MEDS: LIDOCAINE PATCH REMOVAL MC SCH (22:14)
[2022-03-27] MEDS ORDERED: CYCLOBENZAPRINE HCL 10 MG TABLET (FP) PO ONE (22:49)
[2022-03-28] MEDS: LEVOTHYROXINE NA 100 MCG TABLET (FP) PO SCH (06:43)
[2022-03-28] MEDS: INSULIN SLIDING SCALE (NOVOLOG) 1 VIAL SQ SCH ×2 (06:44→17:13)
[2022-03-28 10:28] LABS: HEMATOCRIT 25.4 % (32.4-45.2); HEMOGLOBIN 8.7 GM/dL (10.7-15.3); MCH 29.2 pg (25.7-33.7); MCHC 34.1 g/dl (32.0-36.0); MEAN CELL VOLUME 85.6 fl (80-96); MEAN PLT VOLUME 7.5 fl (7.5-11.1); PLATELET COUNT 360 10^3/uL (134-434); RBC 2.97 M/mm3 (3.60-5.2); RDW 14.7 % (11.6-15.6); WHITE BLOOD COUNT 11.2 K/mm3 (4.0-10.0)
[2022-03-28] MEDS: ACETAMINOPHEN 325 MG TABLET (FP) PO PRN (10:33)
[2022-03-28] MEDS: FOLIC ACID 1 MG TABLET (FP) PO SCH (12:05)
[2022-03-28] MEDS: CARVEDILOL 6.25 MG TABLET (FP) PO SCH ×2 (12:05→22:32)
[2022-03-28] MEDS: VALSARTAN 160 MG TABLET PO SCH (12:05)
[2022-03-28] MEDS: LIDOCAINE 5% TOPICAL PATCH TP SCH (12:05)
[2022-03-28] MEDS: FERROUS SO4 325 MG TABLET (FP) PO SCH ×4 (12:05→19:21)
[2022-03-28] MEDS: APIXABAN 5 MG TABLET PO SCH ×2 (12:05→22:32)
[2022-03-28] MEDS: PANTOPRAZOLE SODIUM 40 MG VIAL IVPUSH SCH (12:06)
[2022-03-28] MEDS: ATORVASTATIN CA 20 MG TABLET (FP) PO SCH (22:32)
[2022-03-28] MEDS: MONTELUKAST NA 10 MG TABLET PO SCH (22:32)
[2022-03-28] MEDS: LIDOCAINE PATCH REMOVAL MC SCH (22:35)
[2022-03-29] MEDS ORDERED: DOCUSATE SODIUM 100 MG CAPSULE (FP) PO ONE (02:06)
[2022-03-29] MEDS ORDERED: POLYETHYLENE GLYCOL (HEALTHYLAX) 3350 17 GM PACKET PO ONE (02:15)
[2022-03-29] MEDS: ACETAMINOPHEN 325 MG TABLET (FP) PO PRN (02:23)
[2022-03-29] MEDS: LEVOTHYROXINE NA 100 MCG TABLET (FP) PO SCH (07:20)
[2022-03-29] MEDS: INSULIN SLIDING SCALE (NOVOLOG) 1 VIAL SQ SCH (07:20)
[2022-03-29 07:24] VITALS: BP 135/71; PULSE 76; RESP 17; TEMP 98.7
[2022-03-29 07:52] LABS: BASO % 0.7 % (0-2.0); EOS % 2.3 % (0-4.5); HEMATOCRIT 25.4 % (32.4-45.2); HEMOGLOBIN 8.6 GM/dL (10.7-15.3); LYMPH % 30.6 % (8-40); MCHC 33.9 g/dl (32.0-36.0); MEAN CELL VOLUME 85.6 fl (80-96); MEAN PLT VOLUME 7.2 fl (7.5-11.1); MONO % 9.2 % (3.8-10.2); NEUT % 57.2 % (42.8-82.8); PLATELET COUNT 382 10^3/uL (134-434); RBC 2.96 M/mm3 (3.60-5.2); RDW 14.5 % (11.6-15.6); WHITE BLOOD COUNT 10.2 K/mm3 (4.0-10.0)
[2022-03-29 08:16] LABS: CALCIUM 8.9 mg/dL (8.5-10.1)
[2022-03-29 08:17] LABS: CREATININE 1.4 mg/dL (0.55-1.3)
[2022-03-29 08:18] LABS: BILIRUBIN,TOTAL 0.6 mg/dL (0.2-1); TOT PROT 6.1 g/dl (6.4-8.2)
[2022-03-29 08:33] LABS: ALBUMIN 2.5 g/dl (3.4-5.0); BLOOD UREA NITROGEN 39.5 mg/dL (7-18)
[2022-03-29] MEDS ORDERED: PANTOPRAZOLE 40 MG TABLET PO SCH (10:00)
[2022-03-29] MEDS: VALSARTAN 160 MG TABLET PO SCH (10:03)
[2022-03-29] MEDS: LIDOCAINE 5% TOPICAL PATCH TP SCH (10:03)
[2022-03-29] MEDS: APIXABAN 5 MG TABLET PO SCH (10:03)
[2022-03-29] MEDS: FOLIC ACID 1 MG TABLET (FP) PO SCH (10:04)
[2022-03-29] MEDS: CARVEDILOL 6.25 MG TABLET (FP) PO SCH (10:04)
[2022-03-29] MEDS: FERROUS SO4 325 MG TABLET (FP) PO SCH ×2 (10:04→12:08)
== END 2022-03-29 16:00 | disposition home or self-care (01) | DRG 378 ==
LOC: JER 06:50 → JERBED 10:34 → OBSVTOIN 12:48 → J7W 03-25 01:38
PROVIDERS: ADMIT Internal Medicine; ATTEND Internal Medicine
PROC: 0DBK8ZX Excision of Ascending Colon, Via Natural or Artificial Opening Endoscopic, Diagnostic (ICD-10-PCS; principal; 2022-03-25 16:30)
PROC: 30233N1 Transfusion of Nonautologous Red Blood Cells into Peripheral Vein, Percutaneous Approach (ICD-10-PCS; 2022-03-27)
DX: K57.93 Diverticulitis of intestine, part unspecified, without perforation or abscess with bleeding (principal); I24.8 Other forms of acute ischemic heart disease; I27.20 Pulmonary hypertension, unspecified; J44.9 Chronic obstructive pulmonary disease, unspecified; E03.9 Hypothyroidism, unspecified; E11.649 Type 2 diabetes mellitus with hypoglycemia without coma; E78.5 Hyperlipidemia, unspecified; E11.22 Type 2 diabetes mellitus with diabetic chronic kidney disease; I25.10 Atherosclerotic heart disease of native coronary artery without angina pectoris; I12.9 Hypertensive chronic kidney disease with stage 1 through stage 4 chronic kidney disease, or unspecified chronic kidney disease; D50.9 Iron deficiency anemia, unspecified; N18.9 Chronic kidney disease, unspecified; D50.0 Iron deficiency anemia secondary to blood loss (chronic); Z79.01 Long term (current) use of anticoagulants; D12.2 Benign neoplasm of ascending colon; K21.9 Gastro-esophageal reflux disease without esophagitis
CPT/HCPCS: 36415; 36430; 71046-TC-FY; 73502-TC-LT-FY; 80053; 82272; 82962; 83036; 85025; 85027; 85610; 85730; 86850; 86900; 86901; 86922; 88305-TC; 93005; 93010; 97116-GP; 97161-GP; 99285-25; C9803-CS; G0378; P9058; U0003; U0005

== ENCOUNTER 2022-06-02 10:36 | Emergency (ER) | payer OTHER ==
[2022-06-02 10:43] VITALS: BP 149/76; PULSE 72; RESP 16; TEMP 97.9; BMI 27.1
== END 2022-06-02 12:34 | disposition home or self-care (01) ==
LOC: JER 10:36
PROC: 2W3FX1Z Immobilization of Left Hand using Splint (ICD-10-PCS; principal; 2022-06-02)
DX: M79.642 Pain in left hand (principal)
CPT/HCPCS: 29125; 73130-TC-LT-FY; 99283-25

== ENCOUNTER 2022-07-24 15:41 | Observation (INO) | payer OTHER ==
[2022-07-24 18:06] LABS: BASO % 1.5 % (0-2.0); EOS % 2.5 % (0-4.5); HEMATOCRIT 29.7 % (32.4-45.2); HEMOGLOBIN 10.2 GM/dL (10.7-15.3); LYMPH % 38.5 % (8-40); MCH 27.6 pg (25.7-33.7); MCHC 34.2 g/dl (32.0-36.0); MEAN CELL VOLUME 80.6 fl (80-96); MEAN PLT VOLUME 8.1 fl (7.5-11.1); MONO % 8.3 % (3.8-10.2); NEUT % 49.2 % (42.8-82.8); PLATELET COUNT 432 10^3/uL (134-434); RBC 3.69 M/mm3 (3.60-5.2); RDW 14.3 % (11.6-15.6); WHITE BLOOD COUNT 7.3 K/mm3 (4.0-10.0)
[2022-07-24 18:14] LABS: INR 1.54 (0.83-1.09); PROTHROMBIN TIME (PATIENT) 17.8 SEC (9.7-13.0)
[2022-07-24 18:17] LABS: ACTIVATED PTT 36.7 SECONDS (25.2-36.5)
[2022-07-24 18:27] LABS: CALCIUM 9.4 mg/dL (8.5-10.1)
[2022-07-24 18:28] LABS: ALBUMIN 3.4 g/dl (3.4-5.0); BLOOD UREA NITROGEN 24.2 mg/dL (7-18)
[2022-07-24 18:31] LABS: CREATININE 1.2 mg/dL (0.55-1.3)
[2022-07-24 18:33] LABS: BILIRUBIN,TOTAL 0.5 mg/dL (0.2-1); TOT PROT 7.5 g/dl (6.4-8.2)
[2022-07-24] MEDS: DEXTROSE 5%-0.45% SALINE 1,000 ML IV SCH (23:15)
[2022-07-25 00:28] VITALS: BMI 27.3
[2022-07-25 08:10] LABS: BASO % 1.4 % (0-2.0); EOS % 1.6 % (0-4.5); HEMATOCRIT 28.4 % (32.4-45.2); HEMOGLOBIN 9.8 GM/dL (10.7-15.3); LYMPH % 41.3 % (8-40); MCH 27.6 pg (25.7-33.7); MCHC 34.5 g/dl (32.0-36.0); MEAN CELL VOLUME 80.1 fl (80-96); MEAN PLT VOLUME 7.5 fl (7.5-11.1); MONO % 8.4 % (3.8-10.2); NEUT % 47.3 % (42.8-82.8); PLATELET COUNT 420 10^3/uL (134-434); RBC 3.55 M/mm3 (3.60-5.2); RDW 14.6 % (11.6-15.6); WHITE BLOOD COUNT 8.7 K/mm3 (4.0-10.0)
[2022-07-25 08:36] LABS: CALCIUM 9.2 mg/dL (8.5-10.1)
[2022-07-25 08:39] LABS: CREATININE 0.8 mg/dL (0.55-1.3)
[2022-07-25 08:41] LABS: BLOOD UREA NITROGEN 18.4 mg/dL (7-18)
[2022-07-25] MEDS ORDERED: NITROGLYCERIN SUBLINGUAL 1/150 0.4 MG TAB SL PRN (11:18)
[2022-07-25] MEDS ORDERED: ALBUTEROL SO4 0.083% IH SOL 2.5 MG/3 ML VIAL.NEB. NEB PRN (11:18)
[2022-07-25] MEDS: VALSARTAN 160 MG TABLET PO SCH (11:40)
[2022-07-25] MEDS: BUDESONIDE/FORMETEROL FUMARATE 160/4.5 mcg INHALER IH SCH ×2 (12:26→21:30)
[2022-07-25] MEDS: INSULIN SLIDING SCALE (NOVOLOG) 1 VIAL SQ SCH ×2 (16:54→21:28)
[2022-07-25] MEDS: ACETAMINOPHEN 650 MG/20.3 ML ORAL SOLUTION (CUPS) PO PRN (16:56)
[2022-07-25] MEDS: ATORVASTATIN CA 20 MG TABLET (FP) PO SCH (21:30)
[2022-07-25] MEDS: CARVEDILOL 6.25 MG TABLET (FP) PO SCH (21:30)
[2022-07-25] MEDS: MONTELUKAST NA 10 MG TABLET PO SCH (21:30)
[2022-07-26] MEDS: DEXTROSE 5%-0.45% SALINE 1,000 ML IV SCH (06:19)
[2022-07-26] MEDS: LEVOTHYROXINE NA 100 MCG TABLET (FP) PO SCH (06:19)
[2022-07-26] MEDS: INSULIN SLIDING SCALE (NOVOLOG) 1 VIAL SQ SCH ×2 (06:22→11:34)
[2022-07-26 06:42] LABS: BASO % 1.2 % (0-2.0); EOS % 1.9 % (0-4.5); HEMATOCRIT 27.9 % (32.4-45.2); HEMOGLOBIN 9.8 GM/dL (10.7-15.3); LYMPH % 43.5 % (8-40); MCH 28.1 pg (25.7-33.7); MCHC 35.4 g/dl (32.0-36.0); MEAN CELL VOLUME 79.6 fl (80-96); MEAN PLT VOLUME 7.8 fl (7.5-11.1); MONO % 8.4 % (3.8-10.2); PLATELET COUNT 413 10^3/uL (134-434); WHITE BLOOD COUNT 6.9 K/mm3 (4.0-10.0)
[2022-07-26] MEDS: CARVEDILOL 6.25 MG TABLET (FP) PO SCH ×2 (09:31→21:18)
[2022-07-26] MEDS: VALSARTAN 160 MG TABLET PO SCH (09:31)
[2022-07-26] MEDS: POTASSIUM CHLORIDE ORAL LIQUID 20 MEQ/15 ML PO SCH (09:32)
[2022-07-26] MEDS: amLODIPine BESYLATE 10 MG TABLET (FP) PO SCH (09:32)
[2022-07-26] MEDS: BUDESONIDE/FORMETEROL FUMARATE 160/4.5 mcg INHALER IH SCH ×2 (09:32→21:20)
[2022-07-26] MEDS: ACETAMINOPHEN 650 MG/20.3 ML ORAL SOLUTION (CUPS) PO PRN ×2 (09:41→21:18)
[2022-07-26] MEDS: ATORVASTATIN CA 20 MG TABLET (FP) PO SCH (21:18)
[2022-07-26] MEDS: MONTELUKAST NA 10 MG TABLET PO SCH (21:18)
[2022-07-27] MEDS: LEVOTHYROXINE NA 100 MCG TABLET (FP) PO SCH (06:00)
[2022-07-27] MEDS: ACETAMINOPHEN 650 MG/20.3 ML ORAL SOLUTION (CUPS) PO PRN (06:00)
[2022-07-27 07:08] LABS: HEMATOCRIT 28.5 % (32.4-45.2); HEMOGLOBIN 9.9 GM/dL (10.7-15.3); MCHC 34.6 g/dl (32.0-36.0); MEAN PLT VOLUME 7.8 fl (7.5-11.1); PLATELET COUNT 433 10^3/uL (134-434); RBC 3.52 M/mm3 (3.60-5.2); RDW 14.4 % (11.6-15.6); WHITE BLOOD COUNT 8.8 K/mm3 (4.0-10.0)
[2022-07-27] MEDS: BUDESONIDE/FORMETEROL FUMARATE 160/4.5 mcg INHALER IH SCH ×2 (09:53→21:52)
[2022-07-27] MEDS: POTASSIUM CHLORIDE ORAL LIQUID 20 MEQ/15 ML PO SCH (09:55)
[2022-07-27] MEDS: CARVEDILOL 6.25 MG TABLET (FP) PO SCH ×2 (09:57→21:52)
[2022-07-27] MEDS: VALSARTAN 160 MG TABLET PO SCH (09:57)
[2022-07-27] MEDS: amLODIPine BESYLATE 10 MG TABLET (FP) PO SCH (09:57)
[2022-07-27] MEDS: MONTELUKAST NA 10 MG TABLET PO SCH (21:52)
[2022-07-27] MEDS: ATORVASTATIN CA 20 MG TABLET (FP) PO SCH (21:52)
[2022-07-28] MEDS: LEVOTHYROXINE NA 100 MCG TABLET (FP) PO SCH (06:04)
[2022-07-28] MEDS: POTASSIUM CHLORIDE ORAL LIQUID 20 MEQ/15 ML PO SCH (09:22)
[2022-07-28] MEDS: VALSARTAN 160 MG TABLET PO SCH (09:24)
[2022-07-28] MEDS: ENOXAPARIN NA (PORCINE) 80 MG/0.8 ML DISP.SYRIN SQ SCH ×2 (09:24→21:33)
[2022-07-28] MEDS: BUDESONIDE/FORMETEROL FUMARATE 160/4.5 mcg INHALER IH SCH ×2 (09:25→21:35)
[2022-07-28] MEDS: amLODIPine BESYLATE 10 MG TABLET (FP) PO SCH (09:25)
[2022-07-28] MEDS: POLYETHYLENE GLYCOL (HEALTHYLAX) 3350 17 GM PACKET PO SCH ×2 (09:25→21:34)
[2022-07-28] MEDS: CARVEDILOL 6.25 MG TABLET (FP) PO SCH ×2 (09:25→21:33)
[2022-07-28] MEDS: LIDOCAINE HCL 5% TOP OINTMENT 50 GM TUBE TP SCH (10:33)
[2022-07-28] MEDS: MONTELUKAST NA 10 MG TABLET PO SCH (21:33)
[2022-07-28] MEDS: MELATONIN 5 MG TABLETS PO SCH (21:33)
[2022-07-28] MEDS: ATORVASTATIN CA 20 MG TABLET (FP) PO SCH (21:33)
[2022-07-28] MEDS: HYDROCORTISONE ACETATE 25 MG/SUPP.RECT RC SCH (21:34)
[2022-07-29] MEDS: LEVOTHYROXINE NA 100 MCG TABLET (FP) PO SCH (06:01)
[2022-07-29 06:55] LABS: BASO % 1.3 % (0-2.0); EOS % 0.6 % (0-4.5); HEMATOCRIT 30.1 % (32.4-45.2); HEMOGLOBIN 10.8 GM/dL (10.7-15.3); LYMPH % 32.6 % (8-40); MCH 28.3 pg (25.7-33.7); MCHC 35.8 g/dl (32.0-36.0); MEAN CELL VOLUME 79.1 fl (80-96); MONO % 6.4 % (3.8-10.2); NEUT % 59.1 % (42.8-82.8); PLATELET COUNT 450 10^3/uL (134-434); RBC 3.81 M/mm3 (3.60-5.2); RDW 14.4 % (11.6-15.6); WHITE BLOOD COUNT 8.7 K/mm3 (4.0-10.0)
[2022-07-29] MEDS: POTASSIUM CHLORIDE ORAL LIQUID 20 MEQ/15 ML PO SCH (10:54)
[2022-07-29] MEDS: CARVEDILOL 6.25 MG TABLET (FP) PO SCH ×2 (10:54→21:10)
[2022-07-29] MEDS: ENOXAPARIN NA (PORCINE) 80 MG/0.8 ML DISP.SYRIN SQ SCH (10:54)
[2022-07-29] MEDS: VALSARTAN 160 MG TABLET PO SCH (10:54)
[2022-07-29] MEDS: amLODIPine BESYLATE 10 MG TABLET (FP) PO SCH (10:54)
[2022-07-29] MEDS: POLYETHYLENE GLYCOL (HEALTHYLAX) 3350 17 GM PACKET PO SCH ×2 (10:55→21:13)
[2022-07-29] MEDS: BUDESONIDE/FORMETEROL FUMARATE 160/4.5 mcg INHALER IH SCH ×2 (10:56→21:13)
[2022-07-29] MEDS: LIDOCAINE HCL 5% TOP OINTMENT 50 GM TUBE TP SCH (10:56)
[2022-07-29] MEDS: MELATONIN 5 MG TABLETS PO SCH (21:09)
[2022-07-29] MEDS: APIXABAN 5 MG TABLET PO SCH (21:09)
[2022-07-29] MEDS: MONTELUKAST NA 10 MG TABLET PO SCH (21:09)
[2022-07-29] MEDS: ATORVASTATIN CA 20 MG TABLET (FP) PO SCH (21:09)
[2022-07-29] MEDS: HYDROCORTISONE ACETATE 25 MG/SUPP.RECT RC SCH (21:12)
[2022-07-30] MEDS: LEVOTHYROXINE NA 100 MCG TABLET (FP) PO SCH (06:17)
[2022-07-30] MEDS: ACETAMINOPHEN 650 MG/20.3 ML ORAL SOLUTION (CUPS) PO PRN (06:20)
[2022-07-30 09:26] VITALS: BP 109/71; PULSE 74; RESP 20; TEMP 98.8
[2022-07-30] MEDS ORDERED: POTASSIUM CHLORIDE TABS 10 MEQ TABLET.ER (FP) PO SCH (10:00)
[2022-07-30] MEDS: CARVEDILOL 6.25 MG TABLET (FP) PO SCH (10:51)
[2022-07-30] MEDS: VALSARTAN 160 MG TABLET PO SCH (10:51)
[2022-07-30] MEDS: amLODIPine BESYLATE 10 MG TABLET (FP) PO SCH (10:52)
[2022-07-30] MEDS: APIXABAN 5 MG TABLET PO SCH (10:52)
[2022-07-30] MEDS: POLYETHYLENE GLYCOL (HEALTHYLAX) 3350 17 GM PACKET PO SCH (10:52)
[2022-07-30] MEDS: LIDOCAINE HCL 5% TOP OINTMENT 50 GM TUBE TP SCH (10:54)
[2022-07-30] MEDS: BUDESONIDE/FORMETEROL FUMARATE 160/4.5 mcg INHALER IH SCH (10:54)
== END 2022-07-30 12:25 | disposition home or self-care (01) ==
LOC: JER 15:41 → JERBED 18:52 → J4S 22:59
PROVIDERS: ADMIT Internal Medicine; ATTEND Internal Medicine
PROC: 3E0F7SF Introduction of Other Gas into Respiratory Tract, Via Natural or Artificial Opening (ICD-10-PCS; principal; 2022-07-24)
PROC: 3E013GC Introduction of Other Therapeutic Substance into Subcutaneous Tissue, Percutaneous Approach (ICD-10-PCS; 2022-07-24)
DX: K92.2 Gastrointestinal hemorrhage, unspecified (principal); I10 Essential (primary) hypertension; I48.0 Paroxysmal atrial fibrillation; E11.9 Type 2 diabetes mellitus without complications; E78.5 Hyperlipidemia, unspecified; E03.9 Hypothyroidism, unspecified; J44.9 Chronic obstructive pulmonary disease, unspecified; D50.9 Iron deficiency anemia, unspecified; K21.9 Gastro-esophageal reflux disease without esophagitis; Z79.01 Long term (current) use of anticoagulants; Z88.6 Allergy status to analgesic agent; Z79.4 Long term (current) use of insulin; F41.9 Anxiety disorder, unspecified
CPT/HCPCS: 36415; 80048; 80053; 82272; 82962; 85025; 85027; 85610; 85730; 86850; 86900; 86901; 93005; 93010; 94640; 96372; 99285-25; C9803-CS; G0378; U0003; U0005